=== PATIENT | male | born 1960 | race Caucasian/White ===

== ENCOUNTER 2018-10-16 11:27 | Inpatient (IN) | payer BC ==
--- NOTE | 2018-10-16 12:59 | RAD REPORT ---
EXAM DESCRIPTION: RAD - Chest Single View - 10/16/2018 12:20 pm CLINICAL HISTORY: Abdominal pain, epigastric pain, shortness of breath COMPARISON: January 2016 TECHNIQUE: AP portable chest image was obtained 1215 hours . FINDINGS: Lung volumes are low. No peripheral mass or consolidation. No failure or volume overload. Heart and vasculature are normal. No measurable pleural effusion and no pneumothorax. No acute bony a bnormality seen. No acute aortic findings suspected. IMPRESSION: No acute cardiopulmonary process. No significant interval change.
[2018-10-16 13:32] LABS: Absolute Lymphocytes (CBC) 0.7 K/uL (0.7-4.9); Absolute Monocytes 0.9 K/uL (0.1-1.3); Absolute Neutrophil 14.6 K/uL (1.8-8.0); Basophils % 0.2 % (0-1.3); Hematocrit 52.6 % (39.6-49.0); Lymphocytes % 4.3 % (15.3-44.8); MPV 8.1 fL (7.6-11.3); Monocytes % 5.3 % (3.3-12.3); RBC Red Blood Cell Count 6.77 M/uL (4.33-5.43)
[2018-10-16 13:50] LABS: ALT/SGPT 1309 U/L (12-78); Albumin 3.7 g/dL (3.4-5.0); Alkaline Phosphatase 118 U/L (45-117); BUN Blood Urea Nitrogen 14 mg/dL (7-18); Bicarbonate 21 mmol/L (21-32); Bilirubin Total 4.2 mg/dL (0.2-1.0); Glucose Level 157 mg/dL (74-106); Lipase 4440 U/L (73-393); Potassium 4.2 mmol/L (3.5-5.1); Protein, Total 6.7 g/dL (6.4-8.2); Sodium Level 126 mmol/L (136-145); Troponin (Emerg Dept Use Only) < 0.02 ng/mL (0.0-0.045)
[2018-10-16 13:52] LABS: AST/SGOT 662 U/L (15-37)
[2018-10-16] MEDS ORDERED: Ringers Lactate 1,000 ML IV ONE (14:33)
--- NOTE | 2018-10-16 15:01 | RAD REPORT ---
EXAM DESCRIPTION: CT - Abdomen Pelvis W Contrast - 10/16/2018 2:23 pm CLINICAL HISTORY: Epigastric pain, abdominal pain COMPARISON: None. TECHNIQUE: Biphasic, helical CT imaging of the abdomen and pelvis was performed following 100 ml non -ionic IV contrast. No oral contrast given. All CT scans are performed using dose optimization technique as appropriate and may include automated exposure control or mA/KV adjustment according to patient size. FINDINGS: No suspicious findings in the lung bases. Liver shows diffuse fatty infiltration. No suspicious liver lesion. No splenic abnormality. Gallbladd er is distended but grossly unremarkable. No biliary tree dilatation. Gallstones can be occult. No solid or cystic mass of the pancreas. There is moderate peripancreatic edematous/ inflammatory st randing. There is a mild secondary involvement of the duodenum. Stranding extends along the right par arenal fascia. Symmetric renal function is seen with no hydronephrosis or suspicious renal mass. No pyelonephritis o r acute parenchymal process. No bladder abnormalities. No adrenal abnormalities. No acute gastric finding. Jejunum is prominent likely secondary response to the pancreatitis. No alonzo l obstruction. Hyperdense material within bowel is presumed to be ingested medication. No acute colon finding. Appendix is normal. No free air, free fluid or inflammatory stranding. No mass or bulky l ymphadenopathy. Postsurgical inguinal hernia repair changes are noted. No suspicious bony findings. IMPRESSION: Moderate acute pancreatitis. No abscess, pseudocyst or other emergent finding. There is mild secondary involvement of the duodenum from the pancreatitis. There is a mild secondary fluid retention pattern in jejunum also believed to be related to the pancreatitis.
--- NOTE | 2018-10-16 15:03 | RAD REPORT ---
EXAM DESCRIPTION: US - Abdomen Exam Limited - 10/16/2018 2:51 pm CLINICAL HISTORY: Abdominal pain, right upper quadrant pain COMPARISON: None. FINDINGS: No gallstones are identified. There is a small amount of sludge collecting near the neck o f the gallbladder. There is no wall thickening or pericholecystic fluid. No common duct stone or biliary tree dilatation identified. IMPRESSION: Gallbladder sludge with no other gallbladder or biliary tree finding.
[2018-10-16 15:10] LABS: Blood Morphology Comment NOT SEEN (NOT SEEN)
[2018-10-16 15:11] LABS: Platelet Estimate ADEQ
--- NOTE | 2018-10-16 15:13 | ER ---
Nurse's Notes [facility] Name: Kristopher Koehler Age: 58 yrs Sex: Male : 1960 Arrival Date: 10/16/2018 Time: 11:29 Bed 16 Private MD: Diagnosis: Acute pancreatitis Presentation: 10/16 11:41 Presenting complaint: Patient states: Epigastric pain and shortness of breath with sg abdominal distention unsure when it begins, pt reports " can livertitis cause shortness of breath." Clarified with pt of hepatitis, pt denies history of hepatitis, pt reports his name and birthday but it slow to respond, pt family reports he has a history of being altered when his labs get messed up. Transition of care: patient was not received from another setting of care. Onset of symptoms was October 16, 2018. Risk Assessment: Do you want to hurt yourself or someone else? Patient reports no desire to harm self or others. Initial Sepsis Screen: Does the patient meet any 2 criteria? RR > 20 per min. Does the patient have a suspected source of infection? No. Patient's initial sepsis screen is negative. Care prior to arrival: None. 11:41 Method Of Arrival: Ambulatory sg 11:41 Acuity: RADHA 3 sg Historical: - Allergies: 11:41 Codeine; sg - Home Meds: 11:41 Keppra 1,000 mg Oral tab 1 tab every 12 hours [Active]; levothyroxine 100 mcg tab 1 tab sg once daily [Active]; Ziac 5-6.25 mg Oral tab [Active]; - PMHx: 11:50 Hypertension; Hypothyroidism; raynaud's syndrome; Insulin Resistance; rb1 - PSHx: 11:50 Hernia repairs x 3; right wrist; ACL; rb1 - Immunization history:: Adult Immunizations up to date. - Social history:: Smoking status: Patient/guardian denies using tobacco. - Ebola Screening: : Patient negative for fever greater than or equal to 101.5 degrees Fahrenheit, and additional compatible Ebola Virus Disease symptoms Patient denies exposure to infectious person Patient denies travel to an Ebola-affected area in the 21 days before illness onset No symptoms or risks identified at this time. Screenin:36 Abuse screen: Denies threats or abuse. Nutritional screening: No deficits noted. rb1 Tuberculosis screening: No symptoms or risk factors identified. Fall Risk None identified. Assessment: 11:35 General: Appears in no apparent distress. comfortable, Behavior is calm, cooperative, rb1 Denies fever. Pain: Complains of pain in epigastric area Pain currently is 10 out of 10 on a pain scale. Neuro: Level of Consciousness is awake, alert, obeys commands, Oriented to person, place, time, situation. Cardiovascular: Capillary refill < 3 seconds is brisk in bilateral fingers. Respiratory: Reports shortness of breath Airway is patent Respiratory effort is even, unlabored, Respiratory pattern is regular, symmetrical. GI: Bowel sounds present X 4 quads. Reports nausea, vomiting, Last BM was yesterday, stool was soft. : No signs and/or symptoms were reported regarding the genitourinary system. Derm: Skin is pink, warm \\T\\ dry. Musculoskeletal: Range of motion: intact in all extremities. 11:35 GI: Abdomen is tender to palpation in epigastric area. rb1 12:30 Reassessment: Patient appears in no apparent distress at this time. Patient and/or rb1 family updated on plan of care and expected duration. Pain level reassessed. Patient is alert, oriented x 3, equal unlabored respirations, skin warm/dry/pink. 13:30 Reassessment: Patient appears in no apparent distress at this time. No changes from rb1 previously documented assessment. 14:27 Reassessment: Pt. went to CT. rb1 15:15 Reassessment: Patient appears in no apparent distress at this time. Patient and/or rb1 family updated on plan of care and expected duration. Pain level reassessed. Patient is alert, oriented x 3, equal unlabored respirations, skin warm/dry/pink. 16:15 Reassessment: Patient appears in no apparent distress at this time. No changes from rb1 previously documented assessment. pt. requested pain medication; provider notified. 17:15 Reassessment: Dr. Celestin is at pt bedside. rb1 17:15 Reassessment: Patient appears in no apparent distress at this time. Patient and/or rb1 family updated on plan of care and expected duration. Pain level reassessed. Patient is alert, oriented x 3, equal unlabored respirations, skin warm/dry/pink. 17:48 Reassessment: Tried to call report, DELONTE Xavier is not able to take report at this time rb1 because she is discharging another pt. She will call me back. 17:55 Reassessment: Gave report to DELONTE Xavier. Information from the [facility] was given. All rb1 questions asked and answered. 18:10 Reassessment: Patient appears in no apparent distress at this time. Patient and/or rb1 family updated on plan of care and expected duration. Pain level reassessed. Patient is alert, oriented x 3, equal unlabored respirations, skin warm/dry/pink. Waiting for someone to be available to take the pt. to the floor. Vital Signs: 11:43 BP 152 / 77; Pulse 96; Resp 22; Temp 97.2; Pulse Ox 93% on R/A; Weight 125.19 kg; Pain sg 8/10; 12:30 BP 134 / 96; Pulse 99; Resp 18; Pulse Ox 95% on 2 lpm NC; rb1 13:00 BP 133 / 88; Pulse 90; Resp 19; Pulse Ox 97% on R/A; rb1 14:00 BP 128 / 78; Pulse 77; Resp 18; Pulse Ox 97% on 2 lpm NC; rb1 16:00 BP 117 / 56; Pulse 77; Resp 19; Pulse Ox 96% on 2 lpm NC; Pain 8/10; rb1 17:00 BP 118 / 69; Pulse 80; Resp 20; Pulse Ox 96% on 2 lpm NC; rb1 18:00 BP 131 / 71; Pulse 76; Resp 19; Pulse Ox 96% on 2 lpm NC; rb1 ED Course: 11:29 Patient arrived in ED. as 11:31 Archana Oliveira, DELONTE is Primary Nurse. rb1 11:36 Rob Bucio PA is PHCP. [facility] 11:36 Gigi Cash MD is Attending Physician. m 11:36 Patient has correct armband on for positive identification. Bed in low position. Call rb1 light in reach. Side rails up X 1. Pulse ox on. NIBP on. Warm blanket given. 11:41 Arm band placed on. sg 11:43 Triage completed. sg 12:00 Radiology exam delayed due to lab results not completed at this time. (BUN/Creatinine). kw1 12:17 X-ray completed. Portable x-ray completed in exam room. Patient tolerated procedure ls3 well. 12:20 Chest Single View XRAY In Process Unspecified. EDMS 13:15 Missed attempt(s): 20 gauge in left antecubital area. Bleeding controlled, band aid dh3 applied, catheter tip intact. 13:18 Initial lab(s) drawn, by me, sent to lab. Inserted saline lock: 24 gauge in left hand, dh3 using aseptic technique. Blood collected. 13:53 Notified ED physician of a critical lab result(s). AST 662, ALT 1309, lipase 4440. hb 14:24 CT Abd/Pelvis - W/Contrast In Process Unspecified. EDMS 14:49 Ultrasound completed. Patient tolerated well. sg3 14:52 US Abdomen Limited In Process Unspecified. EDMS 15:13 Paulette Celestin MD is Hospitalizing Provider. m 18:24 No provider procedures requiring assistance completed. Patient admitted, IV remains in rb1 place. Administered Medications: 14:25 Drug: Lactated Ringers Solution 1000 ml Route: IV; Rate: 1000 bolus; Site: right hand; rb1 15:37 Follow up: IV Status: Completed infusion rb1 16:39 Drug: Zosyn 3.375 grams Route: IVPB; Infused Over: 60 mins; Site: right hand; rb1 17:44 Follow up: Response: No adverse reaction; IV Status: Completed infusion rb1 16:39 Drug: NS 0.9% 2000 ml Route: IV; Rate: 200 ml/hr; Site: right hand; rb1 18:20 Follow up: IV Status: Infusion continued upon admission rb1 Outcome: 15:13 Decision to Hospitalize by Provider. m 18:24 Patient left the ED. rb1 18:24 Admitted to Med/surg accompanied by tech, family with patient, via wheelchair, room rb1 216, with oxygen, with chart, Report called to DELONTE Xavier 18:24 Condition: stable 18:24 Instructed on the need for admit. Signatures: Dispatcher [employer] EDMS Charles Macario RN RN Rob Bucio PA PA jmm Martinez, Amelia as Barber, Rebecca, RN DELONTE [facility] Erinn Monroe RN RN Carlee Oglesby 3 Kerri Pedroza1 Hillary Morrow 3 Leonel Perla ls3
--- NOTE | 2018-10-16 15:13 | EDPHYS ---
Physician Documentation [facility] Name: Kristopher Koehler Age: 58 yrs Sex: Male : 1960 Arrival Date: 10/16/2018 Time: 11:29 Bed 16 Private MD: ED Physician Gigi Cash HPI: 10/16 11:49 This 58 yrs old Male presents to ER via Ambulatory with complaints of jmm Abdominal Pain, Shortness Of Breath, Altered Mental Status. 11:49 The patient presents with abdominal pain in the epigastric area, in the upper abdomen. jmm Onset: The symptoms/episode began/occurred gradually, 4 day(s) ago. The symptoms. Associated signs and symptoms: Pertinent positives: nausea and vomiting, diarrhea. The patient has experienced a previous episode. This is a 58 year old male that presents to the ED with epigastric abdominal pain, distension, diarrhea, vomiting, beginning approx 4 days ago. Patient states having similar symptoms in the past. Patient has a surgical history of exploratory laparotomy secondary to similar symptoms. Patient also complains of shortness of breath but denies chest pain. . Historical: - Allergies: 11:41 Codeine; sg - Home Meds: 11:41 Keppra 1,000 mg Oral tab 1 tab every 12 hours [Active]; levothyroxine 100 mcg tab 1 tab sg once daily [Active]; Ziac 5-6.25 mg Oral tab [Active]; - PMHx: 11:50 Hypertension; Hypothyroidism; raynaud's syndrome; Insulin Resistance; rb1 - PSHx: 11:50 Hernia repairs x 3; right wrist; ACL; rb1 - Immunization history:: Adult Immunizations up to date. - Social history:: Smoking status: Patient/guardian denies using tobacco. - Ebola Screening: : Patient negative for fever greater than or equal to 101.5 degrees Fahrenheit, and additional compatible Ebola Virus Disease symptoms Patient denies exposure to infectious person Patient denies travel to an Ebola-affected area in the 21 days before illness onset No symptoms or risks identified at this time. ROS: 11:49 Constitutional: Negative for fever, chills, and weight loss, Cardiovascular: Negative jmm for chest pain, palpitations, and edema. 11:49 Respiratory: Positive for shortness of breath. 11:49 Abdomen/GI: Positive for abdominal pain, nausea and vomiting, diarrhea. 11:49 All other systems are negative. Exam: 11:49 Head/Face: atraumatic. Eyes: EOMI, no conjunctival erythema appreciated ENT: Moist [facility] Mucus Membranes Neck: Trachea midline, Supple Chest/axilla: Normal chest wall appearance and motion. Cardiovascular: Regular rate and rhythm. No edema appreciated Respiratory: Normal respirations, no respiratory distress appreciated 11:49 Constitutional: The patient appears in no acute distress, alert, awake. 11:49 Respiratory: the patient does not display signs of respiratory distress, Respirations: normal, Breath sounds: are clear throughout. 11:49 Abdomen/GI: Inspection: distension, that is mild, obese Bowel sounds: normal, Palpation: soft, mild abdominal tenderness, in the right upper quadrant and left upper quadrant. 11:49 Back: ROM is normal. 11:49 Musculoskeletal/extremity: ROM: intact in all extremities. 11:49 Skin: Appearance: Color: normal in color. 11:49 Neuro: Orientation: is normal, Mentation: is normal, Memory: is normal. 11:49 Psych: Behavior/mood is pleasant, cooperative. Vital Signs: 11:43 BP 152 / 77; Pulse 96; Resp 22; Temp 97.2; Pulse Ox 93% on R/A; Weight 125.19 kg; Pain sg 8/10; 12:30 BP 134 / 96; Pulse 99; Resp 18; Pulse Ox 95% on 2 lpm NC; rb1 13:00 BP 133 / 88; Pulse 90; Resp 19; Pulse Ox 97% on R/A; rb1 14:00 BP 128 / 78; Pulse 77; Resp 18; Pulse Ox 97% on 2 lpm NC; rb1 16:00 BP 117 / 56; Pulse 77; Resp 19; Pulse Ox 96% on 2 lpm NC; Pain 8/10; rb1 17:00 BP 118 / 69; Pulse 80; Resp 20; Pulse Ox 96% on 2 lpm NC; rb1 18:00 BP 131 / 71; Pulse 76; Resp 19; Pulse Ox 96% on 2 lpm NC; rb1 MDM: 11:49 Patient medically screened. [facility] 15:12 Data reviewed: vital signs, nurses notes. Counseling: I had a detailed discussion with [facility] the patient and/or guardian regarding: the historical points, exam findings, and any diagnostic results supporting the discharge/admit diagnosis, lab results, radiology results, the need for further work-up and treatment in the hospital. ED course: I discussed the patient with Dr. Celestin whom accepted admission. . 10/16 11:50 Order name: Basic Metabolic Panel; Complete Time: 13:54 [facility] 10/16 11:50 Order name: CBC with Diff; Complete Time: 15:27 [facility] 10/16 11:50 Order name: Creatinine for Radiology; Complete Time: 13:54 [facility] 10/16 11:50 Order name: Hepatic Function; Complete Time: 13:54 [facility] 10/16 11:50 Order name: Lipase; Complete Time: 13:54 [facility] 10/16 11:50 Order name: Troponin (emerg Dept Use Only); Complete Time: 13:54 [facility] 10/16 11:50 Order name: IV Saline Lock; Complete Time: 16:03 [facility] 10/16 11:50 Order name: Chest Single View XRAY; Complete Time: 13:17 [facility] 10/16 11:50 Order name: CT Abd/Pelvis - W/Contrast; Complete Time: 15: [facility] 10/16 13:34 Order name: Manual Differential; Complete Time: 15:27 [facility] 10/16 13:53 Order name: US Abdomen Limited; Complete Time: 15: [facility] 10/16 11:50 Order name: Labs collected and sent; Complete Time: 16:03 [facility] 10/16 11:50 Order name: EKG - Nurse/Tech; Complete Time: 16:41 jm Administered Medications: 14:25 Drug: Lactated Ringers Solution 1000 ml Route: IV; Rate: 1000 bolus; Site: right hand; rb1 15:37 Follow up: IV Status: Completed infusion rb1 16:39 Drug: Zosyn 3.375 grams Route: IVPB; Infused Over: 60 mins; Site: right hand; rb1 17:44 Follow up: Response: No adverse reaction; IV Status: Completed infusion rb1 16:39 Drug: NS 0.9% 2000 ml Route: IV; Rate: 200 ml/hr; Site: right hand; rb1 18:20 Follow up: IV Status: Infusion continued upon admission rb1 Disposition: 10/17 07:04 Co-signature as Attending Physician, Gigi Cash MD. rn Disposition: 10/16/18 15:13 Hospitalization ordered by Paulette Celestin for Observation. Preliminary diagnosis is Acute pancreatitis. - Bed requested for Telemetry/MedSurg (observation). - Status is Observation. rb1 - Condition is Stable. - Problem is new. - Symptoms are unchanged. UTI on Admission? No Signatures: Dispatcher [employer] EDCharles Jaramillo, RN RN Rob Mckinney PA PA jmm Nieto, Roman, MD MD rn Barber, Rebecca, RN RN rb1 Ann Melvin Corrections: (The following items were deleted from the chart) 10/16 16:09 15:13 Hospitalization Ordered by Paulette Celestin MD for Observation. Preliminary diagnosis eb is Acute pancreatitis. Bed requested for Telemetry/MedSurg (observation). Status is Observation. Condition is Stable. Problem is new. Symptoms are unchanged. UTI on Admission? No. [facility] 18:24 16:09 10/16/2018 15:13 Hospitalization Ordered by Paulette Celestin MD for Observation. rb1 Preliminary diagnosis is Acute pancreatitis. Bed requested for Telemetry/MedSurg (observation). Status is Observation. Condition is Stable. Problem is new. Symptoms are unchanged. UTI on Admission? No. eb
[2018-10-16] MEDS ORDERED: PIPER/TAZO/NS 3.375gm 0 GM/0 ML BAG ONE (16:28)
[2018-10-16] MEDS ORDERED: NA CHLORIDE 0.9% 2,000 ML ONE (16:28)
[2018-10-16] MEDS ORDERED: PIPER/TAZO/NS 3.375gm 3.375 GM/100 ML BAG ONE (16:36)
[2018-10-16] MEDS ORDERED: ONDANSETRON 4 MG/2 ML VIAL ONE (16:54)
[2018-10-16] MEDS ORDERED: MORPHINE 4 MG/ML SYR ONE (16:54)
[2018-10-16] MEDS: NA CHLORIDE 0.9% 1,000 ML IV SCH ×2 (19:09→20:42)
[2018-10-16] MEDS ORDERED: ACETAMINOPHEN 650MG/RECT SUPP RECT PRN (19:09)
[2018-10-16] MEDS ORDERED: ONDANSETRON 4 MG/2 ML VIAL IV PRN (19:09)
[2018-10-16] MEDS ORDERED: MORPHINE 2 MG/ML SYR IV PRN (19:09)
[2018-10-16] MEDS: MORPHINE 4 MG/ML SYR IV PRN (21:50)
[2018-10-17] MEDS ORDERED: PIPER/TAZO/NS 3.375gm 3.375 GM/100 ML BAG ONE (00:48)
[2018-10-17] MEDS: PIPER/TAZO/NS 3.375gm 3.375 GM/100 ML BAG IVPB SCH ×4 (01:06→17:36)
[2018-10-17] MEDS: NA CHLORIDE 0.9% 1,000 ML IV SCH ×4 (01:08→21:49)
[2018-10-17 02:36] VITALS: BMI 25.2
--- NOTE | 2018-10-17 04:41 | HP ---
Date of Admission: 10/16/2018 Consultants: Dr. Vallejo with GI. Chief Complaint: Abdominal pain. History Of Present Illness: The patient is a 58-year-old male with past medical history of hypertens ion, hypothyroidism, who was in his usual state of health until 4 days prior to admission when the pa lisa had sudden onset of abdominal pain, nausea, vomiting, 1 episode of diarrhea along with some silvano phoresis. The patient otherwise denies any fevers, chills. His pain is sharp. It does radiate to t he back in between his shoulder blades. The patient is unable to tolerate any p.o. diet. The patien t's symptoms are constant, moderate, progressively worsening. The patient came into the ER for furth er evaluation. His workup revealed sodium of 126. His liver function enzymes were severely elevated . His total bilirubin was high and his lipase was over 4000. WBC count was elevated with left shift . CT scan of the abdomen and pelvis showed moderate acute pancreatitis. No abscess or pseudocyst. Mild secondary involvement of the duodenum and fluid retention pattern in the jejunum related to the pancreas. Ultrasound of the gallbladder did not show any ductal dilatation, but did show some gallbl adder sludge. No stones in the common bile duct. The patient was then referred for admission. Past Medical History: Hypertension, hypothyroidism. Surgical History: Umbilical hernia repair. Family History: Mom had breast cancer. Social History: The patient denies any tobacco use. Does drink a couple of beers on his days off. 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 Not . Single. Medications: List reviewed. Allergies: TO CODEINE, WHICH CAUSES HIM TO ITCH. Review of Systems: An 11-point system reviewed, negative except as per HPI. Physical Examination: Vital Signs: Blood pressure is 152/77, pulse 96, respirations 22, temperature 97.2, O2 93% on room a ir. General: Awake, alert, oriented x3, in some mild distress due to pain. Ill-appearing male, obese. HEENT: Normocephalic, atraumatic. PERRLA. EOMI. Dry mucous membranes. Oropharynx is clear. Norm al dentition. Conjunctivae are anicteric. Neck: Supple. No JVD. Trachea midline. CVS: S1, S2. Regular rate and rhythm. Peripheral pulses present. Respiratory: Moving air well bilaterally. No wheezing or stridor. No use of accessory muscles. Gastrointestinal: Abdomen is soft. Tenderness to palpation in the epigastric and right upper quadra nt area. No rebound or guarding. Bowel sounds are hypoactive. No masses palpable. The patient has surgical incision, which is well healed from the umbilical hernia. Extremities: No clubbing, cyanosis, or edema. No calf tenderness. Neuro: Cranial nerves 2 through 12 intact grossly. No focal neurological deficit. Speech is normal . Skin: No rashes. Normal skin turgor. Psych: Mood is okay. Affect is flat. Insight and judgment are fair. Laboratory Data: Sodium 126, potassium 4.2, chloride 88, CO2 21, BUN 14, creatinine 0.98, glucose 15 7, calcium 8.2. Total bilirubin 4.2, direct bilirubin 2, AST 662, ALT 1309, alkaline phosphatase 118 . Troponin less than 0.02. Albumin 3.7. Lipase 4440. WBC 16.2, H and H 17.2 and 52.6, platelets 2 35, neutrophils 90%. CT scan of the abdomen and pelvis with contrast shows moderate acute pancreatitis. No abscess, pseud ocyst, or other emergent findings. There is mild secondary involvement of the duodenum from the panc reatitis. There is a mild secondary fluid retention pattern in the jejunum, possibly to be related t o the pancreatitis. Ultrasound of the abdomen shows gallbladder sludge with no other gallbladder or biliary tree finding. Chest x-ray shows no acute cardiopulmonary process. I personally reviewed. Assessment And Plan: A 58-year-old male with: 1.Acute pancreatitis, likely secondary to gallstones, may have recently passed a stone. Bilirubin i s elevated. White count is elevated. Liver enzymes and lipase are elevated. We will keep n.p.o., s tart on IV antibiotics prophylactically. Start on IV fluids. Dr. Vallejo with GI has been consulted. We will obtain MRCP on Thursday. The patient will likely need surgical consultation for cholecystect eliza once pancreatitis has improved. There is no abscess or pseudocyst. Possible infection may be de veloping due to stranding present. Therefore, we will cover with IV antibiotics. The patient does n ot appear septic at this time. 2.Obesity. 3.Essential hypertension. We will resume home medications as appropriate. 4.Hyponatremia. We will check serum osmolality. Hypovolemic. We will continue with IV fluids and monitor sodium level. 5.Hyperbilirubinemia, likely has recent blockage or secondary to sludge. 6.Elevated liver enzymes secondary to above. 7.Hypothyroidism. Continue Synthroid. Plan: Admit the patient to Med-Surg, place as inpatient. ZHEN Voice ID: [id number]
[2018-10-17 05:38] LABS: Absolute Lymphocytes (CBC) 0.7 K/uL (0.7-4.9); Absolute Monocytes 1.2 K/uL (0.1-1.3); Absolute Neutrophil 18.7 K/uL (1.8-8.0); Basophils % 0.1 % (0-1.3); Lymphocytes % 3.3 % (15.3-44.8); MPV 8.7 fL (7.6-11.3); Monocytes % 5.8 % (3.3-12.3); RBC Red Blood Cell Count 6.27 M/uL (4.33-5.43)
[2018-10-17 06:05] LABS: Magnesium 1.7 mg/dL (1.8-2.4); Protein, Total 5.4 g/dL (6.4-8.2)
[2018-10-17 06:07] LABS: Bilirubin Total 7.6 mg/dL (0.2-1.0)
[2018-10-17 08:49] LABS: Blood Morphology Comment NOT SEEN (NOT SEEN); Platelet Estimate ADEQ; Urine White Blood Cell Casts OK
[2018-10-17] MEDS ORDERED: NA CHLORIDE 0.9% 1,000 ML IV ONE (08:49)
[2018-10-17] MEDS ORDERED: VANCOMYCIN 500 MG in NA CHLORIDE 0.9% 100 ML IVPB ONE (09:00)
[2018-10-17] MEDS ORDERED: MAGNESIUM SULFATE 1 gm IVPB 1 GM/100 ML BAG IV ONE (09:00)
[2018-10-17] MEDS: VANCOMYCIN 1.5 GM in NA CHLORIDE 0.9% 500 ML IVPB SCH (10:37)
[2018-10-17] MEDS ORDERED: CEFEPIME 2 GM VIAL IV SCH (13:00)
[2018-10-17 13:01] LABS: Protime INR 1.41
[2018-10-17] MEDS ORDERED: NA CHLORIDE 0.9% 1,000 ML IV SCH (13:22)
--- NOTE | 2018-10-17 13:50 | PN ---
Date of Progress Note: 10/17/2018 History: Patient seen and examined. Chart reviewed and case discussed with RN. Spoke with the tim ent's brother. Treatment plan explained, all questions answered. Brother mentioned that he suspects that the patient has been found with substance abuse, using Ambien and possibly even alcohol to help him sleep. 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 Has been found down, once requi red ICU stay at [facility]. Brother is also worried about the patient's mental health and co ncern about his overall well-being. Feels that the patient may be working too much. The patient sta osito that he still has some abdominal discomfort overall. No nausea or vomiting. Asking for some wate r. Medications: List reviewed. Physical Examination: Vital Signs: Temperature 98.3, heart rate 112, blood pressure 112/60, respirations 20, O2 92% on susan m air. General: Awake, alert, oriented x3, in some mild distress. Ill-appearing male CV: S1, S2. Sinus tachycardia. No murmurs. Peripheral pulses present. Respiratory: Moving air well bilaterally. No wheezing or stridor. Gastrointestinal: Abdomen is soft. Mild tenderness to palpation. Nondistended. Positive bowel lety nds. Extremities: No clubbing, cyanosis, or edema. Neuro: Nonfocal. Laboratory Data: Sodium 126, potassium 5, chloride 91, CO2 22, BUN 13, creatinine 1.35, glucose 164, serum osmolality 267. Lactic acid 5.3, calcium 7.5, magnesium 1.7, total bilirubin 7.6, AST 384, AL T 826, albumin 3, amylase 588, lipase 3778. WBC 20.6, H and H 16 and 50, platelets 137, neutrophils 90%, no bands. Blood cultures pending. Assessment And Plan: A 58-year-old male with: 1.Acute pancreatitis, likely secondary to gallstones. May have recently passed a stone. His total b ilirubin is elevated at 7. Liver enzymes are trending down, however, still elevated. Lipase slightl y down. Keep n.p.o. We will start on some ice chips. Continue IV antibiotics. Dr. Vallejo on board . Will need MRCP on Thursday, possible ERCP. Surgical consultation for cholecystectomy once pancreatit is has improved. There is no abscess or pseudocyst. 2.Possible ascending cholangitis. We will adjust IV antibiotics. Patient appears to be becoming se ptic, has elevated lactate, white blood cell count trending upward. The patient is tachycardic. No fevers. We will start on IV fluid bolus and we will monitor. The patient does have elevated creatini ne now. 3.Acute kidney injury. Continue IV fluids. Monitor creatinine. Avoid NSAIDs. 4.Essential hypertension, stable. 5.Hyponatremia, hypovolemic. Serum osmolality is 267. Sodium level still 126. We will continue to monitor and replace. 6.Hyperbilirubinemia, secondary to above. 7.Elevated liver enzymes, improving. 8.Hypothyroidism. Continue Synthroid. 9.Gastrointestinal and deep venous thrombosis prophylaxis addressed. Plan: Monitor closely. Possible sepsis. Guarded prognosis. /CHUCK Voice ID: [id number] Report ID: [id number]
[2018-10-17] MEDS ORDERED: CEFOXITIN/SWI 2gm 2 GM/20 ML SYR IVP SCH (14:00)
[2018-10-17] MEDS ORDERED: GENTAMICIN SULF 80 MG/2ML INJ ONE (16:35)
[2018-10-17] MEDS ORDERED: GLUCAGON 1 MG/VIAL ONE (16:35)
[2018-10-17] MEDS ORDERED: Phenylephrine HCl 10 MG/ML 1 ML VIAL ONE (18:33)
[2018-10-17] MEDS ORDERED: LIDOCAINE 1% MPF 2 ML AMPULE ONE (18:33)
[2018-10-17] MEDS ORDERED: PROPOFOL 200 MG/20 ML VIAL IV ONE ×2 (18:33)
--- NOTE | 2018-10-17 19:24 | ENDO RPT ---
[address], [address] ERCP PROCEDURE REPORT EXAM DATE: 10/17/2018 PATIENT NAME: Kristopher Koehler MR #: [id number] BIRTHDATE: 1960 ATTENDING: Owen Vallejo Dr STATUS: inpatient PLATFORM INSPECTOR: Rebecca Beasley and Kalli Cervantes RN INDICATIONS: The patient is a 58 yr old Male here for an ERCP due to gallstone pancreatitis, abdominal pain, abnormal imaging, abnormal Liver Function Tests, jaundice, and cholangitis PROCEDURE PERFORMED: ERCP MEDICATIONS: Per Anesthesia. CONSENT: The patient understands the risks and benefits of the procedure and understands that these risks include, but are not limited to: sedation, allergic reaction, infection, perforation and/or bleeding. Alternative means of evaluation and treatment include, among others: physical exam, x-rays, and/or surgical intervention. The patient elects to proceed with this endoscopic procedure. DESCRIPTION OF PROCEDURE: During intra-op preparation period all mechanical medical equipment was checked for proper function. Hand hygiene and appropriate measures for infection prevention was taken. Procedure, possible complications, and alternatives including but not limited to the possibility of bleeding, perforation, tear, infection, sepsis, need for surgery, need for blood transfusion, and anesthesia related complications were explained to the patient. In addition, 5-30% incidence of acute pancreatitis as a result of ERCP were explained. After the risks, benefits and alternatives of the procedure were thoroughly explained, Informed was verified, confirmed and timeout was successfully executed by the treatment team. With the patient in left semi-prone position, medications were administered intravenously.The [id number] ([id number]) was passed from the mouth into the esophagus and further advanced from the esophagus into the stomach. From stomach scope was directed to the second portion of the duodenum. Major papilla was aligned with the duodenoscope. The scope position was confirmed fluoroscopically. Rest of the findings/therapeutics are given below. The scope was then completely withdrawn from the patient and the procedure completed. The pulse, BP, and O2 saturation were monitored and documented by the physician and the nursing staff throughout the entire procedure. The patient was cared for as planned according to standard protocol. The patient was then discharged to recovery in stable condition and with appropriate post procedure care. Marked edema / inflammation was found in the second portion of the duodenum. Gastritis noted in the stomach body. ADVERSE EVENT: There were no complications. IMPRESSIONS: 1. Marked edema / inflammation in the second portion of the duodenum, unable keep possible ampulla in sight and cannulate safely 2. Gastritis noted in the stomach body RECOMMENDATIONS: 1. continue antibiotics 2. transfer to tertiary center for either advance endoscopic procedure or percutaneous biliary stent placement by interventional radiology (if endoscopic approach not possible) REPEAT EXAM: Owen Vallejo Dr eSigned: Owen Vallejo Dr 10/17/2018 7:22 PM cc: CPT CODES: ICD9 CODES: PATIENT NAME: Kristopher Koehler MR#: [id number]
--- NOTE | 2018-10-17 21:23 | RAD REPORT ---
EXAM DESCRIPTION: RAD - Fluoroscopy ERCP - 10/17/2018 7:40 pm CLINICAL HISTORY: Abdominal pain FINDINGS: Four fluoroscopic spot images submitted. Fluoroscopy time 1.[address] Vallejo performed the examination. he attempted to perform an ERCP however the common bile duct and pancreatic duct were unable to be ca nnulated
[2018-10-17] MEDS: MORPHINE 4 MG/ML SYR IV PRN (22:07)
[2018-10-17] MEDS ORDERED: LORazepam 2 MG/ML VIAL IV STA (23:29)
[2018-10-18] MEDS: PIPER/TAZO/NS 3.375gm 3.375 GM/100 ML BAG IVPB SCH ×3 (00:48→16:48)
[2018-10-18] MEDS ORDERED: LORazepam 2 MG/ML VIAL IV ONE (01:00)
[2018-10-18] MEDS ORDERED: WATER FOR INJ,STERILE 10 ML IM PRN (01:28)
[2018-10-18] MEDS ORDERED: ZIPRASIDONE MESYLA 20 MG/VIAL IM ONE ×2 (01:28→01:35)
[2018-10-18] MEDS ORDERED: WATER FOR INJ,STERILE 10 ML ONE (01:35)
[2018-10-18] MEDS: MORPHINE 4 MG/ML SYR IV PRN ×4 (03:19→18:20)
[2018-10-18 03:48] VITALS: O2SAT 94
[2018-10-18] MEDS: VANCOMYCIN 1.5 GM in NA CHLORIDE 0.9% 500 ML IVPB SCH (04:49)
[2018-10-18] MEDS: NA CHLORIDE 0.9% 1,000 ML IV SCH ×3 (04:49→17:48)
[2018-10-18 05:36] LABS: Absolute Lymphocytes (CBC) 0.7 K/uL (0.7-4.9); Absolute Monocytes 0.9 K/uL (0.1-1.3); Absolute Neutrophil 13.4 K/uL (1.8-8.0); Basophils % 0.2 % (0-1.3); Eosinophils % 0.2 % (0-4.4); Lymphocytes % 4.6 % (15.3-44.8); MPV 9.1 fL (7.6-11.3); Monocytes % 5.7 % (3.3-12.3); RBC Red Blood Cell Count 6.09 M/uL (4.33-5.43)
[2018-10-18 06:16] LABS: Albumin 2.6 g/dL (3.4-5.0); Magnesium 2.2 mg/dL (1.8-2.4); Protein, Total 5.1 g/dL (6.4-8.2)
[2018-10-18 06:19] LABS: Bilirubin Total 6.9 mg/dL (0.2-1.0)
[2018-10-18] MEDS ORDERED: SOD POLYSTYREN SUL 15 GM/60 ML UCUP PR ONE (06:47)
[2018-10-18] MEDS ORDERED: CALCIUM GLUC 10% INJ 4.65 MEQ in NA CHLORIDE 0.9% 100 ML IV ONE (06:47)
[2018-10-18] MEDS ORDERED: LIDOCAINE 1% 20 ML MDV ONE (10:26)
[2018-10-18] MEDS ORDERED: HALOPERIDOL LACT 5 MG/ML INJ IM PRN (10:31)
[2018-10-18] MEDS ORDERED: HALOPERIDOL LACT 5 MG/ML INJ ONE (10:41)
--- NOTE | 2018-10-18 11:16 | P.OP ---
Preoperative diagnosis: Need for IV Access Postoperative diagnosis: Need for IV Access Primary procedure: Placement of RIGHT femoral central venous line Secondary procedure: Ultrasound guidance, micro introducer used Anesthesia: Local 1% lidocaine Estimated blood loss: <2cc Specimen: none Findings: Dark nonpulsatile blood returned Complications: None Transferred to: ICU Condition: Serious
--- NOTE | 2018-10-18 12:56 | CON ---
Date of Consultation: 10/18/2018 Reason For Consultation: Placement of a central venous catheter for IV access. Brief History Of Present Illness: The patient is a 58-year-old male with history of hypert ension, hypothyroidism, who came to the hospital on 10/16/2018 with 4-day history of abdominal pain, nausea, vomiting associated with some diarrhea and some diaphoresis. He denied fever or chills. His pain was sharp, radiating through the back between shoulder blades. He was unable to tolerate any p .o., as such he came in the hospital. At the point of my examination, the patient was essentially di soriented and could not answer questions appropriately and as such the information is obtained from t he chart as the patient is currently minimally verbal. Workup revealed sodium on admission of 126. Liver function tests were elevated with his bilirubin an d lipase elevated. CT abdomen was performed as well. He was brought in with a presumptive diagnosis of pancreatitis. Past Medical History: As above, hypertension, hypothyroidism. Past Surgical History: He has an umbilical hernia repair. Family History: His mother had breast cancer. Social History: No tobacco use. He drinks a few beers on his days off socially. He works at a [employer] and lives independently. Not . He is single. Allergies: TO CODEINE, WHICH CAUSES AN ITCH. Home Medications: Unable to obtain due to patient's mental status. Review of Systems: Unable to obtain. Physical Examination: Vital Signs: At the time of my examination, blood pressure 94/50, pulse is 126, respiratory rate 21, temperature 97.0. General: He is awake. He is alert but nonverbal. He becomes lethargic intermittently throughout my examination but is easily arousable and does answer some questions, but mostly nonverbal. HEENT: Otherwise normocephalic. His sclerae are anicteric. His mucous membranes are moist. His or opharynx is clear. Neck: Supple. No JVD. Chest: Normal expansion and excursion. Cardiovascular: Tachycardic. Abdomen: Soft with positive epigastric tenderness to palpation. Extremities: No clubbing, cyanosis, edema. Skin: Warm and dry. Laboratory Data: Reveals a white blood count of 15, down from 20.6 on admission. His hemoglobin 15. 7, his hematocrit 49.0, platelet count is 114, neutrophils are 89%. His PT yesterday on 10/17 was 16 .7, his INR 1.41, PTT was 44.9. His sodium was 128, potassium 6.0, chloride 197, carbon dioxide 23, BUN 14, creatinine 1.3, glucose is 254. His lactic acid was 5.3 on admission, currently 2.9. His ca lcium was 6.6, magnesium is 2.2, total bilirubin is 6.9. His AST 198, ALT 487, alkaline phosphatase is 98. His lipase is 1314 currently down from 3778 on 10/17. He had imaging performed, which includ ed a CT abdomen and pelvis on 10/16, which is officially read as moderate acute pancreatitis. No abs cesses, pseudocyst. There are no emergent finding. There is mild secondary involvement of the duode num from the pancreatitis, mild secondary fluid retention pattern in the jejunum believed to be relat ed to the pancreatitis. In addition, he had a chest x-ray performed, which was officially read as no acute cardiopulmonary processes. He had an abdominal ultrasound as well, which was officially read as gallbladder sludge with no other gallbladder or biliary tree finding. He also had a fluoroscopy w ith Dr. Vallejo. Please see his interpretation for this. Assessment And Plan: This is a 58-year-old male, who comes in with signs of pancreatitis. 1.Continue medical management. 2.I have explained risks, benefits and alternatives to the patient; however, I am somewhat unsure if I can obtain informed consent. I discussed the case with Dr. Celestin who believes this is an emergent placement of a central venous catheter as the patient's potassium continues to rise and electrolyte abnormalities become more severe. He has already pulled out multiple peripheral IVs and as such they have asked for central venous access. I believe that this is likely an emergent need as well and th erefore I have decided to place it under these conditions. However, I have still explained the risks , benefits, and alternatives to the patient. We have made calls to his family, who have not responde d at this point. We will proceed as indicated. Thank you for this interesting consult. ELIEZER/CHUCK Voice ID: [id number] Report ID: [id number]
[2018-10-18] MEDS ORDERED: CEFEPIME/SWI 2gm 2 GM/20 ML SYR IV SCH (13:00)
[2018-10-18] MEDS ORDERED: SODIUM CHLORIDE 0.9% 10ML INJ IV PRN (15:16)
[2018-10-18 17:58] LABS: Potassium 5.1 mmol/L (3.5-5.1)
[2018-10-18 18:53] VITALS: BP 123/87; TEMP 97.5
--- NOTE | 2018-10-18 20:53 | EKG ---
Test Date: 2018-10-16 Test Time: 14:06:46 Process Safety Engineer: ENMANUEL MEASUREMENT RESULTS: Intervals: Rate: 88 AR: 142 QRSD: 72 QT: 378 QTc: 457 [place]: P: 73 AR: 142 QRS: 3 T: 45 INTERPRETIVE STATEMENTS: Normal sinus rhythm Biatrial enlargement Abnormal ECG Compared to ECG 02/06/2016 10:38:51 Atrial abnormality now present Sinus tachycardia no longer present Electronically Signed On 10-18-18 20:48:33 RIG OPERATOR by Marky Arias
--- NOTE | 2018-10-18 22:57 | OP ---
Date of Procedure: 10/18/2018 Surgeon: Keron Crowder MD, Preoperative Diagnosis: Need for intravenous access. Postoperative Diagnosis: Need for intravenous access. Procedure Performed: Placement of right femoral central venous line using ultrasound guidance. Micr ointroducer set was used. Anesthesia: Local 1% lidocaine used. Estimated Blood Loss: 20 cc. Specimen: None. Findings: Dark nonpulsatile blood return. Complications: None. Disposition: The patient remained in ICU in serious condition. Procedure In Detail: After informed consent was obtained, the patient was prepped and draped in usua l sterile fashion after adequate anesthesia achieved. Using ultrasound guidance, I used a microintro ducer set to cannulate the right femoral vein on the first attempt without incident complication. Da rk red nonpulsatile blood was returned. The wire was advanced easily into the femoral vein and confi rmed with ultrasound. The needle was removed at this point, and the wire remained in place. At this point, I made a small masood incision overlying the wire, and the microintroducer sheath was placed. The micro wire was then removed, and wire out was called. Then, the standard wire was placed through the microintroducer sheath without evidence of complication using Seldinger technique. The introduc er sheath was then removed as well. Using sequential dilatation, I then dilated up the tract and jonas eduin the catheter into the right femoral vein without evidence of complication. Dark red nonpulsatile blood was returned through all ports. Wire out was called 2 times and confirmed. All ports then wi thdrew dark red nonpulsatile blood and flushed quite easily with saline until completely clear, and t he catheter was secured to the skin with the included 3-0 silk suture in an interrupted fashion, and a Biopatch and sterile dressing were placed overtop. The patient tolerated the procedure well withou t evidence of complication and remained in the ICU in serious condition throughout the procedure. Al l counts were correct at the end of the case. ELIEZER/MODL Voice ID: [id number] Report ID: [id number]
--- NOTE | 2018-10-19 08:07 | DS ---
Date of Discharge: 10/18/2018 Consultants: Dr. Crowder with General Surgery. Dr. Vallejo with GI. Procedures: 1. On 10/18/2018, central line placement. 2. On 10/17/2018, endoscopy, ERCP. Marked edema inflammation, second portion of the duodenum. Unable to keep ampulla in sight and cannulate safely. Gastritis noted in the stomach and body. Admitting Diagnoses: 1. Acute pancreatitis secondary to gallstones. 2. Obesity. 3. Essential hypertension. 4. Hyponatremia. 5. Hyperbilirubinemia. 6. Elevated liver enzymes. 7. Hypothyroidism. Discharge Diagnoses: 1. Acute pancreatitis secondary to gallstones, status post endoscopic retrograde cholangiopancreatography, unable to cannulate ampulla. Will need percutaneous biliary stent or advanced endoscopic procedure. 2. Ascending cholangitis. 3. Acute kidney injury. 4. Essential hypertension. 5. Hyperkalemia. 6. Hyponatremia, hypovolemic. 7. Hyperbilirubinemia. 8. Elevated liver enzymes. 9. Hypothyroidism. Hospital Course: The patient is a 58-year-old male who comes in with abdominal pain, found to have gallstone pancreatitis with ascending cholangitis. The patient's white blood cell count elevated to 20,000, however, improved with IV antibiotics. The patient was initially started on Zosyn and then vancomycin was added. He did have hyponatremia which improved with IV fluid hydration and he did develop elevated lactate level and multiple electrolyte abnormalities including hyperkalemia, hypocalcemia. The patient was given Kayexalate and calcium gluconate IV. The patient was seen by Dr. Acosta with GI, who performed an ERCP. However, the patient has significant edema and inflammation and he was unable to successfully do a sphincterotomy and he recommended transfer to tertiary care center for special radiology to do percutaneous biliary stent versus advanced endoscopic procedure. Transfer was initiated once Dr. Vallejo recommended the transfer after the procedure and he was accepted on 10/17/2018 at [facility], pending bed placement. The patient is to be transferred to ICU due to his deteriorating status. The patient did have some agitation, required sedated medications, likely withdrawal from daily Ambien. 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 The patient's family was kept abreast of the situation. I also spoke with the sort line worker at [facility], Dr. Hurst, who accepted the patient in the ICU as he is in ICU status and recommended transfer on first priority as first priority first available bed emergently. The patient's lipase, amylase and liver enzymes did improve, however, his total bilirubin remains elevated. He does need either a percutaneous biliary stent or a repeat ERCP. The patient's electrolytes were corrected. The patient will be discharged to [facility], once bed is available. Total time spent transferring the patient was 45 minutes. Physical Examination: General: Awake, alert, oriented x2, confused, ill-appearing male. CV: S1, S2. Sinus tachycardia. Peripheral pulses are present. Respiratory: Moving air well bilaterally. No wheezing. Gastrointestinal: Abdomen is soft. Mild tenderness to palpation. No guarding or rigidity. Bowel sounds are positive. Extremities: No clubbing, cyanosis, or edema. Neurologic: Nonfocal. SA/MODL Voice ID: [id number] Report ID: [id number]
[2018-10-19] MEDS ORDERED: PANTOPRAZOLE 40 MG INJ IVP SCH (09:00)
== END 2018-10-18 19:15 | disposition short-term general hospital (02) | DRG 439 ==
LOC: ER 11:27 → ERHOLD 15:49 → 2ND 18:03 → 3RD-ICU 10-17 21:28
PROVIDERS: ADMIT Family Medicine; ATTEND Family Medicine
PROC: BF18YZZ Fluoroscopy of Pancreatic Ducts using Other Contrast (ICD-10-PCS; 2018-10-17)
PROC: 0FJD8ZZ Inspection of Pancreatic Duct, Via Natural or Artificial Opening Endoscopic (ICD-10-PCS; principal; 2018-10-17 18:00)
PROC: 06HM33Z Insertion of Infusion Device into Right Femoral Vein, Percutaneous Approach (ICD-10-PCS; 2018-10-18)
PROC: B54BZZA Ultrasonography of Right Lower Extremity Veins, Guidance (ICD-10-PCS; 2018-10-18)
DX: K85.10 Biliary acute pancreatitis without necrosis or infection (principal); E87.1 Hypo-osmolality and hyponatremia; N17.9 Acute kidney failure, unspecified; K83.09 Other cholangitis; K29.70 Gastritis, unspecified, without bleeding; Z88.5 Allergy status to narcotic agent; E03.9 Hypothyroidism, unspecified; I73.00 Raynaud's syndrome without gangrene; I10 Essential (primary) hypertension; E86.1 Hypovolemia; E80.6 Other disorders of bilirubin metabolism; R94.5 Abnormal results of liver function studies; E87.5 Hyperkalemia; E83.51 Hypocalcemia
CPT/HCPCS: 36415; 71045; 74177; 76705; 80048; 80053; 80076; 82150; 83605; 83690; 83735; 83930; 84132; 84478; 84484; 85025; 85610; 85730; 87040; 93005; 94760; 96361; 96365; 99285; C1769; J0610; J0692; J0694; J1580; J1610; J1630; J2001; J2370; J2405; J2543; J2704; J3475; J3486; J7030; Q9967

== ENCOUNTER 2019-04-02 20:28 | Emergency (ER) | payer BC ==
--- OUTSIDE RECORDS SUMMARY | 2019-04-02 20:32 | XMS REPORT ---
:1960 Author Organization [facility] Address [address] [place] [address] Care Team Providers Name Role Phone GEORGETTE SOSA Unavailable Unavailable Problems This patient has no known problems. Allergies, Adverse Reactions, Alerts This patient has no known allergies or adverse reactions. Medications This patient has no known medications. Results Test Description Test Time Test Comments Text Results Atomic Results Result Comments [place], ERCP 2018-12-22 12:22:00 Reason for exam:->abnormal FINAL REPORT PATIENT ID: imaging [id number] ERCP, 12/22/2018 Clinical History: Abnormal imaging Impression: Intraoperative images are obtained. The radiologist is not present during the procedure. Fluoroscopy was not performed by the undersigned. Images are presented for interpretation at the completion of the procedure. Please refer to the procedure report for more details. Seven images minute demonstrating interrogation of the common duct. Fluoroscopy time is 55 seconds. Signed: Raquel Schwartz MDReport Verified Date/Time: 12/22/2018 12:22:23 Reading Location: [address] Radiology Reading Room D CULTURE 2018-10-29 12:55:00 Test Item Value Reference Range Comments CULTURE (BEAKER) (test From Aerobic Bottle Only Same wmpl=3837) organism has been isolated from cultures(s) of the same body site within 3 days. Repeat identification and susceptibility testing performed only after consultation with the clinical microbiology laboratory.Refer to previous culture of* - Staphylococcus lugdunensis GRAM STAIN RESULT (BEAKER) From aerobic bottle (test ftgl=7454) only: gram positive cocci in clusters POCT-GLUCOSE [id number] 18:11:00 Test Item Value Reference Range Comments POC-GLUCOSE METER (BEAKER) 116 mg/dL 70-110 TESTED AT [address] (test bbeb=9769) [facility] [address] POCT-GLUCOSE [id number] 13:23:00 Test Item Value Reference Range Comments POC-GLUCOSE METER (BEAKER) 122 mg/dL 70-110 TESTED AT [address] (test mdlf=7750) [facility] [address] POCT-GLUCOSE [id number] 08:24:00 Test Item Value Reference Range Comments POC-GLUCOSE METER (BEAKER) 138 mg/dL 70-110 TESTED AT [address] (test borf=0698) [facility] [address] CALCIUM, [id number] 06:13:00 Test Item Value Reference Range Comments CALCIUM IONIZED (BEAKER) (test wvee=181) 1.06 mmol/L 1.12-1.27 PH, BLOOD (BEAKER) (test orxb=4991) 7.43 COMPREHENSIVE METABOLIC [id number] 05:50:00 Test Item Value Reference Range Comments TOTAL PROTEIN (BEAKER) 5.3 gm/dL 6.0-8.3 (test oqra=553) ALBUMIN (BEAKER) (test 2.6 g/dL 3.5-5.0 bpoi=5867) ALKALINE PHOSPHATASE 153 U/L 40-150 (BEAKER) (test hldy=020) BILIRUBIN TOTAL (BEAKER) 1.8 mg/dL 0.2-1.2 (test cgrc=904) SODIUM (BEAKER) (test 142 meq/L 136-145 jaff=041) POTASSIUM (BEAKER) (test 3.1 meq/L 3.5-5.1 dcve=866) CHLORIDE (BEAKER) (test 107 meq/L 98-107 mefo=501) CO2 (BEAKER) (test 26 meq/L 22-29 uxqm=733) BLOOD UREA NITROGEN 9 mg/dL 7-21 (BEAKER) (test mljc=370) CREATININE (BEAKER) (test 0.99 mg/dL 0.57-1.25 pkqj=354) GLUCOSE RANDOM (BEAKER) 108 mg/dL 70-105 (test ticp=893) CALCIUM (BEAKER) (test 8.2 mg/dL 8.4-10.2 ujqh=244) AST (SGOT) (BEAKER) (test 72 U/L 5-34 nemn=309) ALT (SGPT) (BEAKER) (test 142 U/L 6-55 xuso=295) EGFR (BEAKER) (test 78 mL/min/1.73 sq m ESTIMATED GFR IS NOT fpzi=2124) ACCURATE CREATININE CLEARANCE IN PREDICTING GLOMERULAR FILTRATION RATE. ESTIMATED GFR IS NOT APPLICABLE FOR DIALYSIS PATIENTS. [id number] 05:48:00 Test Item Value Reference Range Comments PHOSPHORUS (BEAKER) (test cgig=567) 3.0 mg/dL 2.3-4.7 [id number] 05:48:00 Test Item Value Reference Range Comments MAGNESIUM (BEAKER) (test jymi=193) 1.8 mg/dL 1.6-2.6 CBC W/PLT COUNT & AUTO [id number] 05:45:00 Test Item Value Reference Range Comments WHITE BLOOD CELL COUNT (BEAKER) (test igrn=365) 12.9 K/ L 3.5-10.5 RED BLOOD CELL COUNT (BEAKER) (test pxsp=519) 3.70 M/ L 4.63-6.08 HEMOGLOBIN (BEAKER) (test lbmc=223) 9.5 GM/DL 13.7-17.5 HEMATOCRIT (BEAKER) (test qjvl=374) 30.8 % 40.1-51.0 MEAN CORPUSCULAR VOLUME (BEAKER) (test lvdr=305) 83.2 fL 79.0-92.2 MEAN CORPUSCULAR HEMOGLOBIN (BEAKER) (test 25.7 pg 25.7-32.2 kqak=558) MEAN CORPUSCULAR HEMOGLOBIN CONC (BEAKER) (test 30.8 GM/DL 32.3-36.5 emwh=032) RED CELL DISTRIBUTION WIDTH (BEAKER) (test 16.2 % 11.6-14.4 yilu=652) PLATELET COUNT (BEAKER) (test qjzf=489) 358 K/CU MM 150-450 MEAN PLATELET VOLUME (BEAKER) (test jkwf=815) 10.4 fL 9.4-12.4 NUCLEATED RED BLOOD CELLS (BEAKER) (test 0 /100 WBC 0-0 yvto=337) NEUTROPHILS RELATIVE PERCENT (BEAKER) (test 73 % cyhl=109) LYMPHOCYTES RELATIVE PERCENT (BEAKER) (test 10 % iuhp=933) MONOCYTES RELATIVE PERCENT (BEAKER) (test 10 % eeys=661) EOSINOPHILS RELATIVE PERCENT (BEAKER) (test 2 % uefm=223) BASOPHILS RELATIVE PERCENT (BEAKER) (test 1 % rtgw=757) NEUTROPHILS ABSOLUTE COUNT (BEAKER) (test 9.36 K/ L 1.78-5.38 jkgj=869) LYMPHOCYTES ABSOLUTE COUNT (BEAKER) (test 1.34 K/ L 1.32-3.57 fatv=067) MONOCYTES ABSOLUTE COUNT (BEAKER) (test 1.32 K/ L 0.30-0.82 bvsq=320) EOSINOPHILS ABSOLUTE COUNT (BEAKER) (test 0.26 K/ L 0.04-0.54 hnxf=635) BASOPHILS ABSOLUTE COUNT (BEAKER) (test 0.07 K/ L 0.01-0.08 blqj=199) IMMATURE GRANULOCYTES-RELATIVE PERCENT (BEAKER) 4 % 0-1 (test yseh=4435) CT, [id number] 22:04:00FINAL REPORT TECHNIQUE: CT of the abdomen and pelvis WITH intravenous contrast and WITHOUT oral contrast. Dose modulation, iterative reconstruction, and/or weight-based adjustment of the mA/kV was utilized to reduce the radiation dose to as low as reasonably achievable. INDICATION: pancreatitis with persistent fever.. COMPARISON: None. FINDINGS: LOWER THORAX: Bibasilar subsegmental atelectasis with a small left pleural effusion. HEPATOBILIARY: The liver is diffusely decreasedin attenuation. No focal hepatic lesions. Contrast in the gallbladder from the prior ERCP. A plasticstent is seen within the distal common bile duct with its tip likely at the ampulla of Vater. SPLEEN: The spleen is at the upper limit of normal at 13 cm.PANCREAS: There are scattered areas of nonenhancement in the pancreas, mainly in the pancreatic body and head. There is likely approximately 20-30%necrosis of the pancreas. Adjacent fluid collections which involve the pancreas extending down both paracolic gutters and in the left upper quadrant. These findings are most consistent with walled off necrosis which measures up to 27.5 x 4.5 x 14.6 cm. ADRENALS: No adrenal nodules.KIDNEYS/URETERS: No hydronephrosis, stones, or masses.PELVIC ORGANS/BLADDER: Unremarkable. PERITONEUM/RETROPERITONEUM: Nofree air or fluid. Prior bilateral inguinal hernia repair with mesh. LYMPH NODES: No lymphadenopathy.VESSELS: The splenic vein is narrowed adjacent to the necrotic pancreas. Mild narrowing of the superior mesenteric vein adjacent to the wall of necrosis. GI TRACT: No distention or wall thickening. Theappendix is normal. BONES AND SOFT TISSUES: Unremarkable. 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 No specific findings for infection. 2.Diffusefatty infiltration of the liver. Signed: Roberth Dominguez MDReport Verified Date/Time: 10/26/2018 22:04:35 Reading Location: [facility] C0[facility] Consult Reading Room POCT-GLUCOSE [id number] 21:12:00 Test Item Value Reference Range Comments POC-GLUCOSE METER (BEAKER) 148 mg/dL 70-110 TESTED AT [address] (test lxso=3512) [place] [address] BLOOD [id number] 19:01:00 Test Item Value Reference Range Comments CULTURE (BEAKER) (test mxod=4402) No growth in 5 days BLOOD [id number] 19:01:00 Test Item Value Reference Range Comments CULTURE (BEAKER) (test udbc=2630) No growth in 5 days POCT-GLUCOSE [id number] 18:10:00 Test Item Value Reference Range Comments POC-GLUCOSE METER (BEAKER) 164 mg/dL 70-110 TESTED AT [address] (test wbbx=0979) [place] [id number] POCT-GLUCOSE [id number] 12:43:00 Test Item Value Reference Range Comments POC-GLUCOSE METER (BEAKER) 146 mg/dL 70-110 TESTED AT [address] (test xoja=4805) [place] [id number] POCT-GLUCOSE [id number] 09:54:00 Test Item Value Reference Range Comments POC-GLUCOSE METER (BEAKER) 151 mg/dL 70-110 TESTED AT [address] (test qrnz=3687) [place] [id number] CALCIUM, [id number] 06:13:00 Test Item Value Reference Range Comments CALCIUM IONIZED (BEAKER) (test agjv=045) 1.05 mmol/L 1.12-1.27 PH, BLOOD (BEAKER) (test snex=6453) 7.41 BASIC METABOLIC [id number] 05:28:00 Test Item Value Reference Range Comments SODIUM (BEAKER) (test 142 meq/L 136-145 rilp=416) POTASSIUM (BEAKER) (test 3.2 meq/L 3.5-5.1 smwl=848) CHLORIDE (BEAKER) (test 108 meq/L 98-107 gsfj=462) CO2 (BEAKER) (test 25 meq/L 22-29 hvdu=745) BLOOD UREA NITROGEN 9 mg/dL 7-21 (BEAKER) (test nftn=631) CREATININE (BEAKER) (test 1.02 mg/dL 0.57-1.25 cvoo=231) GLUCOSE RANDOM (BEAKER) 120 mg/dL 70-105 (test dsqg=811) CALCIUM (BEAKER) (test 7.9 mg/dL 8.4-10.2 tpvf=570) EGFR (BEAKER) (test 75 mL/min/1.73 sq m ESTIMATED GFR IS NOT htec=5643) ACCURATE CREATININE CLEARANCE IN PREDICTING GLOMERULAR FILTRATION RATE. ESTIMATED GFR IS NOT APPLICABLE FOR DIALYSIS PATIENTS. [id number] 05:20:00 Test Item Value Reference Range Comments PHOSPHORUS (BEAKER) (test ukyx=073) 3.0 mg/dL 2.3-4.7 CBC W/PLT COUNT & AUTO [id number] 05:12:00 Test Item Value Reference Range Comments WHITE BLOOD CELL COUNT (BEAKER) (test aoiz=680) 16.3 K/ L 3.5-10.5 RED BLOOD CELL COUNT (BEAKER) (test ncyq=240) 3.65 M/ L 4.63-6.08 HEMOGLOBIN (BEAKER) (test bgty=347) 9.3 GM/DL 13.7-17.5 HEMATOCRIT (BEAKER) (test pobo=443) 29.9 % 40.1-51.0 MEAN CORPUSCULAR VOLUME (BEAKER) (test bxky=866) 81.9 fL 79.0-92.2 MEAN CORPUSCULAR HEMOGLOBIN (BEAKER) (test 25.5 pg 25.7-32.2 wkll=307) MEAN CORPUSCULAR HEMOGLOBIN CONC (BEAKER) (test 31.1 GM/DL 32.3-36.5 netc=355) RED CELL DISTRIBUTION WIDTH (BEAKER) (test 16.1 % 11.6-14.4 phvv=434) PLATELET COUNT (BEAKER) (test yvtq=785) 263 K/CU MM 150-450 MEAN PLATELET VOLUME (BEAKER) (test vzfw=746) 10.2 fL 9.4-12.4 NUCLEATED RED BLOOD CELLS (BEAKER) (test 0 /100 WBC 0-0 laiw=537) NEUTROPHILS RELATIVE PERCENT (BEAKER) (test 77 % mcdr=353) LYMPHOCYTES RELATIVE PERCENT (BEAKER) (test 8 % hueu=830) MONOCYTES RELATIVE PERCENT (BEAKER) (test 8 % siqz=876) EOSINOPHILS RELATIVE PERCENT (BEAKER) (test 2 % fikz=053) BASOPHILS RELATIVE PERCENT (BEAKER) (test 0 % hrev=342) NEUTROPHILS ABSOLUTE COUNT (BEAKER) (test 12.53 K/ L 1.78-5.38 aerb=371) LYMPHOCYTES ABSOLUTE COUNT (BEAKER) (test 1.37 K/ L 1.32-3.57 sbmr=334) MONOCYTES ABSOLUTE COUNT (BEAKER) (test 1.28 K/ L 0.30-0.82 ywfe=890) EOSINOPHILS ABSOLUTE COUNT (BEAKER) (test 0.33 K/ L 0.04-0.54 kzmk=829) BASOPHILS ABSOLUTE COUNT (BEAKER) (test 0.07 K/ L 0.01-0.08 hehk=502) IMMATURE GRANULOCYTES-RELATIVE PERCENT (BEAKER) 5 % 0-1 (test ewpw=7056) POCT-GLUCOSE [id number] 22:35:00 Test Item Value Reference Range Comments POC-GLUCOSE METER (BEAKER) 126 mg/dL 70-110 TESTED AT [address] (test axdf=8526) [facility] [address] POCT-GLUCOSE [id number] 18:09:00 Test Item Value Reference Range Comments POC-GLUCOSE METER (BEAKER) 163 mg/dL 70-110 TESTED AT [address] (test ckhv=0472) [facility] [address] CBC W/PLT COUNT & AUTO [id number] 14:09:00 Test Item Value Reference Range Comments WHITE BLOOD CELL COUNT (BEAKER) (test tkyt=985) 19.1 K/ L 3.5-10.5 RED BLOOD CELL COUNT (BEAKER) (test ycqo=859) 3.72 M/ L 4.63-6.08 HEMOGLOBIN (BEAKER) (test jolt=337) 9.6 GM/DL 13.7-17.5 HEMATOCRIT (BEAKER) (test wlzk=172) 30.4 % 40.1-51.0 MEAN CORPUSCULAR VOLUME (BEAKER) (test ouuz=251) 81.7 fL 79.0-92.2 MEAN CORPUSCULAR HEMOGLOBIN (BEAKER) (test 25.8 pg 25.7-32.2 lhog=709) MEAN CORPUSCULAR HEMOGLOBIN CONC (BEAKER) (test 31.6 GM/DL 32.3-36.5 eeaj=684) RED CELL DISTRIBUTION WIDTH (BEAKER) (test 16.4 % 11.6-14.4 cxxm=269) PLATELET COUNT (BEAKER) (test pumh=350) 244 K/CU MM 150-450 MEAN PLATELET VOLUME (BEAKER) (test qotu=560) 9.9 fL 9.4-12.4 NUCLEATED RED BLOOD CELLS (BEAKER) (test 0 /100 WBC 0-0 itik=754) (CELLAVISION MANUAL DIFF)2018-10-25 14:09:00 Test Item Value Reference Range Comments NEUTROPHILS - REL (CELLAVISION)(BEAKER) (test 84 % gmrq=8208) LYMPHOCYTES - REL (CELLAVISION)(BEAKER) (test 7 % ibru=6232) MONOCYTES - REL (CELLAVISION)(BEAKER) (test 6 % snxf=5921) MYELOCYTES - REL (CELLAVISION)(BEAKER) (test 2 % 0-0 twsu=6543) BANDS - REL (CELLAVISION)(BEAKER) (test 1 % 0-10 cngg=2916) NEUTROPHILS - ABS (CELLAVISION)(BEAKER) (test 16.04 K/ul 1.78-5.38 mofx=0643) LYMPHOCYTES - ABS (CELLAVISION)(BEAKER) (test 1.34 K/ul 1.32-3.57 azbw=7162) MONOCYTES - ABS (CELLAVISION)(BEAKER) (test 1.15 K/uL 0.30-0.82 ejii=0720) MYELOCYTES-ABS (CELLAVISION)(BEAKER) (test 0.38 K/uL 0.00-0.00 xbxl=3408) BANDS - ABS (CELLAVISION)(BEAKER) (test 0.19 K/uL 0.00-0.80 rdxq=0058) TOTAL COUNTED (BEAKER) (test mmah=7639) 100 WBC MORPHOLOGY (BEAKER) (test ipqz=364) Normal PLT MORPHOLOGY (BEAKER) (test icdf=767) Normal ANISOCYTOSIS (BEAKER) (test fboc=662) 1+ few ARTIFACT (CELLAVISION)(BEAKER) (test zzom=3058) Present PLATELET CONCENTRATION (CELLAVISION)(BEAKER) Adequate (test ehza=3765) Received comment: User comments: Slide comments:POCT-GLUCOSE [id number] 12: 37:00 Test Item Value Reference Range Comments POC-GLUCOSE METER (BEAKER) 171 mg/dL 70-110 TESTED AT [address] (test hmpw=0041) [place] [id number] POCT-GLUCOSE [id number] 08:02:00 Test Item Value Reference Range Comments POC-GLUCOSE METER (BEAKER) 164 mg/dL 70-110 TESTED AT [address] (test rhym=2796) [facility] [address] [id number] 07:28:00 Test Item Value Reference Range Comments PHOSPHORUS (BEAKER) (test gfwk=081) 3.0 mg/dL 2.3-4.7 COMPREHENSIVE METABOLIC [id number] 07:28:00 Test Item Value Reference Range Comments TOTAL PROTEIN (BEAKER) 4.9 gm/dL 6.0-8.3 (test lttp=378) ALBUMIN (BEAKER) (test 2.5 g/dL 3.5-5.0 rshn=7644) ALKALINE PHOSPHATASE 195 U/L 40-150 (BEAKER) (test zbbg=855) BILIRUBIN TOTAL (BEAKER) 2.4 mg/dL 0.2-1.2 (test qogq=973) SODIUM (BEAKER) (test 142 meq/L 136-145 hpmt=314) POTASSIUM (BEAKER) (test 3.3 meq/L 3.5-5.1 xcjr=927) CHLORIDE (BEAKER) (test 108 meq/L 98-107 iacq=516) CO2 (BEAKER) (test 28 meq/L 22-29 zrcw=165) BLOOD UREA NITROGEN 11 mg/dL 7-21 (BEAKER) (test imsn=176) CREATININE (BEAKER) (test 0.94 mg/dL 0.57-1.25 skhd=593) GLUCOSE RANDOM (BEAKER) 145 mg/dL 70-105 (test knir=481) CALCIUM (BEAKER) (test 8.1 mg/dL 8.4-10.2 ovdu=241) AST (SGOT) (BEAKER) (test 113 U/L 5-34 fpva=253) ALT (SGPT) (BEAKER) (test 191 U/L 6-55 eldo=768) EGFR (BEAKER) (test 82 mL/min/1.73 sq m ESTIMATED GFR IS NOT ttkg=5834) ACCURATE CREATININE CLEARANCE IN PREDICTING GLOMERULAR FILTRATION RATE. ESTIMATED GFR IS NOT APPLICABLE FOR DIALYSIS PATIENTS. CALCIUM, [id number] 06:53:00 Test Item Value Reference Range Comments CALCIUM IONIZED (BEAKER) (test hngw=351) 1.06 mmol/L 1.12-1.27 PH, BLOOD (BEAKER) (test mdbh=9606) 7.42 POCT-GLUCOSE [id number] 20:58:00 Test Item Value Reference Range Comments POC-GLUCOSE METER (BEAKER) 135 mg/dL 70-110 TESTED AT [address] (test dfli=3446) [facility] [address] POCT-GLUCOSE [id number] 18:06:00 Test Item Value Reference Range Comments POC-GLUCOSE METER (BEAKER) 232 mg/dL 70-110 TESTED AT [address] (test ccsj=9070) [facility] [address] CBC W/PLT COUNT & AUTO [id number] 14:59:00 Test Item Value Reference Range Comments WHITE BLOOD CELL COUNT (BEAKER) (test swzl=029) 18.4 K/ L 3.5-10.5 RED BLOOD CELL COUNT (BEAKER) (test jxdw=217) 3.98 M/ L 4.63-6.08 HEMOGLOBIN (BEAKER) (test pyhn=208) 10.2 GM/DL 13.7-17.5 HEMATOCRIT (BEAKER) (test tfav=836) 32.4 % 40.1-51.0 MEAN CORPUSCULAR VOLUME (BEAKER) (test fjou=989) 81.4 fL 79.0-92.2 MEAN CORPUSCULAR HEMOGLOBIN (BEAKER) (test 25.6 pg 25.7-32.2 azzr=002) MEAN CORPUSCULAR HEMOGLOBIN CONC (BEAKER) (test 31.5 GM/DL 32.3-36.5 ukmz=630) RED CELL DISTRIBUTION WIDTH (BEAKER) (test 16.5 % 11.6-14.4 mthq=991) PLATELET COUNT (BEAKER) (test txfp=193) 211 K/CU MM 150-450 MEAN PLATELET VOLUME (BEAKER) (test shag=965) 10.6 fL 9.4-12.4 NUCLEATED RED BLOOD CELLS (BEAKER) (test 0 /100 WBC 0-0 zccs=583) (CELLAVISION MANUAL DIFF)2018-10-24 14:59:00 Test Item Value Reference Range Comments NEUTROPHILS - REL (CELLAVISION)(BEAKER) (test 83 % paqc=4114) LYMPHOCYTES - REL (CELLAVISION)(BEAKER) (test 5 % keyj=1257) MONOCYTES - REL (CELLAVISION)(BEAKER) (test 6 % jkid=7307) BASOPHILS - REL (CELLAVISION)(BEAKER) (test 2 % erfc=2225) MYELOCYTES - REL (CELLAVISION)(BEAKER) (test 1 % 0-0 rfza=1193) BANDS - REL (CELLAVISION)(BEAKER) (test 3 % 0-10 iotu=2588) NEUTROPHILS - ABS (CELLAVISION)(BEAKER) (test 15.27 K/ul 1.78-5.38 ltzj=7585) LYMPHOCYTES - ABS (CELLAVISION)(BEAKER) (test 0.92 K/ul 1.32-3.57 bnky=8519) MONOCYTES - ABS (CELLAVISION)(BEAKER) (test 1.10 K/uL 0.30-0.82 fgme=5224) BASOPHILS - ABS (CELLAVISION)(BEAKER) (test 0.37 K/uL 0.01-0.08 mhiv=8783) MYELOCYTES-ABS (CELLAVISION)(BEAKER) (test 0.18 K/uL 0.00-0.00 limj=3527) BANDS - ABS (CELLAVISION)(BEAKER) (test 0.55 K/uL 0.00-0.80 fjiy=5500) TOTAL COUNTED (BEAKER) (test qthg=5781) 100 PLT MORPHOLOGY (BEAKER) (test guee=258) Normal SMUDGE CELLS (BEAKER) (test ytee=5386) Present POLYCHROMATOPHILLIC RBCS(BEAKER) (test ptuj=366) 1+ few HYPOCHROMIA (BEAKER) (test ihrf=584) 1+ few ANISOCYTOSIS (BEAKER) (test rryy=965) 1+ few PLATELET CONCENTRATION (CELLAVISION)(BEAKER) Adequate (test fcha=5779) Received comment: User comments: Slide comments:POCT-GLUCOSE [id number] 12: 41:00 Test Item Value Reference Range Comments POC-GLUCOSE METER (BEAKER) 165 mg/dL 70-110 TESTED AT [facility] [address] [facility] (test zovf=3138) [facility] [address] [id number] 10:58:00 Test Item Value Reference Range Comments PHOSPHORUS (BEAKER) (test uefc=978) 3.5 mg/dL 2.3-4.7 COMPREHENSIVE METABOLIC [id number] 10:58:00 Test Item Value Reference Range Comments TOTAL PROTEIN (BEAKER) 5.1 gm/dL 6.0-8.3 (test wecl=353) ALBUMIN (BEAKER) (test 2.5 g/dL 3.5-5.0 ifvx=1778) ALKALINE PHOSPHATASE 223 U/L 40-150 (BEAKER) (test yrjd=204) BILIRUBIN TOTAL (BEAKER) 2.9 mg/dL 0.2-1.2 (test zwvb=818) SODIUM (BEAKER) (test 142 meq/L 136-145 obgs=011) POTASSIUM (BEAKER) (test 3.3 meq/L 3.5-5.1 gwlo=074) CHLORIDE (BEAKER) (test 105 meq/L 98-107 bxxf=401) CO2 (BEAKER) (test 26 meq/L 22-29 ujlt=835) BLOOD UREA NITROGEN 12 mg/dL 7-21 (BEAKER) (test sqtb=924) CREATININE (BEAKER) (test 0.81 mg/dL 0.57-1.25 nvik=223) GLUCOSE RANDOM (BEAKER) 117 mg/dL 70-105 (test elur=728) CALCIUM (BEAKER) (test 8.3 mg/dL 8.4-10.2 gkgz=079) AST (SGOT) (BEAKER) (test 96 U/L 5-34 mndi=471) ALT (SGPT) (BEAKER) (test 177 U/L 6-55 zfzg=576) EGFR (BEAKER) (test 98 mL/min/1.73 sq m ESTIMATED GFR IS NOT ilhh=3028) ACCURATE CREATININE CLEARANCE IN PREDICTING GLOMERULAR FILTRATION RATE. ESTIMATED GFR IS NOT APPLICABLE FOR DIALYSIS PATIENTS. Specimen slightly ictericPOCT-GLUCOSE [id number] 08:31:00 Test Item Value Reference Range Comments POC-GLUCOSE METER (BEAKER) 169 mg/dL 70-110 TESTED AT [facility] [address] [facility] (test iedk=3345) [facility] [address] CALCIUM, [id number] 07:18:00 Test Item Value Reference Range Comments CALCIUM IONIZED (BEAKER) (test rrsz=886) 1.10 mmol/L 1.12-1.27 PH, BLOOD (BEAKER) (test hgfe=2012) 7.43 CBC W/PLT COUNT & AUTO [id number] 23:24:00 Test Item Value Reference Range Comments WHITE BLOOD CELL COUNT (BEAKER) (test unmr=462) 21.5 K/ L 3.5-10.5 RED BLOOD CELL COUNT (BEAKER) (test rdpk=787) 4.24 M/ L 4.63-6.08 HEMOGLOBIN (BEAKER) (test bfrg=886) 10.9 GM/DL 13.7-17.5 HEMATOCRIT (BEAKER) (test nhnf=414) 33.3 % 40.1-51.0 MEAN CORPUSCULAR VOLUME (BEAKER) (test ludg=278) 78.5 fL 79.0-92.2 MEAN CORPUSCULAR HEMOGLOBIN (BEAKER) (test 25.7 pg 25.7-32.2 mfpr=945) MEAN CORPUSCULAR HEMOGLOBIN CONC (BEAKER) (test 32.7 GM/DL 32.3-36.5 ntjb=154) RED CELL DISTRIBUTION WIDTH (BEAKER) (test 16.2 % 11.6-14.4 ubjd=112) PLATELET COUNT (BEAKER) (test zcfm=161) 194 K/CU MM 150-450 MEAN PLATELET VOLUME (BEAKER) (test duro=385) 9.6 fL 9.4-12.4 NUCLEATED RED BLOOD CELLS (BEAKER) (test 0 /100 WBC 0-0 xftz=451) (CELLAVISION MANUAL DIFF)[id number] 23:24:00 Test Item Value Reference Range Comments NEUTROPHILS - REL (CELLAVISION)(BEAKER) (test 81 % tcbc=3784) LYMPHOCYTES - REL (CELLAVISION)(BEAKER) (test 5 % apso=5114) MONOCYTES - REL (CELLAVISION)(BEAKER) (test 4 % cohd=9249) EOSINOPHILS - REL (CELLAVISION)(BEAKER) (test 2 % nmgg=1213) METAMYELOCYTES - REL (CELLAVISION)(BEAKER) (test 2 % 0-0 cvit=2413) MYELOCYTES - REL (CELLAVISION)(BEAKER) (test 1 % 0-0 yrzk=0497) BANDS - REL (CELLAVISION)(BEAKER) (test 5 % 0-10 dpkw=6194) NEUTROPHILS - ABS (CELLAVISION)(BEAKER) (test 17.42 K/ul 1.78-5.38 tnee=1129) LYMPHOCYTES - ABS (CELLAVISION)(BEAKER) (test 1.08 K/ul 1.32-3.57 ptty=0232) MONOCYTES - ABS (CELLAVISION)(BEAKER) (test 0.86 K/uL 0.30-0.82 fksm=2845) EOSINOPHILS - ABS (CELLAVISION)(BEAKER) (test 0.43 K/uL 0.04-0.54 qrtb=7665) METAMYELOCYTES - ABS (CELLAVISION)(BEAKER) (test 0.43 K/uL 0.00-0.00 xdih=0324) MYELOCYTES-ABS (CELLAVISION)(BEAKER) (test 0.22 K/uL 0.00-0.00 nklx=4646) BANDS - ABS (CELLAVISION)(BEAKER) (test 1.08 K/uL 0.00-0.80 ozjb=1923) TOTAL COUNTED (BEAKER) (test gusd=9023) 100 WBC MORPHOLOGY (BEAKER) (test jraw=970) Normal CLUMPED PLATELETS (BEAKER) (test xlvs=104) Present HYPOCHROMIA (BEAKER) (test uumb=680) 2+ moderate ANISOCYTOSIS (BEAKER) (test aalg=859) 1+ few ARTIFACT (CELLAVISION)(BEAKER) (test jtnm=4847) Present PLATELET CONCENTRATION (CELLAVISION)(BEAKER) Adequate (test mnrt=2809) Received comment: User comments: Slide comments:BASIC METABOLIC [id number] 23:13:00 Test Item Value Reference Range Comments SODIUM (BEAKER) (test 137 meq/L 136-145 ukpt=219) POTASSIUM (BEAKER) (test 2.9 meq/L 3.5-5.1 nuxp=100) CHLORIDE (BEAKER) (test 101 meq/L 98-107 cpyo=759) CO2 (BEAKER) (test 25 meq/L 22-29 tjzi=396) BLOOD UREA NITROGEN 11 mg/dL 7-21 (BEAKER) (test geds=213) CREATININE (BEAKER) (test 0.80 mg/dL 0.57-1.25 dfue=268) GLUCOSE RANDOM (BEAKER) 109 mg/dL 70-105 (test cdtq=736) CALCIUM (BEAKER) (test 8.5 mg/dL 8.4-10.2 qaok=959) EGFR (BEAKER) (test 99 mL/min/1.73 sq m ESTIMATED GFR IS NOT nahg=0235) ACCURATE CREATININE CLEARANCE IN PREDICTING GLOMERULAR FILTRATION RATE. ESTIMATED GFR IS NOT APPLICABLE FOR DIALYSIS PATIENTS. Specimen slightly ictericHEPATIC FUNCTION [id number] 23:13:00 Test Item Value Reference Range Comments TOTAL PROTEIN (BEAKER) (test jaix=456) 5.3 gm/dL 6.0-8.3 ALBUMIN (BEAKER) (test gmzc=9548) 2.7 g/dL 3.5-5.0 BILIRUBIN TOTAL (BEAKER) (test zbyk=608) 3.5 mg/dL 0.2-1.2 BILIRUBIN DIRECT (BEAKER) (test dbvl=406) 2.5 mg/dL 0.1-0.5 ALKALINE PHOSPHATASE (BEAKER) (test rksu=943) 274 U/L 40-150 AST (SGOT) (BEAKER) (test fhiv=611) 145 U/L 5-34 ALT (SGPT) (BEAKER) (test rhsl=283) 213 U/L 6-55 Specimen slightly ictericLACTIC ACID, VENOUS, WHOLE [id number] 23:07:00 Test Item Value Reference Range Comments LACTATE BLOOD VENOUS (2) (BEAKER) (test 0.9 mmol/L 0.5-2.2 irua=0389) Specimen slightly ictericPOCT-GLUCOSE [id number] 21:27:00 Test Item Value Reference Range Comments POC-GLUCOSE METER (BEAKER) 103 mg/dL 70-110 TESTED AT [address] (test vily=4367) [place] [id number] POCT-GLUCOSE [id number] 18:12:00 Test Item Value Reference Range Comments POC-GLUCOSE METER (BEAKER) 249 mg/dL 70-110 TESTED AT [address] (test fwha=0818) [place] [id number] POCT-GLUCOSE [id number] 13:07:00 Test Item Value Reference Range Comments POC-GLUCOSE METER (BEAKER) 125 mg/dL 70-110 TESTED AT [address] (test stnt=5733) [place] [id number] POCT-GLUCOSE [id number] 12:41:00 Test Item Value Reference Range Comments POC-GLUCOSE METER (BEAKER) 126 mg/dL 70-110 TESTED AT [address] (test ekwy=8292) [place] [id number] CBC W/PLT COUNT & AUTO [id number] 11:25:00 Test Item Value Reference Range Comments WHITE BLOOD CELL COUNT (BEAKER) (test qhlc=522) 21.6 K/ L 3.5-10.5 RED BLOOD CELL COUNT (BEAKER) (test wjfb=333) 4.48 M/ L 4.63-6.08 HEMOGLOBIN (BEAKER) (test pele=380) 11.3 GM/DL 13.7-17.5 HEMATOCRIT (BEAKER) (test zxpo=961) 35.4 % 40.1-51.0 MEAN CORPUSCULAR VOLUME (BEAKER) (test hobj=120) 79.0 fL 79.0-92.2 MEAN CORPUSCULAR HEMOGLOBIN (BEAKER) (test 25.2 pg 25.7-32.2 cxvh=759) MEAN CORPUSCULAR HEMOGLOBIN CONC (BEAKER) (test 31.9 GM/DL 32.3-36.5 cvnf=444) RED CELL DISTRIBUTION WIDTH (BEAKER) (test 16.7 % 11.6-14.4 slzn=228) PLATELET COUNT (BEAKER) (test xuar=391) 160 K/CU MM 150-450 MEAN PLATELET VOLUME (BEAKER) (test nxth=690) 9.8 fL 9.4-12.4 NUCLEATED RED BLOOD CELLS (BEAKER) (test 0 /100 WBC 0-0 xbao=779) (CELLAVISION MANUAL DIFF)2018-10-23 11:25:00 Test Item Value Reference Range Comments NEUTROPHILS - REL (CELLAVISION)(BEAKER) (test 83 % lbzp=5969) LYMPHOCYTES - REL (CELLAVISION)(BEAKER) (test 1 % lmcj=6413) MONOCYTES - REL (CELLAVISION)(BEAKER) (test 3 % egrk=2211) EOSINOPHILS - REL (CELLAVISION)(BEAKER) (test 1 % dzbq=5351) BASOPHILS - REL (CELLAVISION)(BEAKER) (test 1 % ezzv=4324) MYELOCYTES - REL (CELLAVISION)(BEAKER) (test 3 % 0-0 sxfc=7544) BANDS - REL (CELLAVISION)(BEAKER) (test 8 % 0-10 dbfi=7174) NEUTROPHILS - ABS (CELLAVISION)(BEAKER) (test 17.93 K/ul 1.78-5.38 ansy=7702) LYMPHOCYTES - ABS (CELLAVISION)(BEAKER) (test 0.22 K/ul 1.32-3.57 ylfb=0424) MONOCYTES - ABS (CELLAVISION)(BEAKER) (test 0.65 K/uL 0.30-0.82 pckf=7899) EOSINOPHILS - ABS (CELLAVISION)(BEAKER) (test 0.22 K/uL 0.04-0.54 nczv=5802) BASOPHILS - ABS (CELLAVISION)(BEAKER) (test 0.22 K/uL 0.01-0.08 xguh=0912) MYELOCYTES-ABS (CELLAVISION)(BEAKER) (test 0.65 K/uL 0.00-0.00 bwgt=9714) BANDS - ABS (CELLAVISION)(BEAKER) (test 1.73 K/uL 0.00-0.80 rrhx=1613) TOTAL COUNTED (BEAKER) (test pvdy=8299) 100 WBC MORPHOLOGY (BEAKER) (test jlgz=340) Normal PLT MORPHOLOGY (BEAKER) (test mtvm=967) Normal POLYCHROMATOPHILLIC RBCS(BEAKER) (test utaq=082) 1+ few HYPOCHROMIA (BEAKER) (test gsgv=572) 1+ few ANISOCYTOSIS (BEAKER) (test zbvg=830) 1+ few MICROCYTES (BEAKER) (test xgpw=063) 1+ few ARTIFACT (CELLAVISION)(BEAKER) (test kyrx=8969) Present PLATELET CONCENTRATION (CELLAVISION)(BEAKER) Adequate (test zdab=1766) Received comment: User comments: Slide comments:POCT-GLUCOSE [id number] 08: 10:00 Test Item Value Reference Range Comments POC-GLUCOSE METER (BEAKER) 138 mg/dL 70-110 TESTED AT [facility] [address] [facility] (test ladq=1449) [facility] [address] CALCIUM, [id number] 07:54:00 Test Item Value Reference Range Comments CALCIUM IONIZED (BEAKER) (test jqyp=023) 1.04 mmol/L 1.12-1.27 PH, BLOOD (BEAKER) (test ftzu=0636) 7.41 [id number] 07:21:00 Test Item Value Reference Range Comments PHOSPHORUS (BEAKER) (test vjmj=173) 4.0 mg/dL 2.3-4.7 COMPREHENSIVE METABOLIC [id number] 07:21:00 Test Item Value Reference Range Comments TOTAL PROTEIN (BEAKER) 5.4 gm/dL 6.0-8.3 (test xcss=504) ALBUMIN (BEAKER) (test 2.7 g/dL 3.5-5.0 acae=3651) ALKALINE PHOSPHATASE 213 U/L 40-150 (BEAKER) (test skhc=257) BILIRUBIN TOTAL (BEAKER) 3.8 mg/dL 0.2-1.2 (test oqyj=512) SODIUM (BEAKER) (test 132 meq/L 136-145 uekg=846) POTASSIUM (BEAKER) (test 3.0 meq/L 3.5-5.1 hrxf=546) CHLORIDE (BEAKER) (test 96 meq/L 98-107 woln=518) CO2 (BEAKER) (test 26 meq/L 22-29 kceq=938) BLOOD UREA NITROGEN 11 mg/dL 7-21 (BEAKER) (test uyxa=957) CREATININE (BEAKER) (test 0.77 mg/dL 0.57-1.25 vvjn=236) GLUCOSE RANDOM (BEAKER) 113 mg/dL 70-105 (test jqhk=153) CALCIUM (BEAKER) (test 8.3 mg/dL 8.4-10.2 nzpi=582) AST (SGOT) (BEAKER) (test 115 U/L 5-34 deay=172) ALT (SGPT) (BEAKER) (test 185 U/L 6-55 mdwr=227) EGFR (BEAKER) (test 104 mL/min/1.73 sq ESTIMATED GFR IS NOT cojz=8556) m ACCURATE CREATININE CLEARANCE IN PREDICTING GLOMERULAR FILTRATION RATE. ESTIMATED GFR IS NOT APPLICABLE FOR DIALYSIS PATIENTS. Specimen slightly ictericPOCT-GLUCOSE [id number] 21:38:00 Test Item Value Reference Range Comments POC-GLUCOSE METER (BEAKER) 122 mg/dL 70-110 TESTED AT [address] (test tgiy=1477) [place] [id number] POCT-GLUCOSE [id number] 17:29:00 Test Item Value Reference Range Comments POC-GLUCOSE METER (BEAKER) 123 mg/dL 70-110 TESTED AT [address] (test ghaz=5722) [facility] [address] CBC W/PLT COUNT & AUTO [id number] 15:12:00 Test Item Value Reference Range Comments WHITE BLOOD CELL COUNT (BEAKER) (test qnao=128) 20.6 K/ L 3.5-10.5 RED BLOOD CELL COUNT (BEAKER) (test jsjx=624) 4.23 M/ L 4.63-6.08 HEMOGLOBIN (BEAKER) (test siux=823) 10.8 GM/DL 13.7-17.5 HEMATOCRIT (BEAKER) (test gcpy=295) 33.7 % 40.1-51.0 MEAN CORPUSCULAR VOLUME (BEAKER) (test tqkb=593) 79.7 fL 79.0-92.2 MEAN CORPUSCULAR HEMOGLOBIN (BEAKER) (test 25.5 pg 25.7-32.2 rxya=410) MEAN CORPUSCULAR HEMOGLOBIN CONC (BEAKER) (test 32.0 GM/DL 32.3-36.5 bhxh=740) RED CELL DISTRIBUTION WIDTH (BEAKER) (test 16.6 % 11.6-14.4 qqtb=654) PLATELET COUNT (BEAKER) (test dtcb=778) 118 K/CU MM 150-450 MEAN PLATELET VOLUME (BEAKER) (test qslq=859) 9.9 fL 9.4-12.4 NUCLEATED RED BLOOD CELLS (BEAKER) (test 0 /100 WBC 0-0 wemo=325) (CELLAVISION MANUAL DIFF)2018-10-22 15:12:00 Test Item Value Reference Range Comments NEUTROPHILS - REL (CELLAVISION)(BEAKER) (test 34 % qxhv=3083) LYMPHOCYTES - REL (CELLAVISION)(BEAKER) (test 3 % egtk=5220) MONOCYTES - REL (CELLAVISION)(BEAKER) (test 6 % crfu=5089) EOSINOPHILS - REL (CELLAVISION)(BEAKER) (test 3 % fysw=7945) BASOPHILS - REL (CELLAVISION)(BEAKER) (test 1 % asud=8283) METAMYELOCYTES - REL (CELLAVISION)(BEAKER) (test 7 % 0-0 flcz=3362) MYELOCYTES - REL (CELLAVISION)(BEAKER) (test 5 % 0-0 blwl=0578) BANDS - REL (CELLAVISION)(BEAKER) (test 41 % 0-10 wrlp=9152) NEUTROPHILS - ABS (CELLAVISION)(BEAKER) (test 7.00 K/ul 1.78-5.38 mamn=2316) LYMPHOCYTES - ABS (CELLAVISION)(BEAKER) (test 0.62 K/ul 1.32-3.57 vgtd=3607) MONOCYTES - ABS (CELLAVISION)(BEAKER) (test 1.24 K/uL 0.30-0.82 rmtl=8676) EOSINOPHILS - ABS (CELLAVISION)(BEAKER) (test 0.62 K/uL 0.04-0.54 drqv=9204) BASOPHILS - ABS (CELLAVISION)(BEAKER) (test 0.21 K/uL 0.01-0.08 amhm=6883) METAMYELOCYTES - ABS (CELLAVISION)(BEAKER) (test 1.44 K/uL 0.00-0.00 cqci=4794) MYELOCYTES-ABS (CELLAVISION)(BEAKER) (test 1.03 K/uL 0.00-0.00 gfga=4700) BANDS - ABS (CELLAVISION)(BEAKER) (test 8.45 K/uL 0.00-0.80 xqay=2762) TOTAL COUNTED (BEAKER) (test flrs=0247) 100 MANUAL NRBC PER 100 CELLS (BEAKER) (test 1 /100 WBC 0-0 ugzn=6087) SMUDGE CELLS (BEAKER) (test agle=1379) Present GIANT PLATELETS (BEAKER) (test zcws=257) Present POLYCHROMATOPHILLIC RBCS(BEAKER) (test mjys=867) 2+ moderate HYPOCHROMIA (BEAKER) (test cmue=581) 2+ moderate ANISOCYTOSIS (BEAKER) (test cqba=400) 1+ few MACROCYTES (BEAKER) (test jmjq=253) 1+ few PLATELET CONCENTRATION (CELLAVISION)(BEAKER) Decreased (test ggvy=7631) Received comment: User comments: Slide comments:POCT-GLUCOSE [id number] 12: 26:00 Test Item Value Reference Range Comments POC-GLUCOSE METER (BEAKER) 160 mg/dL 70-110 TESTED AT [address] (test ovli=0666) [facility] [address] BLOOD [id number] 10:02:00 Test Item Value Reference Range Comments CULTURE (BEAKER) (test STAPHYLOCOCCUS From Aerobic And jptu=5061) LUGDUNENSIS Anaerobic Bottles Staphylococcus lugdunensis Clindamycin (test code=10) Erythromycin (test code=4) Levofloxacin (test code=22) Nitrofurantoin (test code=23) Oxacillin (test code=14) Rifampin (test code=43) Tetracycline (test code=2) Trimethoprim + Sulfamethoxazole (test code=47) Vancomycin (test code=13) GRAM STAIN RESULT From aerobic and (BEAKER) (test vrpq=6586) anaerobic bottles: gram positive cocci in clusters POCT-GLUCOSE [id number] 09:03:00 Test Item Value Reference Range Comments POC-GLUCOSE METER (BEAKER) 201 mg/dL 70-110 TESTED AT [facility] [address] [facility] (test rboi=7643) [facility] [address] [id number] 05:58:00 Test Item Value Reference Range Comments PHOSPHORUS (BEAKER) (test iwao=276) 3.2 mg/dL 2.3-4.7 COMPREHENSIVE METABOLIC [id number] 05:58:00 Test Item Value Reference Range Comments TOTAL PROTEIN (BEAKER) 5.1 gm/dL 6.0-8.3 (test eimj=966) ALBUMIN (BEAKER) (test 2.5 g/dL 3.5-5.0 hklt=7305) ALKALINE PHOSPHATASE 185 U/L 40-150 (BEAKER) (test lzhv=985) BILIRUBIN TOTAL (BEAKER) 4.1 mg/dL 0.2-1.2 (test oxiu=663) SODIUM (BEAKER) (test 135 meq/L 136-145 vwle=163) POTASSIUM (BEAKER) (test 3.3 meq/L 3.5-5.1 jfro=127) CHLORIDE (BEAKER) (test 100 meq/L 98-107 oqgj=988) CO2 (BEAKER) (test 29 meq/L 22-29 hzqt=200) BLOOD UREA NITROGEN 13 mg/dL 7-21 (BEAKER) (test mkzc=846) CREATININE (BEAKER) (test 0.71 mg/dL 0.57-1.25 yklh=328) GLUCOSE RANDOM (BEAKER) 160 mg/dL 70-105 (test dloy=351) CALCIUM (BEAKER) (test 8.2 mg/dL 8.4-10.2 gbqt=323) AST (SGOT) (BEAKER) (test 82 U/L 5-34 hxvo=888) ALT (SGPT) (BEAKER) (test 178 U/L 6-55 kaqr=588) EGFR (BEAKER) (test 114 mL/min/1.73 sq ESTIMATED GFR IS NOT kxuf=9992) m ACCURATE CREATININE CLEARANCE IN PREDICTING GLOMERULAR FILTRATION RATE. ESTIMATED GFR IS NOT APPLICABLE FOR DIALYSIS PATIENTS. Specimen slightly ictericCALCIUM, [id number] 05:42:00 Test Item Value Reference Range Comments CALCIUM IONIZED (BEAKER) (test vcfe=846) 1.05 mmol/L 1.12-1.27 PH, BLOOD (BEAKER) (test ogzi=0556) 7.42 POCT-GLUCOSE [id number] 22:18:00 Test Item Value Reference Range Comments POC-GLUCOSE METER (BEAKER) 173 mg/dL 70-110 TESTED AT [address] (test tiyw=1210) [facility] [address] POCT-GLUCOSE [id number] 18:22:00 Test Item Value Reference Range Comments POC-GLUCOSE METER (BEAKER) 190 mg/dL 70-110 TESTED AT [address] (test puuv=3246) [facility] [address] CBC W/PLT COUNT & AUTO [id number] 16:28:00 Test Item Value Reference Range Comments WHITE BLOOD CELL COUNT (BEAKER) (test rlpr=120) 19.4 K/ L 3.5-10.5 RED BLOOD CELL COUNT (BEAKER) (test jftx=478) 4.35 M/ L 4.63-6.08 HEMOGLOBIN (BEAKER) (test rvai=276) 11.0 GM/DL 13.7-17.5 HEMATOCRIT (BEAKER) (test orlv=654) 34.2 % 40.1-51.0 MEAN CORPUSCULAR VOLUME (BEAKER) (test nuvm=729) 78.6 fL 79.0-92.2 MEAN CORPUSCULAR HEMOGLOBIN (BEAKER) (test 25.3 pg 25.7-32.2 zntq=365) MEAN CORPUSCULAR HEMOGLOBIN CONC (BEAKER) (test 32.2 GM/DL 32.3-36.5 zgin=071) RED CELL DISTRIBUTION WIDTH (BEAKER) (test 16.4 % 11.6-14.4 vnof=169) PLATELET COUNT (BEAKER) (test qzey=873) 120 K/CU MM 150-450 MEAN PLATELET VOLUME (BEAKER) (test kgxa=982) 9.8 fL 9.4-12.4 NUCLEATED RED BLOOD CELLS (BEAKER) (test 1 /100 WBC 0-0 ulun=553) (CELLAVISION MANUAL DIFF)2018-10-21 16:28:00 Test Item Value Reference Range Comments NEUTROPHILS - REL (CELLAVISION)(BEAKER) (test 64 % dcgd=6718) LYMPHOCYTES - REL (CELLAVISION)(BEAKER) (test 4 % yzec=3273) MONOCYTES - REL (CELLAVISION)(BEAKER) (test 12 % chrh=2917) METAMYELOCYTES - REL (CELLAVISION)(BEAKER) (test 4 % 0-0 meyz=1320) MYELOCYTES - REL (CELLAVISION)(BEAKER) (test 3 % 0-0 hnlp=0252) BANDS - REL (CELLAVISION)(BEAKER) (test 14 % 0-10 oenx=1960) NEUTROPHILS - ABS (CELLAVISION)(BEAKER) (test 12.42 K/ul 1.78-5.38 dfap=3893) LYMPHOCYTES - ABS (CELLAVISION)(BEAKER) (test 0.78 K/ul 1.32-3.57 ptux=8687) MONOCYTES - ABS (CELLAVISION)(BEAKER) (test 2.33 K/uL 0.30-0.82 rltb=2533) METAMYELOCYTES - ABS (CELLAVISION)(BEAKER) (test 0.78 K/uL 0.00-0.00 woqi=8727) MYELOCYTES-ABS (CELLAVISION)(BEAKER) (test 0.58 K/uL 0.00-0.00 lykn=6755) BANDS - ABS (CELLAVISION)(BEAKER) (test 2.72 K/uL 0.00-0.80 dfdp=2966) TOTAL COUNTED (BEAKER) (test helh=2567) 100 MANUAL NRBC PER 100 CELLS (BEAKER) (test 2 /100 WBC 0-0 tqbz=1246) WBC MORPHOLOGY (BEAKER) (test gxii=523) Normal GIANT PLATELETS (BEAKER) (test tbvn=435) Present POLYCHROMATOPHILLIC RBCS(BEAKER) (test faoj=559) 1+ few HYPOCHROMIA (BEAKER) (test ozji=247) 2+ moderate ANISOCYTOSIS (BEAKER) (test cvbc=163) 1+ few POIKILOCYTES (BEAKER) (test mpad=334) 1+ few TARGET CELLS (BEAKER) (test xzdk=706) 1+ few ARTIFACT (CELLAVISION)(BEAKER) (test stmk=6163) Present PLATELET CONCENTRATION (CELLAVISION)(BEAKER) Decreased (test sgqr=1402) Received comment: User comments: Slide comments:COMPREHENSIVE METABOLIC [id number] 16:00:00 Test Item Value Reference Range Comments TOTAL PROTEIN (BEAKER) 5.1 gm/dL 6.0-8.3 (test repv=923) ALBUMIN (BEAKER) (test 2.5 g/dL 3.5-5.0 rolr=6071) ALKALINE PHOSPHATASE 201 U/L 40-150 (BEAKER) (test xqna=094) BILIRUBIN TOTAL (BEAKER) 5.1 mg/dL 0.2-1.2 (test gwxf=913) SODIUM (BEAKER) (test 136 meq/L 136-145 dlhg=944) POTASSIUM (BEAKER) (test 3.4 meq/L 3.5-5.1 tlez=746) CHLORIDE (BEAKER) (test 101 meq/L 98-107 licx=864) CO2 (BEAKER) (test 29 meq/L 22-29 srlr=708) BLOOD UREA NITROGEN 15 mg/dL 7-21 (BEAKER) (test ghgc=113) CREATININE (BEAKER) (test 0.75 mg/dL 0.57-1.25 mvvg=500) GLUCOSE RANDOM (BEAKER) 185 mg/dL 70-105 (test fcjw=890) CALCIUM (BEAKER) (test 7.8 mg/dL 8.4-10.2 kuul=775) AST (SGOT) (BEAKER) (test 108 U/L 5-34 dwvz=236) ALT (SGPT) (BEAKER) (test 207 U/L 6-55 zgjf=302) EGFR (BEAKER) (test 107 mL/min/1.73 sq ESTIMATED GFR IS NOT rycv=6837) m ACCURATE CREATININE CLEARANCE IN PREDICTING GLOMERULAR FILTRATION RATE. ESTIMATED GFR IS NOT APPLICABLE FOR DIALYSIS PATIENTS. Specimen slightly [id number] 14:36:00 Test Item Value Reference Range Comments PROCALCITONIN (BEAKER) (test kotl=4630) 0.73 ng/mL <0.05 SEPSIS RISK (ng/mL)Low: 0.05-0.50Intermediate: 0.51-2.00High: & gt;=2.01RAD, CHEST, 1 VIEW, NON [id number] 12:14:00Reason for exam:-> post right IJ central line Should this be performed at the bedside?-> YesFINAL REPORT CLINICAL HISTORY: post right IJ central line TECHNIQUE: 1 view of the chest. COMPARISON: 10/20/2018 IMPRESSION: There is a new right jugular line near the cavoatrialjunction. There is no pneumothorax. Bibasilar lung opacities and small pleural effusions are unchanged. The cardiomediastinal silhouette is magnified by technique. Signed: David Bryanteport Verified Date/Time: 10/21/2018 12:14:09 Reading Location : [facility] Radiology Reading Room POCT-GLUCOSE [id number] 11:49:00 Test Item Value Reference Range Comments POC-GLUCOSE METER (BEAKER) 285 mg/dL 70-110 TESTED AT [facility] [address] [facility] (test ebee=6939) [facility] [address] HEMOGLOBIN [id number] 11:48:00 Test Item Value Reference Range Comments HEMOGLOBIN A1C (BEAKER) (test oubp=644) 6.0 % 4.3-6.1 [id number] 10:29:00 Test Item Value Reference Range Comments PHOSPHORUS (BEAKER) (test lycf=046) 1.0 mg/dL 2.3-4.7 VANCOMYCIN LEVEL, [id number] 10:21:00 Test Item Value Reference Range Comments VANCOMYCIN TROUGH (BEAKER) (test wgyg=859) 11.0 ug/mL 10.0-20.0 CALCIUM, [id number] 09:58:00 Test Item Value Reference Range Comments CALCIUM IONIZED (BEAKER) (test nzic=257) 1.10 mmol/L 1.12-1.27 PH, BLOOD (BEAKER) (test mhlv=3756) 7.47 POCT-GLUCOSE [id number] 08:30:00 Test Item Value Reference Range Comments POC-GLUCOSE METER (BEAKER) 281 mg/dL 70-110 TESTED AT [address] (test rzkf=9204) [place] [id number] POCT-GLUCOSE [id number] 05:50:00 Test Item Value Reference Range Comments POC-GLUCOSE METER (BEAKER) 316 mg/dL 70-110 TESTED AT [address] (test xoxg=9051) [place] [id number] RAD, ABDOMEN/KUB, 1 VIEW [id number] 01:32:00Reason for exam:->abdominal painShould this be performed at the bedside?->YesFINAL REPORT Examination: Supine abdomen CLINICAL INDICATION: Abdominal pain IMPRESSION: Compared with chest radiograph 10/20/2018, ERCP fluoroscopic images . Curvilinearand patchy opacities are noted in both lung lung bases, similar to previous. A component of atelectasis is favored given the morphology and distribution. An underlying pneumonia or mass lesion cannot be excluded. The heart is enlarged as before. Evaluation for free air below the diaphragm and air-fluid levels within the bowel is limited by supine patient positioning. However, subtle radiolucency is noted along the right upper quadrant including along the liver edge. Artifact versus free air. The stomach, small bowel and colon are associated with gaseous distention, nonspecific and possibly reflecting ileus. Bowel obstruction cannot be excluded. A biliary stent projects over the expected course of the common bile duct. No definite pneumobilia. CT would be beneficial in further characterization if clinically appropriate. Signed: Jossue Shelton MDReport Verified Date/Time: 10/21/2018 01:32 :46 Reading Location: [facility] Radiology Reading Room POCT-GLUCOSE [id number] 23:33: 00 Test Item Value Reference Range Comments POC-GLUCOSE METER (BEAKER) 307 mg/dL 70-110 Will Repeat Test/TESTED AT (test nxzz=0047) [address] [address] POCT-GLUCOSE [id number] 18:09:00 Test Item Value Reference Range Comments POC-GLUCOSE METER (BEAKER) 286 mg/dL 70-110 TESTED AT [address] (test rpuu=6841) [place] [address] POCT-GLUCOSE [id number] 12:02:00 Test Item Value Reference Range Comments POC-GLUCOSE METER (BEAKER) 338 mg/dL 70-110 Notified DELONTE MINAYA/TESTED AT [facility] (test onrr=9707) [address] [facility] [address] BLOOD CULTURE IDENTIFICATION [id number] 11:34:00 Test Item Value Reference Range Comments LISTERIA MONOCYTOGENES (test Not detected Not detected gzxp=3089150) STAPHYLOCOCCUS (test Detected Not detected First line therapy: uybn=2466942) Cefazolin, Nafcillin (Nafcillin preferred for Central Nervous System infection) Coagulase Negative Staphylococcus (CoNS) DETECTEDmecA NOT DETECTEDReference Range: Not Detected STAPHYLOCOCCUS AUREUS (test Not detected Not detected yphi=2524339) STREPTOCOCCUS (test Not detected Not detected waos=0530293) STREPTOCOCCUS AGALACTIAE Not detected Not detected (GROUP B) (test tqta=8782740) STREPTOCOCCUS PNEUMONIAE Not detected Not detected (test btgd=6158316) STREPTOCOCCUS PYOGENES (GROUP Not detected Not detected A) (test tmvf=5619409) ACINETOBACTER BAUMANNII (test Not detected Not detected mfkr=1630204) HAEMOPHILUS INFLUENZAE (test Not detected Not detected vpfe=6642883) NEISSERIA MENINGITIDIS (test Not detected Not detected mbhn=4620843) ENTEROBACTERIACEAE (test Not detected Not detected hxdu=6663913) ENTEROBACTER CLOACOE COMPLEX Not detected Not detected (test ussu=6501749) KLEBSIELLA OXYTOCA (test Not detected Not detected kudq=5759684) KLEBSIELLA PNEUMONIAE (test Not detected Not detected bzjm=1721) PROTEUS (test lsgq=2484354) Not detected Not detected SERRATIA MARCESCENS (test Not detected Not detected odvw=7812320) TONY ALBICANS (test Not detected Not detected iltn=4442913) TONY GLABRATA (test Not detected Not detected yfsr=3847730) TONY KRUSEI (test Not detected Not detected bwea=4701620) TONY PARAPSILOSIS (test Not detected Not detected becf=4569277) TONY TROPICALIS (test Not detected Not detected vpdg=4705404) ESCHERICHIA COLI (test Not detected Not detected zlds=7430193) METHICILLIN-RESISTANCE GENE Not detected Not detected (test ildz=6036941) VANCOMYCIN-RESISTANCE GENE Not detected (test jsmb=0065179) CARBAPENEM-RESISTANCE GENE Not detected (test mhqm=1891715) ENTEROCOCCUS-BEAKER (test Not detected Not detected dbky=5509791) PSEUDOMONAS AERUGINOSA-BEAKER Not detected Not detected (test tzjx=6121703) Other bacteria and resistance markers not targeted by this PCR panel cannot be excluded; therefore clinical correlation and follow up of serology, culture results, and other molecular studies is required. The results are not intended to be used as the sole means for clinical diagnosis or patient management decisions. This sample was tested at the [facility] Molecular Diagnostics Laboratory using the [employer] FilmArray Blood Culture ID Panel. It is FDA cleared and has been verified and approved by the [facility] Molecular Diagnostics Laboratory for clinical use. This laboratory is CLIA-certified and College ofAmerican Pathologists (CAP)-accredited to perform high complexity testing.RAD, CHEST, 1 VIEW, NON [id number] 11:17:00Reason for exam:->R/O ARDSShould this be performed at the bedside?->YesFINAL REPORT CLINICAL HISTORY: ARDS TECHNIQUE: 1 view of the chest. COMPARISON: 10/19/2018 IMPRESSION: Bilateral lower lung airspace opacities and small pleural effusions are unchanged. The cardiomediastinal silhouette is magnified by technique. Signed: David Bryant MDReport Verified Date/Time: 10/20/2018 11:17:29 Reading Location : [facility] Radiology Reading Room HEPATIC FUNCTION [id number] 10:45:00 Test Item Value Reference Range Comments TOTAL PROTEIN (BEAKER) (test akds=228) 5.3 gm/dL 6.0-8.3 ALBUMIN (BEAKER) (test jyws=8755) 2.6 g/dL 3.5-5.0 BILIRUBIN TOTAL (BEAKER) (test hfao=061) 8.5 mg/dL 0.2-1.2 BILIRUBIN DIRECT (BEAKER) (test tlco=033) 6.5 mg/dL 0.1-0.5 ALKALINE PHOSPHATASE (BEAKER) (test cniw=141) 113 U/L 40-150 AST (SGOT) (BEAKER) (test lxrz=502) 170 U/L 5-34 ALT (SGPT) (BEAKER) (test daig=593) 258 U/L 6-55 Specimen moderately [id number] 08:44:00 Test Item Value Reference Range Comments FIBRINOGEN LEVEL (BEAKER) (test ixgy=968) 475 mg/dl 225-434 PT/[id number] 08:44:00 Test Item Value Reference Range Comments PROTIME (BEAKER) (test tfuc=782) 16.2 seconds 11.7-14.7 INR (BEAKER) (test bgja=652) 1.3 <=5.9 PARTIAL THROMBOPLASTIN TIME (BEAKER) (test 29.7 seconds 22.5-36.0 pmuy=059) RECOMMENDED COUMADIN/WARFARIN INR THERAPY RANGESSTANDARD DOSE: 2.0 - 3.0 Includes: PROPHYLAXIS forvenous thrombosis, systemic embolization; TREATMENT for venous thrombosis and/or pulmonary embolus.HIGH RISK: Target INR is 2.5-3.5 for patients with mechanical heart valves.POCT-GLUCOSE [id number] 08:39:00 Test Item Value Reference Range Comments POC-GLUCOSE METER (BEAKER) 284 mg/dL 70-110 TESTED AT [facility] [address] [facility] (test rlyl=4345) [facility] [address] CBC W/PLT COUNT & AUTO [id number] 08:08:00 Test Item Value Reference Range Comments WHITE BLOOD CELL COUNT (BEAKER) (test prgd=286) 20.6 K/ L 3.5-10.5 RED BLOOD CELL COUNT (BEAKER) (test hiaw=479) 4.42 M/ L 4.63-6.08 HEMOGLOBIN (BEAKER) (test puhn=385) 11.3 GM/DL 13.7-17.5 HEMATOCRIT (BEAKER) (test qihw=945) 35.6 % 40.1-51.0 MEAN CORPUSCULAR VOLUME (BEAKER) (test mwlu=681) 80.5 fL 79.0-92.2 MEAN CORPUSCULAR HEMOGLOBIN (BEAKER) (test 25.6 pg 25.7-32.2 zbka=815) MEAN CORPUSCULAR HEMOGLOBIN CONC (BEAKER) (test 31.7 GM/DL 32.3-36.5 iodl=914) RED CELL DISTRIBUTION WIDTH (BEAKER) (test 16.7 % 11.6-14.4 ihsm=212) PLATELET COUNT (BEAKER) (test rqcd=492) 86 K/CU MM 150-450 MEAN PLATELET VOLUME (BEAKER) (test xhqx=081) 10.2 fL 9.4-12.4 NUCLEATED RED BLOOD CELLS (BEAKER) (test 0 /100 WBC 0-0 dddv=062) (CELLAVISION MANUAL DIFF)2018-10-20 08:08:00 Test Item Value Reference Range Comments NEUTROPHILS - REL (CELLAVISION)(BEAKER) (test 57 % twxo=8244) LYMPHOCYTES - REL (CELLAVISION)(BEAKER) (test 4 % yvyr=9748) MONOCYTES - REL (CELLAVISION)(BEAKER) (test 10 % zpzy=9910) METAMYELOCYTES - REL (CELLAVISION)(BEAKER) (test 3 % 0-0 qbxh=5634) MYELOCYTES - REL (CELLAVISION)(BEAKER) (test 3 % 0-0 uyyc=7024) BANDS - REL (CELLAVISION)(BEAKER) (test 23 % 0-10 ffaa=6614) NEUTROPHILS - ABS (CELLAVISION)(BEAKER) (test 11.74 K/ul 1.78-5.38 eqig=7301) LYMPHOCYTES - ABS (CELLAVISION)(BEAKER) (test 0.82 K/ul 1.32-3.57 pdmo=8373) MONOCYTES - ABS (CELLAVISION)(BEAKER) (test 2.06 K/uL 0.30-0.82 hely=8329) METAMYELOCYTES - ABS (CELLAVISION)(BEAKER) (test 0.62 K/uL 0.00-0.00 xlwk=6374) MYELOCYTES-ABS (CELLAVISION)(BEAKER) (test 0.62 K/uL 0.00-0.00 ahtc=1652) BANDS - ABS (CELLAVISION)(BEAKER) (test 4.74 K/uL 0.00-0.80 uqsh=6490) TOTAL COUNTED (BEAKER) (test hauf=6506) 100 MANUAL NRBC PER 100 CELLS (BEAKER) (test 1 /100 WBC 0-0 xfgm=8211) WBC MORPHOLOGY (BEAKER) (test auvk=772) Normal PLT MORPHOLOGY (BEAKER) (test mcas=905) Normal POLYCHROMATOPHILLIC RBCS(BEAKER) (test vbno=090) 1+ few ANISOCYTOSIS (BEAKER) (test meer=158) 1+ few ARTIFACT (CELLAVISION)(BEAKER) (test yqux=9174) Present PLATELET CONCENTRATION (CELLAVISION)(BEAKER) Decreased (test qbjs=8070) Received comment: User comments: Slide comments:BASIC METABOLIC [id number] 03:59:00 Test Item Value Reference Range Comments SODIUM (BEAKER) (test 136 meq/L 136-145 kjak=159) POTASSIUM (BEAKER) (test 5.0 meq/L 3.5-5.1 mdfq=919) CHLORIDE (BEAKER) (test 104 meq/L 98-107 jgex=389) CO2 (BEAKER) (test 28 meq/L 22-29 ewfp=902) BLOOD UREA NITROGEN 12 mg/dL 7-21 (BEAKER) (test fjgn=411) CREATININE (BEAKER) (test 0.71 mg/dL 0.57-1.25 tqmj=816) GLUCOSE RANDOM (BEAKER) 262 mg/dL 70-105 (test zjqh=998) CALCIUM (BEAKER) (test 7.6 mg/dL 8.4-10.2 wnqg=167) EGFR (BEAKER) (test 114 mL/min/1.73 sq m ESTIMATED GFR IS NOT qrge=9814) ACCURATE CREATININE CLEARANCE IN PREDICTING GLOMERULAR FILTRATION RATE. ESTIMATED GFR IS NOT APPLICABLE FOR DIALYSIS PATIENTS. Specimen moderately [id number] 03:55:00 Test Item Value Reference Range Comments PHOSPHORUS (BEAKER) (test rgoq=639) 1.9 mg/dL 2.3-4.7 [id number] 03:55:00 Test Item Value Reference Range Comments MAGNESIUM (BEAKER) (test kjey=395) 2.2 mg/dL 1.6-2.6 POCT-GLUCOSE [id number] 17:53:00 Test Item Value Reference Range Comments POC-GLUCOSE METER (BEAKER) 236 mg/dL 70-110 TESTED AT [address] (test wymv=4300) [facility] [address] [place], [id number] 17:27:00INTRA OP IMAGINGReason for exam:-> CHOLANGITISFINAL REPORT ERCP Clinical History: CHOLANGITIS Impression: Intraoperative images are obtained. The radiologist is not present during the procedure. Images are presented for interpretation at the completion of the procedure. Please refer to the procedure report for more details. Number of images obtained: 5 Fluoroscopic time: 138.5 seconds Signed: Helen Coyleort Verified Date/Time: 10/19/2018 17:27:06 Reading Location: [facility] B1 C013W Consult Reading Room CBC W/PLT COUNT & AUTO [id number] 10: 41:00 Test Item Value Reference Range Comments WHITE BLOOD CELL COUNT (BEAKER) (test hicv=862) 21.2 K/ L 3.5-10.5 RED BLOOD CELL COUNT (BEAKER) (test vplo=385) 5.07 M/ L 4.63-6.08 HEMOGLOBIN (BEAKER) (test nrnj=381) 12.9 GM/DL 13.7-17.5 HEMATOCRIT (BEAKER) (test crlx=162) 41.0 % 40.1-51.0 MEAN CORPUSCULAR VOLUME (BEAKER) (test mgck=778) 80.9 fL 79.0-92.2 MEAN CORPUSCULAR HEMOGLOBIN (BEAKER) (test 25.4 pg 25.7-32.2 wrrj=022) MEAN CORPUSCULAR HEMOGLOBIN CONC (BEAKER) (test 31.5 GM/DL 32.3-36.5 yczd=484) RED CELL DISTRIBUTION WIDTH (BEAKER) (test 16.4 % 11.6-14.4 wnqc=658) PLATELET COUNT (BEAKER) (test drqc=653) 112 K/CU MM 150-450 MEAN PLATELET VOLUME (BEAKER) (test ywys=977) 10.4 fL 9.4-12.4 NUCLEATED RED BLOOD CELLS (BEAKER) (test 0 /100 WBC 0-0 gkre=702) (CELLAVISION MANUAL DIFF)2018-10-19 10:41:00 Test Item Value Reference Range Comments NEUTROPHILS - REL (CELLAVISION)(BEAKER) (test 32 % yfub=2634) LYMPHOCYTES - REL (CELLAVISION)(BEAKER) (test 3 % peos=8553) MONOCYTES - REL (CELLAVISION)(BEAKER) (test 9 % xkwo=3545) EOSINOPHILS - REL (CELLAVISION)(BEAKER) (test 1 % xqfr=0166) METAMYELOCYTES - REL (CELLAVISION)(BEAKER) (test 1 % 0-0 nzna=5770) MYELOCYTES - REL (CELLAVISION)(BEAKER) (test 1 % 0-0 hnue=2280) BANDS - REL (CELLAVISION)(BEAKER) (test 53 % 0-10 kpyl=9596) NEUTROPHILS - ABS (CELLAVISION)(BEAKER) (test 6.78 K/ul 1.78-5.38 ppnv=1635) LYMPHOCYTES - ABS (CELLAVISION)(BEAKER) (test 0.64 K/ul 1.32-3.57 qonx=0540) MONOCYTES - ABS (CELLAVISION)(BEAKER) (test 1.91 K/uL 0.30-0.82 bzxs=3871) EOSINOPHILS - ABS (CELLAVISION)(BEAKER) (test 0.21 K/uL 0.04-0.54 fnuz=1724) METAMYELOCYTES - ABS (CELLAVISION)(BEAKER) (test 0.21 K/uL 0.00-0.00 klut=6394) MYELOCYTES-ABS (CELLAVISION)(BEAKER) (test 0.21 K/uL 0.00-0.00 qowc=0591) BANDS - ABS (CELLAVISION)(BEAKER) (test 11.24 K/uL 0.00-0.80 zfnp=4760) TOTAL COUNTED (BEAKER) (test ukuo=8819) 100 SMUDGE CELLS (BEAKER) (test mixu=9592) Present GIANT PLATELETS (BEAKER) (test lwjj=729) Present POLYCHROMATOPHILLIC RBCS(BEAKER) (test fazm=112) 1+ few POIKILOCYTES (BEAKER) (test whew=506) 3+ many JULY CELLS (BEAKER) (test plhc=394) 1+ few ARTIFACT (CELLAVISION)(BEAKER) (test fvbl=3999) Present PLATELET CONCENTRATION (CELLAVISION)(BEAKER) Decreased (test uaqk=3791) Received comment: User comments: Slide comments:[id number] 09:15:00 Test Item Value Reference Range Comments MAGNESIUM (BEAKER) (test equy=264) 2.3 mg/dL 1.6-2.6 BASIC METABOLIC [id number] 09:15:00 Test Item Value Reference Range Comments SODIUM (BEAKER) (test 130 meq/L 136-145 zvkx=712) POTASSIUM (BEAKER) (test 5.0 meq/L 3.5-5.1 wbct=243) CHLORIDE (BEAKER) (test 101 meq/L 98-107 fmgv=582) CO2 (BEAKER) (test 23 meq/L 22-29 erus=832) BLOOD UREA NITROGEN 14 mg/dL 7-21 (BEAKER) (test prsi=544) CREATININE (BEAKER) (test 0.90 mg/dL 0.57-1.25 euop=869) GLUCOSE RANDOM (BEAKER) 253 mg/dL 70-105 (test iqew=291) CALCIUM (BEAKER) (test 8.5 mg/dL 8.4-10.2 crpm=370) EGFR (BEAKER) (test 87 mL/min/1.73 sq m ESTIMATED GFR IS NOT yctr=7086) ACCURATE CREATININE CLEARANCE IN PREDICTING GLOMERULAR FILTRATION RATE. ESTIMATED GFR IS NOT APPLICABLE FOR DIALYSIS PATIENTS. Specimen moderately ictericVITAMIN B12 AND [id number] 07:48:00 Test Item Value Reference Range Comments VITAMIN B12 (BEAKER) (test ultq=902) > pg/mL 213-816 FOLATE (BEAKER) (test rlxf=480) 13.1 ng/mL >=7.0 RAPID DRUG SCREEN, [id number] 07:15:00 Test Item Value Reference Range Comments BARBITURATE URINE (BEAKER) (test tcyt=674) Negative Negative BENZODIAZEPINE SCREEN URINE (BEAKER) (test Negative Negative ofhw=927) COCAINE (METAB.) SCREEN (BEAKER) (test dbnm=2584) Negative Negative METHADONE SCREEN (BEAKER) (test vczw=3931) Negative Negative OPIATE SCREEN URINE (BEAKER) (test mjoo=950) Positive Negative CANNABINOID SCREEN URINE (BEAKER) (test bfrn=391) Negative Negative AMPH/METHAMPH SCREEN (BEAKER) (test rvco=6870) Negative Negative PHENCYCLIDINE SCREEN URINE (BEAKER) (test umev=991) Negative Negative OXYCODONE SCREEN URINE (BEAKER) (test kuvo=2487) Negative Negative DRUG CUTOFF CONC.Cocaine 300 ng/mL Cannabinoid 50 ng/mL Benzodiazepine 200 ng/mLBarbiturate 200 ng/ mLPhencyclidine 25 ng/mLOpiate 300 ng/mLMethadone 300 ng/mLAmphetamine/ 1000 ng/mL MethamphetamineOxycodone 300 ng/mLThis assay provides an unconfirmed qualitative test result for the clinical management of patients in emergency situations. Chain of custody not maintained. Some zgrh-gtd-kcrhdzy medications, as well as adulterants, may cause inaccurate results. Clinical correlation should be applied. A more comprehensive drug screen or confirmation of a detected drug may be performed upon request.CALCIUM, [id number] 06:36:00 Test Item Value Reference Range Comments CALCIUM IONIZED (BEAKER) (test kqfu=796) 1.08 mmol/L 1.12-1.27 PH, BLOOD (BEAKER) (test zqva=2997) 7.29 RAD, CHEST, 1 VIEW, NON [id number] 06:34:00Reason for exam:-> wheezingShould this be performed at the bedside?->YesFINAL REPORT INDICATION: wheezing COMPARISON: None TECHNIQUE: Single frontal view of the chest. FINDINGS: Lungs and pleura: Right lower lung atelectasis. Superimposed infection may be excluded clinically. No effusion.Heart and mediastinum: Normal heart size. Unremarkable mediastinal contours.Osseous structures: No acute abnormality.Other: None. IMPRESSION: Poor inspiration and bibasilar atelectasis. Superimposed infection may be excluded clinically. Signed: Hillary Gilbert MDReport Verified Date/Time: 10/19/2018 06:34:48 Reading Location: [facility] C013V Neuro Reading Room BASIC METABOLIC [id number] 04:26:00 Test Item Value Reference Range Comments SODIUM (BEAKER) (test 128 meq/L 136-145 sghj=793) POTASSIUM (BEAKER) (test 5.8 meq/L 3.5-5.1 iqsb=203) CHLORIDE (BEAKER) (test 101 meq/L 98-107 skwh=746) CO2 (BEAKER) (test 24 meq/L 22-29 axul=121) BLOOD UREA NITROGEN 14 mg/dL 7-21 (BEAKER) (test axff=406) CREATININE (BEAKER) (test 0.98 mg/dL 0.57-1.25 ouyu=795) GLUCOSE RANDOM (BEAKER) 278 mg/dL 70-105 (test ewcm=043) CALCIUM (BEAKER) (test 7.4 mg/dL 8.4-10.2 bobs=773) EGFR (BEAKER) (test 79 mL/min/1.73 sq m ESTIMATED GFR IS NOT emlp=0928) ACCURATE CREATININE CLEARANCE IN PREDICTING GLOMERULAR FILTRATION RATE. ESTIMATED GFR IS NOT APPLICABLE FOR DIALYSIS PATIENTS. Specimen slightly ictericHEPATIC FUNCTION [id number] 04:24:00 Test Item Value Reference Range Comments TOTAL PROTEIN (BEAKER) (test bshi=241) 4.9 gm/dL 6.0-8.3 ALBUMIN (BEAKER) (test tczi=3950) 2.5 g/dL 3.5-5.0 BILIRUBIN TOTAL (BEAKER) (test gugo=039) 7.3 mg/dL 0.2-1.2 BILIRUBIN DIRECT (BEAKER) (test newp=267) 5.4 mg/dL 0.1-0.5 ALKALINE PHOSPHATASE (BEAKER) (test gzqi=959) 85 U/L 40-150 AST (SGOT) (BEAKER) (test cpzu=387) 144 U/L 5-34 ALT (SGPT) (BEAKER) (test ngog=855) 315 U/L 6-55 Specimen slightly ictericLACTIC ACID, VENOUS, WHOLE [id number] 04:14:00 Test Item Value Reference Range Comments LACTATE BLOOD VENOUS (2) (BEAKER) (test 1.7 mmol/L 0.5-2.2 rgvn=1304) Specimen slightly ictericCT, BRAIN, WITHOUT [id number] 01:33:00FINAL REPORT CT, BRAIN, WITHOUT CONTRAST CLINICAL INDICATION: Decreased alertness COMPARISON: Delivery 2015 TECHNIQUE: Noncontrast axial CT imaging of the brain and skull. DOSE REDUCTION: Dose modulation, iterative reconstruction, and/or weight-based adjustment of the mA/kV was utilized to reduce the radiation dose to as low as reasonably achievable. FINDINGS:No intracranial hemorrhage, midline shift or mass effect. Midline structures are normally developed. Mild chronicmicrovascular ischemic changes of the periventricular and subcortical white matter present. No hydrocephalus. Orbits are within normal limits. No obstructive paranasal sinus disease. IMPRESSION: No acute intracranial findings If there is persistent clinical concern for intracranial pathology, MR examination is recommended for further characterization. Signed: Hillary Gilbert Verified Date/Time: 2018 01:33:34 Reading Location: [facility] C013V Neuro Reading Room LACTIC ACID, VENOUS, WHOLE [id number] 00:22:00 Test Item Value Reference Range Comments LACTATE BLOOD VENOUS (2) (BEAKER) (test 1.8 mmol/L 0.5-2.2 ksmc=7679) Specimen slightly ictericBASIC METABOLIC [id number] 00:05:00 Test Item Value Reference Range Comments SODIUM (BEAKER) (test 129 meq/L 136-145 wwew=949) POTASSIUM (BEAKER) (test 5.6 meq/L 3.5-5.1 gbii=640) CHLORIDE (BEAKER) (test 103 meq/L 98-107 nfrt=326) CO2 (BEAKER) (test 22 meq/L 22-29 cabn=533) BLOOD UREA NITROGEN 16 mg/dL 7-21 (BEAKER) (test upmp=900) CREATININE (BEAKER) (test 0.95 mg/dL 0.57-1.25 umwu=076) GLUCOSE RANDOM (BEAKER) 262 mg/dL 70-105 (test xpsw=251) CALCIUM (BEAKER) (test 6.9 mg/dL 8.4-10.2 hbaf=689) EGFR (BEAKER) (test 81 mL/min/1.73 sq m ESTIMATED GFR IS NOT ufgs=3607) ACCURATE CREATININE CLEARANCE IN PREDICTING GLOMERULAR FILTRATION RATE. ESTIMATED GFR IS NOT APPLICABLE FOR DIALYSIS PATIENTS. Specimen moderately ictericTSH/FREE T4 IF [id number] 22:56:00 Test Item Value Reference Range Comments THYROID STIMULATING HORMONE (BEAKER) (test 1.61 uIU/mL 0.35-4.94 repi=214) PROTHROMBIN TIME/[id number] 22:50:00 Test Item Value Reference Range Comments PROTIME (BEAKER) (test rtas=586) 16.2 seconds 11.7-14.7 INR (BEAKER) (test pzmp=704) 1.3 <=5.9 RECOMMENDED COUMADIN/WARFARIN INR THERAPY RANGESSTANDARD DOSE: 2.0 - 3.0 Includes: PROPHYLAXIS forvenous thrombosis, systemic embolization; TREATMENT for venous thrombosis and/or pulmonary embolus.HIGH RISK: Target INR is 2.5-3.5 for patients with mechanical heart valves.BLOOD GAS, [id number] 22:45:00 Test Item Value Reference Range Comments PH ARTERIAL (BEAKER) (test xtig=802) 7.29 7.35-7.45 PCO2 ARTERIAL (BEAKER) (test rkfo=428) 49 mmHg 35-45 PO2 ARTERIAL (BEAKER) (test thmv=106) 81 mmHg 80-90 O2 SATURATION ARTERIAL (BEAKER) (test tjiw=654) 94.3 % 96.0-97.0 HCO3 ARTERIAL (BEAKER) (test tvhi=138) 23 mmol/L 21-29 BASE EXCESS ARTERIAL (BEAKER) (test pneu=279) -3.7 mmol/L -2.0-3.0 PATIENT TEMPERATURE (BEAKER) (test txdg=6061) 37.4 C FIO2 (BEAKER) (test xzne=7156) 38.0 % BASIC METABOLIC [id number] 22:40:00 Test Item Value Reference Range Comments SODIUM (BEAKER) (test 127 meq/L 136-145 wteb=217) POTASSIUM (BEAKER) (test 5.6 meq/L 3.5-5.1 uhno=037) CHLORIDE (BEAKER) (test 98 meq/L 98-107 xavp=985) CO2 (BEAKER) (test 23 meq/L 22-29 szmr=610) BLOOD UREA NITROGEN 16 mg/dL 7-21 (BEAKER) (test mfun=561) CREATININE (BEAKER) (test 1.01 mg/dL 0.57-1.25 lred=773) GLUCOSE RANDOM (BEAKER) 282 mg/dL 70-105 (test qkrv=043) CALCIUM (BEAKER) (test 7.3 mg/dL 8.4-10.2 dofx=190) EGFR (BEAKER) (test 76 mL/min/1.73 sq m ESTIMATED GFR IS NOT nbom=5544) ACCURATE CREATININE CLEARANCE IN PREDICTING GLOMERULAR FILTRATION RATE. ESTIMATED GFR IS NOT APPLICABLE FOR DIALYSIS PATIENTS. Specimen moderately [id number] 22:38:00 Test Item Value Reference Range Comments PHOSPHORUS (BEAKER) (test ihlm=524) 2.0 mg/dL 2.3-4.7 [id number] 22:38:00 Test Item Value Reference Range Comments MAGNESIUM (BEAKER) (test zcct=359) 2.1 mg/dL 1.6-2.6 HEPATIC FUNCTION [id number] 22:38:00 Test Item Value Reference Range Comments TOTAL PROTEIN (BEAKER) (test tgmc=235) 5.1 gm/dL 6.0-8.3 ALBUMIN (BEAKER) (test hrqp=4289) 2.7 g/dL 3.5-5.0 BILIRUBIN TOTAL (BEAKER) (test cjwc=429) 7.5 mg/dL 0.2-1.2 BILIRUBIN DIRECT (BEAKER) (test sxzl=056) 5.5 mg/dL 0.1-0.5 ALKALINE PHOSPHATASE (BEAKER) (test huyd=337) 91 U/L 40-150 AST (SGOT) (BEAKER) (test zcbn=135) 138 U/L 5-34 ALT (SGPT) (BEAKER) (test qwzd=067) 318 U/L 6-55 Specimen moderately [id number] 22:38:00 Test Item Value Reference Range Comments LIPASE (BEAKER) (test covc=804) 221 U/L 8-78 Specimen moderately ictericLACTIC ACID, VENOUS, WHOLE [id number] 22:32:00 Test Item Value Reference Range Comments LACTATE BLOOD VENOUS (2) (BEAKER) (test 2.1 mmol/L 0.5-2.2 oydi=6411) Specimen moderately icteric
[2019-04-02] MEDS ORDERED: FENTANYL CITR 100 MCG/2 ML ONE (21:53)
[2019-04-02] MEDS ORDERED: NA CHLORIDE 0.9% 1,000 ML ONE ×2 (21:53→23:39)
[2019-04-02 21:54] LABS: Absolute Lymphocytes (CBC) 0.6 K/uL (0.7-4.9); Basophils % 0.2 % (0-1.3); Hematocrit 47.5 % (39.6-49.0); Lymphocytes % 4.3 % (15.3-44.8); MPV 8.6 fL (7.6-11.3); Monocytes % 5.3 % (3.3-12.3); RBC Red Blood Cell Count 6.44 M/uL (4.33-5.43)
[2019-04-02 22:09] LABS: Albumin 2.2 g/dL (3.4-5.0); Bilirubin Direct 0.5 mg/dL (0-0.2); Bilirubin Total 0.8 mg/dL (0.2-1.0); Potassium 4.4 mmol/L (3.5-5.1); Protein, Total 7.2 g/dL (6.4-8.2)
[2019-04-02 22:47] LABS: Blood Morphology Comment NOT SEEN (NOT SEEN); Platelet Estimate ADEQ
--- NOTE | 2019-04-02 23:02 | ER ---
Nurse's Notes [facility] Name: Kristopher Koehler Age: 58 yrs Sex: Male : 1960 Arrival Date: 04/02/2019 Time: 20:29 Bed 16 Private MD: Diagnosis: Abscess of liver;Sepsis, unspecified organism Presentation: 04/02 20:31 Presenting complaint: Patient states: I started having severe pain in my upper abd la1 about 3 weeks ago that get really bad tonight. I have a stent in my bile duct or gall bladder and they are watching it closely. Pt appears very uncomfortable, denies fever, vomiting, or chills. Transition of care: patient was not received from another setting of care. Onset of symptoms was April 02, 2019. Risk Assessment: Do you want to hurt yourself or someone else? Patient reports no desire to harm self or others. Initial Sepsis Screen: Does the patient meet any 2 criteria? No. Patient's initial sepsis screen is negative. Does the patient have a suspected source of infection? No. Patient's initial sepsis screen is negative. Care prior to arrival: None. 20:31 Method Of Arrival: Ambulatory la1 20:31 Acuity: RADHA 2 la1 Historical: - Allergies: 20:31 Codeine; la1 - PMHx: 20:31 Hypertension; Hypothyroidism; Insulin Resistance; Raynaud's syndrome; la1 - Immunization history:: Adult Immunizations up to date. - Social history:: Smoking status: Patient/guardian denies using tobacco. - Ebola Screening: : No symptoms or risks identified at this time. Screenin:00 Abuse screen: Denies threats or abuse. Nutritional screening: No deficits noted. jb4 Tuberculosis screening: No symptoms or risk factors identified. Fall Risk IV access (20 points). Total [place] Fall Scale indicates No Risk (0-24 pts). Assessment: 21:00 General: Appears in no apparent distress. uncomfortable, Behavior is calm, cooperative, jb4 appropriate for age. Pain: Complains of pain in abdomen Pain does not radiate. Pain currently is 10 out of 10 on a pain scale. Quality of pain is described as stabbing. Neuro: Level of Consciousness is awake, alert, obeys commands, Oriented to person, place, time, situation. Cardiovascular: Skin warm, diophoretic.. Respiratory: Airway is patent Respiratory effort is even, unlabored, Respiratory pattern is regular, symmetrical. GI: Abdomen is flat, non-distended, Bowel sounds present X 4 quads. Abdomen is tender to palpation X 4 quads. Abd is rigid X 4 quads. Reports lower abdominal pain, upper abdominal pain. : No signs and/or symptoms were reported regarding the genitourinary system. EENT: No signs and/or symptoms were reported regarding the EENT system. Derm: Skin is intact, Skin is diaphoretic, Skin is normal, Skin temperature is warm. Musculoskeletal: Circulation, motion, and sensation intact. Range of motion: intact in all extremities. 22:30 Reassessment: Patient appears in no apparent distress at this time. No changes from jb4 previously documented assessment. Patient and/or family updated on plan of care and expected duration. Pain level reassessed. Patient is alert, oriented x 3, equal unlabored respirations, skin warm/dry/pink. Patient states feeling better. 23:30 Reassessment: Patient appears in no apparent distress at this time. Patient and/or jb4 family updated on plan of care and expected duration. Pain level reassessed. Patient is alert, oriented x 3, equal unlabored respirations, skin warm/dry/pink. 04/03 00:25 Reassessment: Patient appears in no apparent distress at this time. Patient and/or jb4 family updated on plan of care and expected duration. Pain level reassessed. Patient is alert, oriented x 3, equal unlabored respirations, skin warm/dry/pink. Pt reports an increase in pain, provider notified see [facility] for orders. 01:12 Reassessment: Patient appears in no apparent distress at this time. Patient and/or jb4 family updated on plan of care and expected duration. Pain level reassessed. Patient is alert, oriented x 3, equal unlabored respirations, skin warm/dry/pink. Pt transferred to receiving facility via EMS, belongings with patients, verbalized understanding for need for transfer. Patient states feeling better. Vital Signs: 04/02 20:32 BP 90 / 59; Pulse 111; Resp 16; Temp 97.6; Pulse Ox 98% on R/A; Weight 88.45 kg; Height la1 5 ft. 9 in. (175.26 cm); Pain 9/10; 22:00 BP 96 / 69; Pulse 101; Resp 16; Pulse Ox 90% on R/A; jb4 22:51 BP 101 / 68; Pulse 82; Resp 18; Temp 98.2; Pulse Ox 99% on R/A; eb1 04/03 00:00 BP 91 / 68; Pulse 100; Resp 18; Temp 99.1(O); Pulse Ox 95% on 2 lpm NC; jb4 01:00 BP 93 / 91; Pulse 93; Resp 16; Pulse Ox 94% on 2 lpm NC; jb4 04/02 20:32 Body Mass Index 28.80 (88.45 kg, 175.26 cm) la1 ED Course: 04/02 20:29 Patient arrived in ED. ds1 20:32 Triage completed. la1 20:33 Arm band placed on right wrist. la1 20:35 Slade Moran MD is Attending Physician. gs 21:00 Patient has correct armband on for positive identification. Placed in gown. Bed in low jb4 position. Call light in reach. Side rails up X 1. Pulse ox on. NIBP on. 21:36 Reinier Hubbard, DELONTE is Primary Nurse. jb4 21:58 CT Abd/Pelvis - Without Contrast In Process Unspecified. EDMS 04/03 01:15 No provider procedures requiring assistance completed. jb4 01:16 Patient transferred, IV remains in place. jb4 Administered Medications: 04/02 21:54 Drug: fentaNYL (PF) 50 mcg Route: IVP; Site: left wrist; jb4 22:20 Follow up: Response: No adverse reaction; Pain is decreased jb4 21:55 Drug: NS 0.9% 1000 ml Route: IV; Rate: 1 bolus; Site: left wrist; jb4 23:00 Follow up: Response: No adverse reaction; IV Status: Completed infusion; IV Intake: jb4 1000ml 23:36 Drug: NS 0.9% 1000 ml {Note: administered to right EJ.} Route: IV; Rate: 1 bolus; Site: jb4 Other; 04/03 00:30 Follow up: IV Status: Completed infusion; IV Intake: 1000ml jb4 00:02 Drug: cefOXitin 1 grams Route: IVPB; Infused Over: 30 mins; Site: right jugular; 4 00:32 Follow up: IV Status: Completed infusion; IV Intake: 50ml jb4 00:30 Drug: NS 0.9% 1000 ml Route: IV; Rate: 150 ml/hr; Site: left wrist; jb4 01:18 Follow up: IV Status: Infusion continued upon transfer jb4 00:30 Drug: fentaNYL (PF) 50 mcg Route: IVP; Site: left wrist; jb4 01:00 Follow up: Response: No adverse reaction; Pain is decreased jb4 Intake: 04/02 23:00 IV: 1000ml; Total: 1000ml. jb4 04/03 00:30 IV: 1000ml; Total: 2000ml. jb4 00:32 IV: 50ml; Total: 2050ml. jb4 Outcome: 04/02 23:02 ER care complete, transfer ordered by . 04/03 01:15 Transferred by ground EMS to [facility], Transfer form completed. jb4 Condition: stable Discharge instructions given to patient, Instructed on the need for transfer, Demonstrated understanding of instructions. 01:21 Patient left the ED. jb4 Signatures: Dispatcher [employer] EDNC Suzie Ramirez ds1 Luis Wagner RN RN la1 Reinier Hubbard RN RN jb4 Slade Moran MD MD gs Basinger, Emily RN RN eb1 Corrections: (The following items were deleted from the chart) 04/02 22:16 20:31 Acuity: RADHA 3 la1 la1
--- NOTE | 2019-04-02 23:03 | EDPHYS ---
Physician Documentation [facility] Name: Kristopher Koehler Age: 58 yrs Sex: Male : 1960 Arrival Date: 04/02/2019 Time: 20:29 Bed 16 Private MD: ED Physician Slade Moran HPI: 04/02 22:32 This 58 yrs old Male presents to ER via Ambulatory with complaints of Stint gs Issue. 22:32 The patient presents with abdominal pain that is diffuse. Onset: The symptoms/episode gs began/occurred 5 day(s) ago, and became worse and became persistent. The symptoms do not radiate. Associated signs and symptoms: Pertinent positives: nausea, Pertinent negatives: fever, vomiting. The symptoms are described as sharp. Modifying factors: The symptoms are alleviated by nothing, the symptoms are aggravated by nothing. Severity of pain: At its worst the pain was severe in the emergency department the pain is unchanged. The patient has experienced similar episodes in the past, a few times. Historical: - Allergies: 20:31 Codeine; la1 - PMHx: 20:31 Hypertension; Hypothyroidism; Insulin Resistance; Raynaud's syndrome; la1 - Immunization history:: Adult Immunizations up to date. - Social history:: Smoking status: Patient/guardian denies using tobacco. - Ebola Screening: : No symptoms or risks identified at this time. ROS: 22:42 All other systems are negative. gs Exam: 22:42 Head/Face: Normocephalic, atraumatic. Eyes: Pupils equal round and reactive to light, gs extra-ocular motions intact. Lids and lashes normal. Conjunctiva and sclera are non-icteric and not injected. Cornea within normal limits. Periorbital areas with no swelling, redness, or edema. ENT: Nares patent. No nasal discharge, no septal abnormalities noted. Tympanic membranes are normal and external auditory canals are clear. Oropharynx with no redness, swelling, or masses, exudates, or evidence of obstruction, uvula midline. Mucous membranes moist. Neck: Trachea midline, no thyromegaly or masses palpated, and no cervical lymphadenopathy. Supple, full range of motion without nuchal rigidity, or vertebral point tenderness. No Meningismus. Chest/axilla: Normal chest wall appearance and motion. Nontender with no deformity. No lesions are appreciated. 22:42 Respiratory: Lungs have equal breath sounds bilaterally, clear to auscultation and percussion. No rales, rhonchi or wheezes noted. No increased work of breathing, no retractions or nasal flaring. Back: No spinal tenderness. No costovertebral tenderness. Full range of motion. MS/ Extremity: Pulses equal, no cyanosis. Neurovascular intact. Full, normal range of motion. Neuro: Awake and alert, GCS 15, oriented to person, place, time, and situation. Cranial nerves II-XII grossly intact. Motor strength 5/5 in all extremities. Sensory grossly intact. Cerebellar exam normal. Normal gait. 22:42 Constitutional: The patient appears alert, awake, diaphoretic. 22:42 Cardiovascular: Rate: tachycardic, Rhythm: regular, Pulses: no pulse deficits are appreciated. 22:42 Abdomen/GI: Inspection: distension, that is mild, Palpation: moderate abdominal tenderness, in all quadrants, rebound tenderness, is elicited in all quadrants. 22:53 Skin: Appearance: Moisture: diaphoretic. gs Vital Signs: 20:32 BP 90 / 59; Pulse 111; Resp 16; Temp 97.6; Pulse Ox 98% on R/A; Weight 88.45 kg; Height la1 5 ft. 9 in. (175.26 cm); Pain 9/10; 22:00 BP 96 / 69; Pulse 101; Resp 16; Pulse Ox 90% on R/A; jb4 22:51 BP 101 / 68; Pulse 82; Resp 18; Temp 98.2; Pulse Ox 99% on R/A; eb1 04/03 00:00 BP 91 / 68; Pulse 100; Resp 18; Temp 99.1(O); Pulse Ox 95% on 2 lpm NC; jb4 01:00 BP 93 / 91; Pulse 93; Resp 16; Pulse Ox 94% on 2 lpm NC; jb4 04/02 20:32 Body Mass Index 28.80 (88.45 kg, 175.26 cm) la1 MDM: 04/02 20:54 Patient medically screened. gs 22:53 Differential diagnosis: diverticulitis, non-specific abd pain, pancreatitis, perf gs viscous. Data reviewed: vital signs, nurses notes. Counseling: I had a detailed discussion with the patient and/or guardian regarding: the historical points, exam findings, and any diagnostic results supporting the discharge/admit diagnosis, lab results, radiology results, the need to transfer to another facility. Response to treatment: the patient's symptoms have mildly improved after treatment, and as a result, I will transfer. 04/02 20:39 Order name: Basic Metabolic Panel; Complete Time: 22:14 04/02 20:39 Order name: CBC with Diff; Complete Time: 22:48 04/02 20:39 Order name: Hepatic Function; Complete Time: 22:14 04/02 20:39 Order name: Lipase; Complete Time: 22:14 04/02 22:02 Order name: Manual Differential; Complete Time: 22:48 EDMS 04/02 22:16 Order name: Blood Culture* 04/02 21:01 Order name: CT Abd/Pelvis - Without Contrast 04/02 22:16 Order name: Lactate; Complete Time: 00:20 04/02 22:16 Order name: Procalcitonin; Complete Time: 00:46 04/02 20:39 Order name: IV Saline Lock; Complete Time: 21:55 04/02 20:39 Order name: Labs collected and sent; Complete Time: 21:55 gs Administered Medications: 21:54 Drug: fentaNYL (PF) 50 mcg Route: IVP; Site: left wrist; jb4 22:20 Follow up: Response: No adverse reaction; Pain is decreased jb4 21:55 Drug: NS 0.9% 1000 ml Route: IV; Rate: 1 bolus; Site: left wrist; jb4 23:00 Follow up: Response: No adverse reaction; IV Status: Completed infusion; IV Intake: jb4 1000ml 23:36 Drug: NS 0.9% 1000 ml {Note: administered to right EJ.} Route: IV; Rate: 1 bolus; Site: jb4 Other; 04/03 00:30 Follow up: IV Status: Completed infusion; IV Intake: 1000ml jb4 00:02 Drug: cefOXitin 1 grams Route: IVPB; Infused Over: 30 mins; Site: right jugular; jb4 00:32 Follow up: IV Status: Completed infusion; IV Intake: 50ml jb4 00:30 Drug: NS 0.9% 1000 ml Route: IV; Rate: 150 ml/hr; Site: left wrist; jb4 01:18 Follow up: IV Status: Infusion continued upon transfer jb4 00:30 Drug: fentaNYL (PF) 50 mcg Route: IVP; Site: left wrist; jb4 01:00 Follow up: Response: No adverse reaction; Pain is decreased jb4 Disposition: 04/02/19 23:02 Transfer ordered to [facility]. Diagnosis are Abscess of liver, Sepsis, unspecified organism. - Reason for transfer: Higher level of care. - Accepting physician is [facility]. - Condition is Stable. - Problem is new. - Symptoms have improved. Signatures: Dispatcher [employer] EDMS Luis Wagner RN RN la1 Reinier Hubbard RN RN jb4 Slade Moran MD MD gs Corrections: (The following items were deleted from the chart) 01:21 04/02 23:02 04/02/2019 23:02 Transfer ordered to [facility]. jb4 Diagnosis is Abscess of liver; Sepsis, unspecified organism. Reason for transfer: Higher level of care. Accepting physician is [facility]. Condition is Stable. Problem is new. Symptoms have improved. gs
[2019-04-03] MEDS ORDERED: CEFOXITIN SODIUM 1 GM/VIAL ONE (00:01)
[2019-04-03] MEDS ORDERED: NA CHLORIDE 0.9% 50 ML IV ONE (00:02)
[2019-04-03] MEDS ORDERED: FENTANYL CITR 100 MCG/2 ML ONE (00:43)
[2019-04-03] MEDS ORDERED: NA CHLORIDE 0.9% 1,000 ML ONE (00:43)
[2019-04-03 01:34] VITALS: TEMP 99.1
[2019-04-03 01:35] VITALS: BP 93/91; O2SAT 94
--- NOTE | 2019-04-04 12:17 | RAD REPORT ---
EXAM DESCRIPTION: CT - Abdomen Pelvis Wo Contrast - 04/02/2019 9:57 pm CLINICAL HISTORY: ABD PAIN COMPARISON: 10/16/2018 TECHNIQUE: CT of the abdomen and pelvis without IV contrast. Evaluation of the solid organs and vasc ulature is suboptimal due to lack of IV contrast. DLP: 1063 mGy-cm FINDINGS: Lung Bases: The visualized mild bibasilar opacities may be related to atelectasis. Small p ericardial effusion. Bones: No destructive bone lesions identified. Abdomen: Liver: Heterogeneous hypodensity in the posterior right hepatic lobe with foci of air measuring appro ximately 8.5 x 7.3 x 7.0 cm. There are smaller satellite intrahepatic hypodensities more anterior in the right hepatic lobe to the largest fluid collection, one measures approximately 3.2 x 1.3 cm the o ther measures 1.9 x 2.0 cm. Intrabiliary air and common bile duct stent noted. Perihepatic inflammato ry change Gallbladder: Air in the gallbladder lumen. Spleen, Pancreas, and Adrenal Glands: The spleen and adrenal glands are unremarkable. There is a 3. 7 x 3.3 cm indeterminate fluid collection arising from the tail of the pancreas which is new from the comparison study. Kidneys: The kidneys have normal size and contour without evidence of hydronephrosis. No obstructing ureteral calculi. Vasculature: Aortoiliac atherosclerosis. IVC is unremarkable. Stomach: The stomach and duodenum have normal course. Other: Scattered foci of free intraperitoneal air right subdiaphragmatic and perihepatic spaces mos t confluent adjacent to the likely hepatic abscess. Mild/moderate amount of free fluid within the a bdomen. Pelvis: Bladder: Urinary bladder is decompressed. Bowel: No dilated loops of large or small bowel. Mild wall thickening of loops of distal small alonzo l. Appendix: Normal appendix. Pelvis: Prostate is not enlarged. IMPRESSION: 1. Findings suggestive of abscess in the posterior right hepatic lobe measuring 8.5 cm i n greatest dimension with foci of air within these fluid collection. There are smaller hypodensities in the liver which are new from the comparison study and may represent developing abscesses as well i n the more anterior right hepatic lobe measuring 3.2 and 2.0 cm. Correlation with contrast-enhanced m ultiphase CT or MRI recommended would provide additional characterization. 2. Scattered foci of free intraperitoneal air predominantly in the right subdiaphragmatic and perihep atic spaces. This may be related to perforation of the hepatic capsule at the site of right hepatic a bscess. Alternatively, perforated viscus could also produce this appearance. 3. Moderate amount of free fluid throughout the abdomen. 4. Interval development of a 3.7 cm well-circumscribed fluid collection arising from the tail of the pancreas. This may represent a pancreatic pseudocyst however other etiologies are not excluded. Corre lation for history of pancreatitis recommended. Again this would be more accurately characterize with contrast-enhanced CT or MRI of the abdomen. 5. Prominent loops of small bowel with wall thickening of the distal small bowel. Air is identified i n the colon. Findings most suggestive of ileus related to inflammatory fluid layering in the abdomen. Partial small bowel obstruction while considered less likely not excluded. Continued follow-up recom mended. Urgent finding reported to Dr. Moran at 04/02/2019 10:24 PM CDT This exam was performed according to our departmental dose-optimization program, which includes autom ated exposure control, adjustment of the mA and/or kV according to patient size and/or use of iterati ve reconstruction technique. Electronically signed by: Georges Arevalo 04/02/2019 10:25 PM CDT Due to temporary technical issues with the PACS/Fluency reporting system, reports are being signed by the in house radiologist as a courtesy to ensure prompt reporting. The interpreting radiologist is f ully responsible for the content of the report.
== END 2019-04-03 01:21 | disposition short-term general hospital (02) ==
LOC: ER 20:28
DX: K75.0 Abscess of liver (principal); A41.9 Sepsis, unspecified organism; I10 Essential (primary) hypertension; Z88.5 Allergy status to narcotic agent
CPT/HCPCS: 36415; 74176; 80048; 80076; 83605; 83690; 84145; 85025; 87040; 96361; 96365; 96375; 99285; J3010; J7030

== ENCOUNTER 2019-05-16 12:44 | Emergency (ER) | payer BC ==
--- OUTSIDE RECORDS SUMMARY | 2019-05-16 12:56 | XMS REPORT ---
:1960 Author Organization [facility] Address [address] Velásquez [address] [place] [address] Care Team Providers Name Role Phone CHELLY AMILCAR GIRALDO Unavailable Unavailable GEORGETTE SOSA Unavailable Unavailable Problems This patient has no known problems. Allergies, Adverse Reactions, Alerts This patient has no known allergies or adverse reactions. Medications This patient has no known medications. Results Test Description Test Time Test Comments Text Results Atomic Results Result Comments FUNGUS CULTURE + SMEAR 2019-05-10 18:53:00 Test Item Value Reference Range Comments CULTURE (BEAKER) (test yjhh=0462) No fungus isolated in 28 days FUNGUS SMEAR (BEAKER) (test afvl=5845) No fungi seen FUNGUS CULTURE + [id number] 18:53:00 Test Item Value Reference Range Comments CULTURE (BEAKER) (test No fungus isolated in 28 days sfxk=7666) FUNGUS SMEAR (BEAKER) (test No fungi seen cxel=0854) FUNGUS CULTURE + [id number] 18:53:00 Test Item Value Reference Range Comments CULTURE (BEAKER) (test No fungus isolated in 28 days blbr=2276) FUNGUS SMEAR (BEAKER) (test No fungi seen fppw=2116) U/S, DRAINAGE, W/ CATH [id number] 14:46:00Reason for exam:->left pelvic fluid pigtail catheter fell outFINAL REPORT Ultrasound-guided pigtail catheter insertion. 04/22/2019 Clinical History: Dislodged left pelvic pigtail drainage catheter Technique: Informed written consent was obtained. Discussion of risks, benefits, and alternatives were made with the patient. The patient expressed understanding and agreed to proceed. A universal timeout was performed prior to starting the procedure. All elements maximal sterile barrier technique was utilized for this procedure, including utilization of sterile scrub solution for skin prep, a large sterile sheet to cover the areas of the patient that were not prepped, and hand hygiene, mask, head covering, and sterile gown for performing radiologist and scrub technologist. Using sterile technique, ultrasound guidance and a 8 [place] all- purpose pigtail catheter, the catheter was inserted into the patient's left lower quadrant fluid collection using the trocar technique. No immediate complications developed. Estimated blood loss: None Patient disposition: The patient was asymptomatic at the end of the exam. Impression: Successful ultrasound-guided pigtail catheter insertion into a collection in the left lower quadrant. Signed: Pancho Pugh MDReport Verified Date/Time: 2018 14:46:47 Reading Location: [address] Body Reading Room FUNGUS CULTURE + [id number] 18:01:00 Test Item Value Reference Range Comments CULTURE (BEAKER) (test No fungus isolated in 28 days xckc=8211) FUNGUS SMEAR (BEAKER) (test No fungi seen ybhx=2722) POCT-GLUCOSE [id number] 16:58:00 Test Item Value Reference Range Comments POC-GLUCOSE METER (BEAKER) 134 mg/dL 70-110 TESTED AT [facility] [address] [facility] (test oegg=9292) [facility] [address] POCT-GLUCOSE [id number] 13:05:00 Test Item Value Reference Range Comments POC-GLUCOSE METER (BEAKER) 127 mg/dL 70-110 TESTED AT [address] (test jzpy=8392) [facility] [address] CBC W/PLT COUNT & AUTO [id number] 11:11:00 Test Item Value Reference Range Comments WHITE BLOOD CELL COUNT (BEAKER) (test gulp=035) 16.1 K/ L 3.5-10.5 RED BLOOD CELL COUNT (BEAKER) (test lzhr=596) 3.72 M/ L 4.63-6.08 HEMOGLOBIN (BEAKER) (test pexz=772) 8.5 GM/DL 13.7-17.5 HEMATOCRIT (BEAKER) (test basp=167) 28.6 % 40.1-51.0 MEAN CORPUSCULAR VOLUME (BEAKER) (test eitb=258) 76.9 fL 79.0-92.2 MEAN CORPUSCULAR HEMOGLOBIN (BEAKER) (test 22.8 pg 25.7-32.2 uywj=342) MEAN CORPUSCULAR HEMOGLOBIN CONC (BEAKER) (test 29.7 GM/DL 32.3-36.5 tnpq=569) RED CELL DISTRIBUTION WIDTH (BEAKER) (test 16.4 % 11.6-14.4 mwrz=088) PLATELET COUNT (BEAKER) (test niel=753) 453 K/CU MM 150-450 MEAN PLATELET VOLUME (BEAKER) (test xgpk=432) 9.5 fL 9.4-12.4 NUCLEATED RED BLOOD CELLS (BEAKER) (test 0 /100 WBC 0-0 gcat=580) (CELLAVISION MANUAL DIFF)2019-04-25 11:11:00 Test Item Value Reference Range Comments NEUTROPHILS - REL (CELLAVISION)(BEAKER) (test 80 % vodf=0814) LYMPHOCYTES - REL (CELLAVISION)(BEAKER) (test 6 % hmyt=1628) MONOCYTES - REL (CELLAVISION)(BEAKER) (test 6 % okpv=6750) EOSINOPHILS - REL (CELLAVISION)(BEAKER) (test 2 % ghsd=9029) MYELOCYTES - REL (CELLAVISION)(BEAKER) (test 1 % 0-0 ssxc=6327) ATYPICAL LYMPHOCYTES - REL (CELLAVISION)(BEAKER) 5 % 0-0 (test ghzx=8614) NEUTROPHILS - ABS (CELLAVISION)(BEAKER) (test 12.88 K/ul 1.78-5.38 igfd=9246) LYMPHOCYTES - ABS (CELLAVISION)(BEAKER) (test 0.97 K/ul 1.32-3.57 rura=2520) MONOCYTES - ABS (CELLAVISION)(BEAKER) (test 0.97 K/uL 0.30-0.82 swrw=2268) EOSINOPHILS - ABS (CELLAVISION)(BEAKER) (test 0.32 K/uL 0.04-0.54 rjhl=3627) MYELOCYTES-ABS (CELLAVISION)(BEAKER) (test 0.16 K/uL 0.00-0.00 grbm=0034) ATYPICAL LYMPHOCYTES - ABS (CELLAVISION)(BEAKER) 0.81 K/uL 0.00-0.00 (test vprf=9273) TOTAL COUNTED (BEAKER) (test bxyj=0420) 100 WBC MORPHOLOGY (BEAKER) (test lcor=499) Normal PLT MORPHOLOGY (BEAKER) (test tasz=001) Normal POLYCHROMATOPHILLIC RBCS(BEAKER) (test uczt=256) 2+ moderate HYPOCHROMIA (BEAKER) (test caun=878) 1+ few ARTIFACT (CELLAVISION)(BEAKER) (test bjup=3429) Present PLATELET CONCENTRATION (CELLAVISION)(BEAKER) Increased (test snfr=7308) Received comment: User comments: Slide comments:POCT-GLUCOSE [id number] 08: 53:00 Test Item Value Reference Range Comments POC-GLUCOSE METER (BEAKER) 122 mg/dL 70-110 TESTED AT [facility] [address] [facility] (test argh=4277) [place] [address] [id number] 07:06:00 Test Item Value Reference Range Comments PHOSPHORUS (BEAKER) (test lhkj=052) 4.0 mg/dL 2.3-4.7 [id number] 07:06:00 Test Item Value Reference Range Comments MAGNESIUM (BEAKER) (test wsil=875) 1.8 mg/dL 1.6-2.6 BASIC METABOLIC [id number] 07:06:00 Test Item Value Reference Range Comments SODIUM (BEAKER) (test 135 meq/L 136-145 cjqx=352) POTASSIUM (BEAKER) (test 3.6 meq/L 3.5-5.1 zpas=707) CHLORIDE (BEAKER) (test 99 meq/L 98-107 unvv=884) CO2 (BEAKER) (test 27 meq/L 22-29 uinj=177) BLOOD UREA NITROGEN 4 mg/dL 7-21 (BEAKER) (test aiys=882) CREATININE (BEAKER) (test 0.64 mg/dL 0.57-1.25 nxde=499) GLUCOSE RANDOM (BEAKER) 116 mg/dL 70-105 (test ukje=820) CALCIUM (BEAKER) (test 8.4 mg/dL 8.4-10.2 ayet=229) EGFR (BEAKER) (test 128 mL/min/1.73 sq m ESTIMATED GFR IS NOT xgtw=1383) ACCURATE CREATININE CLEARANCE IN PREDICTING GLOMERULAR FILTRATION RATE. ESTIMATED GFR IS NOT APPLICABLE FOR DIALYSIS PATIENTS. POCT-GLUCOSE [id number] 22:56:00 Test Item Value Reference Range Comments POC-GLUCOSE METER (BEAKER) 151 mg/dL 70-110 TESTED AT [address] (test zvxv=0643) [facility] [address] POCT-GLUCOSE [id number] 17:31:00 Test Item Value Reference Range Comments POC-GLUCOSE METER (BEAKER) 145 mg/dL 70-110 TESTED AT [address] (test fnzu=6504) [facility] [address] POCT-GLUCOSE [id number] 12:17:00 Test Item Value Reference Range Comments POC-GLUCOSE METER (BEAKER) 124 mg/dL 70-110 TESTED AT [address] (test olyb=3450) [facility] [address] CBC W/PLT COUNT & AUTO [id number] 10:13:00 Test Item Value Reference Range Comments WHITE BLOOD CELL COUNT (BEAKER) (test ttls=174) 18.3 K/ L 3.5-10.5 RED BLOOD CELL COUNT (BEAKER) (test ylqy=793) 3.72 M/ L 4.63-6.08 HEMOGLOBIN (BEAKER) (test yknr=266) 8.5 GM/DL 13.7-17.5 HEMATOCRIT (BEAKER) (test ankq=117) 28.5 % 40.1-51.0 MEAN CORPUSCULAR VOLUME (BEAKER) (test druv=508) 76.6 fL 79.0-92.2 MEAN CORPUSCULAR HEMOGLOBIN (BEAKER) (test 22.8 pg 25.7-32.2 tczu=502) MEAN CORPUSCULAR HEMOGLOBIN CONC (BEAKER) (test 29.8 GM/DL 32.3-36.5 emsy=531) RED CELL DISTRIBUTION WIDTH (BEAKER) (test 16.6 % 11.6-14.4 bwuo=572) PLATELET COUNT (BEAKER) (test gtjf=411) 452 K/CU MM 150-450 MEAN PLATELET VOLUME (BEAKER) (test hfhe=722) 9.4 fL 9.4-12.4 NUCLEATED RED BLOOD CELLS (BEAKER) (test 0 /100 WBC 0-0 wily=750) (CELLAVISION MANUAL DIFF)2019-04-24 10:13:00 Test Item Value Reference Range Comments NEUTROPHILS - REL (CELLAVISION)(BEAKER) (test 73 % byvh=3502) LYMPHOCYTES - REL (CELLAVISION)(BEAKER) (test 6 % bmco=2446) MONOCYTES - REL (CELLAVISION)(BEAKER) (test 11 % dfrh=8455) EOSINOPHILS - REL (CELLAVISION)(BEAKER) (test 1 % slsg=3452) METAMYELOCYTES - REL (CELLAVISION)(BEAKER) (test 4 % 0-0 tomn=7910) MYELOCYTES - REL (CELLAVISION)(BEAKER) (test 3 % 0-0 ieog=5221) BANDS - REL (CELLAVISION)(BEAKER) (test 2 % 0-10 gbmx=8060) NEUTROPHILS - ABS (CELLAVISION)(BEAKER) (test 13.36 K/ul 1.78-5.38 qytn=5296) LYMPHOCYTES - ABS (CELLAVISION)(BEAKER) (test 1.10 K/ul 1.32-3.57 heet=4317) MONOCYTES - ABS (CELLAVISION)(BEAKER) (test 2.01 K/uL 0.30-0.82 wrpq=3876) EOSINOPHILS - ABS (CELLAVISION)(BEAKER) (test 0.18 K/uL 0.04-0.54 kffp=7781) METAMYELOCYTES - ABS (CELLAVISION)(BEAKER) (test 0.73 K/uL 0.00-0.00 bolk=6815) MYELOCYTES-ABS (CELLAVISION)(BEAKER) (test 0.55 K/uL 0.00-0.00 ulqp=5856) BANDS - ABS (CELLAVISION)(BEAKER) (test 0.37 K/uL 0.00-0.80 zgbp=5475) TOTAL COUNTED (BEAKER) (test xsky=7634) 100 WBC MORPHOLOGY (BEAKER) (test bosg=113) Normal PLT MORPHOLOGY (BEAKER) (test oyjb=020) Normal POLYCHROMATOPHILLIC RBCS(BEAKER) (test nseo=110) 1+ few HYPOCHROMIA (BEAKER) (test dqun=901) 2+ moderate ANISOCYTOSIS (BEAKER) (test srkc=008) 2+ moderate MICROCYTES (BEAKER) (test qxtm=109) 1+ few ARTIFACT (CELLAVISION)(BEAKER) (test nchs=0850) Present PLATELET CONCENTRATION (CELLAVISION)(BEAKER) Increased (test hone=9720) Received comment: User comments: Slide comments:BODY FLUID CULTURE + GRAM [id number] 08:41:00 Test Item Value Reference Range Comments CULTURE (BEAKER) (test dacy=1350) No growth GRAM STAIN RESULT (BEAKER) (test <1+ WBCs dimi=5155) GRAM STAIN RESULT (BEAKER) (test No organisms seen qxsi=72036) [id number] 08:31:00 Test Item Value Reference Range Comments PHOSPHORUS (BEAKER) (test gsiw=371) 3.6 mg/dL 2.3-4.7 [id number] 08:31:00 Test Item Value Reference Range Comments MAGNESIUM (BEAKER) (test dosq=681) 1.7 mg/dL 1.6-2.6 BASIC METABOLIC [id number] 08:31:00 Test Item Value Reference Range Comments SODIUM (BEAKER) (test 134 meq/L 136-145 lodx=866) POTASSIUM (BEAKER) (test 3.7 meq/L 3.5-5.1 fwmu=796) CHLORIDE (BEAKER) (test 97 meq/L 98-107 fkee=344) CO2 (BEAKER) (test 29 meq/L 22-29 xbvg=422) BLOOD UREA NITROGEN 5 mg/dL 7-21 (BEAKER) (test qsfu=117) CREATININE (BEAKER) (test 0.63 mg/dL 0.57-1.25 bwzh=603) GLUCOSE RANDOM (BEAKER) 136 mg/dL 70-105 (test yduc=230) CALCIUM (BEAKER) (test 8.4 mg/dL 8.4-10.2 lqhk=203) EGFR (BEAKER) (test 131 mL/min/1.73 sq m ESTIMATED GFR IS NOT gyks=5234) ACCURATE CREATININE CLEARANCE IN PREDICTING GLOMERULAR FILTRATION RATE. ESTIMATED GFR IS NOT APPLICABLE FOR DIALYSIS PATIENTS. POCT-GLUCOSE [id number] 08:07:00 Test Item Value Reference Range Comments POC-GLUCOSE METER (BEAKER) 153 mg/dL 70-110 TESTED AT [address] (test tkgw=9856) [facility] [address] POCT-GLUCOSE [id number] 21:06:00 Test Item Value Reference Range Comments POC-GLUCOSE METER (BEAKER) 211 mg/dL 70-110 TESTED AT [address] (test yqsj=5988) [facility] [address] POCT-GLUCOSE [id number] 16:52:00 Test Item Value Reference Range Comments POC-GLUCOSE METER (BEAKER) 155 mg/dL 70-110 TESTED AT [address] (test bncv=4708) [facility] [address] POCT-GLUCOSE [id number] 12:41:00 Test Item Value Reference Range Comments POC-GLUCOSE METER (BEAKER) 143 mg/dL 70-110 TESTED AT [address] (test xxfh=7294) [facility] [address] BLOOD [id number] 12:01:00 Test Item Value Reference Range Comments CULTURE (BEAKER) (test dhyr=3400) No growth in 5 days BLOOD [id number] 12:01:00 Test Item Value Reference Range Comments CULTURE (BEAKER) (test yxkw=2730) No growth in 5 days CBC W/PLT COUNT & AUTO [id number] 10:36:00 Test Item Value Reference Range Comments WHITE BLOOD CELL COUNT (BEAKER) (test quzh=405) 15.6 K/ L 3.5-10.5 RED BLOOD CELL COUNT (BEAKER) (test zdjt=763) 3.82 M/ L 4.63-6.08 HEMOGLOBIN (BEAKER) (test ycjg=401) 8.7 GM/DL 13.7-17.5 HEMATOCRIT (BEAKER) (test xscp=123) 29.7 % 40.1-51.0 MEAN CORPUSCULAR VOLUME (BEAKER) (test mqth=888) 77.7 fL 79.0-92.2 MEAN CORPUSCULAR HEMOGLOBIN (BEAKER) (test 22.8 pg 25.7-32.2 ozjp=018) MEAN CORPUSCULAR HEMOGLOBIN CONC (BEAKER) (test 29.3 GM/DL 32.3-36.5 rayf=757) RED CELL DISTRIBUTION WIDTH (BEAKER) (test 16.3 % 11.6-14.4 dsky=697) PLATELET COUNT (BEAKER) (test aans=334) 456 K/CU MM 150-450 MEAN PLATELET VOLUME (BEAKER) (test mgjr=034) 9.3 fL 9.4-12.4 NUCLEATED RED BLOOD CELLS (BEAKER) (test 0 /100 WBC 0-0 amai=851) (CELLAVISION MANUAL DIFF)2019-04-23 10:36:00 Test Item Value Reference Range Comments NEUTROPHILS - REL (CELLAVISION)(BEAKER) (test 67 % rbey=0076) LYMPHOCYTES - REL (CELLAVISION)(BEAKER) (test 13 % awua=9219) MONOCYTES - REL (CELLAVISION)(BEAKER) (test 12 % mjlu=8524) EOSINOPHILS - REL (CELLAVISION)(BEAKER) (test 1 % fpui=0987) PROMYELOCYTES - REL (CELLAVSION)(BEAKER) (test 2 % 0-0 twyk=8923) ATYPICAL LYMPHOCYTES - REL (CELLAVISION)(BEAKER) 4 % 0-0 (test gubu=8257) NEUTROPHILS - ABS (CELLAVISION)(BEAKER) (test 10.45 K/ul 1.78-5.38 htla=2167) LYMPHOCYTES - ABS (CELLAVISION)(BEAKER) (test 2.03 K/ul 1.32-3.57 smst=9470) MONOCYTES - ABS (CELLAVISION)(BEAKER) (test 1.87 K/uL 0.30-0.82 zmmh=6453) EOSINOPHILS - ABS (CELLAVISION)(BEAKER) (test 0.16 K/uL 0.04-0.54 lrjo=8365) PROMYELOCYTES - ABS (CELLAVISION)(BEAKER) (test 0.31 K/uL 0.00-0.00 urcg=5737) ATYPICAL LYMPHOCYTES - ABS (CELLAVISION)(BEAKER) 0.62 K/uL 0.00-0.00 (test ieeb=0260) TOTAL COUNTED (BEAKER) (test pyca=5822) 100 WBC MORPHOLOGY (BEAKER) (test flmh=495) Normal PLT MORPHOLOGY (BEAKER) (test ahhb=102) Normal POLYCHROMATOPHILLIC RBCS(BEAKER) (test ylja=846) 1+ few HYPOCHROMIA (BEAKER) (test mlfv=238) 2+ moderate ARTIFACT (CELLAVISION)(BEAKER) (test bpgj=0292) Present PLATELET CONCENTRATION (CELLAVISION)(BEAKER) Increased (test gbjm=5312) Received comment: User comments: Slide comments:POCT-GLUCOSE [id number] 08: 44:00 Test Item Value Reference Range Comments POC-GLUCOSE METER (BEAKER) 158 mg/dL 70-110 TESTED AT [address] (test clla=6363) [facility] [address] [id number] 07:25:00 Test Item Value Reference Range Comments PHOSPHORUS (BEAKER) (test zgvq=939) 3.5 mg/dL 2.3-4.7 [id number] 07:25:00 Test Item Value Reference Range Comments MAGNESIUM (BEAKER) (test kvkx=509) 1.9 mg/dL 1.6-2.6 BASIC METABOLIC [id number] 07:25:00 Test Item Value Reference Range Comments SODIUM (BEAKER) (test 136 meq/L 136-145 wdwk=378) POTASSIUM (BEAKER) (test 3.4 meq/L 3.5-5.1 hrkg=729) CHLORIDE (BEAKER) (test 98 meq/L 98-107 qxym=406) CO2 (BEAKER) (test 26 meq/L 22-29 swpp=302) BLOOD UREA NITROGEN 4 mg/dL 7-21 (BEAKER) (test qgdg=590) CREATININE (BEAKER) (test 0.70 mg/dL 0.57-1.25 buqd=006) GLUCOSE RANDOM (BEAKER) 136 mg/dL 70-105 (test coff=409) CALCIUM (BEAKER) (test 8.1 mg/dL 8.4-10.2 znbk=315) EGFR (BEAKER) (test 116 mL/min/1.73 sq m ESTIMATED GFR IS NOT egqd=5558) ACCURATE CREATININE CLEARANCE IN PREDICTING GLOMERULAR FILTRATION RATE. ESTIMATED GFR IS NOT APPLICABLE FOR DIALYSIS PATIENTS. POCT-GLUCOSE [id number] 23:06:00 Test Item Value Reference Range Comments POC-GLUCOSE METER (BEAKER) 239 mg/dL 70-110 [address] (test rqka=4153) [facility] [address] CT, [id number] 15:03:00If fluid collection noted on CT A/P, then patient needs to go to US for stat drainage. Order alreadyplaced.FINAL REPORT CT of the abdomen and pelvis, with contrast Clinical History: Abd pain, fever, abscess suspected Technique: CT of the abdomen and pelvis is performed with intravenous contrast administration. This exam was performed according to our departmental dose optimizationprogram which includes automated exposure control, adjustment of the mA and/or kV according to patient's size and /or use of iterative reconstructive technique. Comparison Film: April 18, 2019, March, April 08, 2019 Discussion: There are small bilateral pleural effusions, loculated on the right,along with bibasilar atelectasis, similar to the prior exam. A percutaneous drainage catheter is again noted in the posterior right hepatic lobe. Abscesses in the posterior right liver appears smaller,additional loculated hypodensities in the anterior right lobe appear unchanged. A surgical drain is also noted in the right subdiaphragmatic region. No biliary ductal dilatation. Gallbladder is contracted and contains air. No radiopaque stone is seen. The spleen, adrenal glands are unremarkable. Pancreas is atrophic. There is a stable locule of fluid adjacent to the pancreatic tail, measuring approximately 2.5 x 2.5 x 4.3 cm, represent a pseudocyst. Kidneys demonstrate no hydronephrosis, mass or radiopaque stone. Liquid content in colon suggests diarrhea. No evidence of bowel obstruction. There is a loculated collection of ascites in the lower abdomen. Previously seen percutaneous drain has been removed. It contains a tiny pocket of air, and demonstrates rim enhancement. In the pelvis, bladder, prostate and seminal vesicles are unremarkable. No free intraperitoneal air. No lymphadenopathy. Osseous structures demonstrate mild degenerative changes. Impression: Apparent decrease in size of abscesses at the right hepatic dome, status post percutaneous drainage; small fluid collections in the anterior right lobe appear not significantly changed. Small loculated ascites, previously placed drainage catheter has been removed. Correlate clinically for infection. Small bilateral pleural effusions. Signed: Helen Coyle MDReport Verified Date/Time: 04/22/2019 15: 03:01 Reading Location: [facility] C013X [facility] Consult Reading Room POCT-GLUCOSE [id number] 12:47:00 Test Item Value Reference Range Comments POC-GLUCOSE METER (BEAKER) 143 mg/dL 70-110 TESTED AT [facility] [address] [facility] (test ytnw=7775) [facility] [address] CBC W/PLT COUNT & AUTO [id number] 11:27:00 Test Item Value Reference Range Comments WHITE BLOOD CELL COUNT (BEAKER) (test hvzj=286) 16.8 K/ L 3.5-10.5 RED BLOOD CELL COUNT (BEAKER) (test yiya=168) 3.86 M/ L 4.63-6.08 HEMOGLOBIN (BEAKER) (test yyub=984) 9.1 GM/DL 13.7-17.5 HEMATOCRIT (BEAKER) (test zsfn=154) 29.5 % 40.1-51.0 MEAN CORPUSCULAR VOLUME (BEAKER) (test gtys=823) 76.4 fL 79.0-92.2 MEAN CORPUSCULAR HEMOGLOBIN (BEAKER) (test 23.6 pg 25.7-32.2 rahg=985) MEAN CORPUSCULAR HEMOGLOBIN CONC (BEAKER) (test 30.8 GM/DL 32.3-36.5 gpll=300) RED CELL DISTRIBUTION WIDTH (BEAKER) (test 16.4 % 11.6-14.4 bhgw=840) PLATELET COUNT (BEAKER) (test yejz=894) 472 K/CU MM 150-450 MEAN PLATELET VOLUME (BEAKER) (test zgde=418) 8.9 fL 9.4-12.4 NUCLEATED RED BLOOD CELLS (BEAKER) (test 0 /100 WBC 0-0 yqmx=410) (CELLAVISION MANUAL DIFF)2019-04-22 11:27:00 Test Item Value Reference Range Comments NEUTROPHILS - REL (CELLAVISION)(BEAKER) (test 78 % bhoy=9610) LYMPHOCYTES - REL (CELLAVISION)(BEAKER) (test 9 % jpuq=5674) MONOCYTES - REL (CELLAVISION)(BEAKER) (test 6 % eqoq=7599) EOSINOPHILS - REL (CELLAVISION)(BEAKER) (test 1 % ebfq=5472) BASOPHILS - REL (CELLAVISION)(BEAKER) (test 1 % eqwe=6901) METAMYELOCYTES - REL (CELLAVISION)(BEAKER) (test 2 % 0-0 pucs=6126) MYELOCYTES - REL (CELLAVISION)(BEAKER) (test 3 % 0-0 wikf=0263) NEUTROPHILS - ABS (CELLAVISION)(BEAKER) (test 13.10 K/ul 1.78-5.38 plkl=8428) LYMPHOCYTES - ABS (CELLAVISION)(BEAKER) (test 1.51 K/ul 1.32-3.57 bowa=7119) MONOCYTES - ABS (CELLAVISION)(BEAKER) (test 1.01 K/uL 0.30-0.82 dbbe=1957) EOSINOPHILS - ABS (CELLAVISION)(BEAKER) (test 0.17 K/uL 0.04-0.54 ffun=7297) BASOPHILS - ABS (CELLAVISION)(BEAKER) (test 0.17 K/uL 0.01-0.08 sgxt=4429) METAMYELOCYTES - ABS (CELLAVISION)(BEAKER) (test 0.34 K/uL 0.00-0.00 qfgg=9969) MYELOCYTES-ABS (CELLAVISION)(BEAKER) (test 0.50 K/uL 0.00-0.00 hznu=4045) TOTAL COUNTED (BEAKER) (test kjmi=9950) 100 WBC MORPHOLOGY (BEAKER) (test vlpb=490) Normal PLT MORPHOLOGY (BEAKER) (test rovs=345) Normal POLYCHROMATOPHILLIC RBCS(BEAKER) (test bpzy=213) 2+ moderate HYPOCHROMIA (BEAKER) (test nedd=125) 1+ few ANISOCYTOSIS (BEAKER) (test kvcd=756) 1+ few MICROCYTES (BEAKER) (test dfdv=192) 1+ few ARTIFACT (CELLAVISION)(BEAKER) (test jgbd=0887) Present PLATELET CONCENTRATION (CELLAVISION)(BEAKER) Increased (test atar=3773) Received comment: User comments: Slide comments:PROTHROMBIN TIME/[id number] 11:06:00 Test Item Value Reference Range Comments PROTIME (BEAKER) (test aqaq=083) 14.7 seconds 11.9-14.2 INR (BEAKER) (test xkng=944) 1.2 <=5.9 Effective 02/16/2019: PT Reference Range ChangeNew: 11.9-14.2 Previous: 11.7- 14.7RECOMMENDED COUMADIN/WARFARIN INR THERAPY RANGESSTANDARD DOSE: 2.0-3.0 Includes: PROPHYLAXIS for venous thrombosis, systemic embolization; TREATMENT for venous thrombosis and/or pulmonary embolus.HIGH RISK: Target INR is2.5-3.5 for patients wiht mechanical heart valves.[id number] 10:30:00 Test Item Value Reference Range Comments PHOSPHORUS (BEAKER) (test jqqv=647) 3.7 mg/dL 2.3-4.7 [id number] 10:30:00 Test Item Value Reference Range Comments MAGNESIUM (BEAKER) (test pchq=666) 1.8 mg/dL 1.6-2.6 BASIC METABOLIC [id number] 10:30:00 Test Item Value Reference Range Comments SODIUM (BEAKER) (test 136 meq/L 136-145 bogv=434) POTASSIUM (BEAKER) (test 3.7 meq/L 3.5-5.1 leqa=038) CHLORIDE (BEAKER) (test 97 meq/L 98-107 jsrx=429) CO2 (BEAKER) (test 27 meq/L 22-29 zfue=407) BLOOD UREA NITROGEN 5 mg/dL 7-21 (BEAKER) (test zjar=464) CREATININE (BEAKER) (test 0.67 mg/dL 0.57-1.25 hawx=214) GLUCOSE RANDOM (BEAKER) 120 mg/dL 70-105 (test kxae=191) CALCIUM (BEAKER) (test 8.5 mg/dL 8.4-10.2 oedl=977) EGFR (BEAKER) (test 122 mL/min/1.73 sq m ESTIMATED GFR IS NOT qvgy=1540) ACCURATE CREATININE CLEARANCE IN PREDICTING GLOMERULAR FILTRATION RATE. ESTIMATED GFR IS NOT APPLICABLE FOR DIALYSIS PATIENTS. LACTIC ACID, [id number] 10:27:00 Test Item Value Reference Range Comments LACTATE BLOOD VENOUS (2) (BEAKER) (test 0.7 mmol/L 0.5-2.2 npgz=2196) RAD, CHEST, 1 VIEW, NON [id number] 10:05:00Reason for exam:->PICC LINE PLACEMENTShould this be performed at the bedside?->YesFINAL REPORT RAD, CHEST, 1 VIEW, NON DEPT INDICATION: PICC LINE PLACEMENT COMPARISON: Prior day's exam FINDINGS: Portable frontal view of the chest. IMPRESSION: Support Lines:Left PICC terminates over the superior vena cava. Lungs and pleura: Lungs are underinflated with bibasilar subsegmental atelectasis and small effusions, greater on the right. No pneumothorax.Heart and mediastinum: Stable contours. Additional findings: None. Signed: JR Knowles Robert MDReport Verified Date/Time: 04/22/2019 10:05:53 Reading Location: [facility] Radiology Reading Room SPUTUM CULTURE + GRAM [id number] 09:34:00 Test Item Value Reference Range Comments CULTURE (BEAKER) (test KLEBSIELLA PNEUMONIAE 1+ Klebsiella oulx=4905) pneumoniae Amikacin (test code=1) Ampicillin + Sulbactam (test code=6) Aztreonam (test code=32) Cefepime (test code=51) Cefoxitin (test code=68) Ceftazidime (test code=27) Ceftriaxone (test code=52) Ertapenem (test code=38) Gentamicin (test code=18) Levofloxacin (test code=22) Meropenem (test code=34) Nitrofurantoin (test code=23) Piperacillin + Tazobactam (test code=29) Tetracycline (test code=2) Tobramycin (test code=25) Trimethoprim + Sulfamethoxazole (test code=47) GRAM STAIN RESULT (BEAKER) 2+ WBCs (test igak=7793) GRAM STAIN RESULT (BEAKER) 0-5 epithelial cells (test yxeu=968684) GRAM STAIN RESULT (BEAKER) 1+ gram positive (test klbz=306052) cocci in pairs 1+ Normal respiratory nilay presentPOCT-GLUCOSE [id number] 09:07:00 Test Item Value Reference Range Comments POC-GLUCOSE METER (BEAKER) 122 mg/dL 70-110 TESTED AT [address] (test pvxx=5523) [place] [id number] BODY FLUID CULTURE + GRAM [id number] 07:12:00 Test Item Value Reference Range Comments CULTURE (BEAKER) (test kxbx=1489) No growth GRAM STAIN RESULT (BEAKER) (test 3+ White blood cells seen nlbu=3534) GRAM STAIN RESULT (BEAKER) (test No organisms seen usav=03824) POCT-GLUCOSE [id number] 20:56:00 Test Item Value Reference Range Comments POC-GLUCOSE METER (BEAKER) 109 mg/dL 70-110 TESTED AT [address] (test yies=5615) [place] [address] PH, BODY [id number] 18:13:00 Test Item Value Reference Range Comments PH, BODY FLUID (BEAKER) (test epwe=3107) 8.00 HEPATOBILIARY [id number] 16:55:00FINAL REPORT PROCEDURE: HEPATOBILIARY SCAN with Sincalide Stimulation CPT CODE: 54103 INDICATION: Right upper quadrant pain with concern for cholecystitis , history of intra-abdominal abscess status post drain placement on 04/16/2019 PROTOCOL: 5.3 mCi of Tc-99m mebrofenin was injected intravenously. Images of the upper abdomen were obtained for fopwlugvdsmht98 minutes after tracer injection. FINDINGS: Initial tracer uptake into the liver is physiological. Subsequent tracer clearance from the liver proceeds normally. There is good visualization ofthe extrahepatic biliary duct and the gallbladder , and the tracer appears appropriately in the smallbowel. There is biliary reflux into the stomach. IMPRESSION: There is normal gallbladder filling. Signed: Hung Rosales MDReport Verified Date/Time: 04/21/2019 16:55:45 Reading Location: [address] Reading Room POCT-GLUCOSE [id number] 16:18 :00 Test Item Value Reference Range Comments POC-GLUCOSE METER (BEAKER) 128 mg/dL 70-110 TESTED AT [address] (test zice=5668) [place] [id number] U/S, [id number] 16:09:00Reason for exam:->Loculated right pleural effusions. Concern for empyema Should this be performedat the bedside?-& gt;NoFINAL REPORT Ultrasound guided right thoracentesis Clinical History: Right pleural effusion. Request was for drainage catheter. Modality: Ultrasound. Sedation: None. Hr Leader: Pancho Pugh M.D. Booking Agent: Romana Fong PA-C Estimated Blood Loss: 1cc Specimen: 75 cc of yellow fluid. Technique: Informed consent was obtained. The risks of pain, bleeding, infection, lung collapse/pneumothorax, injury to adjacent structures, and adverse medication reactions were discussed with the patient. The patient' s right axillary region scanned while patient was in the supine position. The skin was prepped and draped in the usual sterile manner. The area wasanesthetized with 2% lidocaine, after obtaining access with a 19-gauge needle was then clear yellow fluid was aspirated. The pleural fluid collection was not large enough to place a drainage catheter. After completion of drainage , the needle was removed. There was no evidence of immediate complication. Post procedure chest x-ray is pending. Impression:Initial order for chest tube /drainage catheterplacement was not performed due to it only being a small collection of subpleural fluid. Successful ultrasound guided right thoracentesis. Signed: Pancho Pugh MDReport Verified Date/Time: 04/21/2019 16:09:58 Reading Location: [address] Ultrasound Reading Room BODY FLUID CELL COUNT WITH [id number] 16:08:00 Test Item Value Reference Range Comments APPEARANCE FLUID (BEAKER) (test rzne=413) Hazy Clear COLOR FLUID (BEAKER) (test bqdp=846) Yellow Colorless, Straw RBC FLUID (BEAKER) (test rtha=528) 8000 /cu mm <=1 ADJUSTED WBC FLUID (BEAKER) (test fonq=5972) 325 /cu mm <=5 LINING CELLS (BEAKER) (test ucbd=3529) 0 /cu mm <=1 NEUTROPHILS FLUID (BEAKER) (test czsg=5550) 13 % LYMPHS FLUID (BEAKER) (test xeiv=717) 83 % MONO/MACROPHAGE FLUID (BEAKER) (test nonq=977) 3 % EOSINOPHILS FLUID (BEAKER) (test ndph=765) 1 % BASO FLUID (BEAKER) (test fewl=031) 0 % CONTAINER BODY FLUID (BEAKER) (test gaug=9903) EDTA Tube AMYLASE, BODY [id number] 15:45:00 Test Item Value Reference Range Comments AMYLASE FLUID (BEAKER) (test pcot=451) 18 U/L 30-110 Absence of reference range indicates that normals have not been defined.Assay performance has not been validated for this type of specimen.LACTATE DEHYDROGENASE (LDH), BODY [id number] 15:45:00 Test Item Value Reference Range Comments LACTATE DEHYDROGENASE FLUID (BEAKER) 222 U/L Light's criteria identifies (test cueo=892) effusions if one or more are pre Absence of reference range indicates that normals have not been defined.Assay performance has not been validated for this type of specimen.PROTEIN, BODY [id number] 15:45:00 Test Item Value Reference Range Comments PROTEIN FLUID (BEAKER) (test 4.2 g/dL Light's criteria identifies otcx=118) effusions if one or more are pre Absence of reference range indicates that normals have not been defined.Assay performance has not been validated for this type of specimen.GLUCOSE, BODY [id number] 15:45:00 Test Item Value Reference Range Comments GLUCOSE, BODY FLUID (BEAKER) (test xkkc=0431) 106 mg/dL 70-110 Absence of reference range indicates that normals have not been defined.Assay performance has not been validated for this type of specimen.RAD, CHEST, 1 VIEW , NON [id number] 14:59:00Reason for exam:->s/p thoraShould this be performed at the bedside?->YesFINAL REPORT RAD, CHEST , 1 VIEW, NON DEPT INDICATION: s/p thora COMPARISON: April 19, 2019 FINDINGS: Portable frontal view of the chest. IMPRESSION: Support Lines: Stable smallpigtail catheter over the right lower thorax/right upper abdomen. Lungs and pleura: Decreasing volume of layering right effusion when compared to the prior examination. Small left effusion. Lungs are otherwise clear.Heart and mediastinum: Stable contours.Additional findings: None. Signed: JR Knowles Robert MDReport Verified Date/Time: 04/21/2019 14:59:22 Reading Location: [facility] [id number] ConsultReading Room CBC W/PLT COUNT & AUTO [id number] 11:01:00 Test Item Value Reference Range Comments WHITE BLOOD CELL COUNT (BEAKER) (test bcpy=920) 17.7 K/ L 3.5-10.5 RED BLOOD CELL COUNT (BEAKER) (test plrs=212) 3.94 M/ L 4.63-6.08 HEMOGLOBIN (BEAKER) (test nmjv=299) 9.0 GM/DL 13.7-17.5 HEMATOCRIT (BEAKER) (test zzsm=343) 30.6 % 40.1-51.0 MEAN CORPUSCULAR VOLUME (BEAKER) (test lqjf=417) 77.7 fL 79.0-92.2 MEAN CORPUSCULAR HEMOGLOBIN (BEAKER) (test 22.8 pg 25.7-32.2 ggip=697) MEAN CORPUSCULAR HEMOGLOBIN CONC (BEAKER) (test 29.4 GM/DL 32.3-36.5 ygdm=560) RED CELL DISTRIBUTION WIDTH (BEAKER) (test 16.5 % 11.6-14.4 oxpa=647) PLATELET COUNT (BEAKER) (test itsa=134) 394 K/CU MM 150-450 MEAN PLATELET VOLUME (BEAKER) (test kqkv=313) 10.5 fL 9.4-12.4 NUCLEATED RED BLOOD CELLS (BEAKER) (test 0 /100 WBC 0-0 oxmj=050) (CELLAVISION MANUAL DIFF)2019-04-21 11:01:00 Test Item Value Reference Range Comments NEUTROPHILS - REL (CELLAVISION)(BEAKER) (test 74 % rdsl=1320) LYMPHOCYTES - REL (CELLAVISION)(BEAKER) (test 6 % fvik=7038) MONOCYTES - REL (CELLAVISION)(BEAKER) (test 11 % bank=4126) METAMYELOCYTES - REL (CELLAVISION)(BEAKER) (test 2 % 0-0 hrjn=5422) MYELOCYTES - REL (CELLAVISION)(BEAKER) (test 6 % 0-0 vklm=5949) BANDS - REL (CELLAVISION)(BEAKER) (test 1 % 0-10 beyk=6689) NEUTROPHILS - ABS (CELLAVISION)(BEAKER) (test 13.10 K/ul 1.78-5.38 sydm=8622) LYMPHOCYTES - ABS (CELLAVISION)(BEAKER) (test 1.06 K/ul 1.32-3.57 unuw=1857) MONOCYTES - ABS (CELLAVISION)(BEAKER) (test 1.95 K/uL 0.30-0.82 lvuu=8932) METAMYELOCYTES - ABS (CELLAVISION)(BEAKER) (test 0.35 K/uL 0.00-0.00 jcax=3033) MYELOCYTES-ABS (CELLAVISION)(BEAKER) (test 1.06 K/uL 0.00-0.00 zrgl=8812) BANDS - ABS (CELLAVISION)(BEAKER) (test 0.18 K/uL 0.00-0.80 prya=2005) TOTAL COUNTED (BEAKER) (test skjb=4517) 100 WBC MORPHOLOGY (BEAKER) (test hzob=143) Normal PLT MORPHOLOGY (BEAKER) (test ytrx=411) Normal POLYCHROMATOPHILLIC RBCS(BEAKER) (test tdze=782) 2+ moderate HYPOCHROMIA (BEAKER) (test hqsn=316) 1+ few ANISOCYTOSIS (BEAKER) (test hsfi=257) 1+ few MICROCYTES (BEAKER) (test efiv=067) 1+ few POIKILOCYTES (BEAKER) (test gune=233) 1+ few ARTIFACT (CELLAVISION)(BEAKER) (test xmok=4293) Present PLATELET CONCENTRATION (CELLAVISION)(BEAKER) Adequate (test ovon=7798) Received comment: User comments: Slide comments:POCT-GLUCOSE [id number] 09: 46:00 Test Item Value Reference Range Comments POC-GLUCOSE METER (BEAKER) 133 mg/dL 70-110 TESTED AT [facility] [address] [facility] (test qzyw=3474) [place] [address] [id number] 08:28:00 Test Item Value Reference Range Comments PARTIAL THROMBOPLASTIN TIME (BEAKER) (test 35.9 seconds 22.5-36.0 uxma=765) PROTHROMBIN [id number] 08:27:00 Test Item Value Reference Range Comments PROTIME (BEAKER) (test qxnc=671) 14.6 seconds 11.9-14.2 INR (BEAKER) (test ziso=039) 1.2 <=5.9 Effective 02/16/2019: PT Reference Range ChangeNew: 11.9-14.2 Previous: 11.7- 14.7RECOMMENDED COUMADIN/WARFARIN INR THERAPY RANGESSTANDARD DOSE: 2.0-3.0 Includes: PROPHYLAXIS for venous thrombosis, systemic embolization; TREATMENT for venous thrombosis and/or pulmonary embolus.HIGH RISK: Target INR is2.5-3.5 for patients wiht mechanical heart valves.[id number] 07:48:00 Test Item Value Reference Range Comments PHOSPHORUS (BEAKER) (test gbvg=372) 3.7 mg/dL 2.3-4.7 [id number] 07:48:00 Test Item Value Reference Range Comments MAGNESIUM (BEAKER) (test fuyz=752) 1.8 mg/dL 1.6-2.6 BASIC METABOLIC [id number] 07:48:00 Test Item Value Reference Range Comments SODIUM (BEAKER) (test 134 meq/L 136-145 ezvk=565) POTASSIUM (BEAKER) (test 3.9 meq/L 3.5-5.1 neua=557) CHLORIDE (BEAKER) (test 97 meq/L 98-107 gonq=124) CO2 (BEAKER) (test 29 meq/L 22-29 ukli=982) BLOOD UREA NITROGEN 3 mg/dL 7-21 (BEAKER) (test fezx=901) CREATININE (BEAKER) (test 0.63 mg/dL 0.57-1.25 qkjj=877) GLUCOSE RANDOM (BEAKER) 123 mg/dL 70-105 (test wxka=541) CALCIUM (BEAKER) (test 8.4 mg/dL 8.4-10.2 xvxo=830) EGFR (BEAKER) (test 131 mL/min/1.73 sq m ESTIMATED GFR IS NOT lwra=0653) ACCURATE CREATININE CLEARANCE IN PREDICTING GLOMERULAR FILTRATION RATE. ESTIMATED GFR IS NOT APPLICABLE FOR DIALYSIS PATIENTS. POCT-GLUCOSE [id number] 21:21:00 Test Item Value Reference Range Comments POC-GLUCOSE METER (BEAKER) 165 mg/dL 70-110 TESTED AT [address] (test jfxn=2252) [place] [address] POCT-GLUCOSE [id number] 18:45:00 Test Item Value Reference Range Comments POC-GLUCOSE METER (BEAKER) 160 mg/dL 70-110 TESTED AT [address] (test zvjr=3976) [place] [address] POCT-GLUCOSE [id number] 16:59:00 Test Item Value Reference Range Comments POC-GLUCOSE METER (BEAKER) 169 mg/dL 70-110 TESTED AT [address] (test tnrq=2274) [place] [address] ANAEROBIC [id number] 14:29:00 Test Item Value Reference Range Comments CULTURE (BEAKER) (test fyay=4047) No anaerobes isolated POCT-GLUCOSE [id number] 12:33:00 Test Item Value Reference Range Comments POC-GLUCOSE METER (BEAKER) 140 mg/dL 70-110 TESTED AT [address] (test hzil=3790) [place] [address] CBC W/PLT COUNT & AUTO [id number] 10:37:00 Test Item Value Reference Range Comments WHITE BLOOD CELL COUNT (BEAKER) (test ikkc=328) 20.7 K/ L 3.5-10.5 RED BLOOD CELL COUNT (BEAKER) (test jhje=932) 4.34 M/ L 4.63-6.08 HEMOGLOBIN (BEAKER) (test xsjk=609) 9.9 GM/DL 13.7-17.5 HEMATOCRIT (BEAKER) (test cctm=749) 34.0 % 40.1-51.0 MEAN CORPUSCULAR VOLUME (BEAKER) (test hbfn=392) 78.3 fL 79.0-92.2 MEAN CORPUSCULAR HEMOGLOBIN (BEAKER) (test 22.8 pg 25.7-32.2 bkbe=642) MEAN CORPUSCULAR HEMOGLOBIN CONC (BEAKER) (test 29.1 GM/DL 32.3-36.5 mpnm=055) RED CELL DISTRIBUTION WIDTH (BEAKER) (test 16.8 % 11.6-14.4 cljo=646) PLATELET COUNT (BEAKER) (test ulnw=598) 372 K/CU MM 150-450 MEAN PLATELET VOLUME (BEAKER) (test rcdz=477) 10.1 fL 9.4-12.4 NUCLEATED RED BLOOD CELLS (BEAKER) (test 0 /100 WBC 0-0 jaxu=805) (CELLAVISION MANUAL DIFF)2019-04-20 10:37:00 Test Item Value Reference Range Comments NEUTROPHILS - REL (CELLAVISION)(BEAKER) (test 80 % myuy=3198) LYMPHOCYTES - REL (CELLAVISION)(BEAKER) (test 6 % tspq=0664) MONOCYTES - REL (CELLAVISION)(BEAKER) (test 11 % rxxc=7973) EOSINOPHILS - REL (CELLAVISION)(BEAKER) (test 1 % gkrs=6637) BANDS - REL (CELLAVISION)(BEAKER) (test 1 % 0-10 ynqz=1716) ATYPICAL LYMPHOCYTES - REL (CELLAVISION)(BEAKER) 1 % 0-0 (test fquo=0513) NEUTROPHILS - ABS (CELLAVISION)(BEAKER) (test 16.56 K/ul 1.78-5.38 leay=7438) LYMPHOCYTES - ABS (CELLAVISION)(BEAKER) (test 1.24 K/ul 1.32-3.57 trro=5891) MONOCYTES - ABS (CELLAVISION)(BEAKER) (test 2.28 K/uL 0.30-0.82 kxny=3800) EOSINOPHILS - ABS (CELLAVISION)(BEAKER) (test 0.21 K/uL 0.04-0.54 utve=0614) BANDS - ABS (CELLAVISION)(BEAKER) (test 0.21 K/uL 0.00-0.80 aclm=7874) ATYPICAL LYMPHOCYTES - ABS (CELLAVISION)(BEAKER) 0.21 K/uL 0.00-0.00 (test ayrd=8188) TOTAL COUNTED (BEAKER) (test bidk=9801) 100 WBC MORPHOLOGY (BEAKER) (test lzfj=978) Normal PLT MORPHOLOGY (BEAKER) (test nsno=210) Normal POLYCHROMATOPHILLIC RBCS(BEAKER) (test vgqm=262) 1+ few HYPOCHROMIA (BEAKER) (test iuev=401) 1+ few ARTIFACT (CELLAVISION)(BEAKER) (test yjvp=1630) Present PLATELET CONCENTRATION (CELLAVISION)(BEAKER) Adequate (test mwjj=4335) Received comment: User comments: Slide comments:POCT-GLUCOSE [id number] 08: 58:00 Test Item Value Reference Range Comments POC-GLUCOSE METER (BEAKER) 138 mg/dL 70-110 TESTED AT [facility] [address] [facility] (test yrev=5564) [place] [address] [id number] 07:34:00 Test Item Value Reference Range Comments PREALBUMIN (BEAKER) (test 5 mg/dL 14-45 Specimen slightly hemolyzed fikx=651) [id number] 07:07:00 Test Item Value Reference Range Comments PHOSPHORUS (BEAKER) (test wmax=579) 4.0 mg/dL 2.3-4.7 [id number] 07:07:00 Test Item Value Reference Range Comments MAGNESIUM (BEAKER) (test rhwh=209) 1.9 mg/dL 1.6-2.6 BASIC METABOLIC [id number] 07:07:00 Test Item Value Reference Range Comments SODIUM (BEAKER) (test 134 meq/L 136-145 bslv=577) POTASSIUM (BEAKER) (test 3.8 meq/L 3.5-5.1 shgx=285) CHLORIDE (BEAKER) (test 98 meq/L 98-107 jqxk=186) CO2 (BEAKER) (test 26 meq/L 22-29 wjrj=163) BLOOD UREA NITROGEN 4 mg/dL 7-21 (BEAKER) (test pznr=852) CREATININE (BEAKER) (test 0.68 mg/dL 0.57-1.25 nmzn=587) GLUCOSE RANDOM (BEAKER) 129 mg/dL 70-105 (test ckez=125) CALCIUM (BEAKER) (test 8.5 mg/dL 8.4-10.2 onru=696) EGFR (BEAKER) (test 120 mL/min/1.73 sq m ESTIMATED GFR IS NOT qxls=9665) ACCURATE CREATININE CLEARANCE IN PREDICTING GLOMERULAR FILTRATION RATE. ESTIMATED GFR IS NOT APPLICABLE FOR DIALYSIS PATIENTS. HEPATIC FUNCTION [id number] 07:07:00 Test Item Value Reference Range Comments TOTAL PROTEIN (BEAKER) (test mfhn=887) 6.6 gm/dL 6.0-8.3 ALBUMIN (BEAKER) (test lcgm=3150) 2.6 g/dL 3.5-5.0 BILIRUBIN TOTAL (BEAKER) (test ctiy=112) 0.4 mg/dL 0.2-1.2 BILIRUBIN DIRECT (BEAKER) (test ggzx=192) 0.2 mg/dL 0.1-0.5 ALKALINE PHOSPHATASE (BEAKER) (test kgup=474) 219 U/L 40-150 AST (SGOT) (BEAKER) (test edrj=611) 26 U/L 5-34 ALT (SGPT) (BEAKER) (test wzut=817) 22 U/L 6-55 POCT-GLUCOSE [id number] 00:07:00 Test Item Value Reference Range Comments POC-GLUCOSE METER (BEAKER) 155 mg/dL 70-110 TESTED AT [address] (test wdff=8044) [place] [id number] RAD, CHEST, 1 VIEW, NON [id number] 20:33:00Reason for exam:->hypoxia, crackles bilaterallyShould this be performed at the bedside?->YesFINAL REPORT RAD, CHEST, 1 VIEW, NON DEPT INDICATION: hypoxia, crackles bilaterally COMPARISON: April 18, 2019 FINDINGS: Portable frontal view of the chest. IMPRESSION: Interval progression of bilateral airspace disease suggestive of mild pulmonary edema but infection is also a consideration. Small bilateral pleural effusions appear slightly larger. Enlarged cardiac silhouette may be exaggerated by technique. Mediastinal contours are stable. No pneumothorax. Stable osseous structures. Right subphrenic pigtail drainage catheter is stable in appearance. Signed: Tono Mckinley MDReport Verified Date /Time: 04/19/2019 20:33:41 POCT-GLUCOSE [id number] 18:01:00 Test Item Value Reference Range Comments POC-GLUCOSE METER (BEAKER) 148 mg/dL 70-110 TESTED AT [address] (test imdu=5047) [place] [id number] CBC W/PLT COUNT & AUTO [id number] 16:27:00 Test Item Value Reference Range Comments WHITE BLOOD CELL COUNT (BEAKER) (test pwkk=999) 17.7 K/ L 3.5-10.5 RED BLOOD CELL COUNT (BEAKER) (test zjml=671) 4.46 M/ L 4.63-6.08 HEMOGLOBIN (BEAKER) (test mwlh=850) 10.2 GM/DL 13.7-17.5 HEMATOCRIT (BEAKER) (test ynmu=350) 34.1 % 40.1-51.0 MEAN CORPUSCULAR VOLUME (BEAKER) (test wneg=820) 76.5 fL 79.0-92.2 MEAN CORPUSCULAR HEMOGLOBIN (BEAKER) (test 22.9 pg 25.7-32.2 olll=028) MEAN CORPUSCULAR HEMOGLOBIN CONC (BEAKER) (test 29.9 GM/DL 32.3-36.5 jnhr=337) RED CELL DISTRIBUTION WIDTH (BEAKER) (test 16.8 % 11.6-14.4 pphx=099) PLATELET COUNT (BEAKER) (test gkln=041) 506 K/CU MM 150-450 MEAN PLATELET VOLUME (BEAKER) (test ijkd=966) 8.6 fL 9.4-12.4 NUCLEATED RED BLOOD CELLS (BEAKER) (test 0 /100 WBC 0-0 pbre=566) (CELLAVISION MANUAL DIFF)2019-04-19 16:27:00 Test Item Value Reference Range Comments NEUTROPHILS - REL (CELLAVISION)(BEAKER) (test 69 % mupc=0500) LYMPHOCYTES - REL (CELLAVISION)(BEAKER) (test 9 % zsze=5316) MONOCYTES - REL (CELLAVISION)(BEAKER) (test 11 % ngyu=9945) EOSINOPHILS - REL (CELLAVISION)(BEAKER) (test 2 % rbxr=1768) METAMYELOCYTES - REL (CELLAVISION)(BEAKER) (test 2 % 0-0 weno=6275) MYELOCYTES - REL (CELLAVISION)(BEAKER) (test 1 % 0-0 owoz=0901) BANDS - REL (CELLAVISION)(BEAKER) (test 5 % 0-10 ksrz=1210) ATYPICAL LYMPHOCYTES - REL (CELLAVISION)(BEAKER) 1 % 0-0 (test ufta=0168) NEUTROPHILS - ABS (CELLAVISION)(BEAKER) (test 12.21 K/ul 1.78-5.38 seux=8564) LYMPHOCYTES - ABS (CELLAVISION)(BEAKER) (test 1.59 K/ul 1.32-3.57 isiw=1998) MONOCYTES - ABS (CELLAVISION)(BEAKER) (test 1.95 K/uL 0.30-0.82 flyc=4868) EOSINOPHILS - ABS (CELLAVISION)(BEAKER) (test 0.35 K/uL 0.04-0.54 tjlg=9921) METAMYELOCYTES - ABS (CELLAVISION)(BEAKER) (test 0.35 K/uL 0.00-0.00 fkdl=2112) MYELOCYTES-ABS (CELLAVISION)(BEAKER) (test 0.18 K/uL 0.00-0.00 waxm=2582) BANDS - ABS (CELLAVISION)(BEAKER) (test 0.89 K/uL 0.00-0.80 aaqt=8276) ATYPICAL LYMPHOCYTES - ABS (CELLAVISION)(BEAKER) 0.18 K/uL 0.00-0.00 (test dewh=7270) TOTAL COUNTED (BEAKER) (test qvdx=5902) 100 SMUDGE CELLS (BEAKER) (test owxc=3333) Present GIANT PLATELETS (BEAKER) (test fsyq=943) Present POLYCHROMATOPHILLIC RBCS(BEAKER) (test qhum=657) 2+ moderate HYPOCHROMIA (BEAKER) (test duyr=057) 2+ moderate ANISOCYTOSIS (BEAKER) (test dibf=554) 1+ few MICROCYTES (BEAKER) (test riup=442) 1+ few POIKILOCYTES (BEAKER) (test kjsl=817) 1+ few ELLIPTOCYTES (BEAKER) (test apwh=553) 1+ few ARTIFACT (CELLAVISION)(BEAKER) (test xkha=5268) Present PLATELET CONCENTRATION (CELLAVISION)(BEAKER) Increased (test ueoc=1281) Received comment: User comments: Slide comments:B-TYPE NATRIURETIC FACTOR (BNP) 2019-04-19 14:45:00 Test Item Value Reference Range Comments B-TYPE NATRIURETIC PEPTIDE (BEAKER) (test gila=995) 13 pg/mL 0-100 POCT-GLUCOSE [id number] 11:57:00 Test Item Value Reference Range Comments POC-GLUCOSE METER (BEAKER) 194 mg/dL 70-110 TESTED AT [address] (test nkcu=1263) [place] [id number] BODY FLUID CULTURE + GRAM [id number] 09:39:00 Test Item Value Reference Range Comments CULTURE (BEAKER) (test pdrn=7057) No growth GRAM STAIN RESULT (BEAKER) (test No White blood cells seen rtgq=4622) GRAM STAIN RESULT (BEAKER) (test No organisms seen howb=27227) POCT-GLUCOSE [id number] 08:47:00 Test Item Value Reference Range Comments POC-GLUCOSE METER (BEAKER) 146 mg/dL 70-110 TESTED AT [address] (test lpia=7252) [place] [address] [id number] 06:02:00 Test Item Value Reference Range Comments PHOSPHORUS (BEAKER) (test jiqq=351) 3.7 mg/dL 2.3-4.7 [id number] 06:02:00 Test Item Value Reference Range Comments MAGNESIUM (BEAKER) (test qyse=856) 1.8 mg/dL 1.6-2.6 BASIC METABOLIC [id number] 06:02:00 Test Item Value Reference Range Comments SODIUM (BEAKER) (test 134 meq/L 136-145 wrtn=289) POTASSIUM (BEAKER) (test 4.1 meq/L 3.5-5.1 wwxt=902) CHLORIDE (BEAKER) (test 100 meq/L 98-107 aumm=825) CO2 (BEAKER) (test 25 meq/L 22-29 qoid=194) BLOOD UREA NITROGEN 5 mg/dL 7-21 (BEAKER) (test mlsr=954) CREATININE (BEAKER) (test 0.67 mg/dL 0.57-1.25 hakk=919) GLUCOSE RANDOM (BEAKER) 151 mg/dL 70-105 (test gnfv=593) CALCIUM (BEAKER) (test 8.5 mg/dL 8.4-10.2 lkjw=666) EGFR (BEAKER) (test 122 mL/min/1.73 sq m ESTIMATED GFR IS NOT sybh=2809) ACCURATE CREATININE CLEARANCE IN PREDICTING GLOMERULAR FILTRATION RATE. ESTIMATED GFR IS NOT APPLICABLE FOR DIALYSIS PATIENTS. POCT-GLUCOSE [id number] 21:06:00 Test Item Value Reference Range Comments POC-GLUCOSE METER (BEAKER) 175 mg/dL 70-110 TESTED AT [address] (test ozdu=5898) [place] [address] POCT-LACTIC ACID, [id number] 20:43:00 Test Item Value Reference Range Comments POC-LACTIC ACID, VENOUS 1.1 mmol/L 0.9-1.7 TESTED AT [address] (BEAKER) (test qcco=2217) [place] [address] URINALYSIS W/ REFLEX URINE [id number] 18:09:00 Test Item Value Reference Range Comments COLOR (BEAKER) (test ltnf=629) Light Yellow CLARITY (BEAKER) (test elih=891) Clear SPECIFIC GRAVITY UA (BEAKER) (test ncbg=002) 1.025 1.001-1.035 PH UA (BEAKER) (test dxjw=539) 7.0 5.0-8.0 PROTEIN UA (BEAKER) (test xuux=773) 20 mg/dL Negative GLUCOSE UA (BEAKER) (test lqva=348) Negative Negative KETONES UA (BEAKER) (test wwsa=573) Negative Negative BILIRUBIN UA (BEAKER) (test ivvw=635) Negative Negative BLOOD UA (BEAKER) (test avoh=005) Negative Negative NITRITE UA (BEAKER) (test eaeo=923) Negative Negative LEUKOCYTE ESTERASE UA (BEAKER) (test qugl=010) Negative Negative UROBILINOGEN UA (BEAKER) (test zhyn=801) 0.2 mg/dL 0.2-1.0 RBC UA (BEAKER) (test wtir=623) < /HPF WBC UA (BEAKER) (test kffa=739) < /HPF SOURCE(BEAKER) (test qdyw=8791) POCT-GLUCOSE [id number] 17:10:00 Test Item Value Reference Range Comments POC-GLUCOSE METER (BEAKER) 235 mg/dL 70-110 TESTED AT [address] (test orju=7343) [place] [address] CT, [id number] 14:08:00FINAL REPORT ABDOMINAL AND PELVIS CT DATED 04/18/2019 COMPARISON: April 15, 2019 CLINICAL INFORMATION: new fever, liver and abdominal abscesses please evaluate, increased abdominal pain TECHNIQUE: Axial images of the abdomen and pelvis were obtained from diaphragm to the pubic symphysis with GI and intravenous contrast. This exam was performed according to our departmental dose-optimization program, which includes automated exposure control, adjustment of the mA and/or kV according to patient size and/or use of interactive reconstruction technique. COMMENT: There is trace left pleural effusion and small right pleural effusion. Liver and spleen are normal in size. There is interval placement of a percutaneous transhepatic drainage catheter in the abscess in the right hepatic lobe. There is somewhat decrease in size of the liver abscess, measuring approximately 4.7 x 6.7 x5.8 cm, previously 4.8 x 7.2 x 7.6 cm. Gallbladder is contracted. Small amount of air and fluid is seen in the gallbladder. No biliary dilatation is noted. Pancreas atrophic. The adrenals are unremarkable. Both kidneys are normal in size and functioning. No hydronephrosis, hydroureter, urolithiasisis seen. The opacified small bowel is unremarkable. The evaluation of the large bowel is limited secondary to insufficient amount of GI contrast. Appendix is not visualized. A loculated fluid collection seen in the abdomen and pelvis. There is interval placement of percutaneous drainage catheter in the abdomen with decrease in the amount of ascites. IMPRESSION: 1. Interval placement of a percutaneous transhepatic drainage catheter with interval decrease of the liver abscess.2. Interval decrease in the size of the loculated ascites.4. Bilateral pleural effusion with bibasilar subsegmental atelectasis. Signed: [facility]ino [facility] Verified Date/Time: 04/18/2019 14:08:23 Reading Location: [facility] B1 [id number] CT Body Reading Room CBC W/PLT COUNT & AUTO [id number] 10:19:00 Test Item Value Reference Range Comments WHITE BLOOD CELL COUNT (BEAKER) (test evfc=138) 20.3 K/ L 3.5-10.5 RED BLOOD CELL COUNT (BEAKER) (test vdrw=836) 4.10 M/ L 4.63-6.08 HEMOGLOBIN (BEAKER) (test prop=103) 9.5 GM/DL 13.7-17.5 HEMATOCRIT (BEAKER) (test hbnk=530) 30.9 % 40.1-51.0 MEAN CORPUSCULAR VOLUME (BEAKER) (test smla=028) 75.4 fL 79.0-92.2 MEAN CORPUSCULAR HEMOGLOBIN (BEAKER) (test 23.2 pg 25.7-32.2 avrb=458) MEAN CORPUSCULAR HEMOGLOBIN CONC (BEAKER) (test 30.7 GM/DL 32.3-36.5 ggxk=911) RED CELL DISTRIBUTION WIDTH (BEAKER) (test 16.6 % 11.6-14.4 hhbe=711) PLATELET COUNT (BEAKER) (test fejt=184) 496 K/CU MM 150-450 MEAN PLATELET VOLUME (BEAKER) (test ijiz=261) 8.7 fL 9.4-12.4 NUCLEATED RED BLOOD CELLS (BEAKER) (test 0 /100 WBC 0-0 blyx=445) (CELLAVISION MANUAL DIFF)2019-04-18 10:19:00 Test Item Value Reference Range Comments NEUTROPHILS - REL (CELLAVISION)(BEAKER) (test 82 % ukqz=8925) LYMPHOCYTES - REL (CELLAVISION)(BEAKER) (test 6 % xbpc=1532) MONOCYTES - REL (CELLAVISION)(BEAKER) (test 8 % pwjy=3925) BASOPHILS - REL (CELLAVISION)(BEAKER) (test 1 % irmr=4087) METAMYELOCYTES - REL (CELLAVISION)(BEAKER) (test 2 % 0-0 tdcg=0447) MYELOCYTES - REL (CELLAVISION)(BEAKER) (test 1 % 0-0 wyze=0590) NEUTROPHILS - ABS (CELLAVISION)(BEAKER) (test 16.65 K/ul 1.78-5.38 lgnw=0640) LYMPHOCYTES - ABS (CELLAVISION)(BEAKER) (test 1.22 K/ul 1.32-3.57 mash=9540) MONOCYTES - ABS (CELLAVISION)(BEAKER) (test 1.62 K/uL 0.30-0.82 qhih=5081) BASOPHILS - ABS (CELLAVISION)(BEAKER) (test 0.20 K/uL 0.01-0.08 humf=0966) METAMYELOCYTES - ABS (CELLAVISION)(BEAKER) (test 0.41 K/uL 0.00-0.00 ufcu=6281) MYELOCYTES-ABS (CELLAVISION)(BEAKER) (test 0.20 K/uL 0.00-0.00 emjq=8488) TOTAL COUNTED (BEAKER) (test jcjf=3921) 100 PLT MORPHOLOGY (BEAKER) (test ounq=825) Normal SMUDGE CELLS (BEAKER) (test fvwo=4747) Present POLYCHROMATOPHILLIC RBCS(BEAKER) (test qskb=544) 1+ few ANISOCYTOSIS (BEAKER) (test ytus=793) 1+ few MICROCYTES (BEAKER) (test wahc=955) 1+ few POIKILOCYTES (BEAKER) (test kvlk=226) 1+ few PLATELET CONCENTRATION (CELLAVISION)(BEAKER) Increased (test lium=5221) Received comment: User comments: Slide comments:BODY FLUID CULTURE + GRAM [id number] 09:13:00 Test Item Value Reference Range Comments CULTURE (BEAKER) (test ENTEROCOCCUS SPECIES 2+ Enterococcus spfp=0777) species Ampicillin (test code=26) Linezolid (test code=40) Vancomycin (test code=13) CULTURE (BEAKER) (test ESCHERICHIA COLI 1+ Escherichia coli hbvr=4119) Amikacin (test code=1) Ampicillin + Sulbactam (test code=6) Aztreonam (test code=32) Cefepime (test code=51) Cefoxitin (test code=68) Ceftazidime (test code=27) Ceftriaxone (test code=52) Ertapenem (test code=38) Gentamicin (test code=18) Levofloxacin (test code=22) Meropenem (test code=34) Nitrofurantoin (test code=23) Piperacillin + Tazobactam (test code=29) Tetracycline (test code=2) Tobramycin (test code=25) Trimethoprim + Sulfamethoxazole (test code=47) GRAM STAIN RESULT (BEAKER) 4+ WBCs (test szdg=0743) GRAM STAIN RESULT (BEAKER) No organisms seen (test iyeu=544198) RAD, CHEST, 1 VIEW, NON [id number] 09:10:00Reason for exam:->fever, evaluate for pnaShould this be performed at the bedside?->YesFINAL REPORT RAD, CHEST, 1 VIEW, NON DEPT CLINICAL INDICATION: fever, evaluate for pna COMPARISON: Radiograph 04/12/2019 TECHNIQUE: AP view of the chest FINDINGS: There is increasing blunting of the right costophrenic angle which may reflect a small effusion. Lung volumes remain low. No new focal consolidation. No pneumothorax. Cardiomediastinal silhouette, fabian, and pulmonary vasculature are unchanged. IMPRESSION:Developing trace right pleural effusion. Otherwise no significant interval change. Signed: Berta Ibarra Verified Date/Time: 04/18/2019 09:10:47 Reading Location: [facility] Radiology Reading Room POCT-GLUCOSE [id number] 08:57:00 Test Item Value Reference Range Comments POC-GLUCOSE METER (BEAKER) 125 mg/dL 70-110 TESTED AT [address] (test rzjd=8438) [facility] [address] [id number] 05:51:00 Test Item Value Reference Range Comments PHOSPHORUS (BEAKER) (test ghac=500) 3.9 mg/dL 2.3-4.7 [id number] 05:51:00 Test Item Value Reference Range Comments MAGNESIUM (BEAKER) (test yqvh=861) 1.9 mg/dL 1.6-2.6 BASIC METABOLIC [id number] 05:51:00 Test Item Value Reference Range Comments SODIUM (BEAKER) (test 134 meq/L 136-145 uwtn=538) POTASSIUM (BEAKER) (test 3.7 meq/L 3.5-5.1 zdkn=295) CHLORIDE (BEAKER) (test 97 meq/L 98-107 mhih=410) CO2 (BEAKER) (test 29 meq/L 22-29 zefa=923) BLOOD UREA NITROGEN 6 mg/dL 7-21 (BEAKER) (test atby=452) CREATININE (BEAKER) (test 0.67 mg/dL 0.57-1.25 frfj=318) GLUCOSE RANDOM (BEAKER) 137 mg/dL 70-105 (test yxre=041) CALCIUM (BEAKER) (test 8.4 mg/dL 8.4-10.2 tmqs=114) EGFR (BEAKER) (test 122 mL/min/1.73 sq m ESTIMATED GFR IS NOT nuru=3860) ACCURATE CREATININE CLEARANCE IN PREDICTING GLOMERULAR FILTRATION RATE. ESTIMATED GFR IS NOT APPLICABLE FOR DIALYSIS PATIENTS. POCT-LACTIC ACID, [id number] 23:13:00 Test Item Value Reference Range Comments POC-LACTIC ACID, ARTERIAL 0.6 mmol/L 0.4-1.3 TESTED AT [address] (BEAKER) (test hghf=6479) [facility] [address] POCT-GLUCOSE [id number] 21:24:00 Test Item Value Reference Range Comments POC-GLUCOSE METER (BEAKER) 150 mg/dL 70-110 TESTED AT [address] (test bjcx=4354) [facility] [address] POCT-GLUCOSE [id number] 16:29:00 Test Item Value Reference Range Comments POC-GLUCOSE METER (BEAKER) 158 mg/dL 70-110 TESTED AT [address] (test vqwp=5301) [facility] [address] POCT-GLUCOSE [id number] 12:57:00 Test Item Value Reference Range Comments POC-GLUCOSE METER (BEAKER) 153 mg/dL 70-110 TESTED AT [address] (test gmnl=1464) [facility] [address] RAD, ABDOMEN/KUB, 1 VIEW [id number] 11:53:00Reason for exam:->decreased bowel sounds, r/o sboFINAL REPORT RAD, ABDOMEN/KUB, 1 VIEW AP CLINICAL INDICATION: decreased bowel sounds, r/o sbo COMPARISON: April 05, 2019 TECHNIQUE: Three frontal radiographs of the abdomen. IMPRESSION: The bowel gas pattern demonstrates diffuse gaseous distention. No pneumatosis is present. Surgical drain is present on the right. Right upper quadrant and left lower quadrant pigtail cathetersare present. No significant calcifications are present. The regional skeleton is intact. Signed: JR Knowles Robert MDReport Verified Date/Time: 04/17/2019 11:53:26 Reading Location: [facility] C013V Neuro Reading Room POCT-GLUCOSE [id number] 11:08:00 Test Item Value Reference Range Comments POC-GLUCOSE METER (BEAKER) 146 mg/dL 70-110 TESTED AT [facility] [address] (test mmad=2691) [facility] [address] [id number] 07:57:00 Test Item Value Reference Range Comments PHOSPHORUS (BEAKER) (test fubr=003) 3.1 mg/dL 2.3-4.7 [id number] 07:57:00 Test Item Value Reference Range Comments MAGNESIUM (BEAKER) (test jnwk=816) 1.9 mg/dL 1.6-2.6 BASIC METABOLIC [id number] 07:57:00 Test Item Value Reference Range Comments SODIUM (BEAKER) (test 135 meq/L 136-145 qxne=560) POTASSIUM (BEAKER) (test 3.8 meq/L 3.5-5.1 sqfl=524) CHLORIDE (BEAKER) (test 99 meq/L 98-107 icyu=532) CO2 (BEAKER) (test 26 meq/L 22-29 skws=322) BLOOD UREA NITROGEN 6 mg/dL 7-21 (BEAKER) (test tmxk=050) CREATININE (BEAKER) (test 0.64 mg/dL 0.57-1.25 vmtf=867) GLUCOSE RANDOM (BEAKER) 134 mg/dL 70-105 (test vfyb=086) CALCIUM (BEAKER) (test 8.4 mg/dL 8.4-10.2 pljh=833) EGFR (BEAKER) (test 128 mL/min/1.73 sq m ESTIMATED GFR IS NOT kldd=6234) ACCURATE CREATININE CLEARANCE IN PREDICTING GLOMERULAR FILTRATION RATE. ESTIMATED GFR IS NOT APPLICABLE FOR DIALYSIS PATIENTS. CBC W/PLT COUNT & AUTO [id number] 07:51:00 Test Item Value Reference Range Comments WHITE BLOOD CELL COUNT (BEAKER) (test tcps=914) 17.1 K/ L 3.5-10.5 RED BLOOD CELL COUNT (BEAKER) (test tgdy=137) 4.48 M/ L 4.63-6.08 HEMOGLOBIN (BEAKER) (test opwn=946) 10.4 GM/DL 13.7-17.5 HEMATOCRIT (BEAKER) (test wipj=234) 34.2 % 40.1-51.0 MEAN CORPUSCULAR VOLUME (BEAKER) (test wszd=617) 76.3 fL 79.0-92.2 MEAN CORPUSCULAR HEMOGLOBIN (BEAKER) (test 23.2 pg 25.7-32.2 qmdv=607) MEAN CORPUSCULAR HEMOGLOBIN CONC (BEAKER) (test 30.4 GM/DL 32.3-36.5 hdmr=927) RED CELL DISTRIBUTION WIDTH (BEAKER) (test 17.2 % 11.6-14.4 vyeb=634) PLATELET COUNT (BEAKER) (test xlak=047) 429 K/CU MM 150-450 MEAN PLATELET VOLUME (BEAKER) (test rrur=352) 10.3 fL 9.4-12.4 NUCLEATED RED BLOOD CELLS (BEAKER) (test 0 /100 WBC 0-0 qayt=021) (CELLAVISION MANUAL DIFF)2019-04-17 07:51:00 Test Item Value Reference Range Comments NEUTROPHILS - REL (CELLAVISION)(BEAKER) (test 79 % jkib=1947) LYMPHOCYTES - REL (CELLAVISION)(BEAKER) (test 7 % axns=4657) MONOCYTES - REL (CELLAVISION)(BEAKER) (test 8 % uzzz=3153) EOSINOPHILS - REL (CELLAVISION)(BEAKER) (test 1 % kjjl=7096) METAMYELOCYTES - REL (CELLAVISION)(BEAKER) (test 1 % 0-0 zrnl=3154) MYELOCYTES - REL (CELLAVISION)(BEAKER) (test 3 % 0-0 bdmb=8484) BANDS - REL (CELLAVISION)(BEAKER) (test 1 % 0-10 gvlf=4966) NEUTROPHILS - ABS (CELLAVISION)(BEAKER) (test 13.51 K/ul 1.78-5.38 eesb=1034) LYMPHOCYTES - ABS (CELLAVISION)(BEAKER) (test 1.20 K/ul 1.32-3.57 xyza=7069) MONOCYTES - ABS (CELLAVISION)(BEAKER) (test 1.37 K/uL 0.30-0.82 jjsi=1461) EOSINOPHILS - ABS (CELLAVISION)(BEAKER) (test 0.17 K/uL 0.04-0.54 kcrw=8434) METAMYELOCYTES - ABS (CELLAVISION)(BEAKER) (test 0.17 K/uL 0.00-0.00 sjbr=6718) MYELOCYTES-ABS (CELLAVISION)(BEAKER) (test 0.51 K/uL 0.00-0.00 lmmd=3143) BANDS - ABS (CELLAVISION)(BEAKER) (test 0.17 K/uL 0.00-0.80 njzb=3577) TOTAL COUNTED (BEAKER) (test esro=9662) 100 WBC MORPHOLOGY (BEAKER) (test mpxm=408) Normal PLT MORPHOLOGY (BEAKER) (test orqu=205) Normal POLYCHROMATOPHILLIC RBCS(BEAKER) (test gycd=345) 1+ few HYPOCHROMIA (BEAKER) (test tsgj=351) 1+ few ARTIFACT (CELLAVISION)(BEAKER) (test eknx=0029) Present PLATELET CONCENTRATION (CELLAVISION)(BEAKER) Adequate (test nwoc=6546) Received comment: User comments: Slide comments:POCT-GLUCOSE [id number] 21: 12:00 Test Item Value Reference Range Comments POC-GLUCOSE METER (BEAKER) 138 mg/dL 70-110 TESTED AT [address] (test eujt=9082) [place] [address] POCT-GLUCOSE [id number] 17:03:00 Test Item Value Reference Range Comments POC-GLUCOSE METER (BEAKER) 131 mg/dL 70-110 TESTED AT [address] (test ddbt=1465) [place] [id number] POCT-GLUCOSE [id number] 13:25:00 Test Item Value Reference Range Comments POC-GLUCOSE METER (BEAKER) 112 mg/dL 70-110 TESTED AT [address] (test gvgl=5365) [place] [id number] CBC W/PLT COUNT & AUTO [id number] 12:36:00 Test Item Value Reference Range Comments WHITE BLOOD CELL COUNT (BEAKER) (test wkjf=224) 22.1 K/ L 3.5-10.5 RED BLOOD CELL COUNT (BEAKER) (test rhhl=723) 4.18 M/ L 4.63-6.08 HEMOGLOBIN (BEAKER) (test flen=591) 9.6 GM/DL 13.7-17.5 HEMATOCRIT (BEAKER) (test pmlc=415) 32.0 % 40.1-51.0 MEAN CORPUSCULAR VOLUME (BEAKER) (test lzxl=747) 76.6 fL 79.0-92.2 MEAN CORPUSCULAR HEMOGLOBIN (BEAKER) (test 23.0 pg 25.7-32.2 amok=630) MEAN CORPUSCULAR HEMOGLOBIN CONC (BEAKER) (test 30.0 GM/DL 32.3-36.5 kjye=408) RED CELL DISTRIBUTION WIDTH (BEAKER) (test 16.9 % 11.6-14.4 ijfy=231) PLATELET COUNT (BEAKER) (test ghht=933) 539 K/CU MM 150-450 MEAN PLATELET VOLUME (BEAKER) (test lkdo=398) 9.2 fL 9.4-12.4 NUCLEATED RED BLOOD CELLS (BEAKER) (test 0 /100 WBC 0-0 vzgl=609) (CELLAVISION MANUAL DIFF)2019-04-16 12:36:00 Test Item Value Reference Range Comments NEUTROPHILS - REL (CELLAVISION)(BEAKER) (test 82 % ffdn=0323) LYMPHOCYTES - REL (CELLAVISION)(BEAKER) (test 6 % yueh=3777) MONOCYTES - REL (CELLAVISION)(BEAKER) (test 6 % jute=8629) BASOPHILS - REL (CELLAVISION)(BEAKER) (test 2 % tvwg=1197) MYELOCYTES - REL (CELLAVISION)(BEAKER) (test 1 % 0-0 omrr=5291) BANDS - REL (CELLAVISION)(BEAKER) (test 3 % 0-10 vxhc=5054) NEUTROPHILS - ABS (CELLAVISION)(BEAKER) (test 18.12 K/ul 1.78-5.38 stei=1647) LYMPHOCYTES - ABS (CELLAVISION)(BEAKER) (test 1.33 K/ul 1.32-3.57 zaez=2112) MONOCYTES - ABS (CELLAVISION)(BEAKER) (test 1.33 K/uL 0.30-0.82 ivwq=4631) BASOPHILS - ABS (CELLAVISION)(BEAKER) (test 0.44 K/uL 0.01-0.08 fdac=1136) MYELOCYTES-ABS (CELLAVISION)(BEAKER) (test 0.22 K/uL 0.00-0.00 sqia=0737) BANDS - ABS (CELLAVISION)(BEAKER) (test 0.66 K/uL 0.00-0.80 okpx=1868) TOTAL COUNTED (BEAKER) (test gtrw=8174) 100 WBC MORPHOLOGY (BEAKER) (test nzff=108) Normal LARGE PLT(BEAKER) (test jynq=2429) Present POLYCHROMATOPHILLIC RBCS(BEAKER) (test njol=298) 1+ few HYPOCHROMIA (BEAKER) (test nkga=106) 3+ many ANISOCYTOSIS (BEAKER) (test cdvs=270) 2+ moderate MICROCYTES (BEAKER) (test eseh=160) 2+ moderate MACROCYTES (BEAKER) (test widz=443) 1+ few POIKILOCYTES (BEAKER) (test phkv=502) 1+ few OVALOCYTES (BEAKER) (test qwzu=457) 1+ few ARTIFACT (CELLAVISION)(BEAKER) (test mcwk=3801) Present PLATELET CONCENTRATION (CELLAVISION)(BEAKER) Increased (test gnil=3003) Received comment: User comments: Slide comments:BODY FLUID CELL COUNT WITH [id number] 11:35:00 Test Item Value Reference Range Comments APPEARANCE FLUID (BEAKER) (test mnei=535) Cloudy Clear COLOR FLUID (BEAKER) (test ultj=847) Yellow Colorless, Straw RBC FLUID (BEAKER) (test xluv=611) 225 /cu mm <=1 ADJUSTED WBC FLUID (BEAKER) (test efpk=7376) 4185 /cu mm <=5 LINING CELLS (BEAKER) (test fnzx=0371) 0 /cu mm <=1 NEUTROPHILS FLUID (BEAKER) (test lvto=7959) 65 % LYMPHS FLUID (BEAKER) (test qkri=606) 1 % MONO/MACROPHAGE FLUID (BEAKER) (test ulwu=263) 34 % EOSINOPHILS FLUID (BEAKER) (test xlww=723) 0 % BASO FLUID (BEAKER) (test pzuw=192) 0 % CONTAINER BODY FLUID (BEAKER) (test plpc=4578) EDTA Tube U/S, DRAINAGE, [id number] 11:13:00Please place drain to bulb suction. Send fluid for C\T\S (aerobic, anaerobic, and fungal), cell count and diff. Call [phone]. New left sided collection seen on CT 04/15No sedation needed.Reason for exam:->patient has uptrending white count, not improving. needs an abdominal drain into new fluid collection ALEKSANDER.Should this be performed at the bedside?->NoFINAL REPORT Ultrasound- guided pigtail catheter insertion. Clinical History: Infected ascites Informed consent was obtained from the patient and the risks of the procedure were explained including bleeding, infection, bowel perforation and visceral injury. Sedation: 1% Xylocainewas used as local sedation. Conscious sedation protocol was not utilized as no systemic analgesia was administered. Technique: Using sterile technique, ultrasound guidance and a 7 Macanese all-purpose pigtail catheter, the catheter was inserted into the patient's left lower quadrant fluid collection using the trocar technique. The procedure yielded 60 cc of [place] fluid. The catheter was then removed. No immediate complications developed. Labs were sent as requested. The catheter was locked and sutured in place. Estimated blood loss: None Patient disposition: The patient was asymptomatic at the endof the exam. Impression: Successful ultrasound-guided pigtail catheter insertion into a collection in the left lower quadrant. Signed : Jeff Cohen MDReport Verified Date/Time: 04/16/2019 11:13:37 Reading Location: [facility] C0X [facility] Consult Reading Room POCT-GLUCOSE [id number] 09:01: 00 Test Item Value Reference Range Comments POC-GLUCOSE METER (BEAKER) 126 mg/dL 70-110 TESTED AT [facility] [address] [place] [address] (test xsem=6803) [facility] [address] [id number] 06:46:00 Test Item Value Reference Range Comments PHOSPHORUS (BEAKER) (test jfux=352) 3.7 mg/dL 2.3-4.7 [id number] 06:46:00 Test Item Value Reference Range Comments MAGNESIUM (BEAKER) (test zooj=420) 1.7 mg/dL 1.6-2.6 BASIC METABOLIC [id number] 06:46:00 Test Item Value Reference Range Comments SODIUM (BEAKER) (test 135 meq/L 136-145 dlhd=234) POTASSIUM (BEAKER) (test 3.8 meq/L 3.5-5.1 nuiy=031) CHLORIDE (BEAKER) (test 98 meq/L 98-107 ofqu=484) CO2 (BEAKER) (test 27 meq/L 22-29 ooml=979) BLOOD UREA NITROGEN 6 mg/dL 7-21 (BEAKER) (test bnjl=171) CREATININE (BEAKER) (test 0.68 mg/dL 0.57-1.25 yann=051) GLUCOSE RANDOM (BEAKER) 114 mg/dL 70-105 (test lkdu=778) CALCIUM (BEAKER) (test 8.6 mg/dL 8.4-10.2 hezd=128) EGFR (BEAKER) (test 120 mL/min/1.73 sq m ESTIMATED GFR IS NOT mnrt=4255) ACCURATE CREATININE CLEARANCE IN PREDICTING GLOMERULAR FILTRATION RATE. ESTIMATED GFR IS NOT APPLICABLE FOR DIALYSIS PATIENTS. POCT-GLUCOSE [id number] 22:44:00 Test Item Value Reference Range Comments POC-GLUCOSE METER (BEAKER) 154 mg/dL 70-110 TESTED AT [place] [id number] [facility] (test xxut=3441) [place] [address] POCT-GLUCOSE [id number] 17:02:00 Test Item Value Reference Range Comments POC-GLUCOSE METER (BEAKER) 133 mg/dL 70-110 TESTED AT [address] (test yhgy=1476) [place] [address] CT, [id number] 13:57:00FINAL REPORT ABDOMINAL AND PELVIS CT DATED 04/15/2019 COMPARISON: April 08, 2019 CLINICAL INFORMATION: h /o liver and abdominal abscess, on ct pe protocol, the drain is now outside liver and patient's white count has plateaued, pls adjust drain or place new drain as needed based on imaging, send culture if new drain placed TECHNIQUE: Axial images of the abdomen and pelvis were obtained from diaphragm to the pubic symphysis with intravenous contrast. This exam was performed according to our departmental dose-optimization program, which includes automated exposure control, adjustment of the mA and/or kV according to patient size and/ or use of interactive reconstruction technique. COMMENT: There is trace left pleural effusion and small right pleural effusion with the bibasilar subsegmental atelectasis. Liver is normal in size with irregular margins. A 4 x 6 cm, previously 5.4 x 8.5 cm complex hypodense collection seen in the right hepatic lobe. A stable 1.7 x 2.1 cm cyst isseen in the anterior segment of the right hepatic lobe. A 1.25 x 5 cm air-fluid collection seen in the right hepatic dome previously 5.2 x 8.8 cm. Spleen is enlarged measuring 12.5 x 4.9 x 12.1 cm. Gallbladder is distended. No gallstone or biliary dilatation is noted. Pancreas and adrenals are unremarkable. Both kidneys are normal in size and functioning with bilateral excretion. No hydronephrosis, hydroureter, urolithiasis is seen. The urinary bladder is distended. The small and large bowel are suboptimally evaluated secondary to lack of GI contrast. Multiple dilated small bowel loops are seen in the abdomen pelvis measuring up to 2.8 cm. A loculated fluid collection seen in the left paracolicgutter extended to the pelvis. Small loculated fluid collection seen in the right inferior paracolicgutter. Small amount fluid is seen in the Hernadez's pouch measuring 2.5 x 5.5 cm. There is diffusely increased attenuation in the omentum and mesentery. IMPRESSION: IMPRESSION:1. Interval decrease in size of the liver abscesses.2. Bilateral pleural effusion with bibasilar subsegmental atelectasis.3. Large fluid collection in the abdomen pelvis.4. Dilated small bowel loops in abdomen and pelvis suggestive of ileus. CT-guided drainage catheter placement dated 04/15/2019 Name of practitioner performing procedure: Haim Nino M.D. Names of assistant administrator:None Procedure: Drainage catheter placement into the liver abscess Preprocedure diagnosis:Liver abscesses Postprocedure diagnosis:Liver abscesses Specimens removed:15 cc of purulent material removed Estimated blood loss:None Complication:None Conscious sedation: 2 mg Versed and [address] Haim Nino was responsible for the moderate sedation. Total sedation time: 30 minutes Anesthesia: 1% Xylocaine local anesthesia. Graft /Implants:None Technique: This exam was performed according to our departmental dose-optimization program, which includes automated exposure control, adjustment of the mA and/or kV according to patient size and/or use of interactive reconstruction technique. After obtaining informed consent, CT- guided contrast placement was performed under usual sterile technique. After placing a 19-gauge coaxial needle and guidewire intothe right hepatic lobe abscess, the tract was dilated with a 6 and 8 Macanese dilators. An 8 Macanese drainage catheter was placed. Approximately 15 cc of purulent material was removed. The drainage catheter was left in place, secured to skin with suture, and connected to bulb suction. Impression: Successful CT-guided drainage catheter placement into the right hepatic lobe abscess. Signed: Haim Nino MDReport Verified Date/Time: 04/15/2019 13:57:27 Reading Location: [facility] C013Y CT Body Reading Room Electronically signed by: HAIM NINO M.D. on 01:57 PMCT, DRAINAGE, [id number] 13:57:00Reason for exam:->h/o liver and abdominal abscess, on ct pe protocol, the drain is now outside liver and patient's white count has plateaued, pls adjust drain or place new drain as needed based on imaging, send culture if new drain placedFINAL REPORT ABDOMINAL AND PELVIS CT DATED 04/15/2019 COMPARISON: April 08, 2019 CLINICAL INFORMATION: h/o liver and abdominal abscess, on ct pe protocol, the drain is now outside liver and patient's white count has plateaued, pls adjust drain or place new drain as needed based on imaging, send culture if new drain placed TECHNIQUE: Axial images of the abdomen and pelvis were obtained from diaphragm to the pubic symphysis with intravenous contrast. This exam was performed according to our departmental dose-optimization program, which includes automated exposure control, adjustment of the mA and/or kV according to patient size and/or use of interactive reconstruction technique. COMMENT: There is trace left pleural effusion and small right pleural effusion with the bibasilar subsegmental atelectasis. Liver is normal in size with irregular margins. A 4 x 6 cm, previously 5.4 x 8.5 cm complex hypodense collection seen in the right hepatic lobe. A stable 1.7 x 2.1 cm cyst isseen in the anterior segment of the right hepatic lobe. A 1.25 x 5 cm air-fluid collection seen in the right hepatic dome previously 5.2 x 8.8 cm. Spleen is enlarged measuring 12.5 x 4.9 x 12.1 cm. Gallbladder is distended. No gallstone or biliary dilatation is noted. Pancreas and adrenals are unremarkable. Both kidneys are normal in size and functioning with bilateral excretion. No hydronephrosis, hydroureter, urolithiasis is seen. The urinary bladder is distended. The small and large bowel are suboptimally evaluated secondary to lack of GI contrast. Multiple dilated small bowel loops are seen in the abdomen pelvis measuring up to 2.8 cm. A loculated fluid collection seen in the left paracolicgutter extended to the pelvis. Small loculated fluid collection seen in the right inferior paracolicgutter. Small amount fluid is seen in the Hernadez's pouch measuring 2.5 x 5.5 cm. There is diffusely increased attenuation in the omentum and mesentery. IMPRESSION: IMPRESSION:1. Interval decrease in size of the liver abscesses.2. Bilateral pleural effusion with bibasilar subsegmental atelectasis.3. Large fluid collection in the abdomen pelvis.4. Dilated small bowel loops in abdomen and pelvis suggestive of ileus. CT-guided drainage catheter placement dated 04/15/2019 Name of practitioner performing procedure: Haim Nino M.D. Names of assistant administrator:None Procedure: Drainage catheter placement into the liver abscess Preprocedure diagnosis:Liver abscesses Postprocedure diagnosis:Liver abscesses Specimens removed:15 cc of purulent material removed Estimated blood loss:None Complication:None Conscious sedation: 2 mg Versed and [address] Haim Nino was responsible for the moderate sedation. Total sedation time: 30 minutes Anesthesia: 1% Xylocaine local anesthesia. Graft /Implants:None Technique: This exam was performed according to our departmental dose-optimization program, which includes automated exposure control, adjustment of the mA and/or kV according to patient size and/or use of interactive reconstruction technique. After obtaining informed consent, CT- guided contrast placement was performed under usual sterile technique. After placing a 19-gauge coaxial needle and guidewire intothe right hepatic lobe abscess, the tract was dilated with a 6 and 8 Macanese dilators. An 8 Macanese drainage catheter was placed. Approximately 15 cc of purulent material was removed. The drainage catheter was left in place, secured to skin with suture, and connected to bulb suction. Impression: Successful CT-guided drainage catheter placement into the right hepatic lobe abscess. Signed: Haim Ninoeport Verified Date/Time: 04/15/2019 13:57:27 Reading Location: [facility] C013Y CT Body Reading Room Electronically signed by: HAIM NINO M.D. on 01:57 PMCBC W/PLT COUNT & AUTO [id number] 10:59:00 Test Item Value Reference Range Comments WHITE BLOOD CELL COUNT (BEAKER) (test zvue=895) 21.3 K/ L 3.5-10.5 RED BLOOD CELL COUNT (BEAKER) (test xdse=669) 4.16 M/ L 4.63-6.08 HEMOGLOBIN (BEAKER) (test celo=179) 9.6 GM/DL 13.7-17.5 HEMATOCRIT (BEAKER) (test bgye=160) 32.3 % 40.1-51.0 MEAN CORPUSCULAR VOLUME (BEAKER) (test ukrr=120) 77.6 fL 79.0-92.2 MEAN CORPUSCULAR HEMOGLOBIN (BEAKER) (test 23.1 pg 25.7-32.2 pble=904) MEAN CORPUSCULAR HEMOGLOBIN CONC (BEAKER) (test 29.7 GM/DL 32.3-36.5 fzgd=217) RED CELL DISTRIBUTION WIDTH (BEAKER) (test 17.2 % 11.6-14.4 pxma=956) PLATELET COUNT (BEAKER) (test zssx=645) 511 K/CU MM 150-450 MEAN PLATELET VOLUME (BEAKER) (test lrua=868) 9.2 fL 9.4-12.4 NUCLEATED RED BLOOD CELLS (BEAKER) (test 0 /100 WBC 0-0 qbcf=121) (CELLAVISION MANUAL DIFF)2019-04-15 10:59:00 Test Item Value Reference Range Comments NEUTROPHILS - REL (CELLAVISION)(BEAKER) (test 88 % xyca=1359) LYMPHOCYTES - REL (CELLAVISION)(BEAKER) (test 5 % nkqu=4803) MONOCYTES - REL (CELLAVISION)(BEAKER) (test 4 % tdri=5652) EOSINOPHILS - REL (CELLAVISION)(BEAKER) (test 1 % vsnz=0900) METAMYELOCYTES - REL (CELLAVISION)(BEAKER) (test 1 % 0-0 oqpu=7473) MYELOCYTES - REL (CELLAVISION)(BEAKER) (test 1 % 0-0 ezab=4793) NEUTROPHILS - ABS (CELLAVISION)(BEAKER) (test 18.74 K/ul 1.78-5.38 sixw=3755) LYMPHOCYTES - ABS (CELLAVISION)(BEAKER) (test 1.07 K/ul 1.32-3.57 zxnv=1041) MONOCYTES - ABS (CELLAVISION)(BEAKER) (test 0.85 K/uL 0.30-0.82 uwsb=1017) EOSINOPHILS - ABS (CELLAVISION)(BEAKER) (test 0.21 K/uL 0.04-0.54 wbui=7900) METAMYELOCYTES - ABS (CELLAVISION)(BEAKER) (test 0.21 K/uL 0.00-0.00 alce=4597) MYELOCYTES-ABS (CELLAVISION)(BEAKER) (test 0.21 K/uL 0.00-0.00 smbl=8178) TOTAL COUNTED (BEAKER) (test ivdc=1839) 100 WBC MORPHOLOGY (BEAKER) (test itaf=802) Normal LARGE PLT(BEAKER) (test tzwt=5639) Present POLYCHROMATOPHILLIC RBCS(BEAKER) (test uopb=567) 1+ few HYPOCHROMIA (BEAKER) (test kkrm=645) 1+ few ANISOCYTOSIS (BEAKER) (test rwcs=401) 1+ few POIKILOCYTES (BEAKER) (test ayop=101) 1+ few SCHISTOCYTES (BEAKER) (test chwq=588) 1+ few SPHEROCYTES (BEAKER) (test llni=718) 1+ few ELLIPTOCYTES (BEAKER) (test tvcx=318) 1+ few TEAR DROP CELLS (BEAKER) (test furi=235) 1+ few STOMATOCYTES (BEAKER) (test rgsi=477) 1+ few ARTIFACT (CELLAVISION)(BEAKER) (test dlsy=4489) Present PLATELET CONCENTRATION (CELLAVISION)(BEAKER) Increased (test lhma=5966) Received comment: User comments: Slide comments: WBC: SEGMENTED WITH TOXIC GRANULATIONS [id number] 09:54:00 Test Item Value Reference Range Comments HAPTOGLOBIN (BEAKER) (test jrgu=792) 301 mg/dL 14-258 [id number] 09:27:00 Test Item Value Reference Range Comments FERRITIN (BEAKER) (test qqef=006) 573 ng/mL 5-275 IRON, TIBC, % SAT. (WITHOUT FERRITIN)2019-04-15 09:05:00 Test Item Value Reference Range Comments IRON (BEAKER) (test vatn=190) 9.0 ug/dL 40.0-160.0 TOTAL IRON BINDING CAPACITY (BEAKER) (test 145 ug/dL 250-450 ptaq=532) IRON % SATURATION (2) (BEAKER) (test oxxr=7504) 6 % 20-55 PROTHROMBIN [id number] 08:52:00 Test Item Value Reference Range Comments PROTIME (BEAKER) (test txxv=264) 14.1 seconds 11.9-14.2 INR (BEAKER) (test besc=352) 1.2 <=5.9 Effective 02/16/2019: PT Reference Range ChangeNew: 11.9-14.2 Previous: 11.7- 14.7RECOMMENDED COUMADIN/WARFARIN INR THERAPY RANGESSTANDARD DOSE: 2.0-3.0 Includes: PROPHYLAXIS for venous thrombosis, systemic embolization; TREATMENT for venous thrombosis and/or pulmonary embolus.HIGH RISK: Target INR is2.5-3.5 for patients wiht mechanical heart valves.[id number] 08:52:00 Test Item Value Reference Range Comments PARTIAL THROMBOPLASTIN TIME (BEAKER) (test 41.0 seconds 22.5-36.0 jwrw=833) POCT-GLUCOSE [id number] 08:47:00 Test Item Value Reference Range Comments POC-GLUCOSE METER (BEAKER) 129 mg/dL 70-110 TESTED AT [facility] [address] [facility] (test dzcl=4755) [facility] [address] POCT-GLUCOSE [id number] 06:25:00 Test Item Value Reference Range Comments POC-GLUCOSE METER (BEAKER) 152 mg/dL 70-110 TESTED AT [facility] [address] [facility] (test jvoq=2956) [facility] [address] [id number] 06:18:00 Test Item Value Reference Range Comments MAGNESIUM (BEAKER) (test 1.9 mg/dL 1.6-2.6 Specimen slightly hemolyzed stvg=355) [id number] 06:18:00 Test Item Value Reference Range Comments PHOSPHORUS (BEAKER) (test 3.8 mg/dL 2.3-4.7 Specimen slightly hemolyzed qhyh=468) BASIC METABOLIC [id number] 06:18:00 Test Item Value Reference Range Comments SODIUM (BEAKER) (test 134 meq/L 136-145 blet=436) POTASSIUM (BEAKER) (test 4.0 meq/L 3.5-5.1 Specimen slightly vpda=982) hemolyzed CHLORIDE (BEAKER) (test 100 meq/L 98-107 bxbm=257) CO2 (BEAKER) (test 26 meq/L 22-29 ydwm=009) BLOOD UREA NITROGEN 6 mg/dL 7-21 (BEAKER) (test rpfh=464) CREATININE (BEAKER) (test 0.66 mg/dL 0.57-1.25 Specimen slightly npoy=518) hemolyzed GLUCOSE RANDOM (BEAKER) 128 mg/dL 70-105 (test ozpp=109) CALCIUM (BEAKER) (test 8.3 mg/dL 8.4-10.2 joph=972) EGFR (BEAKER) (test 124 mL/min/1.73 sq m ESTIMATED GFR IS NOT qypp=3066) ACCURATE CREATININE CLEARANCE IN PREDICTING GLOMERULAR FILTRATION RATE. ESTIMATED GFR IS NOT APPLICABLE FOR DIALYSIS PATIENTS. POCT-GLUCOSE [id number] 22:46:00 Test Item Value Reference Range Comments POC-GLUCOSE METER (BEAKER) 177 mg/dL 70-110 TESTED AT [facility] [address] [facility] (test qudv=1328) [facility] [address] BLOOD GAS, [id number] 19:39:00 Test Item Value Reference Range Comments PH ARTERIAL (BEAKER) (test vpoa=640) 7.42 7.35-7.45 PCO2 ARTERIAL (BEAKER) (test vbhb=430) 44 mmHg 35-45 PO2 ARTERIAL (BEAKER) (test wewq=190) 57 mmHg 80-90 O2 SATURATION ARTERIAL (BEAKER) (test lcnh=301) 90.1 % 96.0-97.0 HCO3 ARTERIAL (BEAKER) (test gxef=243) 28 mmol/L 21-29 BASE EXCESS ARTERIAL (BEAKER) (test jfku=218) 2.7 mmol/L -2.0-3.0 PATIENT TEMPERATURE (BEAKER) (test vesv=1124) 37.0 C FIO2 (BEAKER) (test ptwi=0523) 100.0 % POCT-GLUCOSE [id number] 18:01:00 Test Item Value Reference Range Comments POC-GLUCOSE METER (BEAKER) 105 mg/dL 70-110 TESTED AT [address] (test ddvr=8855) [place] [address] POCT-GLUCOSE [id number] 11:38:00 Test Item Value Reference Range Comments POC-GLUCOSE METER (BEAKER) 80 mg/dL 70-110 TESTED AT [address] (test akkt=2785) [place] [id number] PROTHROMBIN [id number] 10:11:00 Test Item Value Reference Range Comments PROTIME (BEAKER) (test vcrz=394) 14.8 seconds 11.9-14.2 INR (BEAKER) (test iwfg=166) 1.2 <=5.9 Effective 02/16/2019: PT Reference Range ChangeNew: 11.9-14.2 Previous: 11.7- 14.7RECOMMENDED COUMADIN/WARFARIN INR THERAPY RANGESSTANDARD DOSE: 2.0-3.0 Includes: PROPHYLAXIS for venous thrombosis, systemic embolization; TREATMENT for venous thrombosis and/or pulmonary embolus.HIGH RISK: Target INR is2.5-3.5 for patients wiht mechanical heart valves.POCT-GLUCOSE [id number] 08:35:00 Test Item Value Reference Range Comments POC-GLUCOSE METER (BEAKER) 156 mg/dL 70-110 TESTED AT [address] (test bfjf=1540) [place] [id number] 06:32:00 Test Item Value Reference Range Comments PHOSPHORUS (BEAKER) (test nfzj=201) 4.3 mg/dL 2.3-4.7 [id number] 06:32:00 Test Item Value Reference Range Comments MAGNESIUM (BEAKER) (test gojt=680) 1.6 mg/dL 1.6-2.6 BASIC METABOLIC [id number] 06:32:00 Test Item Value Reference Range Comments SODIUM (BEAKER) (test 136 meq/L 136-145 nlkc=202) POTASSIUM (BEAKER) (test 3.4 meq/L 3.5-5.1 tszo=670) CHLORIDE (BEAKER) (test 96 meq/L 98-107 tsps=500) CO2 (BEAKER) (test 31 meq/L 22-29 uvyo=781) BLOOD UREA NITROGEN 5 mg/dL 7-21 (BEAKER) (test rnkm=322) CREATININE (BEAKER) (test 0.65 mg/dL 0.57-1.25 bmxp=220) GLUCOSE RANDOM (BEAKER) 115 mg/dL 70-105 (test rqiq=981) CALCIUM (BEAKER) (test 8.3 mg/dL 8.4-10.2 oafn=306) EGFR (BEAKER) (test 126 mL/min/1.73 sq m ESTIMATED GFR IS NOT zewx=7716) ACCURATE CREATININE CLEARANCE IN PREDICTING GLOMERULAR FILTRATION RATE. ESTIMATED GFR IS NOT APPLICABLE FOR DIALYSIS PATIENTS. CBC W/PLT COUNT & AUTO [id number] 05:37:00 Test Item Value Reference Range Comments WHITE BLOOD CELL COUNT (BEAKER) (test kxit=713) 20.8 K/ L 3.5-10.5 RED BLOOD CELL COUNT (BEAKER) (test udsd=495) 4.34 M/ L 4.63-6.08 HEMOGLOBIN (BEAKER) (test iglh=708) 10.0 GM/DL 13.7-17.5 HEMATOCRIT (BEAKER) (test ybcf=140) 33.2 % 40.1-51.0 MEAN CORPUSCULAR VOLUME (BEAKER) (test qnbr=784) 76.5 fL 79.0-92.2 MEAN CORPUSCULAR HEMOGLOBIN (BEAKER) (test 23.0 pg 25.7-32.2 gbfz=065) MEAN CORPUSCULAR HEMOGLOBIN CONC (BEAKER) (test 30.1 GM/DL 32.3-36.5 vaog=935) RED CELL DISTRIBUTION WIDTH (BEAKER) (test 16.9 % 11.6-14.4 clhr=777) PLATELET COUNT (BEAKER) (test yowr=722) 517 K/CU MM 150-450 MEAN PLATELET VOLUME (BEAKER) (test vsec=843) 9.2 fL 9.4-12.4 NUCLEATED RED BLOOD CELLS (BEAKER) (test 0 /100 WBC 0-0 kltr=312) NEUTROPHILS RELATIVE PERCENT (BEAKER) (test 73 % ldki=830) LYMPHOCYTES RELATIVE PERCENT (BEAKER) (test 10 % wgxn=749) MONOCYTES RELATIVE PERCENT (BEAKER) (test 12 % rdce=967) EOSINOPHILS RELATIVE PERCENT (BEAKER) (test 1 % vbwv=922) BASOPHILS RELATIVE PERCENT (BEAKER) (test 1 % eamz=046) NEUTROPHILS ABSOLUTE COUNT (BEAKER) (test 15.12 K/ L 1.78-5.38 iylh=013) LYMPHOCYTES ABSOLUTE COUNT (BEAKER) (test 1.99 K/ L 1.32-3.57 qkjc=889) MONOCYTES ABSOLUTE COUNT (BEAKER) (test 2.39 K/ L 0.30-0.82 bqoe=612) EOSINOPHILS ABSOLUTE COUNT (BEAKER) (test 0.22 K/ L 0.04-0.54 whqm=983) BASOPHILS ABSOLUTE COUNT (BEAKER) (test 0.12 K/ L 0.01-0.08 rldh=102) IMMATURE GRANULOCYTES-RELATIVE PERCENT (BEAKER) 4 % 0-1 (test brqr=9801) POCT-GLUCOSE [id number] 21:12:00 Test Item Value Reference Range Comments POC-GLUCOSE METER (BEAKER) 136 mg/dL 70-110 TESTED AT [address] (test xpat=1950) [facility] [address] CT, CHEST WITH IV CONTRAST- PE TEST [id number] 20:42:00FINAL REPORT CT Chest PE Protocol dated 04/13/2019 Clinical information: Shortness of breathacute hypoxemic respiratory failure and tachycardia Technique: This exam was performed according to our departmental dose-optimization program, which includes automated exposure control,adjustment of the mA and/or kV according to patient size and/or use of interactive reconstruction technique. Precontrast axial images were obtained at pulmonary trunk level for the purpose of monitoring subsequent IV contrast. Postcontrast axial images of the chest were obtained from above the arch level to the lower chest at maximum enhancement of pulmonary artery. Delayed axial images of the entirechest were obtained subsequently. Coronal and sagittal reformations of the pulmonary arteries were performed. Comment: Heart is normal in size. Greater vessels are unremarkable. No filling detect is noted in the pulmonary trunk or pulmonary arteries. No adenopathy is noted in the mediastinum or perihilar region. Trachea and mainstem bronchi are patent. There is trace left pleural effusion and a smallright pleural effusion. Atelectasis is seen in the right mid lobe, lingula, and both lower lobes. The rest of the lungs are clear. Hypodense foci are seen in the right hepatic lobe suggestive of hepatic abscess. The previously noted percutaneous transhepatic drainage catheter has been partially withdrawn with tip noted outside of the liver. Impression: 1. No pulmonary thromboembolism.2. Bilateral pleural effusion with right mid lobe, lingula, and bibasilar subsegmental atelectasis.3. Liver abscess with percutaneous transhepatic drainage catheter tip located outside of the liver. Signed: Haim Nino MDReport Verified Date/Time: 04/13/2019 20:42:31 Reading Location: [address] Consult Reading Room BLOOD GAS, [id number] 17:52:00 Test Item Value Reference Range Comments PH ARTERIAL (BEAKER) (test atar=460) 7.51 7.35-7.45 PCO2 ARTERIAL (BEAKER) (test tbqs=846) 46 mmHg 35-45 PO2 ARTERIAL (BEAKER) (test mfke=436) 56 mmHg 80-90 O2 SATURATION ARTERIAL (BEAKER) (test ijdr=986) 92.5 % 96.0-97.0 HCO3 ARTERIAL (BEAKER) (test avoh=641) 36 mmol/L 21-29 BASE EXCESS ARTERIAL (BEAKER) (test lgcq=041) 11.6 mmol/L -2.0-3.0 PATIENT TEMPERATURE (BEAKER) (test lmlk=1160) 36.2 C FIO2 (BEAKER) (test vkhc=9143) 21.0 % POCT-GLUCOSE [id number] 12:42:00 Test Item Value Reference Range Comments POC-GLUCOSE METER (BEAKER) 90 mg/dL 70-110 TESTED AT [facility] [address] [place] [address] (test tqiu=7016) [facility] [address] CBC W/PLT COUNT & AUTO [id number] 10:05:00 Test Item Value Reference Range Comments WHITE BLOOD CELL COUNT (BEAKER) (test enmv=023) 19.0 K/ L 3.5-10.5 RED BLOOD CELL COUNT (BEAKER) (test fifj=860) 4.62 M/ L 4.63-6.08 HEMOGLOBIN (BEAKER) (test prtl=099) 10.7 GM/DL 13.7-17.5 HEMATOCRIT (BEAKER) (test npdn=606) 35.2 % 40.1-51.0 MEAN CORPUSCULAR VOLUME (BEAKER) (test dsxv=270) 76.2 fL 79.0-92.2 MEAN CORPUSCULAR HEMOGLOBIN (BEAKER) (test 23.2 pg 25.7-32.2 vrsj=731) MEAN CORPUSCULAR HEMOGLOBIN CONC (BEAKER) (test 30.4 GM/DL 32.3-36.5 cogg=348) RED CELL DISTRIBUTION WIDTH (BEAKER) (test 16.6 % 11.6-14.4 fuea=820) PLATELET COUNT (BEAKER) (test mcfw=432) 435 K/CU MM 150-450 MEAN PLATELET VOLUME (BEAKER) (test oiwa=123) 9.1 fL 9.4-12.4 NUCLEATED RED BLOOD CELLS (BEAKER) (test 0 /100 WBC 0-0 svbd=208) (CELLAVISION MANUAL DIFF)2019-04-13 10:05:00 Test Item Value Reference Range Comments NEUTROPHILS - REL (CELLAVISION)(BEAKER) (test 81 % qzmm=9660) LYMPHOCYTES - REL (CELLAVISION)(BEAKER) (test 7 % lyfi=7728) MONOCYTES - REL (CELLAVISION)(BEAKER) (test 7 % ivel=6638) BASOPHILS - REL (CELLAVISION)(BEAKER) (test 1 % yehd=6244) METAMYELOCYTES - REL (CELLAVISION)(BEAKER) (test 2 % 0-0 robn=0361) MYELOCYTES - REL (CELLAVISION)(BEAKER) (test 1 % 0-0 hfst=5378) BANDS - REL (CELLAVISION)(BEAKER) (test 1 % 0-10 wfqh=1237) NEUTROPHILS - ABS (CELLAVISION)(BEAKER) (test 15.39 K/ul 1.78-5.38 pltd=4838) LYMPHOCYTES - ABS (CELLAVISION)(BEAKER) (test 1.33 K/ul 1.32-3.57 eest=6197) MONOCYTES - ABS (CELLAVISION)(BEAKER) (test 1.33 K/uL 0.30-0.82 quxe=7589) BASOPHILS - ABS (CELLAVISION)(BEAKER) (test 0.19 K/uL 0.01-0.08 hvvq=4303) METAMYELOCYTES - ABS (CELLAVISION)(BEAKER) (test 0.38 K/uL 0.00-0.00 lwhv=8275) MYELOCYTES-ABS (CELLAVISION)(BEAKER) (test 0.19 K/uL 0.00-0.00 vgns=4707) BANDS - ABS (CELLAVISION)(BEAKER) (test 0.19 K/uL 0.00-0.80 dgkf=0952) TOTAL COUNTED (BEAKER) (test flfz=9336) 100 WBC MORPHOLOGY (BEAKER) (test ivvl=650) Normal PLT MORPHOLOGY (BEAKER) (test supe=258) Normal POLYCHROMATOPHILLIC RBCS(BEAKER) (test ibyz=867) 1+ few HYPOCHROMIA (BEAKER) (test dexd=742) 1+ few ANISOCYTOSIS (BEAKER) (test sabc=848) 1+ few MICROCYTES (BEAKER) (test jnmm=482) 2+ moderate POIKILOCYTES (BEAKER) (test wvtc=016) 1+ few TARGET CELLS (BEAKER) (test hpba=943) 1+ few ARTIFACT (CELLAVISION)(BEAKER) (test biqq=3925) Present PLATELET CONCENTRATION (CELLAVISION)(BEAKER) Adequate (test rwpa=9271) Received comment: User comments: Slide comments:POCT-GLUCOSE [id number] 09: 34:00 Test Item Value Reference Range Comments POC-GLUCOSE METER (BEAKER) 167 mg/dL 70-110 TESTED AT [facility] [address] [facility] (test isxm=4814) [facility] [address] POCT-GLUCOSE [id number] 08:15:00 Test Item Value Reference Range Comments POC-GLUCOSE METER (BEAKER) 129 mg/dL 70-110 TESTED AT [facility] [address] [facility] (test gvkm=2665) [facility] [address] [id number] 05:15:00 Test Item Value Reference Range Comments PREALBUMIN (BEAKER) (test lgdq=879) 6 mg/dL 14-45 [id number] 05:06:00 Test Item Value Reference Range Comments PHOSPHORUS (BEAKER) (test mkdw=966) 3.8 mg/dL 2.3-4.7 [id number] 05:06:00 Test Item Value Reference Range Comments MAGNESIUM (BEAKER) (test nbqj=870) 1.7 mg/dL 1.6-2.6 BASIC METABOLIC [id number] 05:06:00 Test Item Value Reference Range Comments SODIUM (BEAKER) (test 137 meq/L 136-145 zzqz=854) POTASSIUM (BEAKER) (test 3.6 meq/L 3.5-5.1 ybps=138) CHLORIDE (BEAKER) (test 94 meq/L 98-107 xrto=912) CO2 (BEAKER) (test 35 meq/L 22-29 caii=095) BLOOD UREA NITROGEN 6 mg/dL 7-21 (BEAKER) (test aamm=420) CREATININE (BEAKER) (test 0.66 mg/dL 0.57-1.25 vgwx=616) GLUCOSE RANDOM (BEAKER) 96 mg/dL 70-105 (test qhkj=659) CALCIUM (BEAKER) (test 8.2 mg/dL 8.4-10.2 qfnl=961) EGFR (BEAKER) (test 124 mL/min/1.73 sq m ESTIMATED GFR IS NOT fdir=1570) ACCURATE CREATININE CLEARANCE IN PREDICTING GLOMERULAR FILTRATION RATE. ESTIMATED GFR IS NOT APPLICABLE FOR DIALYSIS PATIENTS. POCT-GLUCOSE [id number] 22:29:00 Test Item Value Reference Range Comments POC-GLUCOSE METER (BEAKER) 126 mg/dL 70-110 TESTED AT [place] [id number] (test koge=9002) [facility] [address] RAD, CHEST, 2 [id number] 21:25:00Reason for exam:->Eval for edemaFINAL REPORT PA and Lateral views of the chest dated 2018 Clinical information: Eval for edema Comment: Heart is normal in size. Pulmonary vasculature is unremarkable. Subsegmental atelectasis is seen in both lung bases. The rest of the lungs are clear. No pulmonary infiltrate or pleural effusion is present. Impression: Bibasilar subsegmental atelectasis. Signed: Haim Nino MDReport Verified Date/Time: 04/12/2019 21:25:03 Reading Location: [address] Consult Reading Room ANAEROBIC [id number] 18:40:00 Test Item Value Reference Range Comments CULTURE (BEAKER) (test yvfj=9943) No anaerobes isolated ANAEROBIC [id number] 18:40:00 Test Item Value Reference Range Comments CULTURE (BEAKER) (test tlgi=8804) No anaerobes isolated ANAEROBIC [id number] 18:39:00 Test Item Value Reference Range Comments CULTURE (BEAKER) (test iown=4791) No anaerobes isolated POCT-GLUCOSE [id number] 17:41:00 Test Item Value Reference Range Comments POC-GLUCOSE METER (BEAKER) 149 mg/dL 70-110 TESTED AT [address] (test toqp=1524) [place] [address] B-TYPE NATRIURETIC FACTOR (BNP)2019-04-12 15:43:00 Test Item Value Reference Range Comments B-TYPE NATRIURETIC PEPTIDE (BEAKER) (test mahx=176) 37 pg/mL 0-100 POCT-GLUCOSE [id number] 12:20:00 Test Item Value Reference Range Comments POC-GLUCOSE METER (BEAKER) 127 mg/dL 70-110 TESTED AT [address] (test iopk=0456) [place] [address] SURGICALLY OBTAINED CULTURE + GRAM [id number] 08:13:00 Test Item Value Reference Range Comments CULTURE (BEAKER) (test ESCHERICHIA COLI 1+ Escherichia coli njks=4395) Amikacin (test code=1) Ampicillin + Sulbactam (test code=6) Aztreonam (test code=32) Cefepime (test code=51) Cefoxitin (test code=68) Ceftazidime (test code=27) Ceftriaxone (test code=52) Ertapenem (test code=38) Gentamicin (test code=18) Levofloxacin (test code=22) Meropenem (test code=34) Nitrofurantoin (test code=23) Piperacillin + Tazobactam (test code=29) Tetracycline (test code=2) Tobramycin (test code=25) Trimethoprim + Sulfamethoxazole (test code=47) CULTURE (BEAKER) (test ENTEROCOCCUS SPECIES 1+ Enterococcus ekuf=9039) species Ampicillin (test code=26) Linezolid (test code=40) Vancomycin (test code=13) GRAM STAIN RESULT (BEAKER) 2+ White blood cells (test zjwe=8284) seen GRAM STAIN RESULT (BEAKER) No organisms seen (test yhao=846209) SURGICALLY OBTAINED CULTURE + GRAM [id number] 08:13:00 Test Item Value Reference Range Comments CULTURE (BEAKER) <1+ Same organism has been (test mpug=1481) isolated from cultures(s) of the same body site and collection date. Repeat identification and susceptibility testing performed only after consultation with the clinical microbiology laboratory.Refer to previous culture ofEscherichia coli* - Growing from anaerobic culture only GRAM STAIN RESULT <1+ White blood cells (BEAKER) (test seen soxp=5381) GRAM STAIN RESULT No organisms seen (BEAKER) (test ayvb=079740) SURGICALLY OBTAINED CULTURE + GRAM [id number] 08:09:00 Test Item Value Reference Range Comments CULTURE (BEAKER) <1+ Same organism has been (test oqjf=1269) isolated from cultures(s) of the same body site within 3 days. Repeat identification and susceptibility testing performed only after consultation with the clinical microbiology laboratory.Refer to previous culture ofEscherichia coli GRAM STAIN RESULT 2+ White blood cells (BEAKER) (test seen ppsd=4517) GRAM STAIN RESULT No organisms seen (BEAKER) (test hwet=922023) CBC W/PLT COUNT & AUTO [id number] 07:43:00 Test Item Value Reference Range Comments WHITE BLOOD CELL COUNT (BEAKER) (test pegb=645) 19.5 K/ L 3.5-10.5 RED BLOOD CELL COUNT (BEAKER) (test iygu=702) 4.59 M/ L 4.63-6.08 HEMOGLOBIN (BEAKER) (test lnhk=949) 10.5 GM/DL 13.7-17.5 HEMATOCRIT (BEAKER) (test rogz=966) 34.8 % 40.1-51.0 MEAN CORPUSCULAR VOLUME (BEAKER) (test quah=210) 75.8 fL 79.0-92.2 MEAN CORPUSCULAR HEMOGLOBIN (BEAKER) (test 22.9 pg 25.7-32.2 mixs=157) MEAN CORPUSCULAR HEMOGLOBIN CONC (BEAKER) (test 30.2 GM/DL 32.3-36.5 buhv=604) RED CELL DISTRIBUTION WIDTH (BEAKER) (test 16.5 % 11.6-14.4 iyaq=226) PLATELET COUNT (BEAKER) (test nysx=026) 398 K/CU MM 150-450 MEAN PLATELET VOLUME (BEAKER) (test ktic=434) 9.4 fL 9.4-12.4 NUCLEATED RED BLOOD CELLS (BEAKER) (test 0 /100 WBC 0-0 qkso=427) (CELLAVISION MANUAL DIFF)2019-04-12 07:43:00 Test Item Value Reference Range Comments NEUTROPHILS - REL (CELLAVISION)(BEAKER) (test 82 % lbtq=6973) LYMPHOCYTES - REL (CELLAVISION)(BEAKER) (test 7 % kckz=3743) MONOCYTES - REL (CELLAVISION)(BEAKER) (test 7 % hqnb=3725) MYELOCYTES - REL (CELLAVISION)(BEAKER) (test 1 % 0-0 bcbz=8316) ATYPICAL LYMPHOCYTES - REL (CELLAVISION)(BEAKER) 3 % 0-0 (test caae=2966) NEUTROPHILS - ABS (CELLAVISION)(BEAKER) (test 15.99 K/ul 1.78-5.38 qalm=5759) LYMPHOCYTES - ABS (CELLAVISION)(BEAKER) (test 1.37 K/ul 1.32-3.57 jgeq=7041) MONOCYTES - ABS (CELLAVISION)(BEAKER) (test 1.37 K/uL 0.30-0.82 zcfu=7818) MYELOCYTES-ABS (CELLAVISION)(BEAKER) (test 0.20 K/uL 0.00-0.00 eopx=8933) ATYPICAL LYMPHOCYTES - ABS (CELLAVISION)(BEAKER) 0.59 K/uL 0.00-0.00 (test utqw=2671) TOTAL COUNTED (BEAKER) (test wqeh=7887) 100 WBC MORPHOLOGY (BEAKER) (test lhny=006) Normal PLT MORPHOLOGY (BEAKER) (test fgbv=689) Normal POLYCHROMATOPHILLIC RBCS(BEAKER) (test grtx=089) 1+ few HYPOCHROMIA (BEAKER) (test aefb=127) 1+ few ARTIFACT (CELLAVISION)(BEAKER) (test ozib=7130) Present PLATELET CONCENTRATION (CELLAVISION)(BEAKER) Adequate (test qqbc=7862) Received comment: User comments: Slide comments:[id number] 05:54:00 Test Item Value Reference Range Comments PHOSPHORUS (BEAKER) (test mkje=252) 2.6 mg/dL 2.3-4.7 [id number] 05:54:00 Test Item Value Reference Range Comments MAGNESIUM (BEAKER) (test tqpi=051) 1.6 mg/dL 1.6-2.6 BASIC METABOLIC [id number] 05:54:00 Test Item Value Reference Range Comments SODIUM (BEAKER) (test 137 meq/L 136-145 tkoc=166) POTASSIUM (BEAKER) (test 3.5 meq/L 3.5-5.1 kitt=068) CHLORIDE (BEAKER) (test 97 meq/L 98-107 urva=518) CO2 (BEAKER) (test 34 meq/L 22-29 amox=559) BLOOD UREA NITROGEN 8 mg/dL 7-21 (BEAKER) (test rkxs=359) CREATININE (BEAKER) (test 0.66 mg/dL 0.57-1.25 gakw=628) GLUCOSE RANDOM (BEAKER) 137 mg/dL 70-105 (test mtjx=583) CALCIUM (BEAKER) (test 8.1 mg/dL 8.4-10.2 bbts=017) EGFR (BEAKER) (test 124 mL/min/1.73 sq m ESTIMATED GFR IS NOT zqae=3297) ACCURATE CREATININE CLEARANCE IN PREDICTING GLOMERULAR FILTRATION RATE. ESTIMATED GFR IS NOT APPLICABLE FOR DIALYSIS PATIENTS. POCT-GLUCOSE [id number] 23:39:00 Test Item Value Reference Range Comments POC-GLUCOSE METER (BEAKER) 180 mg/dL 70-110 TESTED AT [facility] [address] [place] [address] (test zgzz=6291) [facility] [address] LACTIC ACID, [id number] 20:28:00 Test Item Value Reference Range Comments LACTATE BLOOD VENOUS (2) (BEAKER) (test 0.6 mmol/L 0.5-2.2 cowz=2097) POCT-GLUCOSE [id number] 16:50:00 Test Item Value Reference Range Comments POC-GLUCOSE METER (BEAKER) 153 mg/dL 70-110 TESTED AT [address] (test wdrh=9302) [facility] [address] CBC W/PLT COUNT & AUTO [id number] 14:24:00 Test Item Value Reference Range Comments WHITE BLOOD CELL COUNT (BEAKER) (test dpvn=757) 24.0 K/ L 3.5-10.5 RED BLOOD CELL COUNT (BEAKER) (test tatp=832) 5.07 M/ L 4.63-6.08 HEMOGLOBIN (BEAKER) (test nsxz=792) 11.7 GM/DL 13.7-17.5 HEMATOCRIT (BEAKER) (test qodz=070) 38.2 % 40.1-51.0 MEAN CORPUSCULAR VOLUME (BEAKER) (test rivv=276) 75.3 fL 79.0-92.2 MEAN CORPUSCULAR HEMOGLOBIN (BEAKER) (test 23.1 pg 25.7-32.2 gisc=276) MEAN CORPUSCULAR HEMOGLOBIN CONC (BEAKER) (test 30.6 GM/DL 32.3-36.5 ztee=953) RED CELL DISTRIBUTION WIDTH (BEAKER) (test 16.9 % 11.6-14.4 dryn=894) PLATELET COUNT (BEAKER) (test jtcd=137) 439 K/CU MM 150-450 MEAN PLATELET VOLUME (BEAKER) (test gcgk=736) 9.2 fL 9.4-12.4 NUCLEATED RED BLOOD CELLS (BEAKER) (test 0 /100 WBC 0-0 hodw=561) (CELLAVISION MANUAL DIFF)2019-04-11 14:24:00 Test Item Value Reference Range Comments NEUTROPHILS - REL (CELLAVISION)(BEAKER) (test 79 % blzi=7700) LYMPHOCYTES - REL (CELLAVISION)(BEAKER) (test 10 % bngd=5193) MONOCYTES - REL (CELLAVISION)(BEAKER) (test 5 % gutf=0042) EOSINOPHILS - REL (CELLAVISION)(BEAKER) (test 1 % ltdg=9590) METAMYELOCYTES - REL (CELLAVISION)(BEAKER) (test 2 % 0-0 dqxb=5920) MYELOCYTES - REL (CELLAVISION)(BEAKER) (test 2 % 0-0 qnix=1809) ATYPICAL LYMPHOCYTES - REL (CELLAVISION)(BEAKER) 1 % 0-0 (test gvgt=6132) NEUTROPHILS - ABS (CELLAVISION)(BEAKER) (test 18.96 K/ul 1.78-5.38 dofo=1356) LYMPHOCYTES - ABS (CELLAVISION)(BEAKER) (test 2.40 K/ul 1.32-3.57 jxte=9804) MONOCYTES - ABS (CELLAVISION)(BEAKER) (test 1.20 K/uL 0.30-0.82 cfaq=4621) EOSINOPHILS - ABS (CELLAVISION)(BEAKER) (test 0.24 K/uL 0.04-0.54 zpyi=7602) METAMYELOCYTES - ABS (CELLAVISION)(BEAKER) (test 0.48 K/uL 0.00-0.00 qwvu=9009) MYELOCYTES-ABS (CELLAVISION)(BEAKER) (test 0.48 K/uL 0.00-0.00 iqnl=3139) ATYPICAL LYMPHOCYTES - ABS (CELLAVISION)(BEAKER) 0.24 K/uL 0.00-0.00 (test grxw=6517) TOTAL COUNTED (BEAKER) (test kepj=0387) 100 PLT MORPHOLOGY (BEAKER) (test xizl=788) Normal SMUDGE CELLS (BEAKER) (test qdaj=3702) Present POLYCHROMATOPHILLIC RBCS(BEAKER) (test hvzq=277) 1+ few ANISOCYTOSIS (BEAKER) (test grfr=053) 1+ few MICROCYTES (BEAKER) (test vyxd=917) 1+ few PLATELET CONCENTRATION (CELLAVISION)(BEAKER) Adequate (test tefb=0831) Received comment: User comments: Slide comments:POCT-GLUCOSE [id number] 12: 49:00 Test Item Value Reference Range Comments POC-GLUCOSE METER (BEAKER) 156 mg/dL 70-110 TESTED AT [facility] [address] [place] [address] (test qebs=1600) [place] [address] [id number] 10:32:00 Test Item Value Reference Range Comments PHOSPHORUS (BEAKER) (test uwzr=422) 2.8 mg/dL 2.3-4.7 [id number] 10:32:00 Test Item Value Reference Range Comments MAGNESIUM (BEAKER) (test jkcb=770) 1.8 mg/dL 1.6-2.6 BASIC METABOLIC [id number] 10:32:00 Test Item Value Reference Range Comments SODIUM (BEAKER) (test 136 meq/L 136-145 mpfq=700) POTASSIUM (BEAKER) (test 3.6 meq/L 3.5-5.1 olty=426) CHLORIDE (BEAKER) (test 96 meq/L 98-107 jibj=811) CO2 (BEAKER) (test 31 meq/L 22-29 iiqr=296) BLOOD UREA NITROGEN 10 mg/dL 7-21 (BEAKER) (test ekca=581) CREATININE (BEAKER) (test 0.75 mg/dL 0.57-1.25 yzcw=187) GLUCOSE RANDOM (BEAKER) 145 mg/dL 70-105 (test ylji=510) CALCIUM (BEAKER) (test 8.6 mg/dL 8.4-10.2 vwfn=840) EGFR (BEAKER) (test 107 mL/min/1.73 sq m ESTIMATED GFR IS NOT pyny=3486) ACCURATE CREATININE CLEARANCE IN PREDICTING GLOMERULAR FILTRATION RATE. ESTIMATED GFR IS NOT APPLICABLE FOR DIALYSIS PATIENTS. POCT-GLUCOSE [id number] 07:45:00 Test Item Value Reference Range Comments POC-GLUCOSE METER (BEAKER) 159 mg/dL 70-110 TESTED AT [address] (test yods=6307) [place] [id number] POCT-GLUCOSE [id number] 23:36:00 Test Item Value Reference Range Comments POC-GLUCOSE METER (BEAKER) 163 mg/dL 70-110 TESTED AT [address] (test mtdk=1403) [place] [address] ANAEROBIC [id number] 20:57:00 Test Item Value Reference Range Comments CULTURE (BEAKER) (test 4+ Gram positive rods* - ugph=6725) [place] POCT-GLUCOSE [id number] 12:49:00 Test Item Value Reference Range Comments POC-GLUCOSE METER (BEAKER) 156 mg/dL 70-110 TESTED AT [facility] [address] (test yuxn=8903) [place] [address] SPIN/CONCENTRATION [id number] 10:27:00 Test Item Value Reference Range Comments CONCENTRATION CHARGED (BEAKER) (test zzbl=8428) Done SPIN/CONCENTRATION [id number] 10:27:00 Test Item Value Reference Range Comments CONCENTRATION CHARGED (BEAKER) (test synk=7204) Done CBC W/PLT COUNT & AUTO [id number] 08:59:00 Test Item Value Reference Range Comments WHITE BLOOD CELL COUNT (BEAKER) (test nwby=520) 39.5 K/ L 3.5-10.5 RED BLOOD CELL COUNT (BEAKER) (test xbeq=993) 4.51 M/ L 4.63-6.08 HEMOGLOBIN (BEAKER) (test szwq=225) 10.6 GM/DL 13.7-17.5 HEMATOCRIT (BEAKER) (test jhrc=918) 33.6 % 40.1-51.0 MEAN CORPUSCULAR VOLUME (BEAKER) (test wphy=871) 74.5 fL 79.0-92.2 MEAN CORPUSCULAR HEMOGLOBIN (BEAKER) (test 23.5 pg 25.7-32.2 xobr=342) MEAN CORPUSCULAR HEMOGLOBIN CONC (BEAKER) (test 31.5 GM/DL 32.3-36.5 jqsf=524) RED CELL DISTRIBUTION WIDTH (BEAKER) (test 15.9 % 11.6-14.4 ssyd=451) PLATELET COUNT (BEAKER) (test tcpd=761) 308 K/CU MM 150-450 MEAN PLATELET VOLUME (BEAKER) (test lobn=018) 9.1 fL 9.4-12.4 NUCLEATED RED BLOOD CELLS (BEAKER) (test 0 /100 WBC 0-0 zbkj=807) (CELLAVISION MANUAL DIFF)2019-04-10 08:59:00 Test Item Value Reference Range Comments NEUTROPHILS - REL (CELLAVISION)(BEAKER) (test 87 % dukl=1908) LYMPHOCYTES - REL (CELLAVISION)(BEAKER) (test 2 % kmdr=4064) MONOCYTES - REL (CELLAVISION)(BEAKER) (test 4 % laxh=2485) METAMYELOCYTES - REL (CELLAVISION)(BEAKER) (test 1 % 0-0 itrt=4218) MYELOCYTES - REL (CELLAVISION)(BEAKER) (test 2 % 0-0 iocp=8305) BANDS - REL (CELLAVISION)(BEAKER) (test 4 % 0-10 qzll=6974) NEUTROPHILS - ABS (CELLAVISION)(BEAKER) (test 34.37 K/ul 1.78-5.38 hsbo=0750) LYMPHOCYTES - ABS (CELLAVISION)(BEAKER) (test 0.79 K/ul 1.32-3.57 lsux=4328) MONOCYTES - ABS (CELLAVISION)(BEAKER) (test 1.58 K/uL 0.30-0.82 waky=8814) METAMYELOCYTES - ABS (CELLAVISION)(BEAKER) (test 0.40 K/uL 0.00-0.00 lhvt=9837) MYELOCYTES-ABS (CELLAVISION)(BEAKER) (test 0.79 K/uL 0.00-0.00 wwzf=5194) BANDS - ABS (CELLAVISION)(BEAKER) (test 1.58 K/uL 0.00-0.80 oavr=4048) TOTAL COUNTED (BEAKER) (test shrj=1053) 100 WBC MORPHOLOGY (BEAKER) (test xlsa=821) Normal PLT MORPHOLOGY (BEAKER) (test inbu=310) Normal POLYCHROMATOPHILLIC RBCS(BEAKER) (test xzwe=691) 1+ few ARTIFACT (CELLAVISION)(BEAKER) (test ufkf=8309) Present PLATELET CONCENTRATION (CELLAVISION)(BEAKER) Adequate (test kagc=6993) Received comment: User comments: Slide comments:POCT-GLUCOSE [id number] 06: 32:00 Test Item Value Reference Range Comments POC-GLUCOSE METER (BEAKER) 139 mg/dL 70-110 TESTED AT [address] (test kdwh=2306) [facility] [address] BASIC METABOLIC [id number] 05:06:00 Test Item Value Reference Range Comments SODIUM (BEAKER) (test 137 meq/L 136-145 qkxt=036) POTASSIUM (BEAKER) (test 4.4 meq/L 3.5-5.1 Specimen slightly ddpf=543) hemolyzed CHLORIDE (BEAKER) (test 102 meq/L 98-107 chwf=787) CO2 (BEAKER) (test 26 meq/L 22-29 gspy=769) BLOOD UREA NITROGEN 11 mg/dL 7-21 (BEAKER) (test xcje=268) CREATININE (BEAKER) (test 0.62 mg/dL 0.57-1.25 Specimen slightly ubpx=529) hemolyzed GLUCOSE RANDOM (BEAKER) 145 mg/dL 70-105 (test xcph=811) CALCIUM (BEAKER) (test 7.8 mg/dL 8.4-10.2 knbr=162) EGFR (BEAKER) (test 133 mL/min/1.73 sq m ESTIMATED GFR IS NOT sedb=6329) ACCURATE CREATININE CLEARANCE IN PREDICTING GLOMERULAR FILTRATION RATE. ESTIMATED GFR IS NOT APPLICABLE FOR DIALYSIS PATIENTS. [id number] 05:02:00 Test Item Value Reference Range Comments MAGNESIUM (BEAKER) (test 1.9 mg/dL 1.6-2.6 Specimen slightly hemolyzed esfu=977) [id number] 05:02:00 Test Item Value Reference Range Comments PHOSPHORUS (BEAKER) (test 4.6 mg/dL 2.3-4.7 Specimen slightly hemolyzed wwgf=633) HEPATIC FUNCTION [id number] 05:02:00 Test Item Value Reference Range Comments TOTAL PROTEIN (BEAKER) (test 4.6 gm/dL 6.0-8.3 Specimen slightly hemolyzed nesm=424) ALBUMIN (BEAKER) (test 2.2 g/dL 3.5-5.0 Specimen slightly hemolyzed cvcg=0213) BILIRUBIN TOTAL (BEAKER) (test 0.6 mg/dL 0.2-1.2 Specimen slightly hemolyzed grpu=861) BILIRUBIN DIRECT (BEAKER) (test 0.3 mg/dL 0.1-0.5 Specimen slightly hemolyzed oelv=957) ALKALINE PHOSPHATASE (BEAKER) 93 U/L 40-150 (test hoyu=894) AST (SGOT) (BEAKER) (test 55 U/L 5-34 Specimen slightly hemolyzed yvtf=819) ALT (SGPT) (BEAKER) (test 35 U/L 6-55 Specimen slightly hemolyzed epad=317) POCT-GLUCOSE [id number] 00:24:00 Test Item Value Reference Range Comments POC-GLUCOSE METER (BEAKER) 117 mg/dL 70-110 TESTED AT [place] [id number] [facility] (test qxxz=5614) [place] [address] POCT-GLUCOSE [id number] 18:59:00 Test Item Value Reference Range Comments POC-GLUCOSE METER (BEAKER) 99 mg/dL 70-110 TESTED AT [address] (test vobc=0201) [place] [id number] RAD, CHEST, 1 VIEW, NON [id number] 17:21:00Post-intubationReason for exam:-& gt;s/p ex-lapShould this be performed at the bedside?->YesFINAL REPORT AP chest HISTORY: Laparotomy. COMPARISON: 04/03/2019. IMPRESSION:Stable cardiac silhouette. Hypoinflation. Mild pulmonary vascular congestion. No pneumothorax. Signed: Raquel Hopper MDReport Verified Date/Time : 04/09/2019 17:21:18 Reading Location: [facility] [id number] Ortho Consult Reading Room 05: 21PMBASIC METABOLIC [id number] 16:53:00 Test Item Value Reference Range Comments SODIUM (BEAKER) (test 137 meq/L 136-145 eklw=084) POTASSIUM (BEAKER) (test 4.0 meq/L 3.5-5.1 Specimen moderately ysfc=986) hemolyzed CHLORIDE (BEAKER) (test 103 meq/L 98-107 pdax=089) CO2 (BEAKER) (test 24 meq/L 22-29 dyqe=006) BLOOD UREA NITROGEN 9 mg/dL 7-21 (BEAKER) (test ogso=685) CREATININE (BEAKER) (test 0.66 mg/dL 0.57-1.25 Specimen moderately mjvr=614) hemolyzed GLUCOSE RANDOM (BEAKER) 119 mg/dL 70-105 (test xajd=027) CALCIUM (BEAKER) (test 7.4 mg/dL 8.4-10.2 mnrg=437) EGFR (BEAKER) (test 124 mL/min/1.73 sq m ESTIMATED GFR IS NOT zbye=4095) ACCURATE CREATININE CLEARANCE IN PREDICTING GLOMERULAR FILTRATION RATE. ESTIMATED GFR IS NOT APPLICABLE FOR DIALYSIS PATIENTS. [id number] 16:13:00 Test Item Value Reference Range Comments MAGNESIUM (BEAKER) (test 1.7 mg/dL 1.6-2.6 Specimen moderately hemolyzed ywhf=362) [id number] 16:13:00 Test Item Value Reference Range Comments PHOSPHORUS (BEAKER) (test 4.4 mg/dL 2.3-4.7 Specimen moderately hemolyzed peub=315) HEPATIC FUNCTION [id number] 16:13:00 Test Item Value Reference Range Comments TOTAL PROTEIN (BEAKER) (test 4.8 gm/dL 6.0-8.3 Specimen moderately hemolyzed bqns=373) ALBUMIN (BEAKER) (test 2.2 g/dL 3.5-5.0 Specimen moderately hemolyzed pjkk=6106) BILIRUBIN TOTAL (BEAKER) (test 1.0 mg/dL 0.2-1.2 Specimen moderately hemolyzed gtnz=455) BILIRUBIN DIRECT (BEAKER) 0.2 mg/dL 0.1-0.5 Specimen moderately hemolyzed (test lhyu=065) ALKALINE PHOSPHATASE (BEAKER) 101 U/L 40-150 (test sefm=039) AST (SGOT) (BEAKER) (test 73 U/L 5-34 Specimen moderately hemolyzed pkqp=245) ALT (SGPT) (BEAKER) (test 33 U/L 6-55 Specimen moderately rkqr=704) hemolyzed CBC W/PLT COUNT & AUTO [id number] 16:11:00 Test Item Value Reference Range Comments WHITE BLOOD CELL COUNT (BEAKER) (test mgbu=216) 46.4 K/ L 3.5-10.5 RED BLOOD CELL COUNT (BEAKER) (test suaq=711) 4.98 M/ L 4.63-6.08 HEMOGLOBIN (BEAKER) (test tpuc=060) 11.7 GM/DL 13.7-17.5 HEMATOCRIT (BEAKER) (test uoqi=514) 37.5 % 40.1-51.0 MEAN CORPUSCULAR VOLUME (BEAKER) (test balc=387) 75.3 fL 79.0-92.2 MEAN CORPUSCULAR HEMOGLOBIN (BEAKER) (test 23.5 pg 25.7-32.2 sapz=031) MEAN CORPUSCULAR HEMOGLOBIN CONC (BEAKER) (test 31.2 GM/DL 32.3-36.5 urua=344) RED CELL DISTRIBUTION WIDTH (BEAKER) (test 16.3 % 11.6-14.4 bwjb=825) PLATELET COUNT (BEAKER) (test rhgg=418) 311 K/CU MM 150-450 MEAN PLATELET VOLUME (BEAKER) (test vyfl=964) 9.1 fL 9.4-12.4 NUCLEATED RED BLOOD CELLS (BEAKER) (test 0 /100 WBC 0-0 bkrj=833) (CELLAVISION MANUAL DIFF)2019-04-09 16:11:00 Test Item Value Reference Range Comments NEUTROPHILS - REL (CELLAVISION)(BEAKER) (test 81 % hhgk=4054) LYMPHOCYTES - REL (CELLAVISION)(BEAKER) (test 1 % uzph=3534) METAMYELOCYTES - REL (CELLAVISION)(BEAKER) (test 5 % 0-0 hgmz=7172) MYELOCYTES - REL (CELLAVISION)(BEAKER) (test 2 % 0-0 bhcl=5768) BANDS - REL (CELLAVISION)(BEAKER) (test 12 % 0-10 arvd=3272) NEUTROPHILS - ABS (CELLAVISION)(BEAKER) (test 37.58 K/ul 1.78-5.38 ilgr=0404) LYMPHOCYTES - ABS (CELLAVISION)(BEAKER) (test 0.46 K/ul 1.32-3.57 bakn=5136) METAMYELOCYTES - ABS (CELLAVISION)(BEAKER) (test 2.32 K/uL 0.00-0.00 nysl=3720) MYELOCYTES-ABS (CELLAVISION)(BEAKER) (test 0.93 K/uL 0.00-0.00 sxdz=5871) BANDS - ABS (CELLAVISION)(BEAKER) (test 5.57 K/uL 0.00-0.80 ykoh=3200) TOTAL COUNTED (BEAKER) (test fkvm=5332) 100 PLT MORPHOLOGY (BEAKER) (test bsub=860) Normal SMUDGE CELLS (BEAKER) (test xmxy=3651) Present POLYCHROMATOPHILLIC RBCS(BEAKER) (test ymbz=080) 1+ few HYPOCHROMIA (BEAKER) (test ytvd=455) 1+ few ANISOCYTOSIS (BEAKER) (test ylzs=699) 1+ few MICROCYTES (BEAKER) (test pksq=760) 1+ few POIKILOCYTES (BEAKER) (test lmjj=595) 1+ few ELLIPTOCYTES (BEAKER) (test ttru=400) 1+ few PLATELET CONCENTRATION (CELLAVISION)(BEAKER) Adequate (test vuiu=7565) Received comment: User comments: Slide comments:PT/[id number] 15:51:00 Test Item Value Reference Range Comments PROTIME (BEAKER) (test ejdy=421) 17.6 seconds 11.9-14.2 INR (BEAKER) (test mygz=329) 1.5 <=5.9 PARTIAL THROMBOPLASTIN TIME (BEAKER) (test 36.9 seconds 22.5-36.0 btjx=523) Effective 02/16/2019: PT Reference Range ChangeNew: 11.9-14.2 Previous: 11.7- 14.7RECOMMENDED COUMADIN/WARFARIN INR THERAPY RANGESSTANDARD DOSE: 2.0-3.0 Includes: PROPHYLAXIS for venous thrombosis, systemic embolization; TREATMENT for venous thrombosis and/or pulmonary embolus.HIGH RISK: Target INR is2.5-3.5 for patients wiht mechanical heart valves.POCT-GLUCOSE [id number] 15:32:00 Test Item Value Reference Range Comments POC-GLUCOSE METER (BEAKER) 122 mg/dL 70-110 TESTED AT [facility] [address] [facility] (test phdy=7224) [facility] [address] BLOOD GAS, [id number] 15:30:00 Test Item Value Reference Range Comments PH ARTERIAL (BEAKER) (test iipi=533) 7.27 7.35-7.45 PCO2 ARTERIAL (BEAKER) (test jwkd=200) 57 mmHg 35-45 PO2 ARTERIAL (BEAKER) (test egbr=980) 90 mmHg 80-90 O2 SATURATION ARTERIAL (BEAKER) (test hjoi=849) 95.7 % 96.0-97.0 HCO3 ARTERIAL (BEAKER) (test yqao=622) 26 mmol/L 21-29 BASE EXCESS ARTERIAL (BEAKER) (test kwkm=841) -2.1 mmol/L -2.0-3.0 PATIENT TEMPERATURE (BEAKER) (test hijo=6010) 36.8 C FIO2 (BEAKER) (test tgbf=1112) 50.0 % SODIUM NA-STAT [id number] 13:29:00 Test Item Value Reference Range Comments SODIUM (BEAKER) (test ulgd=337) 135 meq/L 135-148 BLOOD GAS, [id number] 13:29:00 Test Item Value Reference Range Comments PH ARTERIAL (BEAKER) (test fxdw=866) 7.46 7.35-7.45 PCO2 ARTERIAL (BEAKER) (test nvgd=295) 35 mmHg 35-45 PO2 ARTERIAL (BEAKER) (test lhoe=189) 118 mmHg 80-90 O2 SATURATION ARTERIAL (BEAKER) (test xbod=563) 98.6 % 96.0-97.0 HCO3 ARTERIAL (BEAKER) (test cyyb=140) 24 mmol/L 21-29 BASE EXCESS ARTERIAL (BEAKER) (test wjqd=520) 0.4 mmol/L -2.0-3.0 PATIENT TEMPERATURE (BEAKER) (test xdkj=9204) 36.0 C FIO2 (BEAKER) (test vcng=4825) 90.0 % POTASSIUM-STAT [id number] 13:29:00 Test Item Value Reference Range Comments POTASSIUM (BEAKER) (test jkfi=750) 3.0 meq/L 3.6-5.5 HGB/HCT (H&H) - STAT [id number] 13:29:00 Test Item Value Reference Range Comments HEMOGLOBIN (BEAKER) (test feva=189) 10.6 g/dL 13.0-16.8 HEMATOCRIT (BEAKER) (test taqc=493) 31.0 % 40.0-50.0 CALCIUM, [id number] 13:29:00 Test Item Value Reference Range Comments CALCIUM IONIZED (BEAKER) (test rpvx=693) 1.04 mmol/L 1.12-1.27 PH, BLOOD (BEAKER) (test gzal=1618) 7.44 GLUCOSE-STAT [id number] 13:27:00 Test Item Value Reference Range Comments GLUCOSE RANDOM (BEAKER) (test qeng=090) 87 mg/dL 70-110 CBC W/PLT COUNT & AUTO [id number] 09:57:00 Test Item Value Reference Range Comments WHITE BLOOD CELL COUNT (BEAKER) (test howt=101) 34.1 K/ L 3.5-10.5 RED BLOOD CELL COUNT (BEAKER) (test qxyf=037) 5.41 M/ L 4.63-6.08 HEMOGLOBIN (BEAKER) (test iucz=396) 12.3 GM/DL 13.7-17.5 HEMATOCRIT (BEAKER) (test cfff=398) 40.3 % 40.1-51.0 MEAN CORPUSCULAR VOLUME (BEAKER) (test pasb=913) 74.5 fL 79.0-92.2 MEAN CORPUSCULAR HEMOGLOBIN (BEAKER) (test 22.7 pg 25.7-32.2 ztnh=358) MEAN CORPUSCULAR HEMOGLOBIN CONC (BEAKER) (test 30.5 GM/DL 32.3-36.5 nktw=742) RED CELL DISTRIBUTION WIDTH (BEAKER) (test 14.9 % 11.6-14.4 hnyh=269) PLATELET COUNT (BEAKER) (test voos=101) 287 K/CU MM 150-450 MEAN PLATELET VOLUME (BEAKER) (test psek=662) 9.2 fL 9.4-12.4 NUCLEATED RED BLOOD CELLS (BEAKER) (test 0 /100 WBC 0-0 gbjy=887) (CELLAVISION MANUAL DIFF)2019-04-09 09:57:00 Test Item Value Reference Range Comments NEUTROPHILS - REL (CELLAVISION)(BEAKER) (test 78 % pdqs=7528) LYMPHOCYTES - REL (CELLAVISION)(BEAKER) (test 2 % gpbj=5008) MONOCYTES - REL (CELLAVISION)(BEAKER) (test 6 % zbqj=4540) METAMYELOCYTES - REL (CELLAVISION)(BEAKER) (test 5 % 0-0 srdl=2482) MYELOCYTES - REL (CELLAVISION)(BEAKER) (test 4 % 0-0 htsl=7304) BANDS - REL (CELLAVISION)(BEAKER) (test 3 % 0-10 gxnc=9342) ATYPICAL LYMPHOCYTES - REL (CELLAVISION)(BEAKER) 2 % 0-0 (test ecoo=7926) NEUTROPHILS - ABS (CELLAVISION)(BEAKER) (test 26.60 K/ul 1.78-5.38 ybtc=0732) LYMPHOCYTES - ABS (CELLAVISION)(BEAKER) (test 0.68 K/ul 1.32-3.57 hhgu=3214) MONOCYTES - ABS (CELLAVISION)(BEAKER) (test 2.05 K/uL 0.30-0.82 igvs=0154) METAMYELOCYTES - ABS (CELLAVISION)(BEAKER) (test 1.71 K/uL 0.00-0.00 xxck=5701) MYELOCYTES-ABS (CELLAVISION)(BEAKER) (test 1.36 K/uL 0.00-0.00 wrlq=1649) BANDS - ABS (CELLAVISION)(BEAKER) (test 1.02 K/uL 0.00-0.80 wimd=3078) ATYPICAL LYMPHOCYTES - ABS (CELLAVISION)(BEAKER) 0.68 K/uL 0.00-0.00 (test bplk=0094) TOTAL COUNTED (BEAKER) (test drxq=4374) 100 RBC MORPHOLOGY (BEAKER) (test fifk=307) Normal PLT MORPHOLOGY (BEAKER) (test bhhx=033) Normal SMUDGE CELLS (BEAKER) (test dcda=1244) Present PLATELET CONCENTRATION (CELLAVISION)(BEAKER) Adequate (test xvud=8456) Received comment: User comments: Slide comments:BASIC METABOLIC [id number] 07:16:00 Test Item Value Reference Range Comments SODIUM (BEAKER) (test 136 meq/L 136-145 bkcd=007) POTASSIUM (BEAKER) (test 3.6 meq/L 3.5-5.1 abhv=283) CHLORIDE (BEAKER) (test 101 meq/L 98-107 gckq=609) CO2 (BEAKER) (test 26 meq/L 22-29 wazv=185) BLOOD UREA NITROGEN 9 mg/dL 7-21 (BEAKER) (test iryv=444) CREATININE (BEAKER) (test 0.60 mg/dL 0.57-1.25 ferg=277) GLUCOSE RANDOM (BEAKER) 100 mg/dL 70-105 (test ncsv=251) CALCIUM (BEAKER) (test 7.9 mg/dL 8.4-10.2 yrci=286) EGFR (BEAKER) (test 138 mL/min/1.73 sq m ESTIMATED GFR IS NOT bbbn=1638) ACCURATE CREATININE CLEARANCE IN PREDICTING GLOMERULAR FILTRATION RATE. ESTIMATED GFR IS NOT APPLICABLE FOR DIALYSIS PATIENTS. [id number] 07:04:00 Test Item Value Reference Range Comments PHOSPHORUS (BEAKER) (test wlvt=523) 3.7 mg/dL 2.3-4.7 [id number] 07:04:00 Test Item Value Reference Range Comments MAGNESIUM (BEAKER) (test zfjq=999) 1.7 mg/dL 1.6-2.6 HEPATIC FUNCTION [id number] 07:04:00 Test Item Value Reference Range Comments TOTAL PROTEIN (BEAKER) (test rvxm=777) 4.7 gm/dL 6.0-8.3 ALBUMIN (BEAKER) (test isem=1192) 2.1 g/dL 3.5-5.0 BILIRUBIN TOTAL (BEAKER) (test nfdm=249) 0.5 mg/dL 0.2-1.2 BILIRUBIN DIRECT (BEAKER) (test bkup=523) 0.3 mg/dL 0.1-0.5 ALKALINE PHOSPHATASE (BEAKER) (test ftql=002) 121 U/L 40-150 AST (SGOT) (BEAKER) (test oimf=205) 20 U/L 5-34 ALT (SGPT) (BEAKER) (test xxmt=943) 16 U/L 6-55 POCT-GLUCOSE [id number] 05:55:00 Test Item Value Reference Range Comments POC-GLUCOSE METER (BEAKER) 96 mg/dL 70-110 TESTED AT [address] (test phyb=1607) [place] [id number] POCT-GLUCOSE [id number] 23:37:00 Test Item Value Reference Range Comments POC-GLUCOSE METER (BEAKER) 121 mg/dL 70-110 TESTED AT [address] (test clvx=9941) [facility] [id number] BASIC METABOLIC [id number] 19:33:00 Test Item Value Reference Range Comments SODIUM (BEAKER) (test 136 meq/L 136-145 znds=947) POTASSIUM (BEAKER) (test 3.5 meq/L 3.5-5.1 dplz=693) CHLORIDE (BEAKER) (test 100 meq/L 98-107 rudh=023) CO2 (BEAKER) (test 24 meq/L 22-29 xvjv=254) BLOOD UREA NITROGEN 9 mg/dL 7-21 (BEAKER) (test xtmu=002) CREATININE (BEAKER) (test 0.62 mg/dL 0.57-1.25 rdks=566) GLUCOSE RANDOM (BEAKER) 133 mg/dL 70-105 (test nxei=855) CALCIUM (BEAKER) (test 7.5 mg/dL 8.4-10.2 vafq=090) EGFR (BEAKER) (test 133 mL/min/1.73 sq m ESTIMATED GFR IS NOT wagx=5399) ACCURATE CREATININE CLEARANCE IN PREDICTING GLOMERULAR FILTRATION RATE. ESTIMATED GFR IS NOT APPLICABLE FOR DIALYSIS PATIENTS. [id number] 19:25:00 Test Item Value Reference Range Comments PHOSPHORUS (BEAKER) (test tjkt=947) 3.6 mg/dL 2.3-4.7 [id number] 19:25:00 Test Item Value Reference Range Comments MAGNESIUM (BEAKER) (test tgzi=540) 1.7 mg/dL 1.6-2.6 [id number] 19:24:00 Test Item Value Reference Range Comments PROTIME (BEAKER) (test bjnc=830) 15.4 seconds 11.9-14.2 INR (BEAKER) (test itxa=758) 1.3 <=5.9 PARTIAL THROMBOPLASTIN TIME (BEAKER) (test 32.8 seconds 22.5-36.0 flsx=993) Effective 02/16/2019: PT Reference Range ChangeNew: 11.9-14.2 Previous: 11.7- 14.7RECOMMENDED COUMADIN/WARFARIN INR THERAPY RANGESSTANDARD DOSE: 2.0-3.0 Includes: PROPHYLAXIS for venous thrombosis, systemic embolization; TREATMENT for venous thrombosis and/or pulmonary embolus.HIGH RISK: Target INR is2.5-3.5 for patients wiht mechanical heart valves.PROTHROMBIN [id number] 19:23: 00 Test Item Value Reference Range Comments PROTIME (BEAKER) (test mtcj=304) 15.4 seconds 11.9-14.2 INR (BEAKER) (test bvsv=484) 1.3 <=5.9 Effective 02/16/2019: PT Reference Range ChangeNew: 11.9-14.2 Previous: 11.7- 14.7RECOMMENDED COUMADIN/WARFARIN INR THERAPY RANGESSTANDARD DOSE: 2.0-3.0 Includes: PROPHYLAXIS for venous thrombosis, systemic embolization; TREATMENT for venous thrombosis and/or pulmonary embolus.HIGH RISK: Target INR is2.5-3.5 for patients wiht mechanical heart valves.CBC (HEMOGRAM ONLY)[id number] 19:07:00 Test Item Value Reference Range Comments WHITE BLOOD CELL COUNT (BEAKER) (test yamy=711) 38.2 K/ L 3.5-10.5 RED BLOOD CELL COUNT (BEAKER) (test iqki=131) 5.48 M/ L 4.63-6.08 HEMOGLOBIN (BEAKER) (test ohci=599) 12.6 GM/DL 13.7-17.5 HEMATOCRIT (BEAKER) (test ptom=747) 39.2 % 40.1-51.0 MEAN CORPUSCULAR VOLUME (BEAKER) (test whhf=235) 71.5 fL 79.0-92.2 MEAN CORPUSCULAR HEMOGLOBIN (BEAKER) (test 23.0 pg 25.7-32.2 mxrq=710) MEAN CORPUSCULAR HEMOGLOBIN CONC (BEAKER) (test 32.1 GM/DL 32.3-36.5 tvgb=809) RED CELL DISTRIBUTION WIDTH (BEAKER) (test 14.3 % 11.6-14.4 hbql=929) PLATELET COUNT (BEAKER) (test cyqy=680) 307 K/CU MM 150-450 MEAN PLATELET VOLUME (BEAKER) (test zjsk=114) 9.2 fL 9.4-12.4 NUCLEATED RED BLOOD CELLS (BEAKER) (test 0 /100 WBC 0-0 fcim=305) POCT-GLUCOSE [id number] 17:55:00 Test Item Value Reference Range Comments POC-GLUCOSE METER (BEAKER) 115 mg/dL 70-110 TESTED AT [address] (test paav=9120) [facility] [id number] [address], [id number] 16:51:00FINAL REPORT TECHNIQUE: CT of the abdomen/pelvis WITH intravenous contrast and WITH oral contrast. Dose modulation, iterative reconstruction, and/or weight-based adjustment of the mA/ kV was utilized to reduce the radiation dose to as low as reasonably achievable. INDICATION: Abdominal pain and leukocytosis. History of necrotic pancreatitis and hepatic abscess. COMPARISON: 10/26/2018 CT abdomen/pelvis, 2018 CT chest. FINDINGS: LOWER THORAX: No significant change in size of small bilateral pleural effusions with adjacent lower lobe consolidations and air bronchograms.. HEPATOBILIARY: Unchanged positioning of the pigtail drain catheter within the right hepatic lobe fluid collection with foci of air consistent with abscess. There is a fluid collection with loculations and slightly ill-defined borders anteriorly within hepatic segment seven of the right hepatic lobe concerning for a separate abscess with measurements of 2.1 x 1.9 x 2.0 cm (axial image 24). Interval removalof the common bile duct biliary stent. No biliary dilatation. Small amount of pneumobilia likely due to previous ERCP. Hyperdense material within the gallbladder likely represents vicarious excretion of contrast from prior exam. SPLEEN: No splenomegaly.PANCREAS: Atrophic pancreas with decrease in surrounding mesenteric fat stranding. Organized fluid collection adjacent to the pancreatic tail compatible with walled osteoporosis has measurements of 3.7 x 3.1 cm. No ductal dilatation. No focal pancreatic mass. ADRENALS: No adrenal nodules.KIDNEYS/URETERS: No hydronephrosis, stones, or solid mass lesions.PELVIC ORGANS/BLADDER: Whitney catheter is present within the bladder with associated small amount of layering air. PERITONEUM/RETROPERITONEUM: There is a new large organized fluid collection in the bilateral anterior abdomen with enhancing greene and tiny foci of air at the lateral aspect of the collection. The collection is associated with mild mass effect with medialization of the bowel. Irregularlobulations of the collection limit obtaining accurate measurements. Approximate dimensions are 28.0x 12.0 x 28.0 cm. The collection extends from the level of the transverse colon inferiorly to the dome of the bladder.LYMPH NODES: No lymphadenopathy.VESSELS: Unremarkable. GI TRACT: No bowel obstruction. Enteric contrast is within the colon. No bowel wall thickening. Normal appendix. BONES AND SOFT TISSUES: Unremarkable. IMPRESSION: 1. New large organized abdominal fluid collection within the anterior abdomen with enhancing greene, mild mass effect, and tiny foci of air most concerning for a large abdominal abscess and less likely loculated ascites.2. Unchanged positioning of the right hepatic lobe drain without significant interval change in appearance of the hepatic abscess. There is an adjacent smaller 2.1 cm fluid collection anteriorly within the right hepatic lobe concerning for a separate hepatic abscess.3. Atrophic pancreas with adjacent walled off necrosis and interval decreased peripancreatic mesenteric stranding.3. Stable small bilateral pleural effusions with adjacent lower lobe consolidations favored to represent atelectasis although underlying infection cannot be excluded.4. Postsurgical changes status post removal of common biliary duct stent. Signed: Haim Verma MDReport Verified Date/Time: 2018 16:51:47 Reading Location: [facility] C0[facility] Consult Reading Room [place], [id number] 14:01:00Reason for exam:->obstruction of bile duct, has CBD stent in place, reassess distal biliary stricturePROCEDURE PERFORMED IN O.R. - PLEASE REFER TO THE INTRAOPERATIVE REPORT. POCT-GLUCOSE [id number] 13:14:00 Test Item Value Reference Range Comments POC-GLUCOSE METER (BEAKER) 107 mg/dL 70-110 TESTED AT [facility] [address] [facility] (test aqzf=2258) [facility] [address] CBC W/PLT COUNT & AUTO [id number] 08:23:00 Test Item Value Reference Range Comments WHITE BLOOD CELL COUNT (BEAKER) (test ekxg=975) 35.1 K/ L 3.5-10.5 RED BLOOD CELL COUNT (BEAKER) (test hiiy=460) 5.63 M/ L 4.63-6.08 HEMOGLOBIN (BEAKER) (test dlqi=284) 12.7 GM/DL 13.7-17.5 HEMATOCRIT (BEAKER) (test xzlj=398) 40.5 % 40.1-51.0 MEAN CORPUSCULAR VOLUME (BEAKER) (test nwlq=712) 71.9 fL 79.0-92.2 MEAN CORPUSCULAR HEMOGLOBIN (BEAKER) (test 22.6 pg 25.7-32.2 yvub=908) MEAN CORPUSCULAR HEMOGLOBIN CONC (BEAKER) (test 31.4 GM/DL 32.3-36.5 emwo=311) RED CELL DISTRIBUTION WIDTH (BEAKER) (test 14.5 % 11.6-14.4 mzos=842) PLATELET COUNT (BEAKER) (test aoui=230) 315 K/CU MM 150-450 MEAN PLATELET VOLUME (BEAKER) (test jtew=258) 9.7 fL 9.4-12.4 NUCLEATED RED BLOOD CELLS (BEAKER) (test 0 /100 WBC 0-0 mqaw=214) (CELLAVISION MANUAL DIFF)2019-04-08 08:23:00 Test Item Value Reference Range Comments NEUTROPHILS - REL (CELLAVISION)(BEAKER) (test 76 % qjyl=1731) MONOCYTES - REL (CELLAVISION)(BEAKER) (test 7 % xjcr=5566) METAMYELOCYTES - REL (CELLAVISION)(BEAKER) (test 4 % 0-0 jgfp=3047) MYELOCYTES - REL (CELLAVISION)(BEAKER) (test 4 % 0-0 miuo=6812) BANDS - REL (CELLAVISION)(BEAKER) (test 7 % 0-10 nkts=1916) ATYPICAL LYMPHOCYTES - REL (CELLAVISION)(BEAKER) 1 % 0-0 (test yqwo=9542) NEUTROPHILS - ABS (CELLAVISION)(BEAKER) (test 26.68 K/ul 1.78-5.38 zvpe=6112) MONOCYTES - ABS (CELLAVISION)(BEAKER) (test 2.46 K/uL 0.30-0.82 gsgi=4786) METAMYELOCYTES - ABS (CELLAVISION)(BEAKER) (test 1.40 K/uL 0.00-0.00 mgnt=5883) MYELOCYTES-ABS (CELLAVISION)(BEAKER) (test 1.40 K/uL 0.00-0.00 hftn=8997) BANDS - ABS (CELLAVISION)(BEAKER) (test 2.46 K/uL 0.00-0.80 rebi=9147) ATYPICAL LYMPHOCYTES - ABS (CELLAVISION)(BEAKER) 0.35 K/uL 0.00-0.00 (test wocw=9559) TOTAL COUNTED (BEAKER) (test vmtc=3301) 100 GIANT PLATELETS (BEAKER) (test ikeu=286) Present LARGE PLT(BEAKER) (test nofz=5114) Present PLASMA CELLS(BEAKER) (test eelr=1602) Present POLYCHROMATOPHILLIC RBCS(BEAKER) (test lucm=157) 2+ moderate HYPOCHROMIA (BEAKER) (test kwhy=670) 1+ few ANISOCYTOSIS (BEAKER) (test cost=336) 1+ few POIKILOCYTES (BEAKER) (test kafb=476) 1+ few TARGET CELLS (BEAKER) (test vnyt=326) 1+ few ELLIPTOCYTES (BEAKER) (test rqzb=681) 1+ few OVALOCYTES (BEAKER) (test ldle=603) 1+ few TEAR DROP CELLS (BEAKER) (test qkld=019) 1+ few ARTIFACT (CELLAVISION)(BEAKER) (test beam=4137) Present PLATELET CONCENTRATION (CELLAVISION)(BEAKER) Adequate (test wdtl=4247) Received comment: User comments: Slide comments: WBC: SEGMENTED WITH TOXIC GRANULATIONS PRESENTBLOOD [id number] 08:01:00 Test Item Value Reference Range Comments CULTURE (BEAKER) (test rmlz=9215) No growth in 5 days BASIC METABOLIC [id number] 07:15:00 Test Item Value Reference Range Comments SODIUM (BEAKER) (test 137 meq/L 136-145 ited=773) POTASSIUM (BEAKER) (test 3.8 meq/L 3.5-5.1 rrrv=105) CHLORIDE (BEAKER) (test 101 meq/L 98-107 epta=571) CO2 (BEAKER) (test 26 meq/L 22-29 wlak=403) BLOOD UREA NITROGEN 10 mg/dL 7-21 (BEAKER) (test akpu=218) CREATININE (BEAKER) (test 0.61 mg/dL 0.57-1.25 zsqx=020) GLUCOSE RANDOM (BEAKER) 108 mg/dL 70-105 (test eedw=691) CALCIUM (BEAKER) (test 7.8 mg/dL 8.4-10.2 fbda=867) EGFR (BEAKER) (test 136 mL/min/1.73 sq m ESTIMATED GFR IS NOT vfdb=4084) ACCURATE CREATININE CLEARANCE IN PREDICTING GLOMERULAR FILTRATION RATE. ESTIMATED GFR IS NOT APPLICABLE FOR DIALYSIS PATIENTS. POCT-GLUCOSE [id number] 06:10:00 Test Item Value Reference Range Comments POC-GLUCOSE METER (BEAKER) 109 mg/dL 70-110 TESTED AT [address] (test klck=8626) [facility] [address] [id number] 05:36:00 Test Item Value Reference Range Comments PHOSPHORUS (BEAKER) (test jqrz=293) 3.8 mg/dL 2.3-4.7 [id number] 05:36:00 Test Item Value Reference Range Comments MAGNESIUM (BEAKER) (test zjlx=299) 1.7 mg/dL 1.6-2.6 HEPATIC FUNCTION [id number] 05:36:00 Test Item Value Reference Range Comments TOTAL PROTEIN (BEAKER) (test wixj=991) 4.9 gm/dL 6.0-8.3 ALBUMIN (BEAKER) (test lgxr=7317) 2.2 g/dL 3.5-5.0 BILIRUBIN TOTAL (BEAKER) (test ttkh=778) 0.6 mg/dL 0.2-1.2 BILIRUBIN DIRECT (BEAKER) (test memf=536) 0.3 mg/dL 0.1-0.5 ALKALINE PHOSPHATASE (BEAKER) (test oiom=698) 154 U/L 40-150 AST (SGOT) (BEAKER) (test olyp=122) 24 U/L 5-34 ALT (SGPT) (BEAKER) (test fedn=077) 19 U/L 6-55 POCT-GLUCOSE [id number] 23:12:00 Test Item Value Reference Range Comments POC-GLUCOSE METER (BEAKER) 144 mg/dL 70-110 TESTED AT [address] (test azui=0294) [facility] [address] POCT-GLUCOSE [id number] 19:58:00 Test Item Value Reference Range Comments POC-GLUCOSE METER (BEAKER) 144 mg/dL 70-110 TESTED AT [address] (test fpcl=4441) [facility] [address] POCT-GLUCOSE [id number] 16:14:00 Test Item Value Reference Range Comments POC-GLUCOSE METER (BEAKER) 135 mg/dL 70-110 TESTED AT [facility] [address] [facility] (test twyd=3129) [facility] [address] POCT-GLUCOSE [id number] 12:07:00 Test Item Value Reference Range Comments POC-GLUCOSE METER (BEAKER) 137 mg/dL 70-110 TESTED AT [facility] [address] [facility] (test ilkq=6686) [facility] [address] CBC W/PLT COUNT & AUTO [id number] 10:17:00 Test Item Value Reference Range Comments WHITE BLOOD CELL COUNT (BEAKER) (test zbum=861) 35.1 K/ L 3.5-10.5 RED BLOOD CELL COUNT (BEAKER) (test xamc=209) 5.56 M/ L 4.63-6.08 HEMOGLOBIN (BEAKER) (test qcwz=263) 12.7 GM/DL 13.7-17.5 HEMATOCRIT (BEAKER) (test mngv=958) 38.9 % 40.1-51.0 MEAN CORPUSCULAR VOLUME (BEAKER) (test foxx=324) 70.0 fL 79.0-92.2 MEAN CORPUSCULAR HEMOGLOBIN (BEAKER) (test 22.8 pg 25.7-32.2 iuko=263) MEAN CORPUSCULAR HEMOGLOBIN CONC (BEAKER) (test 32.6 GM/DL 32.3-36.5 gjzu=413) RED CELL DISTRIBUTION WIDTH (BEAKER) (test 14.6 % 11.6-14.4 ryri=733) PLATELET COUNT (BEAKER) (test fgpc=900) 433 K/CU MM 150-450 MEAN PLATELET VOLUME (BEAKER) (test sgdt=630) 9.3 fL 9.4-12.4 NUCLEATED RED BLOOD CELLS (BEAKER) (test 0 /100 WBC 0-0 kfsa=713) (CELLAVISION MANUAL DIFF)2019-04-07 10:17:00 Test Item Value Reference Range Comments NEUTROPHILS - REL (CELLAVISION)(BEAKER) (test 78 % iokg=4714) LYMPHOCYTES - REL (CELLAVISION)(BEAKER) (test 2 % fccv=0524) MONOCYTES - REL (CELLAVISION)(BEAKER) (test 5 % gwro=4341) MYELOCYTES - REL (CELLAVISION)(BEAKER) (test 2 % 0-0 alhi=5787) BANDS - REL (CELLAVISION)(BEAKER) (test 11 % 0-10 mogy=0252) ATYPICAL LYMPHOCYTES - REL (CELLAVISION)(BEAKER) 2 % 0-0 (test wpge=0121) NEUTROPHILS - ABS (CELLAVISION)(BEAKER) (test 27.38 K/ul 1.78-5.38 lqcf=1712) LYMPHOCYTES - ABS (CELLAVISION)(BEAKER) (test 0.70 K/ul 1.32-3.57 yofp=1388) MONOCYTES - ABS (CELLAVISION)(BEAKER) (test 1.76 K/uL 0.30-0.82 ltpk=3808) MYELOCYTES-ABS (CELLAVISION)(BEAKER) (test 0.70 K/uL 0.00-0.00 nici=7483) BANDS - ABS (CELLAVISION)(BEAKER) (test 3.86 K/uL 0.00-0.80 srdi=1439) ATYPICAL LYMPHOCYTES - ABS (CELLAVISION)(BEAKER) 0.70 K/uL 0.00-0.00 (test yfhu=6597) TOTAL COUNTED (BEAKER) (test zklc=9063) 100 RBC MORPHOLOGY (BEAKER) (test qibc=439) Normal WBC MORPHOLOGY (BEAKER) (test uttd=088) Normal LARGE PLT(BEAKER) (test bhkq=6439) Present SPUTUM CULTURE + GRAM [id number] 09:20:00 Test Item Value Reference Range Comments CULTURE (BEAKER) (test 1+ Normal respiratory nilay vyxn=9365) present GRAM STAIN RESULT (BEAKER) 3+ White blood cells seen (test bpuh=2471) GRAM STAIN RESULT (BEAKER) 5-10 epithelial cells (test ugen=47301) GRAM STAIN RESULT (BEAKER) 1+ gram positive cocci in pairs (test qgyg=84067) BODY FLUID CULTURE + GRAM [id number] 08:00:00 Test Item Value Reference Range Comments CULTURE (BEAKER) (test ESCHERICHIA COLI 4+ Escherichia coli lluh=2488) Amikacin (test code=1) Ampicillin + Sulbactam (test code=6) Aztreonam (test code=32) Cefepime (test code=51) Cefoxitin (test code=68) Ceftazidime (test code=27) Ceftriaxone (test code=52) Ertapenem (test code=38) Gentamicin (test code=18) Levofloxacin (test code=22) Meropenem (test code=34) Nitrofurantoin (test code=23) Piperacillin + Tazobactam (test code=29) Tetracycline (test code=2) Tobramycin (test code=25) Trimethoprim + Sulfamethoxazole (test code=47) CULTURE (BEAKER) (test ENTEROCOCCUS SPECIES 4+ Enterococcus ggdn=7008) species Ampicillin (test code=26) Linezolid (test code=40) Vancomycin (test code=13) GRAM STAIN RESULT (BEAKER) 1+ White blood cells (test crcz=8849) seen GRAM STAIN RESULT (BEAKER) 4+ gram positive (test qbsi=984924) coccobacilli [id number] 06:13:00 Test Item Value Reference Range Comments MAGNESIUM (BEAKER) (test 1.9 mg/dL 1.6-2.6 Specimen slightly hemolyzed xdks=485) [id number] 06:13:00 Test Item Value Reference Range Comments PHOSPHORUS (BEAKER) (test 3.9 mg/dL 2.3-4.7 Specimen slightly hemolyzed tbhs=019) BASIC METABOLIC [id number] 06:13:00 Test Item Value Reference Range Comments SODIUM (BEAKER) (test 133 meq/L 136-145 oxgg=488) POTASSIUM (BEAKER) (test 3.6 meq/L 3.5-5.1 Specimen slightly nhkg=229) hemolyzed CHLORIDE (BEAKER) (test 99 meq/L 98-107 hfnf=775) CO2 (BEAKER) (test 26 meq/L 22-29 phbg=039) BLOOD UREA NITROGEN 9 mg/dL 7-21 (BEAKER) (test iewz=461) CREATININE (BEAKER) (test 0.65 mg/dL 0.57-1.25 Specimen slightly exnu=058) hemolyzed GLUCOSE RANDOM (BEAKER) 145 mg/dL 70-105 (test nvax=582) CALCIUM (BEAKER) (test 8.1 mg/dL 8.4-10.2 yntq=745) EGFR (BEAKER) (test 126 mL/min/1.73 sq m ESTIMATED GFR IS NOT jtjz=9137) ACCURATE CREATININE CLEARANCE IN PREDICTING GLOMERULAR FILTRATION RATE. ESTIMATED GFR IS NOT APPLICABLE FOR DIALYSIS PATIENTS. HEPATIC FUNCTION [id number] 06:13:00 Test Item Value Reference Range Comments TOTAL PROTEIN (BEAKER) (test 4.9 gm/dL 6.0-8.3 Specimen slightly hemolyzed jogi=828) ALBUMIN (BEAKER) (test 2.1 g/dL 3.5-5.0 Specimen slightly hemolyzed kvhe=0780) BILIRUBIN TOTAL (BEAKER) (test 0.5 mg/dL 0.2-1.2 Specimen slightly hemolyzed bpqv=722) BILIRUBIN DIRECT (BEAKER) (test 0.2 mg/dL 0.1-0.5 Specimen slightly hemolyzed kuco=175) ALKALINE PHOSPHATASE (BEAKER) 160 U/L 40-150 (test vjxg=849) AST (SGOT) (BEAKER) (test 21 U/L 5-34 Specimen slightly hemolyzed ylww=670) ALT (SGPT) (BEAKER) (test 20 U/L 6-55 Specimen slightly hemolyzed inim=966) POCT-GLUCOSE [id number] 05:59:00 Test Item Value Reference Range Comments POC-GLUCOSE METER (BEAKER) 144 mg/dL 70-110 TESTED AT [address] (test idhw=1367) [place] [address] POCT-GLUCOSE [id number] 00:12:00 Test Item Value Reference Range Comments POC-GLUCOSE METER (BEAKER) 179 mg/dL 70-110 TESTED AT [address] (test wjsn=4761) [place] [id number] POCT-GLUCOSE [id number] 17:48:00 Test Item Value Reference Range Comments POC-GLUCOSE METER (BEAKER) 146 mg/dL 70-110 TESTED AT [address] (test lzjm=2764) [place] [id number] POCT-GLUCOSE [id number] 11:46:00 Test Item Value Reference Range Comments POC-GLUCOSE METER (BEAKER) 144 mg/dL 70-110 TESTED AT [address] (test iqff=4219) [place] [address] CBC W/PLT COUNT & AUTO [id number] 09:58:00 Test Item Value Reference Range Comments WHITE BLOOD CELL COUNT (BEAKER) (test lvgi=787) 31.7 K/ L 3.5-10.5 RED BLOOD CELL COUNT (BEAKER) (test gbax=721) 5.65 M/ L 4.63-6.08 HEMOGLOBIN (BEAKER) (test lirl=304) 12.8 GM/DL 13.7-17.5 HEMATOCRIT (BEAKER) (test ghln=194) 39.2 % 40.1-51.0 MEAN CORPUSCULAR VOLUME (BEAKER) (test mutr=857) 69.4 fL 79.0-92.2 MEAN CORPUSCULAR HEMOGLOBIN (BEAKER) (test 22.7 pg 25.7-32.2 ehar=688) MEAN CORPUSCULAR HEMOGLOBIN CONC (BEAKER) (test 32.7 GM/DL 32.3-36.5 uxmb=769) RED CELL DISTRIBUTION WIDTH (BEAKER) (test 14.4 % 11.6-14.4 irnm=136) PLATELET COUNT (BEAKER) (test fpcn=279) 374 K/CU MM 150-450 MEAN PLATELET VOLUME (BEAKER) (test ebri=400) 9.3 fL 9.4-12.4 NUCLEATED RED BLOOD CELLS (BEAKER) (test 0 /100 WBC 0-0 qjuk=714) (CELLAVISION MANUAL DIFF)2019-04-06 09:58:00 Test Item Value Reference Range Comments NEUTROPHILS - REL (CELLAVISION)(BEAKER) (test 80 % hhjb=8442) LYMPHOCYTES - REL (CELLAVISION)(BEAKER) (test 7 % jcis=3247) MONOCYTES - REL (CELLAVISION)(BEAKER) (test 3 % lgyb=5691) METAMYELOCYTES - REL (CELLAVISION)(BEAKER) (test 2 % 0-0 hxmz=5255) MYELOCYTES - REL (CELLAVISION)(BEAKER) (test 4 % 0-0 vqzt=7224) BANDS - REL (CELLAVISION)(BEAKER) (test 3 % 0-10 ucub=0710) ATYPICAL LYMPHOCYTES - REL (CELLAVISION)(BEAKER) 1 % 0-0 (test gwmf=7572) NEUTROPHILS - ABS (CELLAVISION)(BEAKER) (test 25.36 K/ul 1.78-5.38 ilkq=7678) LYMPHOCYTES - ABS (CELLAVISION)(BEAKER) (test 2.22 K/ul 1.32-3.57 ybwi=9846) MONOCYTES - ABS (CELLAVISION)(BEAKER) (test 0.95 K/uL 0.30-0.82 twdi=2554) METAMYELOCYTES - ABS (CELLAVISION)(BEAKER) (test 0.63 K/uL 0.00-0.00 cdxa=9155) MYELOCYTES-ABS (CELLAVISION)(BEAKER) (test 1.27 K/uL 0.00-0.00 biyo=0906) BANDS - ABS (CELLAVISION)(BEAKER) (test 0.95 K/uL 0.00-0.80 mipj=5348) ATYPICAL LYMPHOCYTES - ABS (CELLAVISION)(BEAKER) 0.32 K/uL 0.00-0.00 (test xdmr=3829) TOTAL COUNTED (BEAKER) (test timn=8622) 100 WBC MORPHOLOGY (BEAKER) (test ctyq=789) Normal PLT MORPHOLOGY (BEAKER) (test jbwc=850) Normal POLYCHROMATOPHILLIC RBCS(BEAKER) (test ynra=634) 2+ moderate MICROCYTES (BEAKER) (test cqbm=243) 1+ few POIKILOCYTES (BEAKER) (test qaah=538) 3+ many TARGET CELLS (BEAKER) (test lfbn=125) 2+ moderate TEAR DROP CELLS (BEAKER) (test icjz=402) 1+ few JULY CELLS (BEAKER) (test ubbx=711) 2+ moderate ARTIFACT (CELLAVISION)(BEAKER) (test jrtk=4335) Present PLATELET CONCENTRATION (CELLAVISION)(BEAKER) Adequate (test msig=4544) Received comment: User comments: Slide comments:BLOOD [id number] 09:33:00 Test Item Value Reference Range Comments CULTURE (BEAKER) (test ESCHERICHIA COLI From Aerobic And assk=2535) Anaerobic Bottles Escherichia coli Amikacin (test code=1) Ampicillin + Sulbactam (test code=6) Aztreonam (test code=32) Cefepime (test code=51) Cefoxitin (test code=68) Ceftazidime (test code=27) Ceftriaxone (test code=52) Ertapenem (test code=38) Gentamicin (test code=18) Levofloxacin (test code=22) Meropenem (test code=34) Nitrofurantoin (test code=23) Piperacillin + Tazobactam (test code=29) Tetracycline (test code=2) Tobramycin (test code=25) Trimethoprim + Sulfamethoxazole (test code=47) GRAM STAIN RESULT (BEAKER) From aerobic and (test hkcy=4929) anaerobic bottles: gram negative rods BLOOD CULTURE IDENTIFICATION [id number] 09:33:00 Test Item Value Reference Range Comments LISTERIA MONOCYTOGENES (test Not detected Not detected cyxl=2145574) STAPHYLOCOCCUS (test Not detected Not detected eqal=3497414) STAPHYLOCOCCUS AUREUS (test Not detected Not detected bftl=8495463) STREPTOCOCCUS (test xutj=6873753) Not detected Not detected STREPTOCOCCUS AGALACTIAE (GROUP Not detected Not detected B) (test hetn=9670039) STREPTOCOCCUS PNEUMONIAE (test Not detected Not detected sokj=4450022) STREPTOCOCCUS PYOGENES (GROUP A) Not detected Not detected (test yfls=9259176) ACINETOBACTER BAUMANNII (test Not detected Not detected bnry=5137711) HAEMOPHILUS INFLUENZAE (test Not detected Not detected zohj=4365360) NEISSERIA MENINGITIDIS (test Not detected Not detected hune=9336933) ENTEROBACTERIACEAE (test Not detected Please refer to culture oshe=5708389) results for ID and susceptibilities.. ENTEROBACTER CLOACOE COMPLEX Not detected Not detected (test twok=4234786) KLEBSIELLA OXYTOCA (test Not detected Not detected piwz=9772581) KLEBSIELLA PNEUMONIAE (test Not detected Not detected leim=0771) PROTEUS (test xyvy=4987727) Not detected Not detected SERRATIA MARCESCENS (test Not detected Not detected khhq=2580205) TONY ALBICANS (test Not detected Not detected wgue=6491302) TONY GLABRATA (test Not detected Not detected wlvc=6891281) TONY KRUSEI (test Not detected Not detected glku=4260617) TONY PARAPSILOSIS (test Not detected Not detected qlnz=7628054) TOYN TROPICALIS (test Not detected Not detected bfwo=8605169) ESCHERICHIA COLI (test Not detected Please refer to culture btpf=2271467) results for ID and susceptibilities.. METHICILLIN-RESISTANCE GENE (test Not detected elrl=7781475) VANCOMYCIN-RESISTANCE GENE (test Not detected kcgv=9637152) CARBAPENEM-RESISTANCE GENE (test Not detected kqql=2515135) ENTEROCOCCUS-BEAKER (test Not detected Not detected ljen=2516355) PSEUDOMONAS AERUGINOSA-BEAKER Not detected Not detected (test tlnu=2124408) Other bacteria and resistance markers not targeted by this PCR panel cannot be excluded; therefore clinical correlation and follow up of serology, culture results, and other molecular studies is required. The results are not intended to be used as the sole means for clinical diagnosis or patient management decisions. This sample was tested at the [facility] using the [employer] Blood Culture ID Panel. It is FDA cleared and has been verified and approved by the [facility] for clinical use. This laboratory is CLIA-certified and College ofAmerican Pathologists (CAP)-accredited to perform high complexity testing.HEPATIC FUNCTION [id number] 09:03:00 Test Item Value Reference Range Comments TOTAL PROTEIN (BEAKER) (test 4.8 gm/dL 6.0-8.3 Specimen slightly hemolyzed eiwt=181) ALBUMIN (BEAKER) (test 2.2 g/dL 3.5-5.0 Specimen slightly hemolyzed xsdx=5623) BILIRUBIN TOTAL (BEAKER) (test 0.6 mg/dL 0.2-1.2 Specimen slightly hemolyzed lbps=097) BILIRUBIN DIRECT (BEAKER) (test 0.3 mg/dL 0.1-0.5 Specimen slightly hemolyzed vgss=082) ALKALINE PHOSPHATASE (BEAKER) 183 U/L 40-150 (test kovt=703) AST (SGOT) (BEAKER) (test 27 U/L 5-34 Specimen slightly hemolyzed zvbg=602) ALT (SGPT) (BEAKER) (test 24 U/L 6-55 Specimen slightly hemolyzed qusu=092) [id number] 06:12:00 Test Item Value Reference Range Comments MAGNESIUM (BEAKER) (test 1.4 mg/dL 1.6-2.6 Specimen slightly hemolyzed fnyt=159) [id number] 06:12:00 Test Item Value Reference Range Comments PHOSPHORUS (BEAKER) (test 3.2 mg/dL 2.3-4.7 Specimen slightly hemolyzed spbw=546) BASIC METABOLIC [id number] 06:12:00 Test Item Value Reference Range Comments SODIUM (BEAKER) (test 132 meq/L 136-145 nppf=597) POTASSIUM (BEAKER) (test 3.9 meq/L 3.5-5.1 Specimen slightly apub=543) hemolyzed CHLORIDE (BEAKER) (test 101 meq/L 98-107 qvhw=154) CO2 (BEAKER) (test 23 meq/L 22-29 zohw=696) BLOOD UREA NITROGEN 12 mg/dL 7-21 (BEAKER) (test pare=886) CREATININE (BEAKER) (test 0.66 mg/dL 0.57-1.25 Specimen slightly loxk=260) hemolyzed GLUCOSE RANDOM (BEAKER) 133 mg/dL 70-105 (test rlac=825) CALCIUM (BEAKER) (test 8.1 mg/dL 8.4-10.2 tdrw=364) EGFR (BEAKER) (test 124 mL/min/1.73 sq m ESTIMATED GFR IS NOT aqtu=2690) ACCURATE CREATININE CLEARANCE IN PREDICTING GLOMERULAR FILTRATION RATE. ESTIMATED GFR IS NOT APPLICABLE FOR DIALYSIS PATIENTS. POCT-GLUCOSE [id number] 06:01:00 Test Item Value Reference Range Comments POC-GLUCOSE METER (BEAKER) 138 mg/dL 70-110 TESTED AT [facility] [address] [facility] (test xnhd=0958) [place] [address] POCT-GLUCOSE [id number] 00:14:00 Test Item Value Reference Range Comments POC-GLUCOSE METER (BEAKER) 148 mg/dL 70-110 TESTED AT [place] [id number] [facility] (test astx=7698) [place] [address] CT, CHEST WITH IV CONTRAST- PE TEST [id number] 23:29:00FINAL REPORT EXAM: CT of the chest, with contrast, PE protocol CLINICAL HISTORY: Chest pain, acute, PE suspected, high pretest probability. Hypoxemia and tachycardia. TECHNIQUE:Chest CT was performed with intravenous contrast utilizing a PE protocol. 2-D and 3-D reformatted images were obtained. This exam was performed according to our departmental dose optimization program which includes automated exposure control, adjustment of the mA and/or kV according to patient's size and/or use of iterative reconstructive technique. COMPARISON: None FINDINGS: LOWER NECK: Within normal limits.AIRWAYS AND LUNGS : Patent central tracheobronchial tree. Small bilateral pleural effusions. Bibasilar airspace opacities, more consolidative in the bilateral lower lobes with air bronchograms, which may represent pneumonia/or atelectasis. Punctate calcified left lower lobe granuloma. No pneumothorax.VESSELS: Atherosclerotic calcifications of the aorta. No pulmonary embolism.HEART: Normal heart size. Small pericardial fluid.FABIAN AND MEDIASTINUM: Nonenlarged mediastinal and mildly enlarged right hilar lymph nodes, nonspecific and may be reactive. For reference a right hilar lymph node measures 1.2 cm in short axis. VISUALIZED UPPER ABDOMEN: Hypodense fluid collections in the right hepaticlobe, some containing gas suspicious for abscesses, with subcapsular extension. Pigtail drainage catheter within a dominant right hepatic fluid collection containing gas. Pneumobilia. Trace upper abdominal ascites. Foci of free intraperitoneal air in the perihepatic region. Pancreatic atrophy. SOFT TISSUES: Mild bilateral gynecomastia.BONES: Within normal limits. IMPRESSION: No pulmonary embolism.Bibasilar airspace opacities which may represent pneumonia and/or atelectasis. Small bilateral pleural effusions.Right hepatic fluid collections compatible with abscesses with subcapsular extension.Pigtaildrainage catheter within a dominant right posterior hepatic lobe abscess.Trace abdominal ascites. Signed: [facility] Verified Date/Time: 04/05/2019 23:29:42 POCT- GLUCOSE [id number] 18:11:00 Test Item Value Reference Range Comments POC-GLUCOSE METER (BEAKER) 161 mg/dL 70-110 TESTED AT [address] (test zxbu=6215) [facility] [address] POCT-GLUCOSE [id number] 17:35:00 Test Item Value Reference Range Comments POC-GLUCOSE METER (BEAKER) 185 mg/dL 70-110 TESTED AT [address] (test qmdy=8936) [facility] [address] CBC W/PLT COUNT & AUTO [id number] 11:16:00 Test Item Value Reference Range Comments WHITE BLOOD CELL COUNT (BEAKER) (test vlrw=000) 26.0 K/ L 3.5-10.5 RED BLOOD CELL COUNT (BEAKER) (test zmkc=446) 5.34 M/ L 4.63-6.08 HEMOGLOBIN (BEAKER) (test cjes=982) 12.2 GM/DL 13.7-17.5 HEMATOCRIT (BEAKER) (test mzej=575) 37.8 % 40.1-51.0 MEAN CORPUSCULAR VOLUME (BEAKER) (test fqgn=718) 70.8 fL 79.0-92.2 MEAN CORPUSCULAR HEMOGLOBIN (BEAKER) (test 22.8 pg 25.7-32.2 dlnu=248) MEAN CORPUSCULAR HEMOGLOBIN CONC (BEAKER) (test 32.3 GM/DL 32.3-36.5 mmrz=115) RED CELL DISTRIBUTION WIDTH (BEAKER) (test 14.5 % 11.6-14.4 ljiw=877) PLATELET COUNT (BEAKER) (test zchg=257) 401 K/CU MM 150-450 MEAN PLATELET VOLUME (BEAKER) (test hghl=282) 9.6 fL 9.4-12.4 NUCLEATED RED BLOOD CELLS (BEAKER) (test 0 /100 WBC 0-0 aurk=483) (MANUAL DIFFERENTIAL)2019-04-05 11:16:00 Test Item Value Reference Range Comments NEUTROPHILS - REL (DIFF) (BEAKER) (test 71 % qdan=5021) LYMPHOCYTES - REL (DIFF) (BEAKER) (test 8 % gnco=1798) MONOCYTES - REL (DIFF) (BEAKER) (test elyr=4849) 5 % EOSINOPHILS - REL (DIFF) (BEAKER) (test 1 % tgps=2361) BASOPHILS - REL (DIFF) (BEAKER) (test mvss=0838) 0 % METAMYELOCYTES-REL (DIFF) (BEAKER) (test 3 % 0-0 yeqd=436) MYELOCYTES-REL (DIFF) (BEAKER) (test hukr=3710) 3 % 0-0 BANDS - REL (DIFF) (BEAKER) (test jvbg=5049) 9 % 0-10 NEUTROPHILS - ABS (DIFF) (BEAKER) (test 18.46 K/ L 1.80-8.00 zuag=8271) LYMPHOCYTES - ABS (DIFF) (BEAKER) (test 2.08 K/ L 1.48-4.50 fjci=2514) MONOCYTES - ABS (DIFF) (BEAKER) (test efiq=8235) 1.30 K/ L 0.00-1.30 EOSINOPHILS - ABS (DIFF) (BEAKER) (test 0.26 K/ L 0.00-0.50 wxur=4595) BASOPHILS - ABS (DIFF) (BEAKER) (test ahww=7178) 0.00 K/ L 0.00-0.20 METAMYELOCTYES - ABS (DIFF) (BEAKER) (test 0.78 K/ L 0.00-0.00 ohgy=250) BANDS-ABS (DIFF) (BEAKER) (test acjr=0744) 2.3 K/ L 0.0-0.8 MYELOCYTES-ABS (DIFF) (BEAKER) (test zinz=0277) 0.78 K/ L 0.00-0.00 TOTAL COUNTED (BEAKER) (test gvjv=6475) 100 BANDS + SEGMENTED NEUTROPHILS (BEAKER) (test 20.80 dlbu=4434) WBC MORPHOLOGY (BEAKER) (test ldmv=867) Normal PLT MORPHOLOGY (BEAKER) (test psfq=069) Normal POIKILOCYTES (BEAKER) (test kkho=682) 1+ few RAD, ABDOMEN/KUB, 1 VIEW [id number] 10:09:00Reason for exam:->r/o ileusFINAL REPORT Abdomen one view Comparison: No priors Reason for exam: r/o ileus Findings: There is gaseous distention of large and small bowel, compatible with history of ileus. Pigtail catheter projects over the right upper quadrant. No definite free air is identified. Signed: Helen Coyle MDReport Verified Date/Time: 04/05/2019 10:09:06 Reading Location: [facility] Radiology Reading Room [id number] 09:40:00 Test Item Value Reference Range Comments PHOSPHORUS (BEAKER) (test sejs=307) 3.6 mg/dL 2.3-4.7 [id number] 09:40:00 Test Item Value Reference Range Comments MAGNESIUM (BEAKER) (test kgbr=284) 1.8 mg/dL 1.6-2.6 BASIC METABOLIC [id number] 09:40:00 Test Item Value Reference Range Comments SODIUM (BEAKER) (test 130 meq/L 136-145 wjxu=838) POTASSIUM (BEAKER) (test 3.9 meq/L 3.5-5.1 rirs=352) CHLORIDE (BEAKER) (test 101 meq/L 98-107 mckx=451) CO2 (BEAKER) (test 22 meq/L 22-29 zmiu=731) BLOOD UREA NITROGEN 21 mg/dL 7-21 (BEAKER) (test ward=743) CREATININE (BEAKER) (test 0.74 mg/dL 0.57-1.25 dhmm=358) GLUCOSE RANDOM (BEAKER) 161 mg/dL 70-105 (test igqs=952) CALCIUM (BEAKER) (test 8.2 mg/dL 8.4-10.2 zkdz=586) EGFR (BEAKER) (test 109 mL/min/1.73 sq m ESTIMATED GFR IS NOT ybra=8369) ACCURATE CREATININE CLEARANCE IN PREDICTING GLOMERULAR FILTRATION RATE. ESTIMATED GFR IS NOT APPLICABLE FOR DIALYSIS PATIENTS. POCT-GLUCOSE [id number] 06:02:00 Test Item Value Reference Range Comments POC-GLUCOSE METER (BEAKER) 168 mg/dL 70-110 TESTED AT [address] (test rcoj=1091) [place] [address] POCT-GLUCOSE [id number] 00:23:00 Test Item Value Reference Range Comments POC-GLUCOSE METER (BEAKER) 156 mg/dL 70-110 TESTED AT [address] (test vdvg=8070) [place] [address] POCT-GLUCOSE [id number] 17:56:00 Test Item Value Reference Range Comments POC-GLUCOSE METER (BEAKER) 160 mg/dL 70-110 TESTED AT [address] (test bsuk=0600) [place] [address] VANCOMYCIN LEVEL, [id number] 16:13:00 Test Item Value Reference Range Comments VANCOMYCIN TROUGH (BEAKER) (test hijr=288) 8.5 ug/mL 10.0-20.0 POCT-GLUCOSE [id number] 11:29:00 Test Item Value Reference Range Comments POC-GLUCOSE METER (BEAKER) 144 mg/dL 70-110 TESTED AT [address] (test tsqu=4515) [place] [id number] HEMOGLOBIN [id number] 09:26:00 Test Item Value Reference Range Comments HEMOGLOBIN A1C (BEAKER) (test aawu=835) 9.1 % 4.3-6.1 TSH/FREE T4 IF [id number] 08:34:00 Test Item Value Reference Range Comments THYROID STIMULATING HORMONE (BEAKER) (test 3.88 uIU/mL 0.35-4.94 aggl=913) HEPATIC FUNCTION [id number] 08:24:00 Test Item Value Reference Range Comments TOTAL PROTEIN (BEAKER) (test pszh=835) 5.5 gm/dL 6.0-8.3 ALBUMIN (BEAKER) (test npwx=7096) 2.4 g/dL 3.5-5.0 BILIRUBIN TOTAL (BEAKER) (test pbkc=933) 0.5 mg/dL 0.2-1.2 BILIRUBIN DIRECT (BEAKER) (test aezr=030) 0.4 mg/dL 0.1-0.5 ALKALINE PHOSPHATASE (BEAKER) (test eupn=606) 201 U/L 40-150 AST (SGOT) (BEAKER) (test fbju=113) 42 U/L 5-34 ALT (SGPT) (BEAKER) (test fbis=565) 46 U/L 6-55 CBC W/PLT COUNT & AUTO [id number] 07:30:00 Test Item Value Reference Range Comments WHITE BLOOD CELL COUNT (BEAKER) (test ujfu=533) 18.3 K/ L 3.5-10.5 RED BLOOD CELL COUNT (BEAKER) (test axdu=402) 5.73 M/ L 4.63-6.08 HEMOGLOBIN (BEAKER) (test wcpw=884) 13.1 GM/DL 13.7-17.5 HEMATOCRIT (BEAKER) (test ketk=662) 41.3 % 40.1-51.0 MEAN CORPUSCULAR VOLUME (BEAKER) (test fhqx=145) 72.1 fL 79.0-92.2 MEAN CORPUSCULAR HEMOGLOBIN (BEAKER) (test 22.9 pg 25.7-32.2 mtpn=005) MEAN CORPUSCULAR HEMOGLOBIN CONC (BEAKER) (test 31.7 GM/DL 32.3-36.5 lpdu=129) RED CELL DISTRIBUTION WIDTH (BEAKER) (test 14.5 % 11.6-14.4 cknz=922) PLATELET COUNT (BEAKER) (test fjxu=261) 467 K/CU MM 150-450 MEAN PLATELET VOLUME (BEAKER) (test jybj=486) 9.7 fL 9.4-12.4 NUCLEATED RED BLOOD CELLS (BEAKER) (test 0 /100 WBC 0-0 jhrn=517) (CELLAVISION MANUAL DIFF)2019-04-04 07:30:00 Test Item Value Reference Range Comments NEUTROPHILS - REL (CELLAVISION)(BEAKER) (test 80 % mluq=5374) LYMPHOCYTES - REL (CELLAVISION)(BEAKER) (test 5 % pxai=3982) MONOCYTES - REL (CELLAVISION)(BEAKER) (test 2 % dhej=3180) EOSINOPHILS - REL (CELLAVISION)(BEAKER) (test 2 % ikwo=8603) BANDS - REL (CELLAVISION)(BEAKER) (test 11 % 0-10 nifa=2570) NEUTROPHILS - ABS (CELLAVISION)(BEAKER) (test 14.64 K/ul 1.78-5.38 zksc=6436) LYMPHOCYTES - ABS (CELLAVISION)(BEAKER) (test 0.92 K/ul 1.32-3.57 sput=6050) MONOCYTES - ABS (CELLAVISION)(BEAKER) (test 0.37 K/uL 0.30-0.82 velt=2356) EOSINOPHILS - ABS (CELLAVISION)(BEAKER) (test 0.37 K/uL 0.04-0.54 kjpx=9693) BANDS - ABS (CELLAVISION)(BEAKER) (test 2.01 K/uL 0.00-0.80 oklu=1664) TOTAL COUNTED (BEAKER) (test fxxm=0095) 100 WBC MORPHOLOGY (BEAKER) (test ueoi=777) Normal LARGE PLT(BEAKER) (test pngz=8613) Present POLYCHROMATOPHILLIC RBCS(BEAKER) (test bojs=284) 1+ few HYPOCHROMIA (BEAKER) (test ppsz=459) 1+ few JULY CELLS (BEAKER) (test ljgw=578) 2+ moderate ARTIFACT (CELLAVISION)(BEAKER) (test zmwl=4680) Present PLATELET CONCENTRATION (CELLAVISION)(BEAKER) Increased (test uyru=0213) Received comment: User comments: Slide comments:POCT-GLUCOSE [id number] 06: 36:00 Test Item Value Reference Range Comments POC-GLUCOSE METER (BEAKER) 114 mg/dL 70-110 TESTED AT [facility] [address] [facility] (test nbnf=3179) [facility] [address] [id number] 06:36:00 Test Item Value Reference Range Comments PHOSPHORUS (BEAKER) (test dqyc=655) 3.3 mg/dL 2.3-4.7 [id number] 06:36:00 Test Item Value Reference Range Comments MAGNESIUM (BEAKER) (test nuoi=102) 2.1 mg/dL 1.6-2.6 BASIC METABOLIC [id number] 06:36:00 Test Item Value Reference Range Comments SODIUM (BEAKER) (test 133 meq/L 136-145 gprq=866) POTASSIUM (BEAKER) (test 4.1 meq/L 3.5-5.1 jrve=135) CHLORIDE (BEAKER) (test 104 meq/L 98-107 gdue=486) CO2 (BEAKER) (test 23 meq/L 22-29 vylp=657) BLOOD UREA NITROGEN 23 mg/dL 7-21 (BEAKER) (test zwbe=017) CREATININE (BEAKER) (test 0.69 mg/dL 0.57-1.25 nvxg=846) GLUCOSE RANDOM (BEAKER) 120 mg/dL 70-105 (test fwov=922) CALCIUM (BEAKER) (test 8.5 mg/dL 8.4-10.2 uzkx=144) EGFR (BEAKER) (test 118 mL/min/1.73 sq m ESTIMATED GFR IS NOT rivd=5630) ACCURATE CREATININE CLEARANCE IN PREDICTING GLOMERULAR FILTRATION RATE. ESTIMATED GFR IS NOT APPLICABLE FOR DIALYSIS PATIENTS. POCT-GLUCOSE [id number] 01:35:00 Test Item Value Reference Range Comments POC-GLUCOSE METER (BEAKER) 153 mg/dL 70-110 TESTED AT [facility] [address] [facility] (test pfjr=5502) [facility] [address] LACTIC ACID, [id number] 18:47:00 Test Item Value Reference Range Comments LACTATE BLOOD VENOUS (2) (BEAKER) (test 1.1 mmol/L 0.5-2.2 jzqh=5554) U/S, ABDOMINAL, [id number] 18:35:00Originally placed CT drainage order, however, CT called to have order changed to ultrasound Reason for exam:-> Please drain Pancreatic abscess/liver abscess Should this be performed at the bedside?->YesFINAL REPORT Limited abdominal ultrasound dated April 03, 2019 Comment: Attempted ultrasound-guided abscess drainage was performed. The abscess in the liver was difficult to visualize. Ultrasound drainage catheter placement was not performed. Signed: Haim Nino VerifiedDate/Time: 04/03/2019 18:35:40 Reading Location: [facility] C013Y CT Body Reading Room Electronically signed by: HAIM NINO M.D. on 2018 06:35 PMPOCT-GLUCOSE [id number] 18:32:00 Test Item Value Reference Range Comments POC-GLUCOSE METER (BEAKER) 248 mg/dL 70-110 TESTED AT [address] (test kbxv=5516) [facility] [address] RAD, CHEST, 1 VIEW, NON [id number] 15:57:00Reason for exam:->evaluate small left apical pneumoShould this be performed at the bedside?->YesFINAL REPORT RAD, CHEST, 1 VIEW, NON DEPT INDICATION: evaluate small left apical pneumo COMPARISON: April 03, 2019 FINDINGS: Portable frontal view of the chest. IMPRESSION: Support Lines: Slight interval decrease in previously described left apical. Blunting of the left CP angle persists. Retrocardiac atelectasis with/without superimposed infection is unchanged.Lungs and pleura: Blunting of the left CP angle persists. Retrocardiac atelectasis with/without superimposed infection is unchanged. No pneumothorax.Heart and mediastinum: Stable contours. Additional findings: None. Signed: Nathaniel Gilbert Verified Date/Time: 04/03/2019 15:57:42 Reading Location: [facility] [id number] Neuro Reading Room CT, DRAINAGE W/ CATH [id number] 15:34:00Send fluid for gram stain, aerobic/anaerobic/fungal Cx/SReason for exam:->Liver AbscessFINAL REPORT CT-guided drainage catheter placement dated 04/03/2019 Name of practitioner performing procedure:Haim Nino M.D. Names of assistant administrator:None Procedure: Drainage catheter placement into the liver abscess Preprocedure diagnosis:Liver abscess Postprocedure diagnosis: Liverabscess Specimens removed:25 cc of cloudy fluid Estimated blood loss:None Complication:None Conscious sedation: None Anesthesia: 1% Xylocaine local anesthesia. Graft/Implants:None Technique: This exam was performed according to our departmental dose-optimization program, which includes automated exposure control, adjustment of the mA and/or kV according to patient size and/or use of interactive reconstruction technique. After obtaining informed consent, CT- guided drainage catheter placement into theright hepatic lobe abscess was performed under usual sterile technique. After placing introducer needle and guidewire, the tract was dilated with a 6 and 8 Macanese dilators. An 8 Macanese drainage catheter was placed. The drainage catheter was left in place, secured to skin with suture, and connected to bulb suction. 25 cc of cloudy fluid was removed. The specimen was sent to microbiology. Patient tolerated procedure well. Impression: Successful CT-guided drainage catheter placement into the right hepatic lobe abscess. Signed: Haim Nino MDReport Verified Date/Time: 15:34:40 Reading Location: [facility] C013Y CT Body Reading Room CBC W/PLT COUNT & AUTO [id number] 13:37:00 Test Item Value Reference Range Comments WHITE BLOOD CELL COUNT (BEAKER) (test qtzv=817) 14.2 K/ L 3.5-10.5 RED BLOOD CELL COUNT (BEAKER) (test dson=927) 5.26 M/ L 4.63-6.08 HEMOGLOBIN (BEAKER) (test xifv=540) 12.1 GM/DL 13.7-17.5 HEMATOCRIT (BEAKER) (test faas=400) 38.2 % 40.1-51.0 MEAN CORPUSCULAR VOLUME (BEAKER) (test gyvu=772) 72.6 fL 79.0-92.2 MEAN CORPUSCULAR HEMOGLOBIN (BEAKER) (test 23.0 pg 25.7-32.2 ieaw=912) MEAN CORPUSCULAR HEMOGLOBIN CONC (BEAKER) (test 31.7 GM/DL 32.3-36.5 thei=157) RED CELL DISTRIBUTION WIDTH (BEAKER) (test 13.8 % 11.6-14.4 atrz=730) PLATELET COUNT (BEAKER) (test oqrh=140) 435 K/CU MM 150-450 MEAN PLATELET VOLUME (BEAKER) (test ndkj=920) 10.6 fL 9.4-12.4 NUCLEATED RED BLOOD CELLS (BEAKER) (test 0 /100 WBC 0-0 zkja=513) (CELLAVISION MANUAL DIFF)2019-04-03 13:37:00 Test Item Value Reference Range Comments TOTAL COUNTED (BEAKER) (test zuqx=4180) RBC MORPHOLOGY (BEAKER) (test apyh=485) Normal WBC MORPHOLOGY (BEAKER) (test iuok=518) Normal PLT MORPHOLOGY (BEAKER) (test rnyh=744) Normal (MANUAL DIFFERENTIAL)2019-04-03 13:37:00 Test Item Value Reference Range Comments NEUTROPHILS - REL (DIFF) (BEAKER) (test sgqf=6239) 53 % LYMPHOCYTES - REL (DIFF) (BEAKER) (test rnbz=6090) 5 % MONOCYTES - REL (DIFF) (BEAKER) (test syet=4851) 10 % BANDS - REL (DIFF) (BEAKER) (test lzut=1025) 32 % 0-10 NEUTROPHILS - ABS (DIFF) (BEAKER) (test bafc=1507) 7.53 K/ L 1.80-8.00 LYMPHOCYTES - ABS (DIFF) (BEAKER) (test kddf=1138) 0.71 K/ L 1.48-4.50 MONOCYTES - ABS (DIFF) (BEAKER) (test zfyg=3300) 1.42 K/ L 0.00-1.30 BANDS-ABS (DIFF) (BEAKER) (test mgwx=5717) 4.5 K/ L 0.0-0.8 TOTAL COUNTED (BEAKER) (test wktl=5649) 100 BANDS + SEGMENTED NEUTROPHILS (BEAKER) (test 12.07 izye=8401) WBC MORPHOLOGY (BEAKER) (test hyok=212) Normal PLT MORPHOLOGY (BEAKER) (test tirl=149) Normal RBC MORPHOLOGY (BEAKER) (test ukul=343) Normal OSMOLALITY, [id number] 13:12:00 Test Item Value Reference Range Comments OSMOLALITY URINE (BEAKER) (test fzer=595) 617 mOsm/kg 40-1,400 SODIUM, RANDOM [id number] 12:54:00 Test Item Value Reference Range Comments SODIUM URINE (BEAKER) (test rriq=521) < meq/L Reference Range: No NormalsPOCT-GLUCOSE [id number] 12:53:00 Test Item Value Reference Range Comments POC-GLUCOSE METER (BEAKER) 267 mg/dL 70-110 TESTED AT [facility] [address] [facility] (test drvd=7322) [place] [address] CREATININE, RANDOM [id number] 12:52:00 Test Item Value Reference Range Comments CREATININE URINE (BEAKER) (test kgqe=671) 111.1 mg/dL Reference Range: No NormalsURINALYSIS W/ REFLEX URINE [id number] 12:48:00 Test Item Value Reference Range Comments COLOR (BEAKER) (test prpq=598) Yellow CLARITY (BEAKER) (test elgl=168) Hazy SPECIFIC GRAVITY UA (BEAKER) (test kbil=606) 1.020 1.001-1.035 PH UA (BEAKER) (test vyqe=151) 6.0 5.0-8.0 PROTEIN UA (BEAKER) (test ferf=058) 50 mg/dL Negative GLUCOSE UA (BEAKER) (test zkps=565) 100 mg/dL Negative KETONES UA (BEAKER) (test zakq=435) Negative Negative BILIRUBIN UA (BEAKER) (test zblf=552) Negative Negative BLOOD UA (BEAKER) (test zrly=038) Negative Negative NITRITE UA (BEAKER) (test dqsm=805) Negative Negative LEUKOCYTE ESTERASE UA (BEAKER) (test ufck=541) Small Negative UROBILINOGEN UA (BEAKER) (test lhhv=664) 0.2 mg/dL 0.2-1.0 RBC UA (BEAKER) (test murm=678) 3 /HPF WBC UA (BEAKER) (test qslm=312) 14 /HPF MUCUS (BEAKER) (test ubuf=3831) Rare HYALINE CASTS (BEAKER) (test ubdp=814) 3 /LPF SOURCE(BEAKER) (test yxcx=7838) POCT-GLUCOSE [id number] 08:48:00 Test Item Value Reference Range Comments POC-GLUCOSE METER (BEAKER) 286 mg/dL 70-110 TESTED AT [address] (test kjyx=8929) [facility] [address] RAD, CHEST, 1 VIEW, NON [id number] 06:49:00Reason for exam:-> hypoxiaShould this be performed at the bedside?->YesFINAL REPORT Chest one view. Clinical history: hypoxia Comparison: Chest radiograph 10/21/18 Technique: A single frontal view of the chest was obtained. Findings/impression: There has been interval removal of right IJ central venous catheter. The cardiomediastinal contours are stable. There are low lung volumes. There are bibasilar opacities which may represent subsegmental atelectasis and/or pneumonia. There is lucency in the left apex which may represent a small apical pneumothorax or artifact. There is no pleural effusion. Signed: Dana Cox [facility] Verified Date/Time: 04/03/2019 06:49: 24 POCT-GLUCOSE [id number] 06:38:00 Test Item Value Reference Range Comments POC-GLUCOSE METER (BEAKER) 286 mg/dL 70-110 TESTED AT [address] (test dnmj=4781) [place] [address] [id number] 06:04:00 Test Item Value Reference Range Comments MAGNESIUM (BEAKER) (test 1.9 mg/dL 1.6-2.6 Specimen slightly hemolyzed dyeu=995) [id number] 06:04:00 Test Item Value Reference Range Comments PHOSPHORUS (BEAKER) (test 4.1 mg/dL 2.3-4.7 Specimen slightly hemolyzed cvds=986) BASIC METABOLIC [id number] 06:04:00 Test Item Value Reference Range Comments SODIUM (BEAKER) (test 129 meq/L 136-145 foke=992) POTASSIUM (BEAKER) (test 4.6 meq/L 3.5-5.1 Specimen slightly jtaj=960) hemolyzed CHLORIDE (BEAKER) (test 98 meq/L 98-107 raxt=066) CO2 (BEAKER) (test 21 meq/L 22-29 mijt=577) BLOOD UREA NITROGEN 29 mg/dL 7-21 (BEAKER) (test jqpu=753) CREATININE (BEAKER) (test 1.30 mg/dL 0.57-1.25 Specimen slightly kwfe=830) hemolyzed GLUCOSE RANDOM (BEAKER) 368 mg/dL 70-105 (test zgfp=698) CALCIUM (BEAKER) (test 8.1 mg/dL 8.4-10.2 ukco=654) EGFR (BEAKER) (test 57 mL/min/1.73 sq m ESTIMATED GFR IS NOT xhtl=9745) ACCURATE CREATININE CLEARANCE IN PREDICTING GLOMERULAR FILTRATION RATE. ESTIMATED GFR IS NOT APPLICABLE FOR DIALYSIS PATIENTS. HEPATIC FUNCTION [id number] 06:04:00 Test Item Value Reference Range Comments TOTAL PROTEIN (BEAKER) (test 5.7 gm/dL 6.0-8.3 Specimen slightly hemolyzed qvun=887) ALBUMIN (BEAKER) (test 2.5 g/dL 3.5-5.0 Specimen slightly hemolyzed jpha=7173) BILIRUBIN TOTAL (BEAKER) (test 0.5 mg/dL 0.2-1.2 Specimen slightly hemolyzed ziiy=767) BILIRUBIN DIRECT (BEAKER) (test 0.3 mg/dL 0.1-0.5 Specimen slightly hemolyzed igwq=998) ALKALINE PHOSPHATASE (BEAKER) 192 U/L 40-150 (test vloe=649) AST (SGOT) (BEAKER) (test 36 U/L 5-34 Specimen slightly hemolyzed husb=206) ALT (SGPT) (BEAKER) (test 57 U/L 6-55 Specimen slightly hemolyzed pwrd=523) [id number] 06:04:00 Test Item Value Reference Range Comments AMYLASE (BEAKER) (test awye=503) 9 U/L 25-125 Specimen slightly hemolyzed [id number] 06:04:00 Test Item Value Reference Range Comments LIPASE (BEAKER) (test crpa=245) 4 U/L 8-78 LACTIC ACID, [id number] 05:38:00 Test Item Value Reference Range Comments LACTATE BLOOD VENOUS (2) 1.7 mmol/L 0.5-2.2 Specimen slightly hemolyzed (BEAKER) (test hjud=7414) PROTHROMBIN [id number] 04:16:00 Test Item Value Reference Range Comments PROTIME (BEAKER) (test xtou=387) 15.9 seconds 11.9-14.2 INR (BEAKER) (test ahjq=415) 1.3 <=5.9 Effective 02/16/2019: PT Reference Range ChangeNew: 11.9-14.2 Previous: 11.7- 14.7RECOMMENDED COUMADIN/WARFARIN INR THERAPY RANGESSTANDARD DOSE: 2.0-3.0 Includes: PROPHYLAXIS for venous thrombosis, systemic embolization; TREATMENT for venous thrombosis and/or pulmonary embolus.HIGH RISK: Target INR is2.5-3.5 for patients wiht mechanical heart valves.ME, [id number] 12:22:00Reason for exam:->abnormal imagingFINAL REPORT ERCP, 12/22/2018 Clinical History: Abnormal imaging Impression: Intraoperative images are obtained. The radiologist is not present during the procedure. Fluoroscopy was not performed by the undersigned. Images are presented for interpretation at the completion of the procedure. Please refer to the procedure report for more details. Seven images minute demonstrating interrogation of the common duct. Fluoroscopy time is 55 seconds. Signed: Raquel Hoppereport Verified Date/ Time: 12/22/2018 12:22:23 Reading Location: [address] Radiology Reading Room 12: 22 PMBLOOD [id number] 12:55:00 Test Item Value Reference Range Comments CULTURE (BEAKER) From Aerobic Bottle Only (test odgl=8781) Same organism has been isolated from cultures(s) of the same body site within 3 days. Repeat identification and susceptibility testing performed only after consultation with the clinical microbiology laboratory.Refer to previous culture of* - Staphylococcus lugdunensis GRAM STAIN RESULT From aerobic bottle (BEAKER) (test only: gram positive vwdm=7060) cocci in clusters POCT-GLUCOSE [id number] 18:11:00 Test Item Value Reference Range Comments POC-GLUCOSE METER (BEAKER) 116 mg/dL 70-110 TESTED AT [address] (test zyis=9348) [facility] [id number] POCT-GLUCOSE [id number] 13:23:00 Test Item Value Reference Range Comments POC-GLUCOSE METER (BEAKER) 122 mg/dL 70-110 TESTED AT [facility] [address] (test egbt=0418) [facility] [address] POCT-GLUCOSE [id number] 08:24:00 Test Item Value Reference Range Comments POC-GLUCOSE METER (BEAKER) 138 mg/dL 70-110 TESTED AT [facility] [address] [facility] (test nfdc=9431) [facility] [address] CALCIUM, [id number] 06:13:00 Test Item Value Reference Range Comments CALCIUM IONIZED (BEAKER) (test vzyj=508) 1.06 mmol/L 1.12-1.27 PH, BLOOD (BEAKER) (test wlaf=0688) 7.43 COMPREHENSIVE METABOLIC [id number] 05:50:00 Test Item Value Reference Range Comments TOTAL PROTEIN (BEAKER) 5.3 gm/dL 6.0-8.3 (test xhkw=713) ALBUMIN (BEAKER) (test 2.6 g/dL 3.5-5.0 khmr=2321) ALKALINE PHOSPHATASE 153 U/L 40-150 (BEAKER) (test mmda=612) BILIRUBIN TOTAL (BEAKER) 1.8 mg/dL 0.2-1.2 (test xwgh=785) SODIUM (BEAKER) (test 142 meq/L 136-145 uzgg=046) POTASSIUM (BEAKER) (test 3.1 meq/L 3.5-5.1 ijmy=098) CHLORIDE (BEAKER) (test 107 meq/L 98-107 zauz=849) CO2 (BEAKER) (test 26 meq/L 22-29 jnhv=380) BLOOD UREA NITROGEN 9 mg/dL 7-21 (BEAKER) (test ripd=865) CREATININE (BEAKER) (test 0.99 mg/dL 0.57-1.25 aatq=141) GLUCOSE RANDOM (BEAKER) 108 mg/dL 70-105 (test ymhe=518) CALCIUM (BEAKER) (test 8.2 mg/dL 8.4-10.2 wqsg=538) AST (SGOT) (BEAKER) (test 72 U/L 5-34 uilo=928) ALT (SGPT) (BEAKER) (test 142 U/L 6-55 ivvo=794) EGFR (BEAKER) (test 78 mL/min/1.73 sq m ESTIMATED GFR IS NOT ucxv=4026) ACCURATE CREATININE CLEARANCE IN PREDICTING GLOMERULAR FILTRATION RATE. ESTIMATED GFR IS NOT APPLICABLE FOR DIALYSIS PATIENTS. [id number] 05:48:00 Test Item Value Reference Range Comments PHOSPHORUS (BEAKER) (test zdwu=381) 3.0 mg/dL 2.3-4.7 [id number] 05:48:00 Test Item Value Reference Range Comments MAGNESIUM (BEAKER) (test hkfi=922) 1.8 mg/dL 1.6-2.6 CBC W/PLT COUNT & AUTO [id number] 05:45:00 Test Item Value Reference Range Comments WHITE BLOOD CELL COUNT (BEAKER) (test mesx=075) 12.9 K/ L 3.5-10.5 RED BLOOD CELL COUNT (BEAKER) (test bugi=506) 3.70 M/ L 4.63-6.08 HEMOGLOBIN (BEAKER) (test hpzd=157) 9.5 GM/DL 13.7-17.5 HEMATOCRIT (BEAKER) (test eweh=463) 30.8 % 40.1-51.0 MEAN CORPUSCULAR VOLUME (BEAKER) (test vowo=436) 83.2 fL 79.0-92.2 MEAN CORPUSCULAR HEMOGLOBIN (BEAKER) (test 25.7 pg 25.7-32.2 iwjh=307) MEAN CORPUSCULAR HEMOGLOBIN CONC (BEAKER) (test 30.8 GM/DL 32.3-36.5 bduz=776) RED CELL DISTRIBUTION WIDTH (BEAKER) (test 16.2 % 11.6-14.4 bwlm=191) PLATELET COUNT (BEAKER) (test nzns=731) 358 K/CU MM 150-450 MEAN PLATELET VOLUME (BEAKER) (test dywx=125) 10.4 fL 9.4-12.4 NUCLEATED RED BLOOD CELLS (BEAKER) (test 0 /100 WBC 0-0 zyli=699) NEUTROPHILS RELATIVE PERCENT (BEAKER) (test 73 % fyhx=806) LYMPHOCYTES RELATIVE PERCENT (BEAKER) (test 10 % xzrl=156) MONOCYTES RELATIVE PERCENT (BEAKER) (test 10 % jorj=386) EOSINOPHILS RELATIVE PERCENT (BEAKER) (test 2 % mlqv=717) BASOPHILS RELATIVE PERCENT (BEAKER) (test 1 % wcvi=162) NEUTROPHILS ABSOLUTE COUNT (BEAKER) (test 9.36 K/ L 1.78-5.38 tvmj=819) LYMPHOCYTES ABSOLUTE COUNT (BEAKER) (test 1.34 K/ L 1.32-3.57 jsnn=946) MONOCYTES ABSOLUTE COUNT (BEAKER) (test 1.32 K/ L 0.30-0.82 hdwh=000) EOSINOPHILS ABSOLUTE COUNT (BEAKER) (test 0.26 K/ L 0.04-0.54 olfc=125) BASOPHILS ABSOLUTE COUNT (BEAKER) (test 0.07 K/ L 0.01-0.08 heyy=680) IMMATURE GRANULOCYTES-RELATIVE PERCENT (BEAKER) 4 % 0-1 (test cwkf=8844) CT, [id number] 22:04:00FINAL REPORT TECHNIQUE: CT of the abdomen [...] MDReport Verified Date/Time: 10/26/2018 22:04:35 Reading Location: [facility] B1 [id number] Consult Reading Room POCT-GLUCOSE [id number] 21:12:00 Test Item Value Reference Range Comments POC-GLUCOSE METER (BEAKER) 148 mg/dL 70-110 TESTED AT [address] (test oyaz=8191) [place] [address] BLOOD [id number] 19:01:00 Test Item Value Reference Range Comments CULTURE (BEAKER) (test xfsu=1882) No growth in 5 days BLOOD [id number] 19:01:00 Test Item Value Reference Range Comments CULTURE (BEAKER) (test wiaq=9290) No growth in 5 days POCT-GLUCOSE [id number] 18:10:00 Test Item Value Reference Range Comments POC-GLUCOSE METER (BEAKER) 164 mg/dL 70-110 TESTED AT [address] (test ixlw=6446) [place] [address] POCT-GLUCOSE [id number] 12:43:00 Test Item Value Reference Range Comments POC-GLUCOSE METER (BEAKER) 146 mg/dL 70-110 TESTED AT [address] (test roap=3899) [place] [id number] POCT-GLUCOSE [id number] 09:54:00 Test Item Value Reference Range Comments POC-GLUCOSE METER (BEAKER) 151 mg/dL 70-110 TESTED AT [address] (test uenb=9345) [place] [address] CALCIUM, [id number] 06:13:00 Test Item Value Reference Range Comments CALCIUM IONIZED (BEAKER) (test hqmw=038) 1.05 mmol/L 1.12-1.27 PH, BLOOD (BEAKER) (test staz=6848) 7.41 BASIC METABOLIC [id number] 05:28:00 Test Item Value Reference Range Comments SODIUM (BEAKER) (test 142 meq/L 136-145 cjks=892) POTASSIUM (BEAKER) (test 3.2 meq/L 3.5-5.1 knhr=235) CHLORIDE (BEAKER) (test 108 meq/L 98-107 fkej=593) CO2 (BEAKER) (test 25 meq/L 22-29 tbvi=108) BLOOD UREA NITROGEN 9 mg/dL 7-21 (BEAKER) (test yzfp=879) CREATININE (BEAKER) (test 1.02 mg/dL 0.57-1.25 bdgi=171) GLUCOSE RANDOM (BEAKER) 120 mg/dL 70-105 (test over=420) CALCIUM (BEAKER) (test 7.9 mg/dL 8.4-10.2 rpzk=045) EGFR (BEAKER) (test 75 mL/min/1.73 sq m ESTIMATED GFR IS NOT zafk=3980) ACCURATE CREATININE CLEARANCE IN PREDICTING GLOMERULAR FILTRATION RATE. ESTIMATED GFR IS NOT APPLICABLE FOR DIALYSIS PATIENTS. [id number] 05:20:00 Test Item Value Reference Range Comments PHOSPHORUS (BEAKER) (test zzde=189) 3.0 mg/dL 2.3-4.7 CBC W/PLT COUNT & AUTO [id number] 05:12:00 Test Item Value Reference Range Comments WHITE BLOOD CELL COUNT (BEAKER) (test edvh=079) 16.3 K/ L 3.5-10.5 RED BLOOD CELL COUNT (BEAKER) (test eogd=728) 3.65 M/ L 4.63-6.08 HEMOGLOBIN (BEAKER) (test zxtq=130) 9.3 GM/DL 13.7-17.5 HEMATOCRIT (BEAKER) (test ewqs=531) 29.9 % 40.1-51.0 MEAN CORPUSCULAR VOLUME (BEAKER) (test fqsf=342) 81.9 fL 79.0-92.2 MEAN CORPUSCULAR HEMOGLOBIN (BEAKER) (test 25.5 pg 25.7-32.2 cbwh=195) MEAN CORPUSCULAR HEMOGLOBIN CONC (BEAKER) (test 31.1 GM/DL 32.3-36.5 ezgs=870) RED CELL DISTRIBUTION WIDTH (BEAKER) (test 16.1 % 11.6-14.4 niwc=133) PLATELET COUNT (BEAKER) (test qolv=832) 263 K/CU MM 150-450 MEAN PLATELET VOLUME (BEAKER) (test htya=123) 10.2 fL 9.4-12.4 NUCLEATED RED BLOOD CELLS (BEAKER) (test 0 /100 WBC 0-0 yvhu=401) NEUTROPHILS RELATIVE PERCENT (BEAKER) (test 77 % xbyr=882) LYMPHOCYTES RELATIVE PERCENT (BEAKER) (test 8 % jwhk=011) MONOCYTES RELATIVE PERCENT (BEAKER) (test 8 % omry=510) EOSINOPHILS RELATIVE PERCENT (BEAKER) (test 2 % tqqq=550) BASOPHILS RELATIVE PERCENT (BEAKER) (test 0 % kxeq=989) NEUTROPHILS ABSOLUTE COUNT (BEAKER) (test 12.53 K/ L 1.78-5.38 vrda=359) LYMPHOCYTES ABSOLUTE COUNT (BEAKER) (test 1.37 K/ L 1.32-3.57 xjen=116) MONOCYTES ABSOLUTE COUNT (BEAKER) (test 1.28 K/ L 0.30-0.82 tzvv=255) EOSINOPHILS ABSOLUTE COUNT (BEAKER) (test 0.33 K/ L 0.04-0.54 ijqa=476) BASOPHILS ABSOLUTE COUNT (BEAKER) (test 0.07 K/ L 0.01-0.08 jatc=742) IMMATURE GRANULOCYTES-RELATIVE PERCENT (BEAKER) 5 % 0-1 (test stfz=6940) POCT-GLUCOSE [id number] 22:35:00 Test Item Value Reference Range Comments POC-GLUCOSE METER (BEAKER) 126 mg/dL 70-110 TESTED AT [address] (test hyfx=7858) [place] [id number] POCT-GLUCOSE [id number] 18:09:00 Test Item Value Reference Range Comments POC-GLUCOSE METER (BEAKER) 163 mg/dL 70-110 TESTED AT [address] (test evxh=0371) [facility] [address] CBC W/PLT COUNT & AUTO [id number] 14:09:00 Test Item Value Reference Range Comments WHITE BLOOD CELL COUNT (BEAKER) (test ebrr=740) 19.1 K/ L 3.5-10.5 RED BLOOD CELL COUNT (BEAKER) (test jlsa=413) 3.72 M/ L 4.63-6.08 HEMOGLOBIN (BEAKER) (test bzia=144) 9.6 GM/DL 13.7-17.5 HEMATOCRIT (BEAKER) (test oxoq=896) 30.4 % 40.1-51.0 MEAN CORPUSCULAR VOLUME (BEAKER) (test aqnx=197) 81.7 fL 79.0-92.2 MEAN CORPUSCULAR HEMOGLOBIN (BEAKER) (test 25.8 pg 25.7-32.2 ytkr=562) MEAN CORPUSCULAR HEMOGLOBIN CONC (BEAKER) (test 31.6 GM/DL 32.3-36.5 gmfl=285) RED CELL DISTRIBUTION WIDTH (BEAKER) (test 16.4 % 11.6-14.4 ctpb=148) PLATELET COUNT (BEAKER) (test gpgy=031) 244 K/CU MM 150-450 MEAN PLATELET VOLUME (BEAKER) (test pkbl=317) 9.9 fL 9.4-12.4 NUCLEATED RED BLOOD CELLS (BEAKER) (test 0 /100 WBC 0-0 dazr=666) (CELLAVISION MANUAL DIFF)2018-10-25 14:09:00 Test Item Value Reference Range Comments NEUTROPHILS - REL (CELLAVISION)(BEAKER) (test 84 % yevm=9333) LYMPHOCYTES - REL (CELLAVISION)(BEAKER) (test 7 % edlc=2356) MONOCYTES - REL (CELLAVISION)(BEAKER) (test 6 % cfhw=5236) MYELOCYTES - REL (CELLAVISION)(BEAKER) (test 2 % 0-0 xqxk=3290) BANDS - REL (CELLAVISION)(BEAKER) (test 1 % 0-10 qsuh=0448) NEUTROPHILS - ABS (CELLAVISION)(BEAKER) (test 16.04 K/ul 1.78-5.38 carf=4276) LYMPHOCYTES - ABS (CELLAVISION)(BEAKER) (test 1.34 K/ul 1.32-3.57 isjr=5120) MONOCYTES - ABS (CELLAVISION)(BEAKER) (test 1.15 K/uL 0.30-0.82 ovfc=8923) MYELOCYTES-ABS (CELLAVISION)(BEAKER) (test 0.38 K/uL 0.00-0.00 qcnt=1007) BANDS - ABS (CELLAVISION)(BEAKER) (test 0.19 K/uL 0.00-0.80 oumq=1876) TOTAL COUNTED (BEAKER) (test lrfs=5763) 100 WBC MORPHOLOGY (BEAKER) (test onph=250) Normal PLT MORPHOLOGY (BEAKER) (test kpad=541) Normal ANISOCYTOSIS (BEAKER) (test kwyp=693) 1+ few ARTIFACT (CELLAVISION)(BEAKER) (test wqxq=8948) Present PLATELET CONCENTRATION (CELLAVISION)(BEAKER) Adequate (test vins=9289) Received comment: User comments: Slide comments:POCT-GLUCOSE [id number] 12: 37:00 Test Item Value Reference Range Comments POC-GLUCOSE METER (BEAKER) 171 mg/dL 70-110 TESTED AT [facility] [address] [facility] (test sedl=3970) [facility] [address] POCT-GLUCOSE [id number] 08:02:00 Test Item Value Reference Range Comments POC-GLUCOSE METER (BEAKER) 164 mg/dL 70-110 TESTED AT [place] [id number] [facility] (test cpiy=5622) [facility] [address] [id number] 07:28:00 Test Item Value Reference Range Comments PHOSPHORUS (BEAKER) (test sawl=324) 3.0 mg/dL 2.3-4.7 COMPREHENSIVE METABOLIC [id number] 07:28:00 Test Item Value Reference Range Comments TOTAL PROTEIN (BEAKER) 4.9 gm/dL 6.0-8.3 (test quhc=166) ALBUMIN (BEAKER) (test 2.5 g/dL 3.5-5.0 dpvo=3198) ALKALINE PHOSPHATASE 195 U/L 40-150 (BEAKER) (test vhji=368) BILIRUBIN TOTAL (BEAKER) 2.4 mg/dL 0.2-1.2 (test utpt=831) SODIUM (BEAKER) (test 142 meq/L 136-145 juwh=547) POTASSIUM (BEAKER) (test 3.3 meq/L 3.5-5.1 lmkd=316) CHLORIDE (BEAKER) (test 108 meq/L 98-107 yjmr=329) CO2 (BEAKER) (test 28 meq/L 22-29 bllt=456) BLOOD UREA NITROGEN 11 mg/dL 7-21 (BEAKER) (test mihs=004) CREATININE (BEAKER) (test 0.94 mg/dL 0.57-1.25 kzhd=161) GLUCOSE RANDOM (BEAKER) 145 mg/dL 70-105 (test dmyg=386) CALCIUM (BEAKER) (test 8.1 mg/dL 8.4-10.2 tqyc=369) AST (SGOT) (BEAKER) (test 113 U/L 5-34 gxen=702) ALT (SGPT) (BEAKER) (test 191 U/L 6-55 lanr=527) EGFR (BEAKER) (test 82 mL/min/1.73 sq m ESTIMATED GFR IS NOT pknv=1066) ACCURATE CREATININE CLEARANCE IN PREDICTING GLOMERULAR FILTRATION RATE. ESTIMATED GFR IS NOT APPLICABLE FOR DIALYSIS PATIENTS. CALCIUM, [id number] 06:53:00 Test Item Value Reference Range Comments CALCIUM IONIZED (BEAKER) (test eexw=551) 1.06 mmol/L 1.12-1.27 PH, BLOOD (BEAKER) (test omzp=1185) 7.42 POCT-GLUCOSE [id number] 20:58:00 Test Item Value Reference Range Comments POC-GLUCOSE METER (BEAKER) 135 mg/dL 70-110 TESTED AT [address] (test kfhh=4112) [facility] [address] POCT-GLUCOSE [id number] 18:06:00 Test Item Value Reference Range Comments POC-GLUCOSE METER (BEAKER) 232 mg/dL 70-110 TESTED AT [address] (test pzhl=2917) [facility] [address] CBC W/PLT COUNT & AUTO [id number] 14:59:00 Test Item Value Reference Range Comments WHITE BLOOD CELL COUNT (BEAKER) (test gvbb=283) 18.4 K/ L 3.5-10.5 RED BLOOD CELL COUNT (BEAKER) (test nqym=335) 3.98 M/ L 4.63-6.08 HEMOGLOBIN (BEAKER) (test ehpe=564) 10.2 GM/DL 13.7-17.5 HEMATOCRIT (BEAKER) (test dfvr=535) 32.4 % 40.1-51.0 MEAN CORPUSCULAR VOLUME (BEAKER) (test dtkj=613) 81.4 fL 79.0-92.2 MEAN CORPUSCULAR HEMOGLOBIN (BEAKER) (test 25.6 pg 25.7-32.2 zfhd=424) MEAN CORPUSCULAR HEMOGLOBIN CONC (BEAKER) (test 31.5 GM/DL 32.3-36.5 rueq=712) RED CELL DISTRIBUTION WIDTH (BEAKER) (test 16.5 % 11.6-14.4 qmzw=042) PLATELET COUNT (BEAKER) (test sksp=651) 211 K/CU MM 150-450 MEAN PLATELET VOLUME (BEAKER) (test otmj=805) 10.6 fL 9.4-12.4 NUCLEATED RED BLOOD CELLS (BEAKER) (test 0 /100 WBC 0-0 nqen=096) (CELLAVISION MANUAL DIFF)2018-10-24 14:59:00 Test Item Value Reference Range Comments NEUTROPHILS - REL (CELLAVISION)(BEAKER) (test 83 % iyle=3663) LYMPHOCYTES - REL (CELLAVISION)(BEAKER) (test 5 % ehzk=1595) MONOCYTES - REL (CELLAVISION)(BEAKER) (test 6 % gyrb=7521) BASOPHILS - REL (CELLAVISION)(BEAKER) (test 2 % aodv=2554) MYELOCYTES - REL (CELLAVISION)(BEAKER) (test 1 % 0-0 mtiw=9517) BANDS - REL (CELLAVISION)(BEAKER) (test 3 % 0-10 ghdz=5811) NEUTROPHILS - ABS (CELLAVISION)(BEAKER) (test 15.27 K/ul 1.78-5.38 guqb=1576) LYMPHOCYTES - ABS (CELLAVISION)(BEAKER) (test 0.92 K/ul 1.32-3.57 noez=7010) MONOCYTES - ABS (CELLAVISION)(BEAKER) (test 1.10 K/uL 0.30-0.82 hafm=6540) BASOPHILS - ABS (CELLAVISION)(BEAKER) (test 0.37 K/uL 0.01-0.08 lmfx=0728) MYELOCYTES-ABS (CELLAVISION)(BEAKER) (test 0.18 K/uL 0.00-0.00 spmk=5704) BANDS - ABS (CELLAVISION)(BEAKER) (test 0.55 K/uL 0.00-0.80 jjpo=8593) TOTAL COUNTED (BEAKER) (test xgad=2933) 100 PLT MORPHOLOGY (BEAKER) (test orul=903) Normal SMUDGE CELLS (BEAKER) (test ruaj=1783) Present POLYCHROMATOPHILLIC RBCS(BEAKER) (test uxww=655) 1+ few HYPOCHROMIA (BEAKER) (test dorm=704) 1+ few ANISOCYTOSIS (BEAKER) (test bacx=185) 1+ few PLATELET CONCENTRATION (CELLAVISION)(BEAKER) Adequate (test vjtg=1382) Received comment: User comments: Slide comments:POCT-GLUCOSE [id number] 12: 41:00 Test Item Value Reference Range Comments POC-GLUCOSE METER (BEAKER) 165 mg/dL 70-110 TESTED AT [facility] [address] [facility] (test kcbd=0709) [facility] [address] [id number] 10:58:00 Test Item Value Reference Range Comments PHOSPHORUS (BEAKER) (test hrlx=216) 3.5 mg/dL 2.3-4.7 COMPREHENSIVE METABOLIC [id number] 10:58:00 Test Item Value Reference Range Comments TOTAL PROTEIN (BEAKER) 5.1 gm/dL 6.0-8.3 (test ztir=153) ALBUMIN (BEAKER) (test 2.5 g/dL 3.5-5.0 ryhe=9749) ALKALINE PHOSPHATASE 223 U/L 40-150 (BEAKER) (test imjm=179) BILIRUBIN TOTAL (BEAKER) 2.9 mg/dL 0.2-1.2 (test wptl=732) SODIUM (BEAKER) (test 142 meq/L 136-145 ipgs=622) POTASSIUM (BEAKER) (test 3.3 meq/L 3.5-5.1 kpdm=021) CHLORIDE (BEAKER) (test 105 meq/L 98-107 rijn=726) CO2 (BEAKER) (test 26 meq/L 22-29 afsi=521) BLOOD UREA NITROGEN 12 mg/dL 7-21 (BEAKER) (test eoii=991) CREATININE (BEAKER) (test 0.81 mg/dL 0.57-1.25 psad=371) GLUCOSE RANDOM (BEAKER) 117 mg/dL 70-105 (test gyfg=175) CALCIUM (BEAKER) (test 8.3 mg/dL 8.4-10.2 itto=585) AST (SGOT) (BEAKER) (test 96 U/L 5-34 fmyj=663) ALT (SGPT) (BEAKER) (test 177 U/L 6-55 mgmq=948) EGFR (BEAKER) (test 98 mL/min/1.73 sq m ESTIMATED GFR IS NOT lzqi=8110) ACCURATE CREATININE CLEARANCE IN PREDICTING GLOMERULAR FILTRATION RATE. ESTIMATED GFR IS NOT APPLICABLE FOR DIALYSIS PATIENTS. Specimen slightly ictericPOCT-GLUCOSE [id number] 08:31:00 Test Item Value Reference Range Comments POC-GLUCOSE METER (BEAKER) 169 mg/dL 70-110 TESTED AT [facility] [address] [facility] (test yvrl=9898) [facility] [address] CALCIUM, [id number] 07:18:00 Test Item Value Reference Range Comments CALCIUM IONIZED (BEAKER) (test rwzk=939) 1.10 mmol/L 1.12-1.27 PH, BLOOD (BEAKER) (test rtqc=4150) 7.43 CBC W/PLT COUNT & AUTO [id number] 23:24:00 Test Item Value Reference Range Comments WHITE BLOOD CELL COUNT (BEAKER) (test juvd=245) 21.5 K/ L 3.5-10.5 RED BLOOD CELL COUNT (BEAKER) (test hhiw=281) 4.24 M/ L 4.63-6.08 HEMOGLOBIN (BEAKER) (test ebzh=638) 10.9 GM/DL 13.7-17.5 HEMATOCRIT (BEAKER) (test hofm=134) 33.3 % 40.1-51.0 MEAN CORPUSCULAR VOLUME (BEAKER) (test wnwo=962) 78.5 fL 79.0-92.2 MEAN CORPUSCULAR HEMOGLOBIN (BEAKER) (test 25.7 pg 25.7-32.2 cbfs=768) MEAN CORPUSCULAR HEMOGLOBIN CONC (BEAKER) (test 32.7 GM/DL 32.3-36.5 pyzi=035) RED CELL DISTRIBUTION WIDTH (BEAKER) (test 16.2 % 11.6-14.4 smer=740) PLATELET COUNT (BEAKER) (test cpwp=991) 194 K/CU MM 150-450 MEAN PLATELET VOLUME (BEAKER) (test eofd=340) 9.6 fL 9.4-12.4 NUCLEATED RED BLOOD CELLS (BEAKER) (test 0 /100 WBC 0-0 enau=102) (CELLAVISION MANUAL DIFF)2018-10-23 23:24:00 Test Item Value Reference Range Comments NEUTROPHILS - REL (CELLAVISION)(BEAKER) (test 81 % smvc=0426) LYMPHOCYTES - REL (CELLAVISION)(BEAKER) (test 5 % phwv=7673) MONOCYTES - REL (CELLAVISION)(BEAKER) (test 4 % agkl=0555) EOSINOPHILS - REL (CELLAVISION)(BEAKER) (test 2 % vbwd=5710) METAMYELOCYTES - REL (CELLAVISION)(BEAKER) (test 2 % 0-0 gqzf=8965) MYELOCYTES - REL (CELLAVISION)(BEAKER) (test 1 % 0-0 mdit=2100) BANDS - REL (CELLAVISION)(BEAKER) (test 5 % 0-10 ycyf=8075) NEUTROPHILS - ABS (CELLAVISION)(BEAKER) (test 17.42 K/ul 1.78-5.38 dudp=8234) LYMPHOCYTES - ABS (CELLAVISION)(BEAKER) (test 1.08 K/ul 1.32-3.57 xvjv=3189) MONOCYTES - ABS (CELLAVISION)(BEAKER) (test 0.86 K/uL 0.30-0.82 rime=8269) EOSINOPHILS - ABS (CELLAVISION)(BEAKER) (test 0.43 K/uL 0.04-0.54 gndv=6243) METAMYELOCYTES - ABS (CELLAVISION)(BEAKER) (test 0.43 K/uL 0.00-0.00 ohrp=1236) MYELOCYTES-ABS (CELLAVISION)(BEAKER) (test 0.22 K/uL 0.00-0.00 lrqb=8112) BANDS - ABS (CELLAVISION)(BEAKER) (test 1.08 K/uL 0.00-0.80 fvsf=6438) TOTAL COUNTED (BEAKER) (test toqm=0754) 100 WBC MORPHOLOGY (BEAKER) (test mzoe=455) Normal CLUMPED PLATELETS (BEAKER) (test gata=048) Present HYPOCHROMIA (BEAKER) (test sepa=914) 2+ moderate ANISOCYTOSIS (BEAKER) (test jqxb=827) 1+ few ARTIFACT (CELLAVISION)(BEAKER) (test xedw=2176) Present PLATELET CONCENTRATION (CELLAVISION)(BEAKER) Adequate (test wsxn=4795) Received comment: User comments: Slide comments:BASIC METABOLIC [id number] 23:13:00 Test Item Value Reference Range Comments SODIUM (BEAKER) (test 137 meq/L 136-145 naea=155) POTASSIUM (BEAKER) (test 2.9 meq/L 3.5-5.1 ahgv=359) CHLORIDE (BEAKER) (test 101 meq/L 98-107 thwe=864) CO2 (BEAKER) (test 25 meq/L 22-29 ywmn=754) BLOOD UREA NITROGEN 11 mg/dL 7-21 (BEAKER) (test wohk=148) CREATININE (BEAKER) (test 0.80 mg/dL 0.57-1.25 gitg=041) GLUCOSE RANDOM (BEAKER) 109 mg/dL 70-105 (test iahl=560) CALCIUM (BEAKER) (test 8.5 mg/dL 8.4-10.2 skvy=066) EGFR (BEAKER) (test 99 mL/min/1.73 sq m ESTIMATED GFR IS NOT noom=0579) ACCURATE CREATININE CLEARANCE IN PREDICTING GLOMERULAR FILTRATION RATE. ESTIMATED GFR IS NOT APPLICABLE FOR DIALYSIS PATIENTS. Specimen slightly ictericHEPATIC FUNCTION [id number] 23:13:00 Test Item Value Reference Range Comments TOTAL PROTEIN (BEAKER) (test yztc=938) 5.3 gm/dL 6.0-8.3 ALBUMIN (BEAKER) (test kudh=2342) 2.7 g/dL 3.5-5.0 BILIRUBIN TOTAL (BEAKER) (test qzet=533) 3.5 mg/dL 0.2-1.2 BILIRUBIN DIRECT (BEAKER) (test jurv=198) 2.5 mg/dL 0.1-0.5 ALKALINE PHOSPHATASE (BEAKER) (test glzn=915) 274 U/L 40-150 AST (SGOT) (BEAKER) (test wgbo=111) 145 U/L 5-34 ALT (SGPT) (BEAKER) (test esbr=622) 213 U/L 6-55 Specimen slightly ictericLACTIC ACID, VENOUS, WHOLE [id number] 23:07:00 Test Item Value Reference Range Comments LACTATE BLOOD VENOUS (2) (BEAKER) (test 0.9 mmol/L 0.5-2.2 pprc=9307) Specimen slightly ictericPOCT-GLUCOSE [id number] 21:27:00 Test Item Value Reference Range Comments POC-GLUCOSE METER (BEAKER) 103 mg/dL 70-110 TESTED AT [address] (test cjdp=9508) [place] [id number] POCT-GLUCOSE [id number] 18:12:00 Test Item Value Reference Range Comments POC-GLUCOSE METER (BEAKER) 249 mg/dL 70-110 TESTED AT [address] (test bdfc=9628) [place] [id number] POCT-GLUCOSE [id number] 13:07:00 Test Item Value Reference Range Comments POC-GLUCOSE METER (BEAKER) 125 mg/dL 70-110 TESTED AT [address] (test qkmb=4259) [facility] [address] POCT-GLUCOSE [id number] 12:41:00 Test Item Value Reference Range Comments POC-GLUCOSE METER (BEAKER) 126 mg/dL 70-110 TESTED AT [address] (test laon=0172) [facility] [address] CBC W/PLT COUNT & AUTO [id number] 11:25:00 Test Item Value Reference Range Comments WHITE BLOOD CELL COUNT (BEAKER) (test iylh=578) 21.6 K/ L 3.5-10.5 RED BLOOD CELL COUNT (BEAKER) (test vlgq=852) 4.48 M/ L 4.63-6.08 HEMOGLOBIN (BEAKER) (test oxre=413) 11.3 GM/DL 13.7-17.5 HEMATOCRIT (BEAKER) (test pgkr=997) 35.4 % 40.1-51.0 MEAN CORPUSCULAR VOLUME (BEAKER) (test eaed=011) 79.0 fL 79.0-92.2 MEAN CORPUSCULAR HEMOGLOBIN (BEAKER) (test 25.2 pg 25.7-32.2 ykaq=505) MEAN CORPUSCULAR HEMOGLOBIN CONC (BEAKER) (test 31.9 GM/DL 32.3-36.5 wtwl=317) RED CELL DISTRIBUTION WIDTH (BEAKER) (test 16.7 % 11.6-14.4 dayu=455) PLATELET COUNT (BEAKER) (test mfhp=659) 160 K/CU MM 150-450 MEAN PLATELET VOLUME (BEAKER) (test qvcf=132) 9.8 fL 9.4-12.4 NUCLEATED RED BLOOD CELLS (BEAKER) (test 0 /100 WBC 0-0 wefc=992) (CELLAVISION MANUAL DIFF)2018-10-23 11:25:00 Test Item Value Reference Range Comments NEUTROPHILS - REL (CELLAVISION)(BEAKER) (test 83 % irrb=2629) LYMPHOCYTES - REL (CELLAVISION)(BEAKER) (test 1 % qcsz=5504) MONOCYTES - REL (CELLAVISION)(BEAKER) (test 3 % ulyx=2475) EOSINOPHILS - REL (CELLAVISION)(BEAKER) (test 1 % aqzg=2094) BASOPHILS - REL (CELLAVISION)(BEAKER) (test 1 % uxcg=1608) MYELOCYTES - REL (CELLAVISION)(BEAKER) (test 3 % 0-0 dlxa=7608) BANDS - REL (CELLAVISION)(BEAKER) (test 8 % 0-10 jhzo=9603) NEUTROPHILS - ABS (CELLAVISION)(BEAKER) (test 17.93 K/ul 1.78-5.38 tkwv=9856) LYMPHOCYTES - ABS (CELLAVISION)(BEAKER) (test 0.22 K/ul 1.32-3.57 oedd=4030) MONOCYTES - ABS (CELLAVISION)(BEAKER) (test 0.65 K/uL 0.30-0.82 gwgq=3313) EOSINOPHILS - ABS (CELLAVISION)(BEAKER) (test 0.22 K/uL 0.04-0.54 gglh=2940) BASOPHILS - ABS (CELLAVISION)(BEAKER) (test 0.22 K/uL 0.01-0.08 fecb=2167) MYELOCYTES-ABS (CELLAVISION)(BEAKER) (test 0.65 K/uL 0.00-0.00 jmbe=8786) BANDS - ABS (CELLAVISION)(BEAKER) (test 1.73 K/uL 0.00-0.80 lyzp=2053) TOTAL COUNTED (BEAKER) (test ysct=2735) 100 WBC MORPHOLOGY (BEAKER) (test cltr=120) Normal PLT MORPHOLOGY (BEAKER) (test zcsa=590) Normal POLYCHROMATOPHILLIC RBCS(BEAKER) (test shls=905) 1+ few HYPOCHROMIA (BEAKER) (test wued=937) 1+ few ANISOCYTOSIS (BEAKER) (test bpun=125) 1+ few MICROCYTES (BEAKER) (test puvf=828) 1+ few ARTIFACT (CELLAVISION)(BEAKER) (test dgit=4234) Present PLATELET CONCENTRATION (CELLAVISION)(BEAKER) Adequate (test vfzo=5623) Received comment: User comments: Slide comments:POCT-GLUCOSE [id number] 08: 10:00 Test Item Value Reference Range Comments POC-GLUCOSE METER (BEAKER) 138 mg/dL 70-110 TESTED AT [facility] [address] [facility] (test zpxd=2808) [place] [address] CALCIUM, [id number] 07:54:00 Test Item Value Reference Range Comments CALCIUM IONIZED (BEAKER) (test rmcr=109) 1.04 mmol/L 1.12-1.27 PH, BLOOD (BEAKER) (test aukr=2222) 7.41 [id number] 07:21:00 Test Item Value Reference Range Comments PHOSPHORUS (BEAKER) (test mgqb=375) 4.0 mg/dL 2.3-4.7 COMPREHENSIVE METABOLIC [id number] 07:21:00 Test Item Value Reference Range Comments TOTAL PROTEIN (BEAKER) 5.4 gm/dL 6.0-8.3 (test brcn=822) ALBUMIN (BEAKER) (test 2.7 g/dL 3.5-5.0 fvga=8016) ALKALINE PHOSPHATASE 213 U/L 40-150 (BEAKER) (test crtb=652) BILIRUBIN TOTAL (BEAKER) 3.8 mg/dL 0.2-1.2 (test wwmy=964) SODIUM (BEAKER) (test 132 meq/L 136-145 cmqj=857) POTASSIUM (BEAKER) (test 3.0 meq/L 3.5-5.1 dyqe=872) CHLORIDE (BEAKER) (test 96 meq/L 98-107 ezzp=979) CO2 (BEAKER) (test 26 meq/L 22-29 jbfg=042) BLOOD UREA NITROGEN 11 mg/dL 7-21 (BEAKER) (test ezxz=961) CREATININE (BEAKER) (test 0.77 mg/dL 0.57-1.25 gizg=513) GLUCOSE RANDOM (BEAKER) 113 mg/dL 70-105 (test hfbl=149) CALCIUM (BEAKER) (test 8.3 mg/dL 8.4-10.2 gmfe=006) AST (SGOT) (BEAKER) (test 115 U/L 5-34 kham=574) ALT (SGPT) (BEAKER) (test 185 U/L 6-55 xqsg=895) EGFR (BEAKER) (test 104 mL/min/1.73 sq ESTIMATED GFR IS NOT kaex=3730) m ACCURATE CREATININE CLEARANCE IN PREDICTING GLOMERULAR FILTRATION RATE. ESTIMATED GFR IS NOT APPLICABLE FOR DIALYSIS PATIENTS. Specimen slightly ictericPOCT-GLUCOSE [id number] 21:38:00 Test Item Value Reference Range Comments POC-GLUCOSE METER (BEAKER) 122 mg/dL 70-110 TESTED AT [address] (test tarz=0553) [facility] [address] POCT-GLUCOSE [id number] 17:29:00 Test Item Value Reference Range Comments POC-GLUCOSE METER (BEAKER) 123 mg/dL 70-110 TESTED AT [address] (test zyqz=7821) [facility] [address] CBC W/PLT COUNT & AUTO [id number] 15:12:00 Test Item Value Reference Range Comments WHITE BLOOD CELL COUNT (BEAKER) (test tanv=417) 20.6 K/ L 3.5-10.5 RED BLOOD CELL COUNT (BEAKER) (test vaka=968) 4.23 M/ L 4.63-6.08 HEMOGLOBIN (BEAKER) (test oqfa=073) 10.8 GM/DL 13.7-17.5 HEMATOCRIT (BEAKER) (test rzrw=898) 33.7 % 40.1-51.0 MEAN CORPUSCULAR VOLUME (BEAKER) (test miys=546) 79.7 fL 79.0-92.2 MEAN CORPUSCULAR HEMOGLOBIN (BEAKER) (test 25.5 pg 25.7-32.2 azlo=284) MEAN CORPUSCULAR HEMOGLOBIN CONC (BEAKER) (test 32.0 GM/DL 32.3-36.5 gidw=220) RED CELL DISTRIBUTION WIDTH (BEAKER) (test 16.6 % 11.6-14.4 wreh=422) PLATELET COUNT (BEAKER) (test bvui=580) 118 K/CU MM 150-450 MEAN PLATELET VOLUME (BEAKER) (test hvod=422) 9.9 fL 9.4-12.4 NUCLEATED RED BLOOD CELLS (BEAKER) (test 0 /100 WBC 0-0 oqzp=909) (CELLAVISION MANUAL DIFF)2018-10-22 15:12:00 Test Item Value Reference Range Comments NEUTROPHILS - REL (CELLAVISION)(BEAKER) (test 34 % ypbg=8352) LYMPHOCYTES - REL (CELLAVISION)(BEAKER) (test 3 % qthn=6486) MONOCYTES - REL (CELLAVISION)(BEAKER) (test 6 % fdmp=7797) EOSINOPHILS - REL (CELLAVISION)(BEAKER) (test 3 % xibw=5391) BASOPHILS - REL (CELLAVISION)(BEAKER) (test 1 % dbgx=9531) METAMYELOCYTES - REL (CELLAVISION)(BEAKER) (test 7 % 0-0 uzch=0096) MYELOCYTES - REL (CELLAVISION)(BEAKER) (test 5 % 0-0 blpo=8580) BANDS - REL (CELLAVISION)(BEAKER) (test 41 % 0-10 vzia=1245) NEUTROPHILS - ABS (CELLAVISION)(BEAKER) (test 7.00 K/ul 1.78-5.38 szzk=6851) LYMPHOCYTES - ABS (CELLAVISION)(BEAKER) (test 0.62 K/ul 1.32-3.57 irzh=5769) MONOCYTES - ABS (CELLAVISION)(BEAKER) (test 1.24 K/uL 0.30-0.82 hvwj=1073) EOSINOPHILS - ABS (CELLAVISION)(BEAKER) (test 0.62 K/uL 0.04-0.54 rjgi=0016) BASOPHILS - ABS (CELLAVISION)(BEAKER) (test 0.21 K/uL 0.01-0.08 jodk=7496) METAMYELOCYTES - ABS (CELLAVISION)(BEAKER) (test 1.44 K/uL 0.00-0.00 stzx=5068) MYELOCYTES-ABS (CELLAVISION)(BEAKER) (test 1.03 K/uL 0.00-0.00 qaoe=6178) BANDS - ABS (CELLAVISION)(BEAKER) (test 8.45 K/uL 0.00-0.80 xxgn=6680) TOTAL COUNTED (BEAKER) (test qmbj=1397) 100 MANUAL NRBC PER 100 CELLS (BEAKER) (test 1 /100 WBC 0-0 vhfi=4516) SMUDGE CELLS (BEAKER) (test swtt=3565) Present GIANT PLATELETS (BEAKER) (test apbl=201) Present POLYCHROMATOPHILLIC RBCS(BEAKER) (test ogxu=549) 2+ moderate HYPOCHROMIA (BEAKER) (test zbpp=456) 2+ moderate ANISOCYTOSIS (BEAKER) (test tolz=284) 1+ few MACROCYTES (BEAKER) (test pyae=976) 1+ few PLATELET CONCENTRATION (CELLAVISION)(BEAKER) Decreased (test qedl=9635) Received comment: User comments: Slide comments:POCT-GLUCOSE [id number] 12: 26:00 Test Item Value Reference Range Comments POC-GLUCOSE METER (BEAKER) 160 mg/dL 70-110 TESTED AT [address] (test syge=7907) [facility] [address] BLOOD [id number] 10:02:00 Test Item Value Reference Range Comments CULTURE (BEAKER) (test STAPHYLOCOCCUS From Aerobic And otll=6539) LUGDUNENSIS Anaerobic Bottles Staphylococcus lugdunensis Clindamycin (test code=10) Erythromycin (test code=4) Levofloxacin (test code=22) Nitrofurantoin (test code=23) Oxacillin (test code=14) Rifampin (test code=43) Tetracycline (test code=2) Trimethoprim + Sulfamethoxazole (test code=47) Vancomycin (test code=13) GRAM STAIN RESULT From aerobic and (BEAKER) (test sqyu=0971) anaerobic bottles: gram positive cocci in clusters POCT-GLUCOSE [id number] 09:03:00 Test Item Value Reference Range Comments POC-GLUCOSE METER (BEAKER) 201 mg/dL 70-110 TESTED AT [facility] [address] [facility] (test lpng=7914) [place] [address] [id number] 05:58:00 Test Item Value Reference Range Comments PHOSPHORUS (BEAKER) (test isqm=503) 3.2 mg/dL 2.3-4.7 COMPREHENSIVE METABOLIC [id number] 05:58:00 Test Item Value Reference Range Comments TOTAL PROTEIN (BEAKER) 5.1 gm/dL 6.0-8.3 (test ljln=120) ALBUMIN (BEAKER) (test 2.5 g/dL 3.5-5.0 xbxm=2183) ALKALINE PHOSPHATASE 185 U/L 40-150 (BEAKER) (test pzhp=613) BILIRUBIN TOTAL (BEAKER) 4.1 mg/dL 0.2-1.2 (test wrcj=903) SODIUM (BEAKER) (test 135 meq/L 136-145 tjuf=978) POTASSIUM (BEAKER) (test 3.3 meq/L 3.5-5.1 obol=157) CHLORIDE (BEAKER) (test 100 meq/L 98-107 nnrf=475) CO2 (BEAKER) (test 29 meq/L 22-29 tdwn=659) BLOOD UREA NITROGEN 13 mg/dL 7-21 (BEAKER) (test rtmd=443) CREATININE (BEAKER) (test 0.71 mg/dL 0.57-1.25 kkkc=810) GLUCOSE RANDOM (BEAKER) 160 mg/dL 70-105 (test bvzx=442) CALCIUM (BEAKER) (test 8.2 mg/dL 8.4-10.2 gjuv=092) AST (SGOT) (BEAKER) (test 82 U/L 5-34 skbn=113) ALT (SGPT) (BEAKER) (test 178 U/L 6-55 bpta=948) EGFR (BEAKER) (test 114 mL/min/1.73 sq ESTIMATED GFR IS NOT dttk=3501) m ACCURATE CREATININE CLEARANCE IN PREDICTING GLOMERULAR FILTRATION RATE. ESTIMATED GFR IS NOT APPLICABLE FOR DIALYSIS PATIENTS. Specimen slightly ictericCALCIUM, [id number] 05:42:00 Test Item Value Reference Range Comments CALCIUM IONIZED (BEAKER) (test drro=197) 1.05 mmol/L 1.12-1.27 PH, BLOOD (BEAKER) (test fiuo=2342) 7.42 POCT-GLUCOSE [id number] 22:18:00 Test Item Value Reference Range Comments POC-GLUCOSE METER (BEAKER) 173 mg/dL 70-110 TESTED AT [place] [id number] [facility] (test geto=0671) [facility] [address] POCT-GLUCOSE [id number] 18:22:00 Test Item Value Reference Range Comments POC-GLUCOSE METER (BEAKER) 190 mg/dL 70-110 TESTED AT [address] (test wmru=0263) [place] [id number] CBC W/PLT COUNT & AUTO [id number] 16:28:00 Test Item Value Reference Range Comments WHITE BLOOD CELL COUNT (BEAKER) (test tarq=858) 19.4 K/ L 3.5-10.5 RED BLOOD CELL COUNT (BEAKER) (test jymn=299) 4.35 M/ L 4.63-6.08 HEMOGLOBIN (BEAKER) (test eyry=905) 11.0 GM/DL 13.7-17.5 HEMATOCRIT (BEAKER) (test psij=323) 34.2 % 40.1-51.0 MEAN CORPUSCULAR VOLUME (BEAKER) (test sbbq=959) 78.6 fL 79.0-92.2 MEAN CORPUSCULAR HEMOGLOBIN (BEAKER) (test 25.3 pg 25.7-32.2 inze=889) MEAN CORPUSCULAR HEMOGLOBIN CONC (BEAKER) (test 32.2 GM/DL 32.3-36.5 ecxt=713) RED CELL DISTRIBUTION WIDTH (BEAKER) (test 16.4 % 11.6-14.4 ensp=620) PLATELET COUNT (BEAKER) (test ioma=047) 120 K/CU MM 150-450 MEAN PLATELET VOLUME (BEAKER) (test sxkw=852) 9.8 fL 9.4-12.4 NUCLEATED RED BLOOD CELLS (BEAKER) (test 1 /100 WBC 0-0 pdzn=176) (CELLAVISION MANUAL DIFF)2018-10-21 16:28:00 Test Item Value Reference Range Comments NEUTROPHILS - REL (CELLAVISION)(BEAKER) (test 64 % hart=7959) LYMPHOCYTES - REL (CELLAVISION)(BEAKER) (test 4 % zgeu=0936) MONOCYTES - REL (CELLAVISION)(BEAKER) (test 12 % icgv=0162) METAMYELOCYTES - REL (CELLAVISION)(BEAKER) (test 4 % 0-0 ftbz=5001) MYELOCYTES - REL (CELLAVISION)(BEAKER) (test 3 % 0-0 tqee=8119) BANDS - REL (CELLAVISION)(BEAKER) (test 14 % 0-10 qwsm=9495) NEUTROPHILS - ABS (CELLAVISION)(BEAKER) (test 12.42 K/ul 1.78-5.38 elga=9215) LYMPHOCYTES - ABS (CELLAVISION)(BEAKER) (test 0.78 K/ul 1.32-3.57 rkbs=9715) MONOCYTES - ABS (CELLAVISION)(BEAKER) (test 2.33 K/uL 0.30-0.82 vwhs=0594) METAMYELOCYTES - ABS (CELLAVISION)(BEAKER) (test 0.78 K/uL 0.00-0.00 ljfm=6305) MYELOCYTES-ABS (CELLAVISION)(BEAKER) (test 0.58 K/uL 0.00-0.00 qikj=2270) BANDS - ABS (CELLAVISION)(BEAKER) (test 2.72 K/uL 0.00-0.80 asgp=0547) TOTAL COUNTED (BEAKER) (test vzmu=5246) 100 MANUAL NRBC PER 100 CELLS (BEAKER) (test 2 /100 WBC 0-0 nddz=1308) WBC MORPHOLOGY (BEAKER) (test haco=829) Normal GIANT PLATELETS (BEAKER) (test ijux=158) Present POLYCHROMATOPHILLIC RBCS(BEAKER) (test dozk=126) 1+ few HYPOCHROMIA (BEAKER) (test rmbp=328) 2+ moderate ANISOCYTOSIS (BEAKER) (test qqjt=900) 1+ few POIKILOCYTES (BEAKER) (test yfpb=189) 1+ few TARGET CELLS (BEAKER) (test nybr=216) 1+ few ARTIFACT (CELLAVISION)(BEAKER) (test llrr=9482) Present PLATELET CONCENTRATION (CELLAVISION)(BEAKER) Decreased (test xrqh=6190) Received comment: User comments: Slide comments:COMPREHENSIVE METABOLIC [id number] 16:00:00 Test Item Value Reference Range Comments TOTAL PROTEIN (BEAKER) 5.1 gm/dL 6.0-8.3 (test cljt=153) ALBUMIN (BEAKER) (test 2.5 g/dL 3.5-5.0 nurw=9417) ALKALINE PHOSPHATASE 201 U/L 40-150 (BEAKER) (test hxhc=689) BILIRUBIN TOTAL (BEAKER) 5.1 mg/dL 0.2-1.2 (test jfgv=097) SODIUM (BEAKER) (test 136 meq/L 136-145 hlbu=637) POTASSIUM (BEAKER) (test 3.4 meq/L 3.5-5.1 lbfn=869) CHLORIDE (BEAKER) (test 101 meq/L 98-107 fjlg=873) CO2 (BEAKER) (test 29 meq/L 22-29 crfm=856) BLOOD UREA NITROGEN 15 mg/dL 7-21 (BEAKER) (test crli=133) CREATININE (BEAKER) (test 0.75 mg/dL 0.57-1.25 nrmq=946) GLUCOSE RANDOM (BEAKER) 185 mg/dL 70-105 (test gxju=661) CALCIUM (BEAKER) (test 7.8 mg/dL 8.4-10.2 xvle=453) AST (SGOT) (BEAKER) (test 108 U/L 5-34 hyhb=213) ALT (SGPT) (BEAKER) (test 207 U/L 6-55 evwj=400) EGFR (BEAKER) (test 107 mL/min/1.73 sq ESTIMATED GFR IS NOT tbrs=1961) m ACCURATE CREATININE CLEARANCE IN PREDICTING GLOMERULAR FILTRATION RATE. ESTIMATED GFR IS NOT APPLICABLE FOR DIALYSIS PATIENTS. Specimen slightly [id number] 14:36:00 Test Item Value Reference Range Comments PROCALCITONIN (BEAKER) (test eipe=3159) 0.73 ng/mL <0.05 SEPSIS RISK (ng/mL)Low: 0.05-0.50Intermediate: 0.51-2.00High: & gt;=2.01RAD, CHEST, 1 VIEW, NON [id number] 12:14:00Reason for exam:-> post right IJ central [...] silhouette is magnified by technique. Signed: David Bynum MDReport Verified Date/Time: 10/21/2018 12:14:09 Reading Location : [facility] Radiology Reading Room POCT-GLUCOSE [id number] 11:49:00 Test Item Value Reference Range Comments POC-GLUCOSE METER ([employer] 285 mg/dL 70-110 TESTED AT [address] (test tovn=6070) [place] [address] HEMOGLOBIN [id number] 11:48:00 Test Item Value Reference Range Comments HEMOGLOBIN A1C (BEAKER) (test vnyg=200) 6.0 % 4.3-6.1 [id number] 10:29:00 Test Item Value Reference Range Comments PHOSPHORUS (BEAKER) (test tqta=968) 1.0 mg/dL 2.3-4.7 VANCOMYCIN LEVEL, [id number] 10:21:00 Test Item Value Reference Range Comments VANCOMYCIN TROUGH (BEAKER) (test ubnb=197) 11.0 ug/mL 10.0-20.0 CALCIUM, [id number] 09:58:00 Test Item Value Reference Range Comments CALCIUM IONIZED (BEAKER) (test nhcx=834) 1.10 mmol/L 1.12-1.27 PH, BLOOD (BEAKER) (test xexk=1437) 7.47 POCT-GLUCOSE [id number] 08:30:00 Test Item Value Reference Range Comments POC-GLUCOSE METER ([employer] 281 mg/dL 70-110 TESTED AT [address] (test psug=1400) [place] [address] POCT-GLUCOSE [id number] 05:50:00 Test Item Value Reference Range Comments POC-GLUCOSE METER (BEAKER) 316 mg/dL 70-110 TESTED AT [address] (test uytc=4453) [place] [id number] RAD, ABDOMEN/KUB, 1 VIEW [id number] 01:32:00Reason for exam:->abdominal painShould this be performed [...] in further characterization if clinically appropriate. Signed: Patsy Shelton MDReport Verified Date/Time: 10/21/2018 01:32 :46 Reading Location: [facility] Radiology Reading Room POCT-GLUCOSE [id number] 23:33: 00 Test Item Value Reference Range Comments POC-GLUCOSE METER (BEAKER) 307 mg/dL 70-110 Will Repeat Test/TESTED AT (test xvul=4552) [place] [id number] POCT-GLUCOSE [id number] 18:09:00 Test Item Value Reference Range Comments POC-GLUCOSE METER (BEAKER) 286 mg/dL 70-110 TESTED AT [address] (test rwnb=1685) [place] [id number] POCT-GLUCOSE [id number] 12:02:00 Test Item Value Reference Range Comments POC-GLUCOSE METER (BEAKER) 338 mg/dL 70-110 Notified DELONTE MINAYA/TESTED AT [facility] (test dyld=9821) [address] [facility] [address] BLOOD CULTURE IDENTIFICATION [id number] 11:34:00 Test Item Value Reference Range Comments LISTERIA MONOCYTOGENES (test Not detected Not detected onye=4598240) STAPHYLOCOCCUS (test Detected Not detected First line therapy: pcil=4003051) Cefazolin, Nafcillin (Nafcillin preferred for Central Nervous System infection) Coagulase Negative Staphylococcus (CoNS) DETECTEDmecA NOT DETECTEDReference Range: Not Detected STAPHYLOCOCCUS AUREUS (test Not detected Not detected hmig=6328737) STREPTOCOCCUS (test Not detected Not detected dpdu=7916133) STREPTOCOCCUS AGALACTIAE Not detected Not detected (GROUP B) (test lvdj=9376088) STREPTOCOCCUS PNEUMONIAE Not detected Not detected (test pmhz=0495242) STREPTOCOCCUS PYOGENES (GROUP Not detected Not detected A) (test ygas=9798909) ACINETOBACTER BAUMANNII (test Not detected Not detected cqnk=6841911) HAEMOPHILUS INFLUENZAE (test Not detected Not detected swov=3767792) NEISSERIA MENINGITIDIS (test Not detected Not detected jokb=3062203) ENTEROBACTERIACEAE (test Not detected Not detected ymvt=5440513) ENTEROBACTER CLOACOE COMPLEX Not detected Not detected (test fcou=7057579) KLEBSIELLA OXYTOCA (test Not detected Not detected eqip=5448025) KLEBSIELLA PNEUMONIAE (test Not detected Not detected zzmr=5195) PROTEUS (test rmxa=6059103) Not detected Not detected SERRATIA MARCESCENS (test Not detected Not detected poji=7396835) TONY ALBICANS (test Not detected Not detected mnee=7591253) TONY GLABRATA (test Not detected Not detected prrg=8525250) TONY KRUSEI (test Not detected Not detected aqof=6453898) TONY PARAPSILOSIS (test Not detected Not detected mbpq=6486261) TONY TROPICALIS (test Not detected Not detected lkzq=0567299) ESCHERICHIA COLI (test Not detected Not detected tauj=3001579) METHICILLIN-RESISTANCE GENE Not detected Not detected (test pdpe=2869602) VANCOMYCIN-RESISTANCE GENE Not detected (test rgwn=5389643) CARBAPENEM-RESISTANCE GENE Not detected (test bgpd=7232238) ENTEROCOCCUS-BEAKER (test Not detected Not detected gbnj=3283493) PSEUDOMONAS AERUGINOSA-BEAKER Not detected Not detected (test jqoz=4014913) Other bacteria and resistance markers not targeted by this PCR panel cannot be excluded; therefore clinical correlation and follow up of serology, culture results, and other molecular studies is required. The results are not intended to be used as the sole means for clinical diagnosis or patient management decisions. This sample was tested at the [facility] using the Cyanto Blood Culture ID Panel. It is FDA cleared and has been verified and approved by the [facility] for clinical use. This laboratory is CLIA-certified and College ofAmerican Pathologists (CAP)-accredited to perform high complexity testing.RAD, CHEST, 1 VIEW, NON [id number] 11:17:00Reason for exam:->R/O ARDSShould this be performed at the bedside?->YesFINAL REPORT CLINICAL HISTORY: ARDS TECHNIQUE: 1 view of the chest. COMPARISON: 10/19/2018 IMPRESSION: Bilateral lower lung airspace opacities and small pleural effusions are unchanged. The cardiomediastinal silhouette is magnified by technique. Signed: David Bynum [facility] Verified Date/Time: 10/20/2018 11:17:29 Reading Location : [facility] Radiology Reading Room HEPATIC FUNCTION [id number] 10:45:00 Test Item Value Reference Range Comments TOTAL PROTEIN (BEAKER) (test ecuc=522) 5.3 gm/dL 6.0-8.3 ALBUMIN (BEAKER) (test zxlk=3527) 2.6 g/dL 3.5-5.0 BILIRUBIN TOTAL (BEAKER) (test jaqm=974) 8.5 mg/dL 0.2-1.2 BILIRUBIN DIRECT (BEAKER) (test wusg=213) 6.5 mg/dL 0.1-0.5 ALKALINE PHOSPHATASE (BEAKER) (test jyxf=983) 113 U/L 40-150 AST (SGOT) (BEAKER) (test iaxh=994) 170 U/L 5-34 ALT (SGPT) (BEAKER) (test gfey=776) 258 U/L 6-55 Specimen moderately [id number] 08:44:00 Test Item Value Reference Range Comments FIBRINOGEN LEVEL (BEAKER) (test lsut=845) 475 mg/dl 225-434 [id number] 08:44:00 Test Item Value Reference Range Comments PROTIME (BEAKER) (test ssgt=557) 16.2 seconds 11.7-14.7 INR (BEAKER) (test jbco=342) 1.3 <=5.9 PARTIAL THROMBOPLASTIN TIME (BEAKER) (test 29.7 seconds 22.5-36.0 ueij=508) RECOMMENDED COUMADIN/WARFARIN INR THERAPY RANGESSTANDARD DOSE: 2.0 - 3.0 Includes: PROPHYLAXIS forvenous thrombosis, systemic embolization; TREATMENT for venous thrombosis and/or pulmonary embolus.HIGH RISK: Target INR is 2.5-3.5 for patients with mechanical heart valves.POCT-GLUCOSE [id number] 08:39:00 Test Item Value Reference Range Comments POC-GLUCOSE METER (BEAKER) 284 mg/dL 70-110 TESTED AT [facility] [address] [facility] (test doyr=7753) [facility] [address] CBC W/PLT COUNT & AUTO [id number] 08:08:00 Test Item Value Reference Range Comments WHITE BLOOD CELL COUNT (BEAKER) (test xbeo=894) 20.6 K/ L 3.5-10.5 RED BLOOD CELL COUNT (BEAKER) (test gari=671) 4.42 M/ L 4.63-6.08 HEMOGLOBIN (BEAKER) (test mnwx=831) 11.3 GM/DL 13.7-17.5 HEMATOCRIT (BEAKER) (test scxd=602) 35.6 % 40.1-51.0 MEAN CORPUSCULAR VOLUME (BEAKER) (test kxxd=203) 80.5 fL 79.0-92.2 MEAN CORPUSCULAR HEMOGLOBIN (BEAKER) (test 25.6 pg 25.7-32.2 zvvv=763) MEAN CORPUSCULAR HEMOGLOBIN CONC (BEAKER) (test 31.7 GM/DL 32.3-36.5 yqoa=719) RED CELL DISTRIBUTION WIDTH (BEAKER) (test 16.7 % 11.6-14.4 sizu=271) PLATELET COUNT (BEAKER) (test rzxm=260) 86 K/CU MM 150-450 MEAN PLATELET VOLUME (BEAKER) (test dpzn=265) 10.2 fL 9.4-12.4 NUCLEATED RED BLOOD CELLS (BEAKER) (test 0 /100 WBC 0-0 uazm=295) (CELLAVISION MANUAL DIFF)2018-10-20 08:08:00 Test Item Value Reference Range Comments NEUTROPHILS - REL (CELLAVISION)(BEAKER) (test 57 % wviu=7527) LYMPHOCYTES - REL (CELLAVISION)(BEAKER) (test 4 % juoi=3554) MONOCYTES - REL (CELLAVISION)(BEAKER) (test 10 % nqyu=5852) METAMYELOCYTES - REL (CELLAVISION)(BEAKER) (test 3 % 0-0 srnq=1435) MYELOCYTES - REL (CELLAVISION)(BEAKER) (test 3 % 0-0 txbh=2587) BANDS - REL (CELLAVISION)(BEAKER) (test 23 % 0-10 qpmr=8741) NEUTROPHILS - ABS (CELLAVISION)(BEAKER) (test 11.74 K/ul 1.78-5.38 qttl=2765) LYMPHOCYTES - ABS (CELLAVISION)(BEAKER) (test 0.82 K/ul 1.32-3.57 klyg=1863) MONOCYTES - ABS (CELLAVISION)(BEAKER) (test 2.06 K/uL 0.30-0.82 dctr=9294) METAMYELOCYTES - ABS (CELLAVISION)(BEAKER) (test 0.62 K/uL 0.00-0.00 xjcx=9632) MYELOCYTES-ABS (CELLAVISION)(BEAKER) (test 0.62 K/uL 0.00-0.00 pboa=5202) BANDS - ABS (CELLAVISION)(BEAKER) (test 4.74 K/uL 0.00-0.80 tkfn=2633) TOTAL COUNTED (BEAKER) (test oidp=1784) 100 MANUAL NRBC PER 100 CELLS (BEAKER) (test 1 /100 WBC 0-0 adgp=6147) WBC MORPHOLOGY (BEAKER) (test kwbs=588) Normal PLT MORPHOLOGY (BEAKER) (test icbk=820) Normal POLYCHROMATOPHILLIC RBCS(BEAKER) (test jmyo=128) 1+ few ANISOCYTOSIS (BEAKER) (test mybs=685) 1+ few ARTIFACT (CELLAVISION)(BEAKER) (test yzyd=6270) Present PLATELET CONCENTRATION (CELLAVISION)(BEAKER) Decreased (test emhb=5460) Received comment: User comments: Slide comments:BASIC METABOLIC [id number] 03:59:00 Test Item Value Reference Range Comments SODIUM (BEAKER) (test 136 meq/L 136-145 vwku=706) POTASSIUM (BEAKER) (test 5.0 meq/L 3.5-5.1 ymif=666) CHLORIDE (BEAKER) (test 104 meq/L 98-107 llhw=677) CO2 (BEAKER) (test 28 meq/L 22-29 bgco=503) BLOOD UREA NITROGEN 12 mg/dL 7-21 (BEAKER) (test bmrt=776) CREATININE (BEAKER) (test 0.71 mg/dL 0.57-1.25 brug=783) GLUCOSE RANDOM (BEAKER) 262 mg/dL 70-105 (test kitf=540) CALCIUM (BEAKER) (test 7.6 mg/dL 8.4-10.2 stta=382) EGFR (BEAKER) (test 114 mL/min/1.73 sq m ESTIMATED GFR IS NOT koow=8087) ACCURATE CREATININE CLEARANCE IN PREDICTING GLOMERULAR FILTRATION RATE. ESTIMATED GFR IS NOT APPLICABLE FOR DIALYSIS PATIENTS. Specimen moderately [id number] 03:55:00 Test Item Value Reference Range Comments PHOSPHORUS (BEAKER) (test rjqo=436) 1.9 mg/dL 2.3-4.7 [id number] 03:55:00 Test Item Value Reference Range Comments MAGNESIUM (BEAKER) (test azmp=734) 2.2 mg/dL 1.6-2.6 POCT-GLUCOSE [id number] 17:53:00 Test Item Value Reference Range Comments POC-GLUCOSE METER (BEAKER) 236 mg/dL 70-110 TESTED AT [address] (test jivc=7645) [facility] [address] [place], [id number] 17:27:00INTRA OP IMAGINGReason for exam:-> CHOLANGITISFINAL REPORT ERCP Clinical History: CHOLANGITIS Impression: Intraoperative images are obtained. The radiologist is not present during the procedure. Images are presented for interpretation at the completion of the procedure. Please refer to the procedure report for more details. Number of images obtained: 5 Fluoroscopic time: 138.5 seconds Signed: Helen Coyle MDReport Verified Date/Time: 10/19/2018 17:27:06 Reading Location: [facility] B1 [id number] Consult Reading Room CBC W/PLT COUNT & AUTO [id number] 10: 41:00 Test Item Value Reference Range Comments WHITE BLOOD CELL COUNT (BEAKER) (test rcdb=752) 21.2 K/ L 3.5-10.5 RED BLOOD CELL COUNT (BEAKER) (test mfab=826) 5.07 M/ L 4.63-6.08 HEMOGLOBIN (BEAKER) (test hfoe=051) 12.9 GM/DL 13.7-17.5 HEMATOCRIT (BEAKER) (test txus=126) 41.0 % 40.1-51.0 MEAN CORPUSCULAR VOLUME (BEAKER) (test zxzt=985) 80.9 fL 79.0-92.2 MEAN CORPUSCULAR HEMOGLOBIN (BEAKER) (test 25.4 pg 25.7-32.2 kzjv=179) MEAN CORPUSCULAR HEMOGLOBIN CONC (BEAKER) (test 31.5 GM/DL 32.3-36.5 krqu=503) RED CELL DISTRIBUTION WIDTH (BEAKER) (test 16.4 % 11.6-14.4 olia=268) PLATELET COUNT (BEAKER) (test kgqv=028) 112 K/CU MM 150-450 MEAN PLATELET VOLUME (BEAKER) (test flji=265) 10.4 fL 9.4-12.4 NUCLEATED RED BLOOD CELLS (BEAKER) (test 0 /100 WBC 0-0 rcnn=400) (CELLAVISION MANUAL DIFF)2018-10-19 10:41:00 Test Item Value Reference Range Comments NEUTROPHILS - REL (CELLAVISION)(BEAKER) (test 32 % eqan=4988) LYMPHOCYTES - REL (CELLAVISION)(BEAKER) (test 3 % pvqf=9458) MONOCYTES - REL (CELLAVISION)(BEAKER) (test 9 % jjyw=7875) EOSINOPHILS - REL (CELLAVISION)(BEAKER) (test 1 % gdso=3552) METAMYELOCYTES - REL (CELLAVISION)(BEAKER) (test 1 % 0-0 valw=9244) MYELOCYTES - REL (CELLAVISION)(BEAKER) (test 1 % 0-0 vrfv=3285) BANDS - REL (CELLAVISION)(BEAKER) (test 53 % 0-10 lzlx=8433) NEUTROPHILS - ABS (CELLAVISION)(BEAKER) (test 6.78 K/ul 1.78-5.38 ifis=0791) LYMPHOCYTES - ABS (CELLAVISION)(BEAKER) (test 0.64 K/ul 1.32-3.57 daoo=2690) MONOCYTES - ABS (CELLAVISION)(BEAKER) (test 1.91 K/uL 0.30-0.82 xywv=6761) EOSINOPHILS - ABS (CELLAVISION)(BEAKER) (test 0.21 K/uL 0.04-0.54 znpw=0741) METAMYELOCYTES - ABS (CELLAVISION)(BEAKER) (test 0.21 K/uL 0.00-0.00 txxm=8488) MYELOCYTES-ABS (CELLAVISION)(BEAKER) (test 0.21 K/uL 0.00-0.00 jkjf=8163) BANDS - ABS (CELLAVISION)(BEAKER) (test 11.24 K/uL 0.00-0.80 sanw=6457) TOTAL COUNTED (BEAKER) (test nwnd=4299) 100 SMUDGE CELLS (BEAKER) (test nosv=0434) Present GIANT PLATELETS (BEAKER) (test ppjd=159) Present POLYCHROMATOPHILLIC RBCS(BEAKER) (test bswl=227) 1+ few POIKILOCYTES (BEAKER) (test spkt=613) 3+ many JULY CELLS (BEAKER) (test npng=107) 1+ few ARTIFACT (CELLAVISION)(BEAKER) (test ykcw=7104) Present PLATELET CONCENTRATION (CELLAVISION)(BEAKER) Decreased (test ffuk=5308) Received comment: User comments: Slide comments:[id number] 09:15:00 Test Item Value Reference Range Comments MAGNESIUM (BEAKER) (test hfcc=172) 2.3 mg/dL 1.6-2.6 BASIC METABOLIC [id number] 09:15:00 Test Item Value Reference Range Comments SODIUM (BEAKER) (test 130 meq/L 136-145 qzke=667) POTASSIUM (BEAKER) (test 5.0 meq/L 3.5-5.1 ozne=832) CHLORIDE (BEAKER) (test 101 meq/L 98-107 bfdm=659) CO2 (BEAKER) (test 23 meq/L 22-29 yxog=430) BLOOD UREA NITROGEN 14 mg/dL 7-21 (BEAKER) (test duua=051) CREATININE (BEAKER) (test 0.90 mg/dL 0.57-1.25 esoy=327) GLUCOSE RANDOM (BEAKER) 253 mg/dL 70-105 (test ddof=474) CALCIUM (BEAKER) (test 8.5 mg/dL 8.4-10.2 jxuw=791) EGFR (BEAKER) (test 87 mL/min/1.73 sq m ESTIMATED GFR IS NOT habn=8489) ACCURATE CREATININE CLEARANCE IN PREDICTING GLOMERULAR FILTRATION RATE. ESTIMATED GFR IS NOT APPLICABLE FOR DIALYSIS PATIENTS. Specimen moderately ictericVITAMIN B12 AND [id number] 07:48:00 Test Item Value Reference Range Comments VITAMIN B12 (BEAKER) (test ivdm=186) > pg/mL 213-816 FOLATE (BEAKER) (test ejnm=767) 13.1 ng/mL >=7.0 RAPID DRUG SCREEN, [id number] 07:15:00 Test Item Value Reference Range Comments BARBITURATE URINE (BEAKER) (test fhet=249) Negative Negative BENZODIAZEPINE SCREEN URINE (BEAKER) (test Negative Negative xjpy=958) COCAINE (METAB.) SCREEN (BEAKER) (test kxfi=4179) Negative Negative METHADONE SCREEN (BEAKER) (test hiww=3359) Negative Negative OPIATE SCREEN URINE (BEAKER) (test rtyt=723) Positive Negative CANNABINOID SCREEN URINE (BEAKER) (test pybz=605) Negative Negative AMPH/METHAMPH SCREEN (BEAKER) (test ltth=5866) Negative Negative PHENCYCLIDINE SCREEN URINE (BEAKER) (test payh=352) Negative Negative OXYCODONE SCREEN URINE (BEAKER) (test pvzw=6145) Negative Negative DRUG CUTOFF CONC.Cocaine 300 ng/mL Cannabinoid 50 ng/mL Benzodiazepine 200 ng/mLBarbiturate 200 ng/ mLPhencyclidine 25 ng/mLOpiate 300 ng/mLMethadone 300 ng/mLAmphetamine/ 1000 ng/mL MethamphetamineOxycodone 300 ng/mLThis assay provides an unconfirmed qualitative test result for the clinical management of patients in emergency situations. Chain of custody not maintained. Some rxtr-dom-zjvnfyg medications, as well as adulterants, may cause inaccurate results. Clinical correlation should be applied. A more comprehensive drug screen or confirmation of a detected drug may be performed upon request.CALCIUM, [id number] 06:36:00 Test Item Value Reference Range Comments CALCIUM IONIZED (BEAKER) (test iniz=778) 1.08 mmol/L 1.12-1.27 PH, BLOOD (BEAKER) (test yshr=1436) 7.29 RAD, CHEST, 1 VIEW, NON [id number] 06:34:00Reason for exam:-> wheezingShould this be performed [...] Superimposed infection may be excluded clinically. Signed: Nathaniel Gilbert MDReport Verified Date/Time: 10/19/2018 06:34:48 Reading Location: [address] Neuro Reading Room BASIC METABOLIC [id number] 04:26:00 Test Item Value Reference Range Comments SODIUM (BEAKER) (test 128 meq/L 136-145 qhxa=121) POTASSIUM (BEAKER) (test 5.8 meq/L 3.5-5.1 xdue=313) CHLORIDE (BEAKER) (test 101 meq/L 98-107 dyqh=919) CO2 (BEAKER) (test 24 meq/L 22-29 utsz=154) BLOOD UREA NITROGEN 14 mg/dL 7-21 (BEAKER) (test mmcy=725) CREATININE (BEAKER) (test 0.98 mg/dL 0.57-1.25 sdpi=134) GLUCOSE RANDOM (BEAKER) 278 mg/dL 70-105 (test kclk=266) CALCIUM (BEAKER) (test 7.4 mg/dL 8.4-10.2 hbmm=919) EGFR (BEAKER) (test 79 mL/min/1.73 sq m ESTIMATED GFR IS NOT zyel=0542) ACCURATE CREATININE CLEARANCE IN PREDICTING GLOMERULAR FILTRATION RATE. ESTIMATED GFR IS NOT APPLICABLE FOR DIALYSIS PATIENTS. Specimen slightly ictericHEPATIC FUNCTION [id number] 04:24:00 Test Item Value Reference Range Comments TOTAL PROTEIN (BEAKER) (test kvbt=872) 4.9 gm/dL 6.0-8.3 ALBUMIN (BEAKER) (test qath=8346) 2.5 g/dL 3.5-5.0 BILIRUBIN TOTAL (BEAKER) (test ojiq=409) 7.3 mg/dL 0.2-1.2 BILIRUBIN DIRECT (BEAKER) (test cdbz=092) 5.4 mg/dL 0.1-0.5 ALKALINE PHOSPHATASE (BEAKER) (test pjsq=518) 85 U/L 40-150 AST (SGOT) (BEAKER) (test kxpx=133) 144 U/L 5-34 ALT (SGPT) (BEAKER) (test xrcq=414) 315 U/L 6-55 Specimen slightly ictericLACTIC ACID, VENOUS, WHOLE [id number] 04:14:00 Test Item Value Reference Range Comments LACTATE BLOOD VENOUS (2) (BEAKER) (test 1.7 mmol/L 0.5-2.2 jtzn=2031) Specimen slightly ictericCT, BRAIN, WITHOUT [id number] 01:33:00FINAL REPORT CT, BRAIN, WITHOUT CONTRAST CLINICAL [...] examination is recommended for further characterization. Signed: Natahniel Gilbert Verified Date/Time: 2018 01:33:34 Reading Location: [facility] C013V Neuro Reading Room LACTIC ACID, VENOUS, WHOLE [id number] 00:22:00 Test Item Value Reference Range Comments LACTATE BLOOD VENOUS (2) (BEAKER) (test 1.8 mmol/L 0.5-2.2 moan=9662) Specimen slightly ictericBASIC METABOLIC [id number] 00:05:00 Test Item Value Reference Range Comments SODIUM (BEAKER) (test 129 meq/L 136-145 lhpd=129) POTASSIUM (BEAKER) (test 5.6 meq/L 3.5-5.1 vrjq=704) CHLORIDE (BEAKER) (test 103 meq/L 98-107 kkzq=667) CO2 (BEAKER) (test 22 meq/L 22-29 fqtt=371) BLOOD UREA NITROGEN 16 mg/dL 7-21 (BEAKER) (test qqky=680) CREATININE (BEAKER) (test 0.95 mg/dL 0.57-1.25 zpft=872) GLUCOSE RANDOM (BEAKER) 262 mg/dL 70-105 (test hvym=812) CALCIUM (BEAKER) (test 6.9 mg/dL 8.4-10.2 zbia=729) EGFR (BEAKER) (test 81 mL/min/1.73 sq m ESTIMATED GFR IS NOT zmnm=8210) ACCURATE CREATININE CLEARANCE IN PREDICTING GLOMERULAR FILTRATION RATE. ESTIMATED GFR IS NOT APPLICABLE FOR DIALYSIS PATIENTS. Specimen moderately ictericTSH/FREE T4 IF [id number] 22:56:00 Test Item Value Reference Range Comments THYROID STIMULATING HORMONE (BEAKER) (test 1.61 uIU/mL 0.35-4.94 qnex=137) PROTHROMBIN TIME/[id number] 22:50:00 Test Item Value Reference Range Comments PROTIME (BEAKER) (test zvhn=087) 16.2 seconds 11.7-14.7 INR (BEAKER) (test pxih=321) 1.3 <=5.9 RECOMMENDED COUMADIN/WARFARIN INR THERAPY RANGESSTANDARD DOSE: 2.0 - 3.0 Includes: PROPHYLAXIS forvenous thrombosis, systemic embolization; TREATMENT for venous thrombosis and/or pulmonary embolus.HIGH RISK: Target INR is 2.5-3.5 for patients with mechanical heart valves.BLOOD GAS, [id number] 22:45:00 Test Item Value Reference Range Comments PH ARTERIAL (BEAKER) (test vlou=962) 7.29 7.35-7.45 PCO2 ARTERIAL (BEAKER) (test ausa=132) 49 mmHg 35-45 PO2 ARTERIAL (BEAKER) (test ielv=938) 81 mmHg 80-90 O2 SATURATION ARTERIAL (BEAKER) (test mqjd=589) 94.3 % 96.0-97.0 HCO3 ARTERIAL (BEAKER) (test lgjk=024) 23 mmol/L 21-29 BASE EXCESS ARTERIAL (BEAKER) (test ooza=613) -3.7 mmol/L -2.0-3.0 PATIENT TEMPERATURE (BEAKER) (test mdtp=1077) 37.4 C FIO2 (BEAKER) (test cnpq=0555) 38.0 % BASIC METABOLIC [id number] 22:40:00 Test Item Value Reference Range Comments SODIUM (BEAKER) (test 127 meq/L 136-145 txxj=308) POTASSIUM (BEAKER) (test 5.6 meq/L 3.5-5.1 hikv=625) CHLORIDE (BEAKER) (test 98 meq/L 98-107 wdfi=083) CO2 (BEAKER) (test 23 meq/L 22-29 avhf=177) BLOOD UREA NITROGEN 16 mg/dL 7-21 (BEAKER) (test toka=118) CREATININE (BEAKER) (test 1.01 mg/dL 0.57-1.25 dsjp=307) GLUCOSE RANDOM (BEAKER) 282 mg/dL 70-105 (test fgix=811) CALCIUM (BEAKER) (test 7.3 mg/dL 8.4-10.2 cvhu=631) EGFR (BEAKER) (test 76 mL/min/1.73 sq m ESTIMATED GFR IS NOT cmwj=9746) ACCURATE CREATININE CLEARANCE IN PREDICTING GLOMERULAR FILTRATION RATE. ESTIMATED GFR IS NOT APPLICABLE FOR DIALYSIS PATIENTS. Specimen moderately [id number] 22:38:00 Test Item Value Reference Range Comments PHOSPHORUS (BEAKER) (test toaf=309) 2.0 mg/dL 2.3-4.7 [id number] 22:38:00 Test Item Value Reference Range Comments MAGNESIUM (BEAKER) (test tagv=683) 2.1 mg/dL 1.6-2.6 HEPATIC FUNCTION [id number] 22:38:00 Test Item Value Reference Range Comments TOTAL PROTEIN (BEAKER) (test jxbw=414) 5.1 gm/dL 6.0-8.3 ALBUMIN (BEAKER) (test qcmu=5106) 2.7 g/dL 3.5-5.0 BILIRUBIN TOTAL (BEAKER) (test jrsm=706) 7.5 mg/dL 0.2-1.2 BILIRUBIN DIRECT (BEAKER) (test ajgr=989) 5.5 mg/dL 0.1-0.5 ALKALINE PHOSPHATASE (BEAKER) (test modz=069) 91 U/L 40-150 AST (SGOT) (BEAKER) (test pzhl=852) 138 U/L 5-34 ALT (SGPT) (BEAKER) (test vngb=313) 318 U/L 6-55 Specimen moderately [id number] 22:38:00 Test Item Value Reference Range Comments LIPASE (BEAKER) (test lmam=475) 221 U/L 8-78 Specimen moderately ictericLACTIC ACID, VENOUS, WHOLE [id number] 22:32:00 Test Item Value Reference Range Comments LACTATE BLOOD VENOUS (2) (BEAKER) (test 2.1 mmol/L 0.5-2.2 rdqc=2110) Specimen moderately icteric
--- OUTSIDE RECORDS SUMMARY | 2019-05-16 12:57 | XMS REPORT | Summary of Care ---
:1960 Author Organization [facility] [place] [address] Care Team Providers Name Role Phone System, Pcp Not In Primary Care Provider Reason for Visit Reason Comments Post-op Follow-up Encounter Details Date Type Department Care Team Description 05/10/2019 Office Visit [facility] Sanket Starr MD Post-op Follow-up Medicine General Surgery [address] [facility] 7th Floor 7th Floor, [address] [place] [address] [place] [address] Allergies Active Allergy Reactions Severity Noted Date Comments Codeine Itching 12/06/2015 documented as of this encounter (statuses as of 05/10/2019) Medications Medication Sig Dispensed Refills Start Date End Date Status levothyroxine Take 100 mcg by 0 Active (SYNTHROID) 100 MCG mouth daily. tablet bisoprolol-hydrochloroth Take 1 Tab by 0 Active iazide (ZIAC) 5-6.25 MG mouth daily. per tablet documented as of this encounter (statuses as of 05/10/2019) Active Problems Problem Noted Date Spell of altered cognition 06/02/2016 Insomnia 06/02/2016 documented as of this encounter (statuses as of 05/10/2019) Social History Tobacco Use Types Packs/Day Years Used Date Never Smoker Smokeless Tobacco: Never Used Alcohol Use Drinks/Week oz/Week Comments Yes rare Sex Assigned at Date Recorded Not on file Job Start Date Occupation Industry Not on file Not on file Not on file Travel History Travel Start Travel End No recent travel history available. documented as of this encounter Last Filed Vital Signs Vital Sign Reading Time Taken Comments Blood Pressure 121/78 05/10/2019 1:57 PM CDT Pulse 69 05/10/2019 1:57 PM CDT Temperature 36.8 C (98.2 F) 05/10/2019 1:57 PM CDT Respiratory Rate 16 05/10/2019 1:57 PM CDT Oxygen Saturation - - Inhaled Oxygen Concentration - - Weight 76.5 kg (168 lb 9.6 oz) 05/10/2019 1:57 PM CDT Height 175.3 cm (5' 9") 05/10/2019 1:57 PM CDT Body Mass Index 24.9 05/10/2019 1:57 PM CDT documented in this encounter Progress Notes Sanket Starr MD - 05/10/2019 3:15 PM CDT POST OPERATIVE VISIT REFERRING PHYSICIANS: Hospital Consult REASON FOR CONSULTATION: POSTOPERATIVE DIAGNOSES: Perihepatic and intraabdominal abscess, and multiloculated liver abscesses. PROCEDURES: 04/09/19 Exploratory laparotomy, drainage of abdominal abscess, and I and D of intrahepatic abscesses using intraoperative ultrasound. History of Presenting Illness: [facility] Hospitalist Group Team 2 Discharge Summary Answering service # [phone] PATIENT NAME: Kristopher Koehler : 1960 AGE: 58 y.o. PRIMARY CARE PHYSICIAN: Pcp, No ADMITTING PHYSICIAN: Helio Valentin MD DISCHARGE PHYSICIAN: Ann Friedman MD ADMISSION DATE: 04/03/2019 DISCHARGE DATE: 04/25/2019 DISCHARGE DIAGNOSES: Principal Problem: Intra-abdominal abscess (HCC) Active Problems: Sepsis (HCC) ETOH abuse RUQ pain Recurrent pancreatitis Hypoxia Hepatic abscess Pancreatic pseudocyst Transaminitis Hyponatremia Anemia of chronic disease IDDM (insulin dependent diabetes mellitus) (HCC) Hyperglycemia Hypothyroidism Leukocytosis Acute abdominal pain Acute blood loss anemia HOSPITAL COURSE: Mr. Koehler is a 58 yo man with history of HTN, DM2, TBI, hypothyroidism, alcohol use disorder, recurrent pancreatitis s/p multiple ERCP with sphincerotomy/stent placement (09/2018, 12/2018), who presentedto OSH [facility] with abdominal pain. Found to be septic with CT scan showing hepatic abscess, free peritoneal air, and pancreatic fluid collection. General surgery, GI, and ID were all consulted.IR was consulted for CT guided drain catheter placement into the liver , which happened on 04/03/2019.He was found to have E coli bacteremia and E coli and enterococcus growing in the hepatic abscess. ID started him on unasyn. GI performed ERCP to remove previous stent on 04/07. Patient then taken to ORfor exploratory laparotomy, I&D of intrahepatic abscess, and placement of 2 intra-abdominal drains on 04/09 for abdominal distension and pain. After these procedures, ID changed antibiotics to Zosyn, and patient appeared to stabilize. On 04/13, patient developed hypoxia. Showed atelectasis and right sided pleural effusion. Also showedhepatic drain outside of the liver. The drain was replaced 04/15, and the culture again grew E coli and Enterococcus. Also showed left paracolic gutter collection, so left sided abdominal drain placed on 04/16 (high WBC count but negative cultures). Patient was started on unasyn 3 g q6h and ceftriaxone 2 g q12h. Of note, the left sided drain fell out on 04/22 and was replaced by IR that day. Patient continued to have persistent leukocytosis and low grade fevers. General surgery/ID thought of other sources including gallbladder and R sided pleural effusion. HIDA scan of gallbladder was normal. Pulmonary was consulted for thoracentesis of loculated right sided pleural effusion, and IR performed thora on 04/21. WBC high but cultures negative of right sided pleural fluid. On 04/25 patient was deemed clinically and hemodynamically stable and ready for discharge by primary and consult teams. He was set up with infusion center and home health for IV unasyn 3 g q6h and ceftriaxone 2 g q12h through PICC line. He will continue IV abx for 7 days post discharge. He will follow up with ID and general surgery after discharge. DISPOSITION: home CONDITION: good FOLLOW-UP: Sanket Starr MD [address] [address] Follow up in 1 week(s) please call the above number if you do not hear back from Dr. Starr's office for a follow up appointment Korin Avila MD [address] [facility] [address] [facility] [address] Follow up in 1 week(s) please call the above number if you do not hear from infectious disease about follow up appointment I spent >30 minutes discussing the plan of care with the patient, patient education regarding medication compliance, exam, and coordination of discharge Electronically Signed by: Ann Friedman MD PAST MEDICAL HISTORY Past Medical History: Diagnosis Date Encephalopathy 10/2015 ETOH abuse Hepatic abscess 03/2019 Hypertension Hypothyroidism IDDM (insulin dependent diabetes mellitus) Insomnia ALMA (obstructive sleep apnea) Pancreatic pseudocyst 03/2019 Pancreatitis Seizure disorder Sepsis Walking corpse syndrome PAST SURGICAL HISTORY Past Surgical History: Procedure Laterality Date HX ABDOMINAL EXPLORATION SURGERY 04/09/2019 Exploratory laparotomy, drainage of abdominal abscess, and I and D of intrahepatic abscesses using intraoperative ultrasound. HX ANTERIOR CRUCIATE LIGAMENT REPAIR right acl HX BUNIONECTOMY HX ERCP 04/07/19, 12/22/18, 10/19/18 HX HERNIA REPAIR 4 HX WRIST SURGERY MEDICATIONS Current Outpatient Medications Medication Sig Dispense Refill bisoprolol-hydrochlorothiazide (ZIAC) 5-6.25 MG per tablet Take 1 Tab by mouth daily. levothyroxine (SYNTHROID) 100 MCG tablet Take 100 mcg by mouth daily. No current facility-administered medications for this visit. ALLERGIES Allergies Allergen Reactions Codeine Itching FAMILY HISTORY Family History Problem Relation Name Age of Onset Breast Cancer Mother Diabetes Maternal Grandmother SOCIAL HISTORY Social History Socioeconomic History Marital status: Single Spouse name: Not on file Number of children: Not on file Years of education: Not on file Highest education level: Not on file Occupational History Not on file Social Needs Financial resource strain: Not on file Food insecurity: Worry: Not on file Inability: Not on file Transportation needs: Medical: Not on file Non-medical: Not on file Tobacco Use Smoking status: Never Smoker Smokeless tobacco: Never Used Substance and Sexual Activity Alcohol use: Yes Comment: rare Drug use: No Sexual activity: Never Lifestyle Physical activity: Days per week: Not on file Minutes per session: Not on file Stress: Not on file Relationships Social connections: Talks on phone: Not on file Gets together: Not on file Attends restoration service: Not on file Active member of club or organization: Not on file Attends meetings of clubs or organizations: Not on file Relationship status: Not on file Intimate partner violence: Fear of current or ex partner: Not on file Emotionally abused: Not on file Physically abused: Not on file Forced sexual activity: Not on file Other Topics Concerns: Not on file Social History Narrative Not on file REVIEW OF SYSTEMS Constitutional: Negative for activity change, appetite change and fatigue. Negative for fever, chills, diaphoresis and unexpected weight change. HENT: Negative for hearing loss, ear pain, nosebleeds, congestion, sore throat, facial swelling, rhinorrhea, sneezing, drooling, mouth sores, trouble swallowing , neck pain, neck stiffness, dental problem, voice change, postnasal drip, sinus pressure, tinnitus and ear discharge. Eyes: Negative for discharge and itching. Negative for photophobia, pain, redness and visual disturbance. Respiratory: Negative for apnea, cough, choking, chest tightness, shortness of breath, wheezing and stridor. Cardiovascular: Negative for chest pain, palpitations and leg swelling. Gastrointestinal: Negative for nausea, vomiting, abdominal pain, diarrhea, constipation, blood in stool, abdominal distention, anal bleeding and rectal pain. Genitourinary: Negative for urgency and frequency. Negative for dysuria, hematuria, flank pain, decreased urine volume, discharge, penile swelling, scrotal swelling, enuresis, difficulty urinating, genital sores, penile pain and testicular pain. Musculoskeletal: Negative for pallor, rash and wound. Neurological: Negative for weakness. Negative for dizziness, tremors, seizures, syncope, facial asymmetry, speech difficulty, light-headedness, numbness and headaches. Hematological: Negative for adenopathy. Does not bruise/bleed easily. Psychiatric/Behavioral: Negative for suicidal ideas, hallucinations, behavioral problems, confusion,self-injury, dysphoric mood, decreased concentration and agitation. The patient is not nervous/anxious and is not hyperactive. VITAL SIGNS There were no vitals filed for this visit. PHYSICAL EXAM General: alert, cooperative, appears stated age Skin: normal Eyes: conjunctivae/corneas clear. PERRL. Mouth: MM moist Lymph Nodes: Cervical, supraclavicular, and axillary nodes normal. Lungs: clear to auscultation bilaterally Heart: regular rate and rhythm, S1, S2 normal, no murmur, click, rub or gallop Abdomen: soft, non-tender; bowel sounds normal; no masses, no organomegaly CVA: No CVA tenderness Genitourinary: Deferred Extremities: extremities normal, atraumatic, no cyanosis or edema Neurologic: Grossly intact Psychiatric: normal mood, behavior, speech, dress, and thought processes PATHOLOGY None ASSESSMENT/PLAN 05/10/19 Patient has [address] and a PICC line. Doing well. Eating well without nausea or vomiting. Denies any fever or chills. Not on antibiotics. Denies any abdominal pain. Minimal biliary drainage from the RUQ drain. More cloudy seroanguinous drainage from the LUQ drain. The other JEREMY drain in the RUQ without any significant drainage. I removed the JEREMY drain and kept the other 2 pigtail drains. I reviewed the most recent CT which shoed improvement of the liver abscess with residual fluid collection in the LUQ where the drain ends in.Will continue same management. RTC in 2 weeks for further assessment. documented in this encounter Plan of Treatment Date Type Specialty Care Team Description 05/24/2019 Office Visit General Surgery Sanket Starr MD [address] [place] [address] Name Type Priority Associated Diagnoses Order Schedule CBC W/AUTO DIFF WITH PLATELETS Lab Routine Liver abscess Ordered: 2018 HEPATIC FUNCTION PANEL Lab Routine Liver abscess Ordered: 05/10/2019 Health Maintenance Due Date Last Done Comments COLON CANCER SCREENING: COLONOSCOPY 1960 TETANUS SHOT (ADULT) 1975 BMI FOLLOW UP PLAN 1978 HEPATITIS C SCREENING 1978 HIV SCREENING 1978 FLU VACCINE > 6 MONTHS 04/21/2019 documented as of this encounter Results Not on filedocumented in this encounter Visit Diagnoses Diagnosis Liver abscess - Primary Abscess of liver documented in this encounter Insurance Payer Benefit Plan / Subscriber ID Effective Dates Phone Address Type Group BLUE hiogi OUT OF STATE xxxxxxxxxxxx 2017-Present [address] [facility] [address] (Work) documented as of this encounter
[2019-05-16] MEDS ORDERED: HYDROMORPHONE HCL 0.5 MG/0.5 ML INJ ONE ×2 (13:21→15:10)
[2019-05-16] MEDS ORDERED: ONDANSETRON 4 MG/2 ML VIAL ONE (13:21)
[2019-05-16] MEDS ORDERED: NA CHLORIDE 0.9% 1,000 ML ONE (13:21)
[2019-05-16] MEDS ORDERED: FAMOTIDINE 20 MG/2 ML VIAL IV ONE (13:22)
[2019-05-16 13:53] LABS: Absolute Lymphocytes (CBC) 1.3 K/uL (0.7-4.9); Basophils % 0.7 % (0-1.3); Hematocrit 29.6 % (39.6-49.0); Lymphocytes % 15.2 % (15.3-44.8); MPV 7.7 fL (7.6-11.3); RBC Red Blood Cell Count 4.14 M/uL (4.33-5.43)
[2019-05-16 13:54] LABS: Protime INR 1.28
[2019-05-16 14:12] LABS: ALT/SGPT 17 U/L (12-78); AST/SGOT 10 U/L (15-37); Albumin 2.2 g/dL (3.4-5.0); Alkaline Phosphatase 84 U/L (45-117); BUN Blood Urea Nitrogen 15 mg/dL (7-18); Bicarbonate 20 mmol/L (21-32); Bilirubin Direct 0.1 mg/dL (0-0.2); Bilirubin Total 0.4 mg/dL (0.2-1.0); Glucose Level 176 mg/dL (74-106); Lipase 28 U/L (73-393); Magnesium 1.2 mg/dL (1.8-2.4); NT PRO-BNP 65 pg/mL (<125); Protein, Total 5.4 g/dL (6.4-8.2); Sodium Level 143 mmol/L (136-145); Troponin (Emerg Dept Use Only) < 0.02 ng/mL (0.0-0.045)
[2019-05-16 14:15] LABS: Potassium 2.7 mmol/L (3.5-5.1)
--- NOTE | 2019-05-16 14:33 | RAD REPORT ---
EXAM DESCRIPTION: RAD - Chest Single View - 05/16/2019 2:22 pm CLINICAL HISTORY: Cough;Abdominal distention Chest pain. COMPARISON: Chest Single View dated 10/16/2018; Abdomen 1 View (KUB) dated 02/26/2017; Chest Single Vie w dated 02/08/2016; Chest Single View dated 02/05/2016 FINDINGS: Portable technique limits examination quality. Mild linear subsegmental atelectasis is present both lung bases. The lungs are otherwise clear. The h eart is mildly prominent in size. Left-sided PICC line has tip in the SVC.
--- NOTE | 2019-05-16 14:40 | ER ---
Nurse's Notes [facility] Name: Kristopher Koehler Age: 58 yrs Sex: Male : 1960 Arrival Date: 05/16/2019 Time: 12:46 Bed 2 Private MD: Diagnosis: Abdominal tenderness;Anorexia;Nausea;Hypokalemia;Weakness;Hypocalcemia;Other intestinal obstruction-SMALL BOWEL OBSTRUCTION Presentation: 05/16 13:11 Presenting complaint: Patient states: hx of pancreatitis, had stent placed in liver X 1 iw month ago, stent was pulled bc it was clogged, has had intermittent epigastric pain since then, worse over past two days, c/o burning, acidic pain, can't eat, not vomiting. Transition of care: patient was not received from another setting of care. Onset of symptoms was May 14, 2019. Risk Assessment: Do you want to hurt yourself or someone else? Patient reports no desire to harm self or others. Initial Sepsis Screen: Does the patient meet any 2 criteria? No. Patient's initial sepsis screen is negative. Does the patient have a suspected source of infection? No. Patient's initial sepsis screen is negative. Care prior to arrival: None. 13:11 Method Of Arrival: Ambulatory iw 13:11 Acuity: RADHA 3 iw Historical: - Allergies: 13:13 Codeine; iw - Home Meds: 13:19 Ziac 5-6.25 mg Oral tab [Active]; levothyroxine 100 mcg tab 1 tab once daily [Active]; tw2 Keppra 1,000 mg Oral tab 1 tab every 12 hours [Active]; - PMHx: 13:13 Hypertension; Hypothyroidism; Insulin Resistance; Raynaud's syndrome; iw - PSHx: 13:13 stent in liver; iw - Immunization history:: Adult Immunizations. - Social history:: Smoking status: Patient/guardian denies using tobacco. - Ebola Screening: : Patient negative for fever greater than or equal to 101.5 degrees Fahrenheit, and additional compatible Ebola Virus Disease symptoms Patient denies exposure to infectious person Patient denies travel to an Ebola-affected area in the 21 days before illness onset No symptoms or risks identified at this time. - Family history:: not pertinent. Screenin:18 Abuse screen: Denies threats or abuse. Nutritional screening: No deficits noted. tw2 Tuberculosis screening: No symptoms or risk factors identified. Fall Risk None identified. Assessment: 13:44 General: Appears in no apparent distress. Behavior is calm, cooperative, appropriate tw2 for age. Pain: Complains of pain in abdomen. Neuro: Level of Consciousness is awake, alert, obeys commands, Oriented to person, place, time, situation. Cardiovascular: Heart tones S1 S2 Patient's skin is warm and dry. Respiratory: Airway is patent Respiratory effort is even, unlabored, Respiratory pattern is regular, symmetrical, Breath sounds are clear bilaterally. GI: in place, to gravity drainage. Site clean. drains noted to Right upper abdomen with greenish tinged, small amount of drainage noted, and Left lower abdomen with serosanguinous fluid noted approximately 30 ml Bowel sounds present X 4 quads. Abd is soft X 4 quads. : No signs and/or symptoms were reported regarding the genitourinary system. EENT: No signs and/or symptoms were reported regarding the EENT system. Derm: No signs and/or symptoms reported regarding the dermatologic system. Musculoskeletal: Range of motion: intact in all extremities. 14:01 Reassessment: Patient appears in no apparent distress at this time. Patient and/or tw2 family updated on plan of care and expected duration. Pain level reassessed. Patient is alert, oriented x 3, equal unlabored respirations, skin warm/dry/pink. Patient states feeling better. Patient states symptoms have improved. 15:00 Reassessment: Patient appears in no apparent distress at this time. Patient and/or tw2 family updated on plan of care and expected duration. Pain level reassessed. Patient is alert, oriented x 3, equal unlabored respirations, skin warm/dry/pink. 16:19 Reassessment: Patient appears in no apparent distress at this time. Patient and/or tw2 family updated on plan of care and expected duration. Pain level reassessed. Patient is alert, oriented x 3, equal unlabored respirations, skin warm/dry/pink. Patient states feeling better. Patient states symptoms have improved. 17:12 Reassessment: Patient appears in no apparent distress at this time. Patient and/or tw2 family updated on plan of care and expected duration. Pain level reassessed. Patient is alert, oriented x 3, equal unlabored respirations, skin warm/dry/pink. 17:12 Reassessment: NG tube advanced per order of ERP. sg 17:24 Reassessment: Patient appears in no apparent distress at this time. Patient and/or tw2 family updated on plan of care and expected duration. Pain level reassessed. Patient is alert, oriented x 3, equal unlabored respirations, skin warm/dry/pink. Vital Signs: 13:13 BP 111 / 90; Pulse 98; Resp 16; Pulse Ox 98% on R/A; Weight 80.74 kg; Height 5 ft. 9 iw in. (175.26 cm); Pain 10/10; 13:52 Temp 97.6(O); tw2 14:01 BP 120 / 85; Pulse 80; Resp 17; Pulse Ox 100% ; Pain 7/10; tw2 15:00 BP 112 / 87; Pulse 60; Resp 17; Pulse Ox 100% on R/A; tw2 16:18 BP 120 / 80; Pulse 57; Resp 17; Pulse Ox 99% on R/A; tw2 17:12 BP 113 / 71; Pulse 78; Resp 17; Pulse Ox 100% on R/A; tw2 13:13 Body Mass Index 26.29 (80.74 kg, 175.26 cm) iw ED Course: 12:46 Patient arrived in ED. as 13:12 Triage completed. iw 13:13 Arm band placed on. iw 13:16 Shabbir Esquivel MD is Attending Physician. kristen 13:18 Juliet Edwards, DELONTE is Primary Nurse. tw2 13:18 Bed in low position. Call light in reach. tw2 14:23 XRAY Chest (1 view) In Process Unspecified. EDMS 14:23 EKG done, by fishing tool technician oil well. reviewed by Shabbir Esquivel MD. sm3 14:57 Oral contrast reported to be complete. jg6 15:37 CT Abd/Pelvis - PO and IV Contrast In Process Unspecified. EDMS 16:52 NGT: inserted 14 Fr. via left nare. verified placement of air over stomach, to sg intermittent suction. Returned gastric contents. Patient tolerated well. 17:25 No provider procedures requiring assistance completed. Patient admitted, IV remains in tw2 place. PICC line in place to LEFT upper arm. 17:37 Abdomen 1 View XRAY: NG TUBE PLACEMENT In Process Unspecified. EDMS Administered Medications: 13:38 Drug: Zofran 4 mg Route: IVP; Site: PICC; tw2 14:24 Follow up: Response: No adverse reaction tw2 13:40 Drug: Dilaudid 0.5 mg Route: IVP; Site: PICC; tw2 14:24 Follow up: Response: No adverse reaction; Pain is decreased; RASS: Alert and Calm (0) tw2 13:42 Drug: Pepcid 20 mg Route: IVP; Site: PICC; tw2 14:24 Follow up: Response: No adverse reaction tw2 13:43 Drug: NS 0.9% 1000 ml Route: IV; Rate: 1 bolus; Site: PICC; tw2 15:00 Follow up: Response: No adverse reaction; IV Status: Completed infusion; IV Intake: tw2 1000ml 15:11 Drug: Flagyl 500 mg Volume: 100 ml; Route: IVPB; Rate: 200 ml/hr; Infused Over: 30 tw2 mins; Site: PICC; 16:01 Follow up: Response: No adverse reaction; IV Status: Completed infusion tw2 15:12 Drug: Potassium Chloride 20 mEq Route: IV; Rate: per protocol; Site: PICC; tw2 17:11 Follow up: IV Status: Infusion continued upon transfer tw2 15:12 Drug: NS 0.9% with KCl 20 mEq/L 1000 ml Route: IV; Rate: ml/hr; Site: PICC; tw2 17:11 Follow up: IV Status: Infusion continued upon transfer tw2 15:27 Drug: Dilaudid 0.5 mg Route: IVP; Site: PICC; tw2 16:02 Follow up: Response: No adverse reaction; Pain is decreased; RASS: Alert and Calm (0) tw2 16:00 Drug: Zosyn 3.375 grams Route: IVPB; Infused Over: 60 mins; Site: PICC; tw2 16:46 Follow up: Response: No adverse reaction; IV Status: Completed infusion tw2 16:55 Not Given (K+ infusing at this time, pt ready for transport): Potassium Chloride 20 mEq tw2 IV at per protocol once; administer over 1-2 hours 17:11 Drug: Potassium Phosphate 15 mmol Route: IV; Rate: per protocol; Site: PICC; tw2 17:12 Follow up: IV Status: Infusion continued upon transfer tw2 Intake: 15:00 IV: 1000ml; Total: 1000ml. tw2 Outcome: 14:39 ER care complete, transfer ordered by MD. peterson 17:25 Transferred by ground EMS to [facility]. tw2 17:25 Condition: stable 17:25 Instructed on the need for admit. 17:38 Patient left the ED. iw Signatures: Dispatcher [employer] EDCharles Jaramillo RN RN sg Anderson, Corey, MD MD cha Martinez, Amelia as Williams, Irene, RN RN iw Wise, Tara, RN RN tw2 Shelley Rao 3 Romana StarkMonica
--- NOTE | 2019-05-16 14:41 | EDPHYS ---
Physician Documentation [facility] Name: Kristopher Koehler Age: 58 yrs Sex: Male : 1960 Arrival Date: 05/16/2019 Time: 12:46 Bed 2 Private MD: ED Physician Shabbir Esquivel HPI: 05/16 14:35 This 58 yrs old Male presents to ER via Ambulatory with complaints of kristen Abdominal Pain. 14:35 The patient presents with abdominal pain in the upper abdomen, in the lower abdomen, kristen abdominal distention in the upper abdomen, in the lower abdomen. Onset: The symptoms/episode began/occurred 3 day(s) ago. The symptoms do not radiate. Associated signs and symptoms: Pertinent positives: anorexia, nausea. Modifying factors: The symptoms are alleviated by nothing. Severity of pain: At its worst the pain was moderate in the emergency department the pain is unchanged. The patient has experienced similar episodes in the past, several times. Historical: - Allergies: 13:13 Codeine; iw - Home Meds: 13:19 Ziac 5-6.25 mg Oral tab [Active]; levothyroxine 100 mcg tab 1 tab once daily [Active]; tw2 Keppra 1,000 mg Oral tab 1 tab every 12 hours [Active]; - PMHx: 13:13 Hypertension; Hypothyroidism; Insulin Resistance; Raynaud's syndrome; iw - PSHx: 13:13 stent in liver; iw - Immunization history:: Adult Immunizations. - Social history:: Smoking status: Patient/guardian denies using tobacco. - Ebola Screening: : Patient negative for fever greater than or equal to 101.5 degrees Fahrenheit, and additional compatible Ebola Virus Disease symptoms Patient denies exposure to infectious person Patient denies travel to an Ebola-affected area in the 21 days before illness onset No symptoms or risks identified at this time. - Family history:: not pertinent. ROS: 14:35 Constitutional: Negative for fever, chills, and weight loss, Eyes: Negative for injury, kristen pain, redness, and discharge, ENT: Negative for injury, pain, and discharge, Neck: Negative for injury, pain, and swelling, Cardiovascular: Negative for chest pain, palpitations, and edema, Respiratory: Negative for shortness of breath, cough, wheezing, and pleuritic chest pain, Back: Negative for injury and pain, : Negative for injury, bleeding, discharge, and swelling, MS/Extremity: Negative for injury and deformity, Skin: Negative for injury, rash, and discoloration, Neuro: Negative for headache, weakness, numbness, tingling, and seizure, Psych: Negative for depression, anxiety, suicide ideation, homicidal ideation, and hallucinations, Allergy/Immunology: Negative for hives, rash, and allergies, Endocrine: Negative for neck swelling, polydipsia, polyuria, polyphagia, and marked weight changes, Hematologic/Lymphatic: Negative for swollen nodes, abnormal bleeding, and unusual bruising. 14:35 Abdomen/GI: Positive for abdominal pain, nausea, abdominal distension, Negative for diarrhea, constipation. Exam: 14:35 Constitutional: This is a well developed, well nourished patient who is awake, alert, kristen and in no acute distress. Head/Face: Normocephalic, atraumatic. Eyes: Pupils equal round and reactive to light, extra-ocular motions intact. Lids and lashes normal. Conjunctiva and sclera are non-icteric and not injected. Cornea within normal limits. Periorbital areas with no swelling, redness, or edema. ENT: Nares patent. No nasal discharge, no septal abnormalities noted. Tympanic membranes are normal and external auditory canals are clear. Oropharynx with no redness, swelling, or masses, exudates, or evidence of obstruction, uvula midline. Mucous membranes moist. Neck: Trachea midline, no thyromegaly or masses palpated, and no cervical lymphadenopathy. Supple, full range of motion without nuchal rigidity, or vertebral point tenderness. No Meningismus. Chest/axilla: Normal chest wall appearance and motion. Nontender with no deformity. No lesions are appreciated. Cardiovascular: Regular rate and rhythm with a normal S1 and S2. No gallops, murmurs, or rubs. Normal PMI, no JVD. No pulse deficits. Respiratory: Lungs have equal breath sounds bilaterally, clear to auscultation and percussion. No rales, rhonchi or wheezes noted. No increased work of breathing, no retractions or nasal flaring. Back: No spinal tenderness. No costovertebral tenderness. Full range of motion. Skin: Warm, dry with normal turgor. Normal color with no rashes, no lesions, and no evidence of cellulitis. MS/ Extremity: Pulses equal, no cyanosis. Neurovascular intact. Full, normal range of motion. Neuro: Awake and alert, GCS 15, oriented to person, place, time, and situation. Cranial nerves II-XII grossly intact. Motor strength 5/5 in all extremities. Sensory grossly intact. Cerebellar exam normal. Normal gait. Psych: Awake, alert, with orientation to person, place and time. Behavior, mood, and affect are within normal limits. 14:35 Abdomen/GI: Inspection: abdomen appears normal, Bowel sounds: diminished, Palpation: moderate abdominal tenderness, in the right upper quadrant, left upper quadrant, right lower quadrant and left lower quadrant, Liver: no appreciated palpable abnormalities, Hernia: not appreciated. Vital Signs: 13:13 BP 111 / 90; Pulse 98; Resp 16; Pulse Ox 98% on R/A; Weight 80.74 kg; Height 5 ft. 9 iw in. (175.26 cm); Pain 10/10; 13:52 Temp 97.6(O); tw2 14:01 BP 120 / 85; Pulse 80; Resp 17; Pulse Ox 100% ; Pain 7/10; tw2 15:00 BP 112 / 87; Pulse 60; Resp 17; Pulse Ox 100% on R/A; tw2 16:18 BP 120 / 80; Pulse 57; Resp 17; Pulse Ox 99% on R/A; tw2 17:12 BP 113 / 71; Pulse 78; Resp 17; Pulse Ox 100% on R/A; tw2 13:13 Body Mass Index 26.29 (80.74 kg, 175.26 cm) iw MDM: 13:17 Patient medically screened. [facility] 14:38 Data reviewed: vital signs, nurses notes, lab test result(s), EKG, radiologic studies, [facility] CT scan, plain films. 05/16 13:18 Order name: Basic Metabolic Panel; Complete Time: 14:29 [facility] 05/16 13:18 Order name: CBC with Diff; Complete Time: 14:29 [facility] 05/16 13:18 Order name: LFT's; Complete Time: 14:29 [facility] 05/16 13:18 Order name: Magnesium; Complete Time: 14:29 [facility] 05/16 13:18 Order name: NT PRO-BNP; Complete Time: 14:29 [facility] 05/16 13:18 Order name: PT-INR; Complete Time: 14:29 [facility] 05/16 13:18 Order name: Troponin (emerg Dept Use Only); Complete Time: 14:29 [facility] 05/16 13:18 Order name: XRAY Chest (1 view); Complete Time: 15:10 [facility] 05/16 13:18 Order name: Lipase; Complete Time: 14:29 [facility] 05/16 14:33 Order name: CT Abd/Pelvis - PO and IV Contrast; Complete Time: 16:30 [facility] 05/16 14:33 Order name: Phosphorus; Complete Time: 16:30 [facility] 05/16 16:49 Order name: Abdomen 1 View XRAY: NG TUBE PLACEMENT 05/16 13:18 Order name: EKG; Complete Time: 13:19 [facility] 05/16 13:18 Order name: Cardiac monitoring; Complete Time: 13:19 [facility] 05/16 13:18 Order name: EKG - Nurse/Tech; Complete Time: 17:13 [facility] 05/16 13:18 Order name: Labs collected and sent; Complete Time: 13:44 [facility] 05/16 13:18 Order name: O2 Per Protocol; Complete Time: 13:20 [facility] 05/16 13:18 Order name: O2 Sat Monitoring; Complete Time: 13:20 [facility] 05/16 16:30 Order name: NG Tube: TO LOW INT SUC; Complete Time: 16:46 [facility] Administered Medications: 13:38 Drug: Zofran 4 mg Route: IVP; Site: PICC; tw2 14:24 Follow up: Response: No adverse reaction tw2 13:40 Drug: Dilaudid 0.5 mg Route: IVP; Site: PICC; tw2 14:24 Follow up: Response: No adverse reaction; Pain is decreased; RASS: Alert and Calm (0) tw2 13:42 Drug: Pepcid 20 mg Route: IVP; Site: PICC; tw2 14:24 Follow up: Response: No adverse reaction tw2 13:43 Drug: NS 0.9% 1000 ml Route: IV; Rate: 1 bolus; Site: PICC; tw2 15:00 Follow up: Response: No adverse reaction; IV Status: Completed infusion; IV Intake: tw2 1000ml 15:11 Drug: Flagyl 500 mg Volume: 100 ml; Route: IVPB; Rate: 200 ml/hr; Infused Over: 30 tw2 mins; Site: PICC; 16:01 Follow up: Response: No adverse reaction; IV Status: Completed infusion tw2 15:12 Drug: Potassium Chloride 20 mEq Route: IV; Rate: per protocol; Site: PICC; tw2 17:11 Follow up: IV Status: Infusion continued upon transfer tw2 15:12 Drug: NS 0.9% with KCl 20 mEq/L 1000 ml Route: IV; Rate: ml/hr; Site: PICC; tw2 17:11 Follow up: IV Status: Infusion continued upon transfer tw2 15:27 Drug: Dilaudid 0.5 mg Route: IVP; Site: PICC; tw2 16:02 Follow up: Response: No adverse reaction; Pain is decreased; RASS: Alert and Calm (0) tw2 16:00 Drug: Zosyn 3.375 grams Route: IVPB; Infused Over: 60 mins; Site: PICC; tw2 16:46 Follow up: Response: No adverse reaction; IV Status: Completed infusion tw2 16:55 Not Given (K+ infusing at this time, pt ready for transport): Potassium Chloride 20 mEq tw2 IV at per protocol once; administer over 1-2 hours 17:11 Drug: Potassium Phosphate 15 mmol Route: IV; Rate: per protocol; Site: PICC; tw2 17:12 Follow up: IV Status: Infusion continued upon transfer tw2 Disposition: 05/16/19 14:39 Transfer ordered to [facility]. Diagnosis are Abdominal tenderness, Anorexia, Nausea, Hypokalemia, Weakness, Hypocalcemia, Other intestinal obstruction - SMALL BOWEL OBSTRUCTION. - Reason for transfer: Higher level of care. - Accepting physician is to dr woods...... [facility]. - Condition is Serious. - Problem is new. - Symptoms have improved. Signatures: Dispatcher [employer] EDShabbir Rosas MD MD cha Williams, Irene, DELONTE RN Juliet Edwards RN RN tw2 Corrections: (The following items were deleted from the chart) 13:44 13:18 IV Saline Lock ordered. [facility] 15:10 14:35 IV Saline Lock - Large Bore ordered. kristen 2 15:28 14:39 05/16/2019 14:39 Transfer ordered to [facility]. Diagnosis is kristen Abdominal tenderness; Anorexia; Nausea. Reason for transfer: Higher level of care. Accepting physician is to dr johnston.... [facility]. Condition is Serious. Problem is new. Symptoms have improved. kristen 16:29 15:28 05/16/2019 14:39 Transfer ordered to [facility]. Diagnosis is kristen Abdominal tenderness; Anorexia; Nausea; Hypokalemia; Weakness; Hypocalcemia. Reason for transfer: Higher level of care. Accepting physician is to dr johnston.... [facility]. Condition is Serious. Problem is new. Symptoms have improved. kristen 17:38 16:29 05/16/2019 14:39 Transfer ordered to [facility]. Diagnosis is iw Abdominal tenderness; Anorexia; Nausea; Hypokalemia; Weakness; Hypocalcemia; Other intestinal obstruction - SMALL BOWEL OBSTRUCTION. Reason for transfer: Higher level of care. Accepting physician is to dr woods.Yesenia.... [facility]. Condition is Serious. Problem is new. Symptoms have improved. [facility]
[2019-05-16] MEDS ORDERED: NS KCL 20MEQ 1,000 ML IV ONE (14:46)
[2019-05-16] MEDS ORDERED: KCL 20 MEQ/100 mL IVPB 0 MEQ/0 ML BAG IV ONE (14:47)
[2019-05-16] MEDS ORDERED: PIPER/TAZO/NS 3.375gm 3.375 GM/100 ML BAG ONE ×2 (14:47→16:01)
[2019-05-16] MEDS ORDERED: METRONIDAZOLE 500mg IVPB 500 MG/100 ML BAG IV ONE (14:47)
[2019-05-16] MEDS ORDERED: KCL 20 MEQ/100 mL IVPB 20 MEQ/100 ML BAG IV ONE (15:13)
--- NOTE | 2019-05-16 15:17 | EKG ---
Test Date: 2019-05-16 Test Time: 14:07:32 Motorcyles Final Inspector: COURTNEY MEASUREMENT RESULTS: Intervals: Rate: 86 CO: 132 QRSD: 76 QT: 364 QTc: 435 [place]: P: 49 CO: 132 QRS: -32 T: 21 INTERPRETIVE STATEMENTS: Normal sinus rhythm Left axis deviation Abnormal ECG Compared to ECG 10/16/2018 14:06:46 Left-axis deviation now present Atrial abnormality no longer present Electronically Signed On 05-16-19 15:17:19 CDT by Robby Todd
--- NOTE | 2019-05-16 16:05 | RAD REPORT ---
EXAM DESCRIPTION: CT - Abdomen Pelvis W Contrast - 05/16/2019 3:35 pm CLINICAL HISTORY: ABD PAINabdominal pain, history of liver stent for abscess drainage COMPARISON: CT study May 10 TECHNIQUE: Biphasic, helical CT imaging of the abdomen and pelvis was performed following 100 ml non -ionic IV contrast. Oral contrast administered. All CT scans are performed using dose optimization technique as appropriate and may include automated exposure control or mA/KV adjustment according to patient size. FINDINGS: Lung base atelectasis changes are present. No pleural effusion. No pericardial effusion. No change in positioning of the drainage catheter in the posterior right lobe of the liver. The surro unding phlegmonous or hypodense liver parenchyma is not clearly different. The cystic areas more late ral and anterior in the right lobe also unchanged over this short interval. No clearly progressive li melvi parenchymal process seen. No focal splenic abnormality. Air within the gallbladder lumen present similar to comparison. No biliary tree dilatation. Pancreati c tail pseudocyst has not changed in size. Small adjacent cystic structures along the superior margin are also stable. Symmetric renal function is seen with no hydronephrosis or suspicious renal mass. No pyelonephritis o r acute parenchymal process. No bladder abnormalities. No adrenal abnormalities. Contrast and air filled the stomach. No gastric wall thickening or mass. No gastric outlet obstructio n. The duodenum is not dilated. Oral contrast has reached the mid jejunum. Small bowel becomes dilate d at the mid jejunum level and extends has dilated small bowel to the mid ileum level. There is an ab rupt transition right mid abdomen. An obstructing mass is not seen. There is edematous/inflammatory c hange in the peritoneal fatty tissues in this region. No abscess at this site. This is a new finding from the prior study. No free air or pneumatosis. An additional drain tube is present in the left anterior mid abdomen. This fluid collection which ext ends medially and inferiorly into the lower abdomen has diminished in size since May 10. No suspicious bony findings. IMPRESSION: Small bowel obstruction pattern with an abrupt transition mid ileum in the right mid abd omen. No obstructing mass of the transition point. There is localized edematous/inflammatory stranding in t his region. Drainage catheter remains in place in the posterior right lobe liver with the hypodense or phlegmonou s liver tissue and adjacent small cystic structures not significantly different from comparison. Left mid abdomen drainage catheter remains in place. The fluid collection at this site and fluid jaleesa ection that continues medially and inferiorly in the peritoneal cavity have diminished in size since May 10. No new abscess or free air.
[2019-05-16] MEDS ORDERED: POTASSIUM PHOS IN 0.9 % NACL 15 MMOL/250 ML BAG IV ONE (16:45)
[2019-05-16] MEDS ORDERED: LIDOCAINE VISCOUS 2% SOLN 15 ML UDC ONE (16:47)
[2019-05-16 17:49] VITALS: TEMP 97.6
[2019-05-16 17:54] VITALS: BP 113/71; O2SAT 100
--- NOTE | 2019-05-16 17:57 | RAD REPORT ---
EXAM DESCRIPTION: RAD - Abdomen Single View - 05/16/2019 5:36 pm CLINICAL HISTORY: ABD PAIN COMPARISON: CT May 16 FINDINGS: Gas distended but nondilated stomach is seen. No free air or pneumatosis. Dilated small graciela wel loops are present. Pigtail drainage catheter is seen in the right upper quadrant an additional dr ain tube is seen in the left mid abdomen. No suspicious calcifications. Contrast is present in the pa rtially imaged bladder. No significant bony findings IMPRESSION: Multiple dilated small bowel loops matching the CT study.
== END 2019-05-16 17:38 | disposition short-term general hospital (02) ==
LOC: ER 12:44
DX: K56.609 Unspecified intestinal obstruction, unspecified as to partial versus complete obstruction (principal); E87.6 Hypokalemia; R63.0 Anorexia; R11.0 Nausea; E83.51 Hypocalcemia; I10 Essential (primary) hypertension; E03.9 Hypothyroidism, unspecified; E88.81 Metabolic syndrome and other insulin resistance; Z88.5 Allergy status to narcotic agent
CPT/HCPCS: 93005; 85025; 80048; 36415; 83735; 84100; 85610; 80076; 84484; 83690; 83880; 74177; 74018; 71045; Q9967; J2543 ×2; J1170 ×2; J7030; J2405; 96361; 96365; 96367; 96375; 99285